=== PATIENT | male | born 1955 | race Caucasian/White ===

== ENCOUNTER 2023-11-01 14:20 | Emergency (ER) | payer BC, SELFPAY ==
[2023-11-01 14:40] VITALS: BP 112/54; PULSE 76; RESP 20; TEMP 37.3; O2SAT 98; BMI 28.0
--- NOTE | 2023-11-01 14:53 | EXP.UTC ---
Discharge Plan Disposition Condition: Good Prescriptions Prescriptions: No Action atorvastatin 40 mg tablet 40 mg PO DAILY metoprolol succinate 100 mg tablet extended release 24 hr 100 mg PO DAILY lisinopril 10 mg tablet 10 mg PO DAILY finasteride 5 mg tablet 5 mg PO DAILY Referrals Follow up/Referrals: Orlin Elizabeth MBBS [Primary Care Provider] - See instructions Activity Restrictions/Add. Instructions Additional Instructions/Restrictions: *Monitor Temp, Over the counter Motrin or Tylenol as directed/as needed Tylenol every 4 hours and Motrin every 6 hours (as long as your family doctor has told you that you can take it) for fever or pain. and straight to ER if unable to lower temp less than 101.0 after medication given *Warm salt water gargles may help to soothe the throat *Throat Lozenges? *Warm fluids like tea with honey may help to soothe the throat? *Sleep elevated *Humidifier/Vaporizer Over the counter cold and cough medications may help with symptoms Follow up IMMEDIATELY for new or worsening symptoms or no Noticeable improvement over the next 48-72 hours. 911 for difficulty breathing or swallowing Clinical Impressions Clinical Impression: Viral syndrome Instructions Patient Instructions: DI for COVID-19 (Suspected or Confirmed ) Discharge ED Provider: Sherrie Holland [facility] General Stated complaint: pos at home covid test 11/01 Mode of Arrival: Ambulatory Source of Information: Patient Limitations: No Limitations Time Seen by Provider: 11/01/23 14:53 Description of Symptoms (Recalled from Triage Doc. by RN): PATIENT REPORTS A POSITIVE AT HOME COVID TEST TODAY. C/O FEVER AND CONGESTION HEENT Symptoms (Recalled from RN notes): No Resp Symptoms (Recalled from RN notes): No Skin Symptoms (Recalled from RN notes): No MS Symptoms (Recalled from RN notes): No Functional Status (Recalled from RN notes): WNL History of Present Illness Provider Complaint: Patient states that he has been taking care of his that is positive for COVID States that he started with some sinus congestion and runny nose yesterday and took a COVID test and he was negative but today he started having some chills, and feeling like he had a fever and took another home test and it showed positive States that he wanted to come in here and get some Paxlovid Related Data Home Medications Medication Instructions Recorded Confirmed atorvastatin 40 mg tablet 40 mg PO DAILY 11/01/23 11/01/23 finasteride 5 mg tablet 5 mg PO DAILY 11/01/23 11/01/23 lisinopril 10 mg tablet 10 mg PO DAILY 11/01/23 11/01/23 metoprolol succinate 100 mg 100 mg PO DAILY 11/01/23 11/01/23 tablet,extended release 24 hr Allergies Allergy/AdvReac Type Severity Reaction Status Date / Time No Known Allergies Allergy Verified 11/01/23 14:50 Worker's Comp Is this a Worker's Comp case?: No [facility] Disclaimer: The information contained in this section may have been updated after the patient was seen, as this information can be updated by other users. Medical History (Updated 11/01/23 @ 15:10 by Sherrie Holland APRN) Hyperlipidemia Hypertension Social History Smoking Status: Unknown if ever smoked alcohol intake: never current occupational status: employed Travel in the last 8 weeks: None ROS Obtained: Yes All systems reviewed & no additional complaints except as documented and Yes Systems reviewed as appropriate & no additional complaints except as documented Constitutional Constitutional: Reports system reviewed and no additional complaints, except as documented, Reports as per HPI, Reports body ache, Reports chills and Reports fever(s) ENT Ears, Nose, Mouth, and Throat: Reports system reviewed and no additional complaints, except as documented, Reports as per HPI, Reports nasal congestion and Reports nasal discharge Cardiovascular Cardiovascular: Rep
[2023-11-01 14:54] VITALS: BP 112/54; PULSE 76; RESP 20; TEMP 37.3; O2SAT 98
== END 2023-11-01 15:10 | disposition home or self-care (01) ==
PROVIDERS: Emergency Provider Nurse Practitioner; PCP Family Medicine Sports Medicine
DX: R09.81 Nasal congestion (principal); R50.9 Fever, unspecified; I10 Essential (primary) hypertension; E78.5 Hyperlipidemia, unspecified; Z20.822 Contact with and (suspected) exposure to COVID-19
CPT/HCPCS: 99204; 99212; G0463

== ENCOUNTER 2024-04-06 09:26 | Outpatient (CLI) | payer BC, SELFPAY ==
[2024-04-06 10:09] LABS: INR 2.51 (0.9-1.1); Prothrombin Time 25.5 seconds (10.1-12.5)
== END 2024-04-06 23:59 | disposition home or self-care (01) ==
LOC: LAB 09:29
PROVIDERS: PCP Family Medicine Sports Medicine; Visit Provider Nurse Practitioner
DX: Z51.81 Encounter for therapeutic drug level monitoring (principal); Z79.01 Long term (current) use of anticoagulants
CPT/HCPCS: 36415; 85610

== ENCOUNTER 2024-04-13 12:53 | Outpatient (CLI) | payer BC, SELFPAY ==
[2024-04-13 15:36] LABS: INR 1.87 (0.9-1.1); Prothrombin Time 19.4 seconds (10.1-12.5)
== END 2024-04-13 23:59 | disposition home or self-care (01) ==
LOC: LAB 12:54
PROVIDERS: PCP Nurse Practitioner; Visit Provider Internal Medicine Cardiovascular Disease
DX: Z51.81 Encounter for therapeutic drug level monitoring (principal); Z79.01 Long term (current) use of anticoagulants
CPT/HCPCS: 36415; 85610

== ENCOUNTER 2024-04-20 15:27 | Outpatient (CLI) | payer BC, SELFPAY ==
[2024-04-20 16:25] LABS: INR 1.41 (0.9-1.1); Prothrombin Time 14.9 seconds (10.1-12.5)
== END 2024-04-20 23:59 | disposition home or self-care (01) ==
LOC: LAB 15:31
PROVIDERS: Nurse Practitioner; Visit Provider Internal Medicine Cardiovascular Disease
DX: Z79.01 Long term (current) use of anticoagulants (principal); R71.8 Other abnormality of red blood cells
CPT/HCPCS: 36415; 85610

== ENCOUNTER 2024-04-26 14:45 | Outpatient (CLI) | payer BC, SELFPAY ==
[2024-04-26 16:09] LABS: INR 1.82 (0.9-1.1); Prothrombin Time 18.9 seconds (10.1-12.5)
== END 2024-04-26 23:59 | disposition home or self-care (01) ==
LOC: LAB 14:47
PROVIDERS: Nurse Practitioner; PCP Family Medicine Sports Medicine; Visit Provider Internal Medicine Cardiovascular Disease
DX: Z79.01 Long term (current) use of anticoagulants (principal); R71.8 Other abnormality of red blood cells
CPT/HCPCS: 36415; 85610

== ENCOUNTER 2024-05-11 09:33 | Outpatient (CLI) | payer BC, SELFPAY ==
[2024-05-11 10:22] LABS: Prothrombin Time 17.1 seconds (10.1-12.5)
== END 2024-05-11 23:59 | disposition home or self-care (01) ==
LOC: LAB 09:34
PROVIDERS: Nurse Practitioner; PCP Family Medicine Sports Medicine; Visit Provider Internal Medicine Cardiovascular Disease
DX: Z79.01 Long term (current) use of anticoagulants (principal)
CPT/HCPCS: 36415; 85610

== ENCOUNTER 2024-05-18 17:00 | Outpatient (CLI) | payer BC, SELFPAY ==
[2024-05-18 17:56] LABS: INR 1.49 (0.9-1.1)
== END 2024-05-18 23:59 | disposition home or self-care (01) ==
LOC: LAB 17:02
PROVIDERS: Nurse Practitioner; PCP Family Medicine Sports Medicine; Visit Provider Family Medicine Sports Medicine
DX: Z79.01 Long term (current) use of anticoagulants (principal)
CPT/HCPCS: 36415; 85610

== ENCOUNTER 2024-06-28 12:00 | Outpatient (CLI) | payer BC, SELFPAY ==
[2024-06-28 12:58] LABS: INR 1.64 (0.9-1.1); Prothrombin Time 17.5 seconds (10.1-12.5)
== END 2024-06-28 23:59 | disposition home or self-care (01) ==
PROVIDERS: PCP Family Medicine Sports Medicine; Visit Provider Nurse Practitioner
DX: Z79.01 Long term (current) use of anticoagulants (principal)
CPT/HCPCS: 36415; 85610

== ENCOUNTER 2024-07-06 12:58 | Outpatient (CLI) | payer BC, SELFPAY ==
[2024-07-06 13:24] LABS: Prothrombin Time 28.3 seconds (10.1-12.5)
== END 2024-07-06 23:59 | disposition home or self-care (01) ==
PROVIDERS: PCP Family Medicine Sports Medicine; Visit Provider Nurse Practitioner
DX: Z79.01 Long term (current) use of anticoagulants (principal)
CPT/HCPCS: 36415; 85610

== ENCOUNTER 2024-07-18 11:55 | Outpatient (CLI) | payer BC, SELFPAY ==
[2024-07-18 12:54] LABS: INR 3.01 (0.9-1.1); Prothrombin Time 30.2 seconds (10.1-12.5)
== END 2024-07-18 23:59 | disposition home or self-care (01) ==
LOC: LAB 11:57
PROVIDERS: PCP Family Medicine Sports Medicine; Visit Provider Family Medicine Sports Medicine
DX: Z79.01 Long term (current) use of anticoagulants (principal)
CPT/HCPCS: 36415; 85610

== ENCOUNTER 2024-08-08 11:00 | Outpatient (CLI) | payer BC, SELFPAY ==
[2024-08-08 12:08] LABS: Prothrombin Time 22.8 seconds (10.1-12.5)
== END 2024-08-08 23:59 | disposition home or self-care (01) ==
LOC: LAB 11:01
PROVIDERS: PCP Family Medicine Sports Medicine; Visit Provider Family Medicine Sports Medicine
DX: Z79.01 Long term (current) use of anticoagulants (principal)
CPT/HCPCS: 36415; 85610

== ENCOUNTER 2024-09-06 10:10 | Outpatient (CLI) | payer BC, SELFPAY ==
[2024-09-06 10:53] LABS: INR 2.12 (0.9-1.1)
== END 2024-09-06 23:59 | disposition home or self-care (01) ==
LOC: LAB 10:11
PROVIDERS: Nurse Practitioner; PCP Family Medicine Sports Medicine; Visit Provider Family Medicine Sports Medicine
DX: Z79.01 Long term (current) use of anticoagulants (principal)
CPT/HCPCS: 36415; 85610

== ENCOUNTER 2024-10-27 11:56 | Outpatient (CLI) | payer BC, SELFPAY ==
[2024-10-27 12:36] LABS: Prothrombin Time 37.3 seconds (10.1-12.5)
== END 2024-10-27 23:59 | disposition home or self-care (01) ==
LOC: LAB 11:58
PROVIDERS: Nurse Practitioner; PCP Family Medicine Sports Medicine; Visit Provider Family Medicine Sports Medicine
DX: Z79.01 Long term (current) use of anticoagulants (principal)
CPT/HCPCS: 36415; 85610

== ENCOUNTER 2024-11-10 11:45 | Outpatient (CLI) | payer BC, SELFPAY ==
[2024-11-10 12:47] LABS: INR 2.85 (0.9-1.1); Prothrombin Time 28.8 seconds (10.1-12.5)
== END 2024-11-10 23:59 | disposition home or self-care (01) ==
PROVIDERS: PCP Family Medicine Sports Medicine; Visit Provider Nurse Practitioner
DX: Z79.01 Long term (current) use of anticoagulants (principal)
CPT/HCPCS: 36415; 85610

== ENCOUNTER 2024-12-07 15:33 | Outpatient (CLI) | payer BC, SELFPAY ==
[2024-12-07 16:11] LABS: INR 2.09 (0.9-1.1); Prothrombin Time 21.3 seconds (9.2-12.1)
== END 2024-12-07 23:59 | disposition home or self-care (01) ==
LOC: LAB 15:35
PROVIDERS: PCP Family Medicine Sports Medicine; Visit Provider Family Medicine Sports Medicine
DX: Z79.01 Long term (current) use of anticoagulants (principal)
CPT/HCPCS: 36415; 85610

== ENCOUNTER 2025-01-04 13:42 | Outpatient (CLI) | payer BC, SELFPAY ==
[2025-01-04 14:22] LABS: INR 1.87 (0.9-1.1); Prothrombin Time 19.7 seconds (10.1-12.5)
== END 2025-01-04 23:59 | disposition home or self-care (01) ==
LOC: LAB 13:43
PROVIDERS: Nurse Practitioner; PCP Family Medicine Sports Medicine; Visit Provider Family Medicine Sports Medicine
DX: Z79.01 Long term (current) use of anticoagulants (principal)
CPT/HCPCS: 36415; 85610

== ENCOUNTER 2025-02-01 11:02 | Outpatient (CLI) | payer BC, SELFPAY ==
[2025-02-01 11:29] LABS: INR 2.47 (0.9-1.1); Prothrombin Time 25.3 seconds (10.1-12.5)
== END 2025-02-01 23:59 | disposition home or self-care (01) ==
LOC: LAB 11:04
PROVIDERS: Visit Provider Nurse Practitioner
DX: Z79.01 Long term (current) use of anticoagulants (principal)
CPT/HCPCS: 36415; 85610

== ENCOUNTER 2025-02-28 14:40 | Outpatient (CLI) | payer BC, SELFPAY ==
[2025-02-28 15:31] LABS: Prothrombin Time 25.6 seconds (10.1-12.5)
== END 2025-02-28 23:59 | disposition home or self-care (01) ==
LOC: LAB 14:41
PROVIDERS: Nurse Practitioner; PCP Family Medicine Sports Medicine; Visit Provider Family Medicine Sports Medicine
DX: Z79.01 Long term (current) use of anticoagulants (principal)
CPT/HCPCS: 36415; 85610

== ENCOUNTER 2025-03-29 13:03 | Outpatient (CLI) | payer BC, SELFPAY ==
[2025-03-29 14:11] LABS: INR 1.69 (0.9-1.1)
== END 2025-03-29 23:59 | disposition home or self-care (01) ==
LOC: LAB 13:04
PROVIDERS: PCP Family Medicine Sports Medicine; Visit Provider Family Medicine Sports Medicine
DX: Z79.01 Long term (current) use of anticoagulants (principal)
CPT/HCPCS: 36415; 85610

== ENCOUNTER 2025-04-13 11:46 | Outpatient (CLI) | payer BC, SELFPAY ==
[2025-04-13 12:20] LABS: INR 2.78 (0.9-1.1); Prothrombin Time 28.6 seconds (10.1-12.5)
== END 2025-04-13 23:59 | disposition home or self-care (01) ==
LOC: LAB 11:47
PROVIDERS: PCP Family Medicine Sports Medicine; Visit Provider Nurse Practitioner
DX: Z79.01 Long term (current) use of anticoagulants (principal)
CPT/HCPCS: 36415; 85610

== ENCOUNTER 2025-05-18 10:53 | Outpatient (CLI) | payer BC, SELFPAY ==
--- OUTSIDE RECORDS SUMMARY | 2025-03-20 12:30 | XMS_ITS | Encounter Summary ---
Author Organization [facility] Address [address] [place] [address] Care Team Providers Care Adventure Challenge Instructor Name Role Phone Josseline Longo Unavailable [phone] Orlin Elizabeth MD Primary Care Provider Jess Hawk HEAT TREATING OPERATOR Unavailable [phone] Rafaela Brantley PharmD Unavailable [phone] Jovana Wetzel PharmD Unavailable + Skyla Mai Unavailable [phone] Reason for Referral * Imaging (Routine) - Pending Review Specialty Diagnoses / Procedures Referred By Contherminio t Referred To Contact Radiology Diagnoses Benign prostatic hyperplasia with nocturia Incomplete bladder emptying Procedures CT Renal Stone wo IV Contrast Skyla Mai PA [address] [place] [address] Phone: tel: fax: Referral ID Status Reason Start Date Expiration Date V isits Requested Visits Authorized [id number] Pending Review 03/20/2025 09/19/2026 1 1 Reason for Visit * Reason Comments Follow-up Encounter Details Date Type Department Care Team (Late st Contact Info) Description 03/20/2025 12:30 PM EDT Office Visit [place] [facility] [address] [place] [address] Skyla Mai PA [address] [place] [address] Benign prostatic hyperplasia with nocturia (Primary Dx); Incomplete bladder emptying; Prostate cancer screening Social History Tobacco Use Types Packs/Day Years Used Date Smoking Tobacco: Never Smokeless Tobacco: Never Alcohol Use Standard Drinks/Week Comments Not Currently 0 (1 standard drink = 0.6 oz pur e alcohol) Humiliation, Afraid, Rape, and Kick questionnair e Answer Date Recorded Within the last year, have y ou been afraid of your partner or ex-partner? No 02/17/2024 Within the last year, have y ou been humiliated or emotionally abused in other ways by your partner or ex-partner? No Within the last year, have y ou been kicked, hit, slapped, or otherwise physically hurt by your partner or ex-partner? No 02/17/2024 Within the last year, have y ou been raped or forced to have any kind of sexual activity by your partner or ex-partner? No 02/17/2024 PHQ-2 Answer Date Recorded Patient Health Questionnaire-2 Score 0 11/30/2024 Hunger Vital Sign Answer Date Recorded Within the past 12 months, y ou worried that your food would run out before you got the money to buy more. Never true 03/16/20 24 Within the past 12 months, t he food you bought just didn't last and you didn't have money to get more. Never true 03/16/2024 PRAPARE - Transportation Answer Date Re corded In the past 12 months, has l ack of transportation kept you from medical appointments or from getting medications? No 06/2024 In the past 12 months, has l ack of transportation kept you from meetings, work, or from getting things needed for daily living? No 03/16/2024 Housing Stability Vital Sign Answer Carlos e Recorded In the last 12 months, was t here a time when you were not able to pay the mortgage or rent on time? No 03/16/2024 In the last 12 months, how many places have you lived? 1 03/16/2024 In the last 12 months, was t here a time when you did not have a steady place to sleep or slept in a fdc (including now)? No 03/16/2024 CAGE ASSESSMENT Answer Date Recorded Cage unable to access Not on file 03/16/2024 Cage max number of drinks Not on file 2023 Cage Beverages a week Not on file 03/16/2024 Have you ever felt you should CUT down on your d rinking? 0 03/16/2024 Have you been ANNOYED by people criticizing your drinking? 0 03/16/2024 Have you felt GUILTY about your drinking? 0 03/16/2024 Have you had a drink first t jorge in the morning (EYE-AUTO REPAIR TECHNICIAN) to steady your nerves or to get rid of a hangover? 0 03/16/2024 CAGE Questionnaire Score 0 024 Utilities Answer Date Recorded In the past 12 months has th e electric, gas, oil, or water company threatened to shut off services in your home? No 03/16/2024 PHQ-2A Answer Date Recorded Patient Health Questionnaire-2 Score 0 05/20/2023 Sex and Gender Information Value Date Recorded Sex Assigned at Not on file Legal Sex Male 8:17 PM EDT Gender Identity Not on file Sexual Orientation Not on file documented as of this encounter Last Filed Vital Signs Vital Sign Reading Time Taken Comments Blood Pressure 109/63 03/20/2025 12:35 PM EDT Pulse 60 03/20/2025 12:35 PM EDT Temperature 36.5 C (97.7 F) 03/20/2025 12:35 PM EDT Respiratory Rate - - Oxygen Saturation 97% 03/20/2025 12:35 PM EDT Inhaled Oxygen Concentration - - Weight 82 kg (180 lb 12.4 oz) 03/20/2025 12:35 P M EDT Height - - Body Mass Index 25.21 11/30/2024 2:16 PM EST documented in this encounter Miscellaneous Notes * Progress Notes - Skyla Mai PA - 03/20/2025 12:30 PM EDT [facility] Note 03/20/25 CC: LUTS HPI: Marco A Ness III is a 69 y.o. M with hx of nephrolithiasis, BPH with LUTS managed with finasteride and tamsulosin 0.8mg daily who returns today for symptom check. Since last seen he underwent cardiac ablation for a fib. Also now taking coumadin. He is attempting to drink more water, and notes significant increased urinary urgency, wearing a diaper now for leakage. Leakage is mostly associated with increased urgency. He utilizes one diaper daily without being completely saturated. No overnight leakage. He has sleep apnea and wakes once nightly to urinate. He denies: dysuria, hematuria, frequency, fever, abdominal or flank pain. He denies recurrent UTI. No kidney stones since 2003, has increased his fluid intake significantly since that time and has had minimal symptoms or stone related episodes since that time. IPSS Date 03/23/24 03/20/25 Incomplete Emptying 1 0 Frequency 3 3 Intermittency 0 0 Urgency 3 5 Weak Stream 3 1 Straining 0 2 Nocturia 2 1 QOL 2 3 Prior hx: He previously underwent cystoscopy with Dr. Merritt for workup of potential [place] procedure, which showed a very large intravesical median lobe and lateral lobe hypertrophy. Per patient, they discussedthat his prostate is too large for Urolift, would likely need a TURP. He does not feel his symptomsare bothersome enough at this time to pursue surgical treatment. PMHx: Past Medical History: Diagnosis Date A-fib (CMS/HCC) BPH (benign prostatic hyperplasia) Cardiomyopathy Colon polyp 03/03/2023 Conversions - Other Urethral Stone Personal history of other mental and behavioral disorders History of depression Primary central sleep apnea In my history Sleep apnea 2017? Tremor PSHx: Past Surgical History: Procedure Laterality Date JOINT REPLACEMENT 07/2019, 10/2014 KNEE SURGERY Left 2010 LITHOTRIPSY N/A Lithotripsy from [facility] TOTAL HIP ARTHROPLASTY N/A Hip Replacement from [facility] FHx: Family History Problem Relation Name Age of Onset Alzheimer's disease Mother Aiyana Ness Diabetes Mother Aiyana Ness arteriosclerotic cardiovascular disease Father Marco A Diabetes Father Marco A Heart attack Father Marco A Nephrolithiasis Father Marco A Cancer Father Marco A Heart disease Father Marco A Obesity Father Marco A SHx: Social History Socioeconomic History Marital status: Spouse name: Not on file Number of children: Not on file Years of education: Not on file Highest education level: Not on file Occupational History Not on file Tobacco Use Smoking status: Never Smokeless tobacco: Never Vaping Use Vaping status: Never Used Substance and Sexual Activity Alcohol use: Not Currently Drug use: Never Sexual activity: Not Currently Partners: Female control/protection: None Other Topics Concern Not on file Social History Narrative Occupation: Marital History - Currently Social Drivers of Health Financial Resource Strain: Not on file Food Insecurity: No Food Insecurity (03/16/2024) Hunger Vital Sign Worried About Running Out of Food in the Last Year: Never true Ran Out of Food in the Last Year: Never true Transportation Needs: No Transportation Needs (03/16/2024) PRAPARE - Transportation Lack of Transportation (Medical): No Lack of Transportation (Non-Medical): No Physical Activity: Not on file Stress: Not on file Social Connections: Not on file Intimate Partner Violence: Not At Risk (02/17/2024) Humiliation, Afraid, Rape, and Kick questionnaire Fear of Current or Ex-Partner: No Emotionally Abused: No Physically Abused: No Sexually Abused: No Housing Stability: Low Risk (03/16/2024) Housing Stability Vital Sign Unable to Pay for Housing in the Last Year: No Number of Places Lived in the Last Year: 1 Unstable Housing in the Last Year: No Physical Exam: General: alert, active, in no acute distress Head: normocephalic Eyes: extraocular muscles intact Lungs: normal respiratory effort Neuro: CN II- XII intact Musculoskeletal: BL UE demonstrate equal movement Labs: Creatinine, Plasma (mg/dL) Date/Time Value 11/30/2024 1504 1.06 eGFRcr (mL/min/1.73m*2) Date/Time Value 11/30/2024 1504 76.0 Total Calcium, Plasma (mg/dL) Date/Time Value 11/30/2024 1504 8.9 WBC Count (10*3/uL) Date/Time Value 06/16/2024 1605 7.04 HGB (g/dL) Date/Time Value 06/16/2024 1605 14.4 HCT (%) Date/Time Value 06/16/2024 1605 43.5 Platelet Count (10*3/uL) Date/Time Value 06/16/2024 1605 246 Lab Results Component Value Date/Time PSASC 0.70 11/21/2022 1124 PSASC 0.71 05/07/2022 1126 Lab Results Component Value Date PSA 0.45 03/20/2025 PSA 0.50 03/23/2024 PSA 0.68 03/11/2023 PSA 0.98 10/10/2020 PSA 3.49 05/16/2019 Imaging: PVR bladder ultrasound 03/23/24: 284mL PVR bladder ultrasound 03/20/25: 470mL Procedure: Discussed options for bladder management and ultimately elected for CIC. Was taught to pass catheter in clinic. Advised to try to void spontaneously q 3-4 hours during the daytime and if unable, should pass catheter to empty bladder at least morning, noon and at night before bed. Provided with samples of 14Fr coude and 12 Fr coude disposable catheters and instructions. Assessment: Marco A Ness III is a 69 y.o. M with hx of nephrolithiasis and lower urinary tract symptoms. His symptoms have previously been managed with finasteride and tamsulosin, but today patientendorses worsening LUTS including urinary incontinence and his PVR was elevated today to 470 mL. Wediscussed that his incontinence is likely a mix of urge and overflow incontinence given incomplete bladder emptying. PSA remains low today, 0.45. We discussed options including learning how to perform CIC vs meeting with Dr. Thompson to discuss an outlet procedure, and patient is leaning towards a procedure. This is complicated by the fact that he is on coumadin for anticoagulation (for a fib), andthis does limit options available to him. He would still like to discuss recommendations, thereforeI will order CT A/P for further evaluation of prostate size (and to reassess hx of nephrolithiasis). Briefly discussed green light laser vaporization of the prostate. In the interim, he is agreeable to performing CIC three times daily to ensure bladder emptying. Judith Sanders LPN taught patient how to do so and he was given supplies today. Urine output was closer to 600mL today in clinic. Plan: - Continue tamsulosin 0.8mg bid and finasteride 5mg daily for LUTS - RTC in next 2-[address] prior to discuss outlet procedures with DENZEL Gutierres documented in this encounter Plan of Treatment Upcoming Encounters Date Type Department Care Team (Late st Contact Info) Description 07/05/2025 12:10 PM EDT Appointment [facility] [address] [place] [address] 07/05/2025 1:45 PM EDT Office Visit [facility] U[facility] [address], [address] [place] [address] Gema Thompson MD [address] [place] [address] 07/21/2025 11:00 AM EDT Office Visit [facility] [address] [place] [address] Orlin Elizabeth MD [address] [place] [address] [address] [place] [address] Scheduled Orders Name Type Priority Associated Diagnoses Orde r Schedule CT Renal Stone wo IV Contrast Imaging Routine Benign prostatic hyperplasia with nocturia Incomplete bladder emptying Expected: 03/20/2025 (Approximate), Expires: 09/20/2026 documented as of this encounter Procedures Procedure Name Priority Date/Time Associated Diagnosis Comments POC US BLADDER SCAN FOR VOLUME Routine 03/20/2025 12:49 PM EDT Benign prostatic hyperplasia with nocturia POCT URINALYSIS DIPSTICK Routine 03/20/2025 12:32 PM EDT documented in this encounter Results * POC US Bladder Volume (03/20/2025 12:49 PM EDT) Urine, Volume 470 mL IMAGING Anatomical Region Laterality Modality Other us Skyla MAHONEY IMG POINT OF CARE ULTRASOUND F inal Result * (ABNORMAL) POCT URINALYSIS DIPSTICK (03/20/2025 12:32 PM EDT) POCT Urine Color Yellow 03/20/2025 12:33 PM EDT [facility] POCT Urine Clarity Clear 03/20/2025 12:33 PM EDT [facility] POCT Urine Glucose 500(A) Negative mg/dL 03/20/2025 12:33 PM EDT [facility] POCT Urine Bilirubin Negative Negative mg/dL 03/20/2025 12:33 PM EDT [facility] POCT Urine Ketones Negative Negative mg/dL 03/20/2025 12:33 PM EDT [facility] POCT Urine Specific [place] 1.015 1.005 - 1.030 03/20/2025 12:33 PM EDT [facility] POCT Urine Blood Negative Negative 03/20/2025 12:33 PM EDT [facility] POCT pH, Urine 6.0 5.0 - 8.0 03/20/2025 12:33 PM EDT [facility] POCT Protein, Urine Negative Negative mg/dL 03/20/2025 12:33 PM EDT [facility] POCT Urobilinogen, Urine 0.2 0.2, 1.0 EU/dL 03/20/2025 12:33 PM EDT [facility] POCT Nitrite, Urine Negative Negative 03/20/2025 12:33 PM EDT [facility] POCT Urine Leukocyte Esterase Negative Negative 03/20/2025 12:33 PM EDT [facility] Urine 03/20/2025 12:3 2 PM EDT 03/20/2025 12:33 PM EDT Skyla MAHONEY LAB POINT OF CARE TE ST DOCKED DEVICE UNSOLICITED RESULTS Final Result [facility] [address], [place] documented in this encounter Visit Diagnoses Diagnosis Benign prostatic hyperplasia with nocturia- Primary Incomplete bladder emptying Prostate cancer screening Special screening for malignant neoplasm of prostate documented in this encounter Additional Health Concerns Infection Onset Date Last Indicated Resolved Time MRSA Comment: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 Source: [facility]. 10/19/2014 MRSA Escalation Plan Comment:MRSA Escalation Plan is in effect as of 2023. Patient will require contact precautions for the duration of the hospital admission. 03/17/2024 03/17/2024 Assessment Noted Time A fall risk assessment has been complete d for the patient 11/30/2024 2:21 PM EST A Body Mass Index follow-up plan has been documented for the patient 03/20/2025 4:56 PM EDT documented as of this encounter Care Teams Adventure Challenge Instructor Relationship Specialty Start Date End Date Orlin Elizabeth MD [address] [facility] [address] [place] [phone] PCP - General Family Medicine 11/25/22 Josseline Longo PA [address] [address] [place] [address] Physician Affiliate Marketing Specialist Neurology 08/16/21 Jess Hawk APRN [address] [place] [phone] Nurse Practitioner Cardiology 06/01/24 aRfaela Brantley, PharmD [address] [place] [phone] Pharmacist Pharmacy 06/03/24 Jovana Wetzel, LissaD [address] [place] [phone] Pharmacist Pharmacy 06/13/24 Skyla Mai PA [address] [facility] [address] [place] [address] Physician Affiliate Marketing Specialist Urology 03/20/25 documented as of this encounter
--- OUTSIDE RECORDS SUMMARY | 2025-04-20 10:00 | XMS_ITS | Encounter Summary ---
Author Organization [facility] Address [address] [place] [address] Care Team Providers Care Head Of Cytogenetics Name Role Phone Josseline Longo Unavailable [phone] Orlin Elizabeth MD Primary Care Provider Jess Hawk GUYLINE OPERATOR Unavailable [phone] Rafaela Brantley PharmD Unavailable [phone] Jovana Wetzel PharmD Unavailable + Skyla Mai PA Unavailable [phone] Reason for Visit * Reason Comments Annual Exam Encounter Details Date Type Department Care Team (Late st Contact Info) Description 04/20/2025 10:00 AM EDT Office Visit [facility] [address] [place] [address] Orlin Elizabeth MD [address] [facility] [address] [place] [address] Prediabetes (Primary Dx); Chronic heart [...] place to sleep or slept in a mcc (including now)? No 03/16/2024 Humiliation, Afraid, Rape, [...] any time in the past 12 m [facility], were you homeless or living in a mcc (including now)? No 04/20/2025 Safety and Environment [...] drink first t jorge in the morning (EYE-EXTERNAL GRINDER TENDER) to steady your nerves or to get [...] pt in chair with arms Cosigned by Olrin Elizabeth MD at 04/20/2025 10:34 AM EDT [...] A1c today. His last A1c was 5.9. [place]/callus: Location right foot, lateral aspect, recommend salicylic [...] Info) Description 07/05/2025 12:10 PM EDT Appointment [facility] [address] [place] [address] 07/05/2025 1:45 PM EDT Office Visit Medical Office Building Urology [address] [facility], [address] [place] [address] Gema Thompson MD [address] [place] [address] 07/21/2025 11:00 AM EDT Office Visit [facility] [address] [place] [address] Orlin Elizabeth MD [address] [place] [address] [address] [place] [address] documented as of this encounter [...] LAB HEMATOLOGY METHOD 04/20/2025 6:21 PM EDT [facility] RBC Count 4.75 4.60 - 6.10 10*6/uL LAB HEMATOLOGY METHOD 04/20/2025 6:21 PM EDT [facility] HGB 15.1 13.7 - 17.5 g/dL LAB HEMATOLOGY METHOD 04/20/2025 6:21 PM EDT [facility] HCT 46.6 40.0 - 51.0 % LAB HEMATOLOGY METHOD 04/20/2025 6:21 PM EDT [facility] Platelet Count 253 155 - 369 10*3/uL LAB HEMATOLOGY METHOD 04/20/2025 6:21 PM EDT [facility] MCV 98 79 - 98 fL LAB HEMATOLOGY METHOD 04/20/2025 6:21 PM EDT [facility] MCH 31.8 26.0 - 32.0 pg LAB HEMATOLOGY METHOD 04/20/2025 6:21 PM EDT [facility] MCHC 32.4 30.7 - 35.5 g/dL LAB HEMATOLOGY METHOD 04/20/2025 6:21 PM EDT [facility] RDW 13.4 11.5 - 14.5 % LAB HEMATOLOGY METHOD 04/20/2025 6:21 PM EDT [facility] MPV 10.3 8.8 - 12.5 fL LAB HEMATOLOGY METHOD 04/20/2025 6:21 PM EDT [facility] nRBC 0.0 <=0.0 per 100 WBCs LAB HEMATOLOGY METHOD 04/20/2025 6:21 PM EDT [facility] Blood Venous blood specimen / Unknown Venipuncture / Unknown 04/20/2025 11:28 AM EDT 04/20/2025 11:28 AM EDT Orlin Elizabeth MD LAB BLOOD ORDERABLES Fi nal Result Performing Organization Address [facility] Co de Phone Number [facility] [address] [place] [address] * (ABNORMAL) Vitamin D 25 Hydroxy (04/20/2025 11:28 AM EDT) Vitamin D 25 Hydroxy 86.8(H) 20.0 - 80.0 ng/mL 04/20/2025 7:12 PM EDT [facility] Blood Venous blood specimen / Unknown Venipuncture / Unknown 04/20/2025 11:28 AM EDT 04/20/2025 11:28 AM EDT Narrative [facility] - 04/20/2025 7:12 PM EDT Testing performed on [place] Pattern Hanger, standardized against NIST SRM 2972. When testing [...] ORDERABLES Fi nal Result Performing Organization Address [facility] Co de Phone Number [facility] [address] [place] [address] * Lipid Profile, Plasma (04/20/2025 11:28 AM EDT) Cholesterol, Plasma 167 <200 mg/dL 04/20/2025 6:33 PM EDT [facility] Comment: Cholesterol Reference Range (age >17 years): Desirable <200 mg/dL Borderline 200 to 239 mg/dL Undesirable >239 mg/dL HDL 64 >=40 mg/dL 04/20/2025 6:33 PM EDT [facility] Comment: HDL Cholesterol Reference Ranges (age >17 years): Female, acceptable > or = 50 mg/dL Male, acceptable > or = 40 mg/dL Triglycerides, Plasma 49 <150 mg/dL 04/20/2025 6:33 PM EDT [facility] Comment: Triglyceride Reference Range (age >17 years): Desirable: <150 mg/dL Borderline high: 150 to 199 mg/dL High: 200 to 499 mg/dL Very high: >499 mg/dL Increased risk of pancreatitis: >1000 mg/dL Cholesterol/HDL Ratio 3 04/20/2025 6:33 PM EDT [facility] LDL, Calculated 93 <100 mg/dL 6:33 PM EDT [facility] Comment: LDL Cholesterol Reference Range [...] 12 hours? No 04/20/2025 6:33 PM EDT [facility] Comment:1 banana Blood Venous blood specimen / Unknown Venipuncture / Unknown 04/20/2025 11:28 AM EDT 04/20/2025 11:28 AM EDT us Orlin Elizabeth MD LAB BLOOD ORDERABLES Fi nal Result [facility] [address] [place] [address] * (ABNORMAL) Hemoglobin A1c (04/20/2025 11:28 AM EDT) Hemoglobin A1c 6.0(H) <5.7 % 04/20/2025 6:55 PM EDT [facility] Blood Venous blood specimen / Unknown Venipuncture / Unknown 04/20/2025 11:28 AM EDT 04/20/2025 11:28 AM EDT Narrative [facility] - 04/20/2025 6:55 PM EDT HA1C Interpretive Data: Diagnosis of Diabetes: Diabetic > or = 6.5% Pre-diabetic 5.7 to 6.4% Non-diabetic < or = 5.6% Glycemic Targets for Type I and Type II Diabetics: Non- Adults <7.0% Adults <6.0% Children and Adolescents <7.5% Source: [place] [employer]. Standards of medical care in diabetes,2017. Diabetes Care.2017:40 (suppl 1):S1-S135. Orlin Elizabeth MD LAB BLOOD ORDERABLES Fi nal Result [facility] [address] [place] [address] * (ABNORMAL) Comprehensive Metabolic Panel, Plasma (04/20/2025 11:28 AM EDT) Glucose, Plasma 99 74 - 99 mg/dL 04/20/2025 6:33 PM EDT [facility] BUN, Plasma 26(H) 8 - 23 mg/dL 04/20/2025 6:33 PM EDT [facility] Creatinine, Plasma 0.95 0.70 - 1.20 mg/dL 04/20/2025 6:33 PM EDT [facility] BUN/Creatinine Ratio 27 04/20/2025 6:33 PM EDT [facility] Sodium, Plasma 139 136 - 145 mmol/L 04/20/2025 6:33 PM EDT [facility] Potassium, Plasma 5.2(H) 3.6 - 4.9 mmol/L 04/20/2025 6:33 PM EDT [facility] Chloride, Plasma 104 97 - 107 mmol/L 04/20/2025 6:33 PM EDT [facility] CO2, Plasma 27 22 - 29 mmol/L 04/20/2025 6:33 PM EDT [facility] Anion Gap 8 6 - 16 mmol/L 04/20/2025 6:33 PM EDT [facility] Total Calcium, Plasma 9.9 8.9 - 10.2 mg/dL 04/20/2025 6:33 PM EDT [facility] Total Protein 6.9 6.3 - 7.9 g/dL 04/20/2025 6:33 PM EDT [facility] Albumin, Plasma 4.2 3.5 - 5.2 g/dL 04/20/2025 6:33 PM EDT [facility] AST, Plasma 33 10 - 50 U/L 04/20/2025 6:33 PM EDT [facility] ALT, Plasma 34 10 - 50 U/L 04/20/2025 6:33 PM EDT [facility] Alkaline Phosphatase, Plasma 60 40 - 115 U/L 04/20/2025 6:33 PM EDT [facility] Total Bilirubin, Plasma 0.5 0.2 - 1.1 mg/dL 04/20/2025 6:33 PM EDT [facility] eGFRcr 86.1 mL/min/1.7 3m*2 04/20/2025 6:33 PM EDT [facility] Comment:Reported eGFRcr in m L/min/1.73m2 is based the CKD-EPI 2020 equation that does not use a race coefficient. Blood Venous blood specimen / Unknown Venipuncture / Unknown 04/20/2025 11:28 AM EDT 04/20/2025 11:28 AM EDT Orlin Elizabeth MD LAB BLOOD ORDERABLES Fi nal Result [facility] [address] [place] [address] documented in this encounter Visit Diagnoses Diagnosis Prediabetes- Primary Other abnormal glucose Chronic heart failure with preserved ejection fraction (CMS/HCC) Healthcare maintenance Essential tremor Cardiomyopathy, unspecified type (CMS/HCC) Hyperlipidemia, unspecified hyperlipidemia type documented in this encounter Additional Health Concerns Infection Onset Date Last Indicated Resolved Time MRSA Comment: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 Source: [facility]. 10/19/2014 MRSA Escalation Plan Comment:MRSA Escalation Plan [...] documented as of this encounter Care Teams Head Of Cytogenetics Relationship Specialty Start Date End Date Orlin Elizabeth MD [address] [facility] [address] [place] [phone] PCP - General Family Medicine 11/25/22 Josseline Longo PA [address] [place] [phone] Physician Human Relations Manager Neurology 08/16/21 Jess Hawk APRN [address] [place] [address] Nurse Practitioner Cardiology 06/01/24 Rafaela Brantley, PharmD [address] [place] [phone] Pharmacist Pharmacy 06/03/24 Jovana Wetzel, PharmD [address] [place] [phone] Pharmacist Pharmacy 06/13/24 Skyla Mai PA [address] [place] [phone] Physician Human Relations Manager Urology 03/20/25 documented as of this encounter
--- OUTSIDE RECORDS SUMMARY | 2025-05-18 10:58 | XMS_ITS | Encounter Summary ---
Author Organization [facility] Address [address] [place] [address] Care Team Providers Care Account Development Manager Name Role Phone Josseline Longo Unavailable [phone] Orlin Elizabeth MD Primary Care Provider Jess Hawk FIELD CLINICAL ENGINEER Unavailable [phone] Rafaela Brantley PharmD Unavailable [phone] Jovana Wetzel PharmD Unavailable + Skyla Mai PA Unavailable [phone] Encounter Details Date Type Department Care Team (Late st Contact Info) Description 03/21/2025 Results [facility] [address] [place] [address] Skyla Mai PA [address] [place] [address] Social History Tobacco Use Types Packs/Day Years [...] drink first t jorge in the morning (EYE-SCIENCE EDITOR) to steady your nerves or to get [...] on file documented as of this encounter Plan of Treatment Upcoming Encounters Date Type Department Care Team ([facility] st Contact Info) Description 07/05/2025 12:10 PM EDT Appointment [facility] [address] [place] [address] 07/05/2025 1:45 PM EDT Office Visit Medical Office Building Urology [address] [facility], [address] [place] [address] Gema Thompson MD [address] [facility] [address] [place] [address] 07/21/2025 11:00 AM EDT Office Visit [facility] [address] [place] [address] Orlin Elizabeth MD [address] 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 Source: [facility]. 10/19/2014 MRSA Escalation Plan Comment:MRSA Escalation Plan [...] documented as of this encounter Care Teams Account Development Manager Relationship Specialty Start Date End Date Orlin Elizabeth MD [address] [facility] [address] [place] [phone] PCP - General Family Medicine 11/25/22 Josseline Longo PA [address] [place] [address] Physician Optics Technical Officer Neurology 08/16/21 Jess Hawk APRN [address] [place] [address] Nurse Practitioner Cardiology 06/01/24 Rafaela Brantley, PharmD [address] [place] [address] Pharmacist Pharmacy 06/03/24 Jovana Wetzel, PharmD [address] [place] [address] Pharmacist Pharmacy 06/13/24 Skyla Mai PA [address] [place] [address] Physician Optics Technical Officer Urology 03/20/25 documented as of this encounter
--- OUTSIDE RECORDS SUMMARY | 2025-05-18 10:58 | XMS_ITS | Encounter Summary ---
Author Organization [facility] Address [address] [place] [address] Care Team Providers Care [employer] Name Role Phone Josseline Longo Unavailable [phone] Orlin Elizabeth MD Primary Care Provider Jess Hawk CIGARETTE STAMPER Unavailable [phone] Rafaela Brantley PharmD Unavailable [phone] Jovana Wetzel PharmD Unavailable + Skyla Mai Unavailable [phone] Reason for Visit * Reason Onset Date Comments HCN Clinical Concern/Question 03/29/2025 Encounter Details Date Type Department Care Team (Late st Contact Info) Description 03/29/2025 Telephone [facility] [address] [place] [address] Skyla Mai PA [address] [place] [address] HCN Clinical Concern/Question Social History Tobacco Use Types Packs/Day Years [...] place to sleep or slept in a care home (including now)? No 03/16/2024 CAGE ASSESSMENT Answer [...] drink first t jorge in the morning (EYE-ROOFING SUBCONTRACTOR) to steady your nerves or to get rid of a hangover? 0 03/16/2024 CAGE Questionnaire Score 0 024 Utilities Answer Date Recorded In the past 12 months has th [employer], gas, oil, or water company threatened to shut off services in your home? No 03/16/2024 PHQ-2A Answer Date Recorded Patient Health Questionnaire-2 Score 0 05/20/2023 Sex and Gender Information Value Date Recorded Sex Assigned at Not on file Legal Sex Male 8:17 PM EDT Gender Identity Not on file Sexual Orientation Not on file documented as of this encounter Miscellaneous Notes * Telephone Encounter - Kory Saenz - 03/30/2025 12:15 PM EDT Called and spoke with patient. Relayed Skyla Mai's message and pt verbalized understanding. * Telephone Encounter - Alexx Gallardo - 03/30/2025 9:09 AM EDT Patient Phone Message Reason for Call: Pt calling to see if abx could be sent in regarding the UTI sx and pain he is having. Went ahead and scheduled pt for lab for urine culture that has been ordered. Best contact number and optimal time of day to reach caller: [phone] - anytime Note: Please do not reply to this message. Follow-up communication and further actions as a result of this message need to be communicated with the patient directly, if the patient is not active onMyChart. If the patient is active on MyChart, they will receive notification of the communication/outcome via x.ait. * Telephone Encounter - Judith Sanders RN - 03/29/2025 3:35 PM EDT Patient contacted. Reports cloudy urine, occasional blood in the urine after self catheterizing butnot with every void, and dysuria. Denies fever. Patient states self-catheterizing has been going well overall although his essential tremor can be frustrating at times. Patient reports catheterizing BID, in the morning and at night, and getting 350-400 mL urine return. Patient states [facility] has been in contact with patient, that he has plenty of catheters and is expecting another shipment sometime later this week. Patient states if provider is okay with culture, then he would like to have it completed at [facility] tomorrow. Spoke with Skyla Mai PA-C. Per provider, okay to order urine culture. Urine culture order placed. Patient notified. Provided number to make appt at lab. * Telephone Encounter - Gwen Puente - 03/29/2025 2:41 PM EDT Clinical Concern/Question Reason for Call: Pt started self catheterization and thinks he has a UTI. Pt said symptoms have been going on for 2 days. Thanks! Best contact number: [phone] (mobile) Optimal time of day to reach caller: ANYTIME Additional comments/information from caller: None Note: Please do not reply to this message. Follow-up communication and further actions as a result of this message need to be communicated with the patient directly, if the patient is not active onMyChart. If the patient is active on MyChart, they will receive notification of the communication/outcome via Neuropurehart. documented in this encounter Plan of Treatment Upcoming Encounters Date Type Department Care Team ([facility] st Contact Info) Description 07/05/2025 12:[address] [facility] [address] [place] [address] 07/05/2025 1:45 PM EDT Office Visit Medical Office Building Urology [address] [facility], [address] [place] [address] Gema Thompson MD [address] [place] [address] 07/21/2025 11:00 AM EDT Office Visit [facility] [address] [place] [address] Orlin Elizabeth MD [address] [facility] [address] [place] [address] documented as of this encounter Results * (ABNORMAL) Urine Culture - Lab Collect (03/30/2025 4:43 PM EDT) Culture >=100,000 CFU/mL Staphylococcus coagulase negative(A) 04/01/2025 6:58 AM EDT [facility] Urine Urine specimen obtained by clean catch procedure / Unknown Non-blood Collection / Unknown 03/30/2025 4:43 PM EDT 03/30/2025 4:43 PM EDT us Skyla [facility] MICROBIOLOGY - GENERAL ORD ERABLES Final Result [facility] [address] [place] [address] documented in this encounter Visit Diagnoses Diagnosis Suspected UTI- Primary documented in this encounter Additional Health Concerns Infection Onset Date Last Indicated Resolved Time MRSA Comment: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 Source: [facility]. 10/19/2014 MRSA Escalation Plan Comment:MRSA Escalation Plan is in effect as of 2023. Patient will require contact precautions for the duration of the hospital admission. 03/17/2024 03/17/2024 Assessment Noted Time A fall risk assessment has been complete d for the patient 11/30/2024 2:21 PM EST A Body Mass Index follow-up plan has been documented for the patient 03/30/2025 7:25 AM EDT documented as of this encounter Care Teams Short [employer] Air Defense Artillery Relationship Specialty Start Date End Date Orlin Elizabeth MD [address] [facility] [address] [place] [address] PCP - General Family Medicine 11/25/22 Josseline Longo PA [address] [facility] [address] [place] [address] Physician Engagement Engineer Neurology 08/16/21 Jess Hawk APRN [address] [place] [address] Nurse Practitioner Cardiology 06/01/24 Rafaela Brantley, PharmD [address] [place] [address] Pharmacist Pharmacy 06/03/24 Jovana Wetzel, PharmD [address] [place] [address] Pharmacist Pharmacy 06/13/24 Skyla Mai PA [address] [facility] [address] [place] [address] Physician Engagement Engineer Urology 03/20/25 documented as of this encounter
--- OUTSIDE RECORDS SUMMARY | 2025-05-18 10:58 | XMS_ITS | Encounter Summary ---
Author Organization [facility] Address [address] [place] [address] Care Team Providers Care Cement Based Materials Pump Tender Name Role Phone Josseline Longo PA Unavailable [phone] Orlin Elizabeth MD Primary Care Provider Jess Hawk DIE OUT WORKER Unavailable [phone] Rafaela Brantley PharmD Unavailable [phone] Jovana Wetzel PharmD Unavailable + Skyla Mai PA Unavailable [phone] Encounter Details Date Type Department Care Team (Latest Contact Info) Description 03/29/2025 Anticoagulation - Warfarin Visit [facility] [address] [facility] [place] [address] Rafaela Brantley, PharmD [address] [place] [address] MCC (current) use of anticoagulants (Primary Dx); Anticoagulation management encounter Social History Tobacco Use Types Packs/Day Years [...] place to sleep or slept in a halfway (including now)? No 03/16/2024 CAGE ASSESSMENT Answer [...] drink first t jorge in the morning (EYE-GRINDING AND POLISHING LABORER) to steady your nerves or to get [...] encounter Miscellaneous Notes * Progress Notes - Rafaela Brantley, PharmD - 03/29/2025 4:09 PM EDT Images from the original note were not included. 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] Anticoagulation Episode Summary INR check location: Outside Lab Preferred lab: EXTERNAL LAB Send INR reminders to: [facility] Comments: [facility] P: [phone] F: [phone] Anticoagulation Care Providers Provider Role Specialty Phone number Israel Membreno MD Referring Cardiology [phone] Jess Hawk APRN Responsible Cardiology [phone] Additional History: New onset Afib s/p DCCV on 5/8 [id number] =Total score 3, Age 65-74 (1), CHF history (1), and HTN history (1) Rational for warfarin > DOAC: primidone DDI Bridging required (per referral): No Bleeding history: Yes, occasional blood in urine d/t BPH and kidney stones hx. Rare, only happens every 3-4 months.; HASBLED score (Total score 1 and Age >65) DDIs: - OTC vitamin K supplementation: diminishes the anticoagulant effect of warfarin - methimazole: may diminish the anticoagulant effect of warfarin - primidone: may increase metabolism of warfarin OTC pain reliever: acetaminophen, occasional naproxen Dietary vitamin K intake: Yes, broccoli, spinach, alix greens, cabbage. About 1-2 times a week. EtOH use: No Smoking/recreational drug use: No Managing Provider: Jess Hawk APRN - Last office visit: 03/29/24 - Upcoming office visit: TBD Subjective Bruising: No Bleeding signs/symptoms: No Major bleeding event: No Thrombosis signs/symptoms: No Thromboembolic event: No Missed doses: No Extra doses: No Medication changes: No Dietary changes: No Alcohol changes: No Daily activity changes: No Health changes: No ED visit: No Hospital admission: No Upcoming dental procedure: No Upcoming invasive procedure: No Laboratory test error suspected: No Other concerns: No Additional comments: The following portions of the chart were reviewed this encounter and updated as appropriate: Meds Objective INR: Lab Results Component Value Date INR 1.69 03/29/2025 INR 2.5 02/28/2025 INR 2.47 02/01/2025 PROTIME 25.6 02/28/2025 PROTIME 25.3 02/01/2025 Renal function: Lab Results Component Value Date CREATININE 1.06 11/30/2024 CREATININE 1.10 06/16/2024 CREATININE 1.11 03/18/2024 EGFR 76.0 11/30/2024 EGFR 72.7 06/16/2024 EGFR 71.9 03/18/2024 CBC: Lab Results Component Value Date HGB 14.4 06/16/2024 HGB 13.8 03/18/2024 HGB 13.4 (L) 03/17/2024 HCT 43.5 06/16/2024 HCT 41.4 03/18/2024 HCT 39.6 (L) 03/17/2024 MCV 96 06/16/2024 MCV 95 03/18/2024 MCV 96 03/17/2024 PLT 246 06/16/2024 PLT 194 03/18/2024 PLT 182 03/17/2024 Liver function: Lab Results Component Value Date ALT 21 06/16/2024 ALT 84 (H) 03/15/2024 ALT 18 11/21/2022 AST 23 06/16/2024 AST 54 (H) 03/15/2024 AST 21 11/21/2022 ALKPHOS 67 06/16/2024 ALKPHOS 55 03/15/2024 ALKPHOS 58 11/21/2022 BILITOT 0.3 06/16/2024 BILITOT 0.6 03/15/2024 BILITOT 0.4 11/21/2022 Weight: Wt Readings from Last 1 Encounters: 03/20/25 82 kg (180 lb 12.4 oz) BMI: Estimated body mass index is 25.21 kg/m?? as calculated from the following: Height as of 11/30/24: 1.803 m (5' 11 ). Weight as of 03/20/25: 82 kg (180 lb 12.4 oz). Assessment and Plan Current warfarin dose: 7.5 mg daily x 5 mg on Thursday/ Subtherapeutic INR for goal of 2.0-3.0. INR is below goal range without readily identifiable cause. Previously therapeutic on current regimen. New warfarin dose: Take a BOOST dose of warfarin 10 mg x 1 , Thursday 03/29, then resume warfarin 7.5 mg daily x 5 mg on Thursday/ Follow Up Check INR at [facility] lab in 2 weeks . Patient Education Reviewed s/sx of DVT/PE/stroke and if present to report to the ED immediately. Patient wrote down above instruction and repeated back to clinic PharmD correctly. Copy of PT INR standing order was also emailed to patient ([email or web address]) since lab reported current order but should be active until 02/2026. Order was also refaxed to lab. Contact the [facility] at [phone] with any questions or concerns regarding yourwarfarin. Patient verbalized understanding of above care plan: YES Rafaela Brantley, LissaD, BCACP, CACP [facility] documented in this encounter Plan of Treatment Upcoming Encounters Date Type Department Care Team (Late st Contact Info) Description 07/05/2025 12:10 PM EDT Appointment [facility] [address] [place] [address] 07/05/2025 1:45 PM EDT Office Visit Medical Office Building Urology [address] [facility], [address] [place] [address] Gema Thompson MD [address] [place] [address] 07/21/2025 11:00 AM EDT Office Visit [facility] [address] [place] [address] Orlin Elizabeth MD [address] [facility] [address] [place] [address] documented as of this encounter Procedures Procedure Name Priority Date/Time Associated Diagnosis Comments EXTERNAL PROTHROMBIN TIME (PT)/INR Routine 03/29/2025 documented in this encounter Results * External Prothrombin Time (PT)/INR (03/29/2025) External INR - Internormal Ratio 1.69 EXTERNAL LAB External Prothrombin Time (PT) EXTERNAL LAB Blood Venous blood specimen / Unknown 03/29/2025 us Historical Provider POINT OF CARE TEST ENTER/ EDIT ORDERABLES Final Result EXTERNAL LAB documented in this encounter Visit Diagnoses Diagnosis MCC (current) use of anticoagulants- Primary Long-term (current) use of anticoagulants Anticoagulation management encounter Encounter for therapeutic drug monitoring documented in this encounter Additional Health Concerns Infection Onset Date Last Indicated Resolved Time MRSA Comment: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 Source: [facility]. 10/19/2014 MRSA Escalation Plan Comment:MRSA Escalation [...] documented as of this encounter Care Teams Cement Based Materials Pump Tender Relationship Specialty Start Date End Date Orlin Elizabeth MD [address] [facility] [address] [place] [address] PCP - General Family Medicine 11/25/22 Josseline Longo PA [address] [facility] [address] [place] [address] Physician Global Expansion Sales Director Neurology 08/16/21 Jess Hawk APRN [address] [place] [address] Nurse Practitioner Cardiology 06/01/24 Rafaela Brantley, PharmD [address] [place] [address] Pharmacist Pharmacy 06/03/24 Jovana Wetzel, LissaD [address] [place] [address] Pharmacist Pharmacy 06/13/24 Skyla Mai PA [address] [place] [address] Physician Global Expansion Sales Director Urology 03/20/25 documented as of this encounter
--- OUTSIDE RECORDS SUMMARY | 2025-05-18 10:58 | XMS_ITS | Encounter Summary ---
Author Organization [facility] Address [address] [id number] Care Team Providers Care Engravings Polisher Name Role Phone Josseline Longo Unavailable [phone] Orlin Elizabeth MD Primary Care Provider Jess Hawk PRODUCTION TEAM MEMBER Unavailable [phone] Rafaela Brantley PharmD Unavailable [phone] Jovana Wetzel PharmD Unavailable + Skyla Mai PA Unavailable [phone] Encounter Details Date Type Department Care Team (Latest Contact Info) Description 03/30/2025 Travel Social History Tobacco Use Types Packs/Day Years [...] place to sleep or slept in a penitentiary (including now)? No 03/16/2024 CAGE ASSESSMENT Answer [...] drink first t jorge in the morning (EYE-COMMERCIAL HVAC SERVICE TECHNICIAN) to steady your nerves or to get rid of a hangover? 0 03/16/2024 CAGE Questionnaire Score 0 024 Utilities Answer Date Recorded In the past 12 months has th e [employer], gas, oil, or water [employer] threatened to shut off services in your [...] Upcoming Encounters Date Type Department Care Team ([facility] st Contact Info) Description 07/05/2025 12:10 PM EDT Appointment [facility] [address] [place] [address] 07/05/2025 1:45 PM EDT Office Visit Medical Office Building Urology [address] [facility], [address] [place] [address] Gema Thompson MD [address] [place] [address] 07/21/2025 11:00 AM EDT Office Visit [facility] [address] [place] [address] Orlin Elizabeth MD [address] [facility] [address] [place] [address] documented as of this encounter Visit Diagnoses Not on filedocumented in this encounter Additional Health Concerns Infection Onset Date Last Indicated Resolved Time MRSA Comment: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 Source: [facility]. 10/19/2014 MRSA Escalation Plan Comment:MRSA [...] documented as of this encounter Care Teams Engravings Polisher Relationship Specialty [place] [address] [place] [address] [address] [place] [id number] PCP - General Family Medicine 11/25/22 Josseline Longo PA [address] [facility] [place] [facility] [address] [place] [address] Physician Supervisor Grips Neurology 08/16/21 Jess Hawk APRN [address] [place] [address] Nurse Practitioner Cardiology 06/01/24 Rafaela Brantley, PharmD [address] [place] [address] Pharmacist Pharmacy 06/03/24 Jovana Wetzel, PharmD [address] [place] [address] Pharmacist Pharmacy 06/13/24 Skyla Mai PA [address] [facility] [place] [facility] [address] [place] [address] Physician Supervisor Grips Urology 03/20/25 documented as of this encounter
--- OUTSIDE RECORDS SUMMARY | 2025-05-18 10:58 | XMS_ITS | Encounter Summary ---
Author Organization [facility] Address [address] [place] [address] Care Team Providers Care Production Inspector Name Role Phone Josseline Longo Unavailable [phone] Orlin Elizabeth MD Primary Care Provider Jess Hawk SUPERVISOR CLOTH WINDING Unavailable [phone] Rafaela Brantley PharmD Unavailable [phone] Jovana Wetzel PharmD Unavailable + Skyla Mai PA Unavailable [phone] Encounter Details Date Type Department Care Team (Latest Contact Info) Description 04/13/2025 Anticoagulation - Warfarin Visit [facility] [address] [place] [address] Jovana Wetzel, PharmD [address] [place] [address] jail (current) use of anticoagulants (Primary Dx); Anticoagulation [...] place to sleep or slept in a retirement (including now)? No 03/16/2024 CAGE ASSESSMENT Answer [...] drink first t jorge in the morning (EYE-TERRAZZO POLISHER HELPER) to steady your nerves or to get [...] encounter Miscellaneous Notes * Progress Notes - Jovana Wetzel, PharmD - 04/13/2025 2:47 PM EDT Anticoagulation Clinic Pharmacy Note History of Present Illness Anticoagulation Summary As of 04/13/2025 INR goal: 2.0-3.0 TTR: 63.0% (1 y) INR used for dosin.78 (04/13/2025) Warfarin maintenance plan: 5 mg (5 mg x 1) every Sun, Lizeth; 7.5 mg (5 mg x 1.5) all other days Weekly warfarin total: 47.5 mg No change documented: Jovana Wetzel, PharmD Plan last modified: Jovana Wetzel, PharmD (07/07/2024) Next INR check: 05/11/2025 Target end date: Indefinite Indications Atrial fibrillation unspecified type (CMS/HCC) (Resolved) [I48.91] 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] Anticoagulation Episode Summary INR check location: Outside Lab Preferred lab: EXTERNAL LAB Send INR reminders to: [facility] Comments: [facility] P: [phone] F: [phone] Anticoagulation Care Providers Provider Role Specialty Phone number Israel Membreno MD Referring Cardiology [phone] Jess Hawk APRN Responsible Cardiology [phone] Additional History: New onset Afib s/p DCCV on 03/16 [id number] =Total score 3, Age 65-74 (1), CHF [...] INR: Lab Results Component Value Date INR 2.78 04/13/2025 INR 1.69 03/29/2025 INR 2.5 02/28/2025 PROTIME 25.6 02/28/2025 PROTIME 25.3 02/01/2025 Renal [...] dose: 7.5 mg daily x 5 mg every Thursday/ (10 mg boost 03/29) Therapeutic INR for goal of 2.0-3.0. New warfarin dose: no change Follow Up Check INR at [facility] lab in 4 weeks . Patient Education Contact the [facility] at [phone] with any questions or concerns regarding yourwarfarin. Patient verbalized understanding of above care plan: YES Jovana Wetzel, LissaD, BCACP [facility] LAURA Padilla CARDIOLOGY [address] [facility] [address] documented in this encounter Plan of Treatment Upcoming Encounters Date Type Department Care Team (Late st Contact Info) Description 07/05/2025 12:10 PM EDT Appointment [facility] [address] [place] [address] 07/05/2025 1:45 PM EDT Office Visit Medical Office Building Urology [address] [facility], [address] [place] [address] Gema Thompson MD [address] [place] [address] 07/21/2025 11:00 AM EDT Office Visit [facility] [address] [place] [address] Orlin Elizabeth MD [facility] [facility] [address] [place] [address] documented as of this encounter Procedures Procedure Name Priority Date/Time Associated Diagnosis Comments EXTERNAL PROTHROMBIN TIME (PT)/INR Routine 04/13/2025 documented in this encounter Results * External Prothrombin Time (PT)/INR (04/13/2025) External INR - Internormal Ratio 2.78 EXTERNAL LAB External Prothrombin Time (PT) EXTERNAL LAB Blood Venous blood specimen / Unknown 04/13/2025 Historical Provider POINT OF CARE TEST ENTER/ EDIT ORDERABLES Final Result EXTERNAL LAB documented in this encounter Visit Diagnoses Diagnosis jail (current) use of anticoagulants- Primary Long-term (current) use of anticoagulants Anticoagulation management encounter Encounter for therapeutic drug monitoring documented in this encounter Additional Health Concerns Infection Onset Date Last Indicated Resolved Time MRSA Comment: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 Source: [facility]. 10/19/2014 MRSA Escalation Plan Comment:MRSA Escalation Plan is in effect as of 2023. Patient will require contact precautions for the duration of the hospital admission. 03/17/2024 03/17/2024 Assessment Noted Time A fall risk assessment has been complete d for the patient 11/30/2024 2:21 PM EST A Body Mass Index follow-up plan has been documented for the patient 04/13/2025 2:49 PM EDT documented as of this encounter Care Teams Production Inspector Relationship Specialty Start Date End Date Orlin Elizabeth MD [address] [facility] [address] [place] [address] PCP - General Family Medicine 11/25/22 Josseline Longo PA [address] [place] [address] Physician Tarring Machine Operator Neurology 08/16/21 Jess Hawk APRN [address] [place] [address] Nurse Practitioner Cardiology 06/01/24 aRfaela Brantley, PharmD [address] [place] [address] Pharmacist Pharmacy 06/03/24 Jovana Wetzel, PharmD [address] [place] [address] Pharmacist Pharmacy 06/13/24 Skyla Mai PA [address] [place] [address] Physician Tarring Machine Operator Urology 03/20/25 documented as of this encounter
--- OUTSIDE RECORDS SUMMARY | 2025-05-18 10:58 | XMS_ITS | Encounter Summary ---
Author Organization [facility] Address [address] [place] [address] Care Team Providers Care Photographic Equipment Technician Name Role Phone Josseline Longo Unavailable [phone] Orlin Elizabeth MD Primary Care Provider Jess Hawk MELT ROOM OPERATOR Unavailable [phone] Rafaela Brantley PharmD Unavailable [phone] Jovana Wetzel PharmD Unavailable + Skyla Mai PA Unavailable [phone] Encounter Details Date Type Department Care Team (Late st Contact Info) Description 03/27/2025 Telephone [facility] [address] [place] [address] Skyla Mai PA [address] [place] [address] Social History Tobacco Use Types [...] place to sleep or slept in a longterm (including now)? No 03/16/2024 CAGE ASSESSMENT Answer [...] drink first t jorge in the morning (EYE-SPEECH SCIENTIST) to steady your nerves or to get [...] encounter Miscellaneous Notes * Telephone Encounter - Marga Singh - 04/06/2025 2:20 PM EDT Mr Ness has been scheduled and notified of upcoming appointment with Dr Thompson on 07-05-25. Thank you - Marga * Telephone Encounter - Mira Krause - 03/27/2025 1:14 PM EDT Clinical Concern/Question Reason for Call: Pt called, asking about referral to uro surgeron. He is asking for a call back. Thanks! Best contact number: [phone] (mobile) Optimal time of day to reach caller: ANYTIME Additional comments/information from caller: None Note: Please do not reply to this message. Follow-up communication and further actions as a result of this message need to be communicated with the patient directly, if the patient is not active onMyChart. If the patient is active on MyChart, they will receive notification of the communication/outcome via [employer]. documented in this encounter Plan of Treatment Upcoming Encounters Date Type Department Care Team (Late st Contact Info) Description 07/05/2025 12:10 PM EDT Appointment [facility] [address] [place] [address] 07/05/2025 1:45 PM EDT Office Visit Medical Office Building Urology [address] [facility], [address] [place] [address] Gema Thompson MD [address] [place] [address] 07/21/2025 11:00 AM EDT Office Visit [facility] [address] [place] [address] Orlin Elizabeth MD [address] [facility] [address] [place] [address] documented as of this encounter Visit Diagnoses Not on filedocumented in this encounter Additional Health Concerns Infection Onset Date Last Indicated Resolved Time MRSA Comment: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 Source: [facility]. 10/19/2014 MRSA Escalation Plan Comment:MRSA Escalation [...] documented as of this encounter Care Teams Photographic Equipment Technician Relationship Specialty Start Date End Date Orlin Elizabeth MD [address] [facility] [address] [place] [address] PCP - General Family Medicine 11/25/22 Josseline Longo PA [address] [place] [address] Physician Keyboard Instrument Repairer Neurology 08/16/21 Jess Hawk APRN [address] [place] [address] Nurse Practitioner Cardiology 06/01/24 Rafaela Brantley, PharmD [address] [place] [address] Pharmacist Pharmacy 06/03/24 Jovana Wetzel, PharmD [address] [place] [address] Pharmacist Pharmacy 06/13/24 Skyla Mai PA [address] [place] [address] Physician Keyboard Instrument Repairer Urology 03/20/25 documented as of this encounter
--- OUTSIDE RECORDS SUMMARY | 2025-05-18 10:58 | XMS_ITS | Encounter Summary ---
Author Organization [facility] Address [address] [place] [address] Care Team Providers Care Junior Sales Assistant Name Role Phone Josseline Longo Unavailable [phone] Orlin Elizabeth MD Primary Care Provider Jess Hawk CORRECTION OFFICER REFORMATORY Unavailable [phone] Rafaela Brantley PharmD Unavailable [phone] Jovana Wetzel PharmD Unavailable + Skyla Mai PA Unavailable [phone] Encounter Details Date Type Department Care Team (Late st Contact Info) Description 03/30/2025 Orders Only [facility] [address] [place] [address] Skyla Mai PA [address] [place] [address] Suspected UTI (Primary Dx) Social History Tobacco Use Types Packs/Day Years [...] place to sleep or slept in a half-way (including now)? No 03/16/2024 CAGE ASSESSMENT Answer [...] drink first t jorge in the morning (EYE-BLOOD BANK SUPERVISOR) to steady your nerves or to get [...] Upcoming Encounters Date Type Department Care Team ([facility] st Contact Info) Description 07/05/2025 12:10 PM EDT Appointment [facility] [address] [place] [address] 07/05/2025 1:45 PM EDT Office Visit Medical Office Building Urology [address] [facility], [address] [place] [address] Gema Thompson MD [address] [facility] [address] [place] [address] 07/21/2025 11:00 AM EDT Office Visit [facility] [address] [place] [address] Orlin Elizabeth MD [facility] [address] [place] [address] documented as of this encounter Visit Diagnoses Diagnosis Suspected UTI- Primary documented in this encounter Additional Health Concerns Infection Onset Date Last Indicated Resolved Time MRSA Comment: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 Source: [facility]. 10/19/2014 MRSA Escalation Plan Comment:MRSA [...] documented as of this encounter Care Teams Junior Sales Assistant Relationship Specialty Start Date End Date Orlin Elizabeth MD [address] [facility] [address] [place] [address] PCP - General Family Medicine 11/25/22 Josseline Longo PA [address] [place] [address] Physician Deputy Controller Neurology 08/16/21 Jess Hawk APRN [address] [place] [address] Nurse Practitioner Cardiology 06/01/24 Rafaela Brantley, PharmD [address] [place] [address] Pharmacist Pharmacy 06/03/24 Jovana Wetzel, PharmD [address] [place] [address] Pharmacist Pharmacy 06/13/24 Skyla Mai PA [address] [place] [address] Physician Deputy Controller Urology 03/20/25 documented as of this encounter
--- OUTSIDE RECORDS SUMMARY | 2025-05-18 10:58 | XMS_ITS | Encounter Summary ---
Author Organization [facility] Address [address] [place] [address] Care Team Providers Care Stock Drier Tender Name Role Phone Josseline Longo PA Unavailable [phone] Orlin Elizabeth MD Primary Care Provider Jess Hawk OUTREACH WORKER Unavailable [phone] Rafaela Brantley PharmD Unavailable [phone] Jovana Wetzel PharmD Unavailable + Skyla Mai PA Unavailable [phone] Encounter Details Date Type Department Care Team (Late st Contact Info) Description 03/22/2025 [facility] [address] [place] [address] Orlin Elizabeth MD [address] [facility] [address] [place] [address] Social History Tobacco Use Types Packs/Day Years [...] place to sleep or slept in a intermediate (including now)? No 03/16/2024 CAGE ASSESSMENT Answer [...] drink first t jorge in the morning (EYE-SKILL LABOR) to steady your nerves or to get [...] encounter Miscellaneous Notes * Telephone Encounter - Claudia Rivera PharmD - 03/23/2025 1:50 PM EDT 1 medication(s) has been approved per protocol. Appt requested to be scheduled by [facility]. Patient must schedule an appointment and be seen in clinic for additional refills. documented in this encounter Plan of Treatment Upcoming Encounters Date Type Department Care Team (Late st Contact Info) Description 07/05/2025 12:10 PM EDT Appointment [facility] [address] [place] [address] 07/05/2025 1:45 PM EDT Office Visit Medical Office Building Urology [address] [facility], [address] [place] [address] Gema Thompson MD [address] [facility] [address] [place] [address] 07/21/2025 11:00 AM EDT Office Visit [facility] [address] [place] [address] Orlin Elizabeth MD [facility] [address] [place] [address] documented as of this encounter Visit Diagnoses Not on filedocumented in this encounter Additional Health Concerns Infection Onset Date Last Indicated Resolved Time MRSA Comment: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 Source: [facility]. 10/19/2014 MRSA Escalation Plan Comment:MRSA Escalation [...] documented as of this encounter Care Teams Stock Drier Tender Relationship Specialty Start Date End Date Orlin Elizabeth MD [address] [facility] [address] [place] [address] PCP - General Family Medicine 11/25/22 Josseline Longo PA [address] [place] [address] Physician Business Development Consultant Neurology 08/16/21 Jess Hawk APRN [address] [place] [address] Nurse Practitioner Cardiology 06/01/24 Rafaela Brantley, PharmD [address] [place] [address] Pharmacist Pharmacy 06/03/24 Jovana Wetzel, LissaD [address] [place] [address] Pharmacist Pharmacy 06/13/24 Skyla Mai PA [address] [place] [address] Physician Business Development Consultant Urology 03/20/25 documented as of this encounter
--- OUTSIDE RECORDS SUMMARY | 2025-05-18 10:58 | XMS_ITS | Encounter Summary ---
Author Organization [facility] Address [address] [id number] Care Team Providers Care Reworker Name Role Phone Josseline Longo Unavailable [phone] Orlin Elizabeth MD Primary Care Provider Jess Hwak SOFTWARE ENGINEER BACKEND Unavailable [phone] Rafaela Brantley PharmD Unavailable [phone] Jovana Wetzel PharmD Unavailable + Skyla Mai PA Unavailable [phone] Encounter Details Date Type Department Care Team (Latest Contact Info) Description 03/20/2025 Travel Social History Tobacco Use Types Packs/Day [...] place to sleep or slept in a long-term (including now)? No 03/16/2024 CAGE ASSESSMENT Answer [...] drink first t jorge in the morning (EYE-DRYING MACHINE OPERATOR PACKAGE YARNS) to steady your nerves or to get rid of a hangover? 0 03/16/2024 CAGE Questionnaire Score 0 024 Utilities Answer Date Recorded In the past 12 months has th e [employer], gas, oil, or water [employer] threatened to shut off services in your [...] Upcoming Encounters Date Type Department Care Team ([facility] st Contact Info) Description 07/05/2025 12:10 PM EDT Appointment [facility] [address] [place] [address] 07/05/2025 1:45 PM EDT Office Visit Medical Office Building Urology [address] [facility], [address] [place] [address] Gema Thompson MD [address] [place] [address] 07/21/2025 11:00 AM EDT Office Visit [facility] [address] [place] [address] Orlin Elizabeth MD [address] [facility] [facility] 125 [place] [address] documented as of this encounter Visit Diagnoses Not on filedocumented in this encounter Additional Health Concerns Infection Onset Date Last Indicated Resolved Time MRSA Comment: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 Source: [facility]. 10/19/2014 MRSA Escalation Plan Comment:MRSA Escalation Plan [...] documented as of this encounter Care Teams Reworker Relationship Specialty [place] [address] [place] [address] [address] [place] [address] PCP - General Family Medicine 11/25/22 Josseline Longo PA [address] [facility] [address] [place] [address] Physician Blood Bank Assistant Neurology 08/16/21 Jess Hawk APRN [address] [place] [address] Nurse Practitioner Cardiology 06/01/24 Rafaela Brantley, PharmD [address] [place] [address] Pharmacist Pharmacy 06/03/24 Jovana Wetzel, PharmD [address] [place] [address] Pharmacist Pharmacy 06/13/24 Skyla Mai PA [address] [facility] [address] [place] [address] Physician Blood Bank Assistant Urology 03/20/25 documented as of this encounter
--- OUTSIDE RECORDS SUMMARY | 2025-05-18 10:58 | XMS_ITS | Encounter Summary ---
Author Organization [facility] Address [address] [id number] Care Team Providers Care Supervisor Shuttle Fitting Name Role Phone Josseline Longo Unavailable [phone] Orlin Elizabeth MD Primary Care Provider Jess Hawk REHAB LIAISON Unavailable [phone] Rafaela Brantley PharmD Unavailable [phone] Jovana Wetzel PharmD Unavailable + Skyla Mai PA Unavailable [phone] Encounter Details Date Type Department Care Team (Latest Contact Info) Description 04/20/2025 Travel Social History Tobacco Use Types Packs/Day [...] place to sleep or slept in a senior care (including now)? No 03/16/2024 Humiliation, Afraid, Rape, [...] any time in the past 12 m [facility], were you homeless or living in a senior care (including now)? No 04/20/2025 Safety and Environment [...] drink first t jorge in the morning (EYE-RIBBON HAND) to steady your nerves or to get rid of a hangover? 0 03/16/2024 CAGE Questionnaire Score 0 024 Utilities Answer Date Recorded In the past 12 months has th [employer], gas, oil, or water company threatened to shut off services in your home? No 04/20/2025 PHQ-2A Answer Date Recorded Patient Health Questionnaire-2 Score 0 05/20/2023 Sex and Gender Information Value Date Recorded Sex Assigned at Not on file Legal Sex Male 8:17 PM EDT Gender Identity Not on file Sexual Orientation Not on file documented as of this encounter Functional Status * AUDIT-C Score Answer Date of Assessment Author 0 04/20/2025 10:24 AM EDStacy Arias LPN * Question Answer Date of Assessment Author Q1: How often do you have a drink containing alcohol? Never 04/20/2025 10:24 AM Stacy Ziegler LPN Q2: How many drinks containing alcohol do you have on a typical day when you are drinking? Patient does not drink 04/20/2025 10:24 AM Stacy Ziegler LPN Q3: How often do you have six or more drinks on one occasion? Never 04/20/2025 10:24 AM EDStacy Arias LPN * Calculated C-SSRS Risk Score (Lifetime/Recent) [...] Henry LPN documented as of this encounter Plan of Treatment Upcoming Encounters Date Type Department Care Team (Late st Contact Info) Description 07/05/2025 12:10 PM EDT [facility] [address] [place] [address] 07/05/2025 1:45 PM EDT Office Visit Medical Office Building Urology [address] [facility], [address] [place] [address] Gema Thompson MD [address] [facility] [address] [place] [address] 07/21/2025 11:00 AM EDT Office Visit [facility] [address] [place] [address] Orlin Elizabeth MD [address] [facility] 125 [place] [address] documented as of this encounter Visit Diagnoses Not on filedocumented in this encounter Additional Health Concerns Infection Onset Date Last Indicated Resolved Time MRSA Comment: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 Source: [facility]. 10/19/2014 MRSA Escalation Plan Comment:MRSA [...] documented as of this encounter Care Teams Supervisor Shuttle Fitting Relationship Specialty Start Date End Date Orlin Elizabeth MD [address] [facility] [address] [place] [address] PCP - General Family Medicine 11/25/22 Josseline Longo PA [address] [place] [address] Physician Foam Cutting Supervisor Neurology 08/16/21 Jess Hawk APRN [address] [place] [address] Nurse Practitioner Cardiology 06/01/24 Rafaela Brantley, PharmD [address] [place] [address] Pharmacist Pharmacy 06/03/24 Jovana Wetzel, PharmD [address] [place] [address] Pharmacist Pharmacy 06/13/24 Skyla Mai PA [address] [place] [address] Physician Foam Cutting Supervisor Urology 03/20/25 documented as of this encounter
--- OUTSIDE RECORDS SUMMARY | 2025-05-18 10:58 | XMS_ITS | Encounter Summary ---
Author Organization [facility] Address [address] [place] [address] Care Team Providers Care Blow Pit Helper Name Role Phone Josseline Longo Unavailable [phone] Orlin Elizabeth MD Primary Care Provider Jess Hawk SUPERVISOR SOUND TECHNICIAN Unavailable [phone] Rafaela Brantley PharmD Unavailable [phone] Jovana Wetzel PharmD Unavailable + Skyla Mai PA Unavailable [phone] Encounter Details Date Type Department Care Team (Late st Contact Info) Description 04/04/2025 [facility] [address] [place] [address] Skyla Mai PA [address] [place] [address] Social History Tobacco Use Types [...] place to sleep or slept in a custodial (including now)? No 03/16/2024 CAGE ASSESSMENT Answer [...] drink first t jorge in the morning (EYE-REFINERY PROCESS ENGINEER) to steady your nerves or to get [...] Upcoming Encounters Date Type Department Care Team ([facility] st Contact Info) Description 07/05/2025 12:10 PM EDT Appointment [facility] [address] [place] [address] 07/05/2025 1:45 PM EDT Office Visit Medical Office Building Urology [address] [facility], [address] [place] [address] Gema Thompson MD [address] [facility] [address] [place] [address] 07/21/2025 11:00 AM EDT Office Visit [facility] [address] [place] [address] Orlin Elizabeth MD [address] [facility] [address] [place] [address] documented as of this encounter Visit Diagnoses Not on filedocumented in this encounter Additional Health Concerns Infection Onset Date Last Indicated Resolved Time MRSA Comment: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 Source: [facility]. 10/19/2014 MRSA Escalation Plan Comment:MRSA Escalation [...] documented as of this encounter Care Teams Blow Pit Helper Relationship Specialty Start Date End Date Orlin Elizabeth MD [address] [facility] [address] [place] [address] PCP - General Family Medicine 11/25/22 Josseline Longo PA [address] [place] [address] Physician Sheriff'S Officer Neurology 08/16/21 Jess Hawk APRN [address] [place] [address] Nurse Practitioner Cardiology 06/01/24 Rafaela Brantley, PharmD [address] [place] [address] Pharmacist Pharmacy 06/03/24 Jovana Wetzel, PharmD [address] [place] [address] Pharmacist Pharmacy 06/13/24 Skyla Mai PA [address] [place] [address] Physician Sheriff'S Officer Urology 03/20/25 documented as of this encounter
--- OUTSIDE RECORDS SUMMARY | 2025-05-18 10:58 | XMS_ITS | Encounter Summary ---
Author Organization [facility] Address [address] [place] [address] Care Team Providers Care Crisis Intervention Specialist Name Role Phone Josseline Longo PA Unavailable [phone] Orlin Elizabeth MD Primary Care Provider Jess Hawk CORPORATE SCHEDULER Unavailable [phone] Rafaela Brantley PharmD Unavailable [phone] oJvana Wetzel PharmD Unavailable + Skyla Mai PA Unavailable [phone] Reason for Visit * Reason Comments Med Refill Encounter Details Date Type Department Care Team (Late st Contact Info) Description 04/13/2025 Refill [place] [facility] [address] [place] [address] Skyla Mai PA [address] [place] [address] Social History Tobacco Use Types [...] place to sleep or slept in a residential (including now)? No 03/16/2024 CAGE ASSESSMENT Answer [...] drink first t jorge in the morning (EYE-FOLDER MACHINE) to steady your nerves or to get [...] Upcoming Encounters Date Type Department Care Team ([facility] st Contact Info) Description 07/05/2025 12:10 PM EDT Appointment [facility] [address] [place] [address] 07/05/2025 1:45 PM EDT Office Visit Medical Office Building Urology [address] [facility], [address] [place] [address] Gema Thompson MD [address] [place] [address] 07/21/2025 11:00 AM EDT Office Visit [facility] [address] [place] [address] Orlin Elizabeth MD [address] [facility] 125 [place] [address] documented as of this encounter Visit Diagnoses Not on filedocumented in this encounter Additional Health Concerns Infection Onset Date Last Indicated Resolved Time MRSA Comment: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 Source: [facility]. 10/19/2014 MRSA Escalation Plan Comment:MRSA Escalation [...] documented as of this encounter Care Teams Crisis Intervention Specialist Relationship Specialty Start Date End Date Orlin Elizabeth MD [address] [facility] [address] [place] [address] PCP - General Family Medicine 11/25/22 Josseline Longo PA [address] [place] [address] Physician Doper Operator Neurology 08/16/21 Jess Hawk APRN [address] [place] [address] Nurse Practitioner Cardiology 06/01/24 Rafaela Brantley, PharmD [address] [place] [address] Pharmacist Pharmacy 06/03/24 Jovana Wetzel, PharmD [address] [place] [address] Pharmacist Pharmacy 06/13/24 Skyla Mai PA [address] [place] [address] Physician Doper Operator Urology 03/20/25 documented as of this encounter
--- OUTSIDE RECORDS SUMMARY | 2025-05-18 10:59 | XMS_ITS | Encounter Summary ---
Author Organization [facility] Address [address] [place] [address] Care Team Providers Care Vegetable Harvest Machine Operator Name Role Phone Sherrie Elam MD Primary Care Provider [phone] Josseline Longo Unavailable [phone] Orlin Elizabeth MD Primary Care Provider Jess Hawk MEDICARE SALES EXECUTIVE Unavailable [phone] Rafaela Brantley PharmD Unavailable [phone] Jovana Wetzel PharmD Unavailable + Skyla Mai PA Unavailable [phone] Reason for Visit * Reason Comments Med Refill Encounter Details Date Type Department Care Team (Late st Contact Info) Description 04/19/2021 Refill [place] [facility] [address] [place] [address] Josseline Longo PA [address] [place] [address] Social History Tobacco Use Types Packs/Day Years Used Date Smoking Tobacco: Never Alcohol Use Standard Drinks/Week Comments Yes 0 (1 standard drink = 0.6 oz pur e alcohol) Sex and Gender Information Value Date Recorded Sex Assigned at Not on file Legal Sex Male 8:17 PM EDT Gender Identity Not on file Sexual Orientation Not on file documented as of this encounter Plan of Treatment Upcoming Encounters Date Type Department Care Team (Late st Contact Info) Description 07/05/2025 12:10 PM EDT Appointment [facility] [address]nd [place] [address] 07/05/2025 1:45 PM EDT Office Visit Medical Office Building Urology [address] [facility] [place] [address] Gema Thompson MD [address] [place] [address] 07/21/2025 11:00 AM EDT Office Visit [facility] [address] [place] [address] Orlin Elizabeth MD [address] [place] [address] documented as of this encounter Visit Diagnoses Not on filedocumented in this encounter Additional Health Concerns Infection Onset Date Last Indicated Resolved Time MRSA Comment: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 Source: [facility]. 10/19/2014 MRSA Escalation Plan Comment:MRSA Escalation Plan is in effect as of 2023. Patient will require contact precautions for the duration of the hospital admission. 03/17/2024 03/17/2024 documented as of this encounter Care Teams Vegetable Harvest Machine Operator Relationship Specialty Start Date End Date Sherrie Elam MD [facility] [place] [address] PCP - General Internal Medicine 08/16/21 11/24/22 Orlin Elizabeth MD [facility] [address] [place] [address] PCP - General Family Medicine 11/25/22 Josseline Longo PA [address] [facility] [address] [place] [address] Physician Physician Recruiter Neurology 08/16/21 Jess Hawk APRN [address] [place] [address] Nurse Practitioner Cardiology 06/01/24 Rafaela Brantley, PharmD [address] [place] [address] Pharmacist Pharmacy 06/03/24 Jovana Wetzel, PharmD [address] [place] [address] Pharmacist Pharmacy 06/13/24 Skyla Mai PA [address] [facility] [address] [place] [address] Physician Physician Recruiter Urology 03/20/25 documented as of this encounter
--- OUTSIDE RECORDS SUMMARY | 2025-05-18 10:59 | XMS_ITS | Clinical Summary ---
Author Organization [facility] Address [address] [place] [address] Care Team Providers Care Cutting Torch Operator Name Role Phone Josseline Longo Unavailable [phone] Orlin Elizabeth MD Primary Care Provider Jess Hawk BLENDER HELPER Unavailable [phone] Rafaela Brantley PharmD Unavailable [phone] Jovana Wetzel PharmD Unavailable + Skyla Mai PA Unavailable [phone] Allergies No known active allergies Medications * This document contains information received from the source organization and may not represent a complete record from that organization. cholecalcifero l (D3-5) 5,000 Units tablet Take 2 tablets (10,000 Units) by mouth 1 (one) time each day. 020 Active coenzyme Q-10 300 mg capsule capsule Take 1 capsule (300 mg) by mouth 1 (one) time each day. Active MAGNESIUM MALATE PO Take 1 tablet by mouth 1 (one) time each day. Active Multiple Vitamins-Cardiograph Operator als (multivitamin with minerals) tablet Take 1 tablet by mouth 2 (two) times a day. Active B Complex Vitamins (B COMPLEX 1 PO) Take 1 each by mouth 1 (one) time each day. Active phytonadione (Vitamin K, Phytonadione,) 100 MCG tablet tablet Take 1 tablet by mouth daily. Active tamsulosin (Flomax) 0.4 MG 24 hr capsule Take 1 capsule by mouth twice daily 180 capsule 3 Active dofetilide (Tikosyn) 250 MCG capsuleIndicat ions:Atrial fibrillation, unspecified type (CMS/HCC) Take 1 capsule (250 mcg) by mouth 2 (two) times a day. 60 capsule 11 024 2024 Active lisinopril 2.5 MG tablet Take 2 tablets (5 mg) by mouth every night. 90 tablet 3 024 Active primidone (Mysoline) 50 MG tablet TAKE 2 TABLETS BY MOUTH THREE TIMES A DAY 540 tablet 2 024 Active metoprolol succinate XL (Toprol-XL) 100 MG 24 hr tablet TAKE 1 TABLET BY MOUTH EVERY EVENING 90 tablet 3 025 Active dapagliflozin (Farxiga) 10 MG tabletIndicati ons:Left Systolic Heart Failure Take 1 tablet (10 mg) by mouth daily. 90 tablet 2 025 Active MAGNESIUM GLYCINATE PO Take by mouth nightly. Active atorvastatin (Lipitor) 40 MG tablet Take 1 tablet by mouth daily. 90 tablet 025 Active finasteride (Proscar) 5 MG tablet TAKE 1 TABLET BY MOUTH ONCE A DAY 90 tablet 3 025 Active clobetasol (Temovate) 0.05 % cream Apply topically 2 times a day. 60 g 2 025 2025 Active warfarin (Coumadin) 5 MG tablet TAKE 1.5 TABLETS (7.5 MG) BY MOUTH ONCE A DAY EXCEPT TAKE 1 TABLET (5 MG) ON THURSDAY AND THURSDAY OR DIRECTED BY THE [facility] 40 tablet 5 025 Active clobetasol (Temovate) 0.05 % cream Apply topically 2 (two) times a day. 60 g 2 024 2024 Discontinued(R eorder) warfarin (Coumadin) 5 MG tablet TAKE 1 TABLET (5 MG) BY MOUTH ONCE A DAY DIRECTED EXCEPT TAKE 1 AND 1/2 TABLETS (7.5 MG) BY MOUTH ON THURSDAY AND THURSDAY OR DIRECTED BY THE [facility]. 40 tablet 5 025 2024 Discontinued cefpodoxime (Vantin) 200 MG tabletIndicati ons:Suspected UTI Take 1 tablet by mouth 2 times a day for 14 days. 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 Lower urinary tract symptoms (LUTS) 07/20/2017 Ganglion cyst 09/05/2016 History of hip replacement, total 10/11/2015 Essential tremor 08/03/2015 Occasional tremors 04/27/2015 Acute systolic congestive heart failure 10/25/20 14 Cardiomyopathy 10/24/2014 History of repair of hip joint 10/23/2014 Primary osteoarthritis of right hip 10/23/2014 Resolved Problems Problem Noted Date Diagnosed Date Resolved Date Atrial fibrillation, unspecified type 03/15/2024 03/18/2024 Excessive daytime sleepiness 12/07/2018 05/03/2024 Snoring 12/07/2018 05/03/2024 Encounters * This document contains information received from the source organization and may not represent a complete record from that organization. Date Type Department Care Team Description 05/15/2025 Refill [facility] [place] [address], [address] [place] [address] Jess Hawk APRN 04/24/2025 Results Follow-Up [facility] [address] [place] [address] Orlin Elizabeth MD 04/20/2025 10:00 AM EDT Office Visit [facility] [address] [place] [address] Orlin Elizabeth MD Prediabetes (Primary Dx); Chronic heart failure with preserved ejection fraction (CMS/HCC); Healthcare maintenance; Essential tremor; Cardiomyopathy, unspecified type (CMS/HCC); Hyperlipidemia, unspecified hyperlipidemia type 04/20/2025 Travel 04/13/2025 Anticoagulation - Warfarin Visit [facility] [address] [place] [phone] Jovana Wetzel, PharmD halfway (current) use of anticoagulants (Primary Dx); Anticoagulation management encounter 04/13/[address] [facility] [address], [address] [place] [address] Skyla Mai PA 04/04/2025 Results Follow-Up [facility] [address], [address] [place] [phone] Skyla Mai PA 03/30/2025 Travel 03/30/[address] [facility] [address], [facility] [place] [phone] Skyla Mai PA Suspected UTI (Primary Dx) 03/29/2025 Anticoagulation - Warfarin Visit [facility] [address] [place] [address] Rafaela Brantley, PharmD intermediate card tender (current) use of anticoagulants (Primary Dx); Anticoagulation management encounter 03/29/[address] [facility] [address], [facility] [place] [phone] Skyla Mai PA HCN Clinical Concern/Question 03/27/[address] [facility] [address], [facility] [place] [address] Skyla Mai PA [facility] [address] [place] [address] Orlin Elizabeth MD 03/21/2025 Results Follow-Up [facility] [address], [address] [place] [address] Skyla Mai PA 03/20/2025 12:30 PM EDT Office Visit [facility] [address], [address] [place] [address] Skyla Mai, PA Benign prostatic hyperplasia with nocturia (Primary Dx); Incomplete bladder emptying; Prostate cancer screening 03/20/2025 Travel 02/28/2025 Anticoagulation - Warfarin Visit [facility] [place] [address] [place] [address] Rafaela Brantley, PharmD halfway (current) use of anticoagulants (Primary Dx); Anticoagulation management encounter 02/21/2025 Orders Only [facility] [place] [address], [address] [place] [phone] Jess Hwak, SAGAR from Last 3 Months Immunizations Immunization Administration Dates Next Due Influenza, Unspecified 08/17/2020,2018,08/09/2018,2016,08/11/2016,08/13/2015,09/04/2014 Influenza, high-dose, quadrivalent 11/20/2023, Influenza, injectable, quadr ivalent, preservative free 09/09/2021 Influenza, seasonal, injecta ble, preservative free 08/24/2024 MMR 04/14/2014 Moderna Covid-19 Vaccine 12y +, Flavio Protein, Preservative free 11/20/2023 PPD Skin Test (TB Skin Test) 2012, 12/23/2011,06/04/2010,2008,01/28/2008,01/13/2007,12/30/2006,0 06/08/2002 Pfizer Covid-19 Vaccine 12y+ , Flavio Protein, PF, Tian-Sucrose 08/24/2024 [email or web address] COVID-19 Vac cine (Purple Cap) 12+ 11/20/2020 Pneumococcal Conjugate PCV 13 11/21/2022 Tdap 04/14/2014,02/14/2009 Family History Medical History Relation Name Comments Cancer Father Marco A Diabetes Father Marco A Heart attack Father Marco A Heart disease Father Marco A Nephrolithiasis Father Marco A Obesity Father Marco A arteriosclerotic cardiovascular disease Father Dana muller Alzheimer's disease Mother Aiyana Sweetwater Diabetes Mother Aiyana Sweetwater Relation Name Status Comments Father Marco A Mother Aiyana Sweetwater Social History Tobacco Use Types Packs/Day Years [...] a care home (including now)? No 03/16/2024 Humiliation, Afraid, Rape, [...] any time in the past 12 m [facility], were you homeless or living in a care home (including now)? No 04/20/2025 Safety and Environment [...] drink first t jorge in the morning (EYE-PRIMARY HEALTH CARE NURSE) to steady your nerves or to get [...] on file Sexual Orientation Not on file Last Filed Vital Signs Vital Sign Reading [...] Mass Index 25.21 04/20/2025 10:20 AM EDT Plan of Treatment Upcoming Encounters Date Type Department Care Team (Late st Contact Info) Description 07/05/2025 12:10 PM EDT Appointment [facility] [address], [address] [place] [address] 07/05/2025 1:45 PM EDT Office Visit [facility] [address], [address] [place] [address] Gema Thompson MD [address] [place] [address] 07/21/2025 11:00 AM EDT Office Visit [facility] [address] [place] [address] Orlin Elizabeth MD [address] [place] [address] Health Maintenance Due Date Last Done Comments CT Colonography 1999 FIT 1999 FOBT 1999 Sigmoidoscopy 1999 [facility]-Zoster Vaccines (1 of 2) 2004 [facility]-RSV Vaccine: 60+ Years or (1 - Risk 60-74 years 1-dose series) 2014 [facility]-Pneumococcal Vaccine: 50+ Years (2 of 2 - PPSV23) 01/16/2023 11/21/2022 [facility]-DTaP,Tdap,and Td Vaccines (3 - Td or Tdap) 04/14/2024 04/14/2014, 02/14/2009 [id number] Vaccine ( - season) 2025 08/24/2024, 11/20/2023, 11/03/2021, Additional history exists [facility]-Influenza Vaccine (#1) 07/10/202508/24, 11/20/2023, 09/05/2022, Additional history exists [facility]- SDOH Screenings 10/20/2025 [facility]-Adult SDOH Screenings 10/20/2025 04/20/2025 [facility]-Infant/Child/Adol SDOH Screenings 10/20/2025 04/20/2025 [facility]-Depression Screening 11/30/2025 11/30/2024 FIT-DNA 12/03/2025 12/03/2022 Colonoscopy 03/02/2026 03/03/2023 [facility]-Colorectal Cancer Screening 03/02/2026 [facility]-Diabetes: Hemoglobin A1C 04/20/202610/2025, 02/19/2024, 11/20/2023, Additional history exists [facility]-Hepatitis C Screening Completed 03/15/2024 [facility]-Obesity Intervention Completed 025, 04/13/2025, 03/29/2025, Additional history exists HPV Vaccines Aged Out No longer eligi ble based on patient's age to complete this topic [facility]-HIB Vaccines Aged Out No longer e ligible based on patient's age to complete this topic [facility]-Hepatitis A Vaccines Aged Out No longer eligible based on patient's age to complete this topic [facility]-IPV Vaccines Aged Out No longer e ligible based on patient's age to complete this topic [facility]-Rotavirus Vaccines Aged Out No lo nger eligible based on patient's age to complete this topic Procedures Procedure Name Priority Date/Time Associated Diagnosis Comments CBC W/O DIFFERENTIAL Routine 04/20/2025 11:28 AM EDT Prediabetes VITAMIN D 25 HYDROXY Routine 04/20/2025 11:28 AM EDT Prediabetes LIPID PROFILE, PLASMA Routine 04/20/2025 11:28 AM EDT Prediabetes HEMOGLOBIN A1C Routine 04/20/2025 11:28 AM EDT Prediabetes COMPREHENSIVE METABOLIC PANEL, PLASMA Routine 04/20/2025 11:28 AM EDT Prediabetes EXTERNAL PROTHROMBIN TIME (PT)/INR Routine 04/13/2025 URINE CULTURE Routine 03/30/2025 4:43 PM EDT Suspected UTI EXTERNAL PROTHROMBIN TIME (PT)/INR Routine 03/29/2025 POC US BLADDER SCAN FOR VOLUME Routine 03/20/2025 12:49 PM EDT Benign prostatic hyperplasia with nocturia POCT URINALYSIS DIPSTICK Routine 03/20/2025 12:32 PM EDT PROSTATE SPECIFIC ANTIGEN, DIAGNOSTIC, SERUM Routine 03/20/2025 12:15 PM EDT Benign prostatic hyperplasia with nocturia Prostate cancer screening EXTERNAL PROTHROMBIN TIME (PT)/INR Routine 02/28/2025 2:46 PM EDT HEPATITIS C ANTIBODY - ED W/REFLEX TO HCV QUANT PCR STAT 03/15/2024 12:27 PM EDT COLONOSCOPY Routine 03/03/2023 1:33 PM EDT Screening for colon cancer LAB COLOGUARD COLON CANCER SCREEN Routine 12/03/2022 7:30 AM EST Screening for colon cancer from Last 3 Months or Most Recently Relevant to Health Maintenance Results * (ABNORMAL) Vitamin D 25 Hydroxy (04/20/2025 11:28 AM EDT) Vitamin D 25 Hydroxy 86.8(H) 20.0 - 80.0 ng/mL 04/20/2025 7:12 PM EDT [facility] Blood Venous blood specimen / Unknown Venipuncture / Unknown 04/20/2025 11:28 AM EDT 04/20/2025 11:28 AM EDT Narrative [facility] - 04/20/2025 7:12 PM EDT Testing performed on [place] Registration Specialist, standardized against NIST SRM [id number]. When testing [...] ng/mL Orlin Elizabeth MD LAB BLOOD ORDERABLES nal Result [facility] [address] [place] [address] * CBC W/O Differential (04/20/2025 11:28 AM EDT) WBC Count 5.36 3.70 - 10.30 10*3/uL LAB HEMATOLOGY METHOD 04/20/2025 6:21 PM EDT [facility] RBC Count 4.75 4.60 - 6.10 10*6/uL LAB HEMATOLOGY METHOD 04/20/2025 6:21 PM EDT [facility] HGB 15.1 13.7 - 17.5 g/dL LAB HEMATOLOGY METHOD 04/20/2025 6:21 PM EDT [facility] HCT 46.6 40.0 - 51.0 % LAB HEMATOLOGY METHOD 04/20/2025 6:21 PM EDT [facility] Platelet Count 253 155 - 369 10*3/uL LAB HEMATOLOGY METHOD 04/20/2025 6:21 PM EDT [facility] MCV 98 79 - 98 fL LAB HEMATOLOGY METHOD 04/20/2025 6:21 PM EDT [facility] MCH 31.8 26.0 - 32.0 pg LAB HEMATOLOGY METHOD 04/20/2025 6:21 PM EDT [facility] MCHC 32.4 30.7 - 35.5 g/dL LAB HEMATOLOGY METHOD 04/20/2025 6:21 PM EDT [facility] RDW 13.4 11.5 - 14.5 % LAB HEMATOLOGY METHOD 04/20/2025 6:21 PM EDT [facility] MPV 10.3 8.8 - 12.5 fL LAB HEMATOLOGY METHOD 04/20/2025 6:21 PM EDT [facility] nRBC 0.0 <=0.0 per 100 WBCs LAB HEMATOLOGY METHOD 04/20/2025 6:21 PM EDT [facility] Blood Venous blood specimen / Unknown Venipuncture / Unknown 04/20/2025 11:28 AM EDT 04/20/2025 11:28 AM EDT Orlin Elizabeth MD LAB BLOOD ORDERABLES Fi nal Result [facility] [address] [place] [address] * (ABNORMAL) Hemoglobin A1c (04/20/2025 11:28 AM EDT) Hemoglobin A1c 6.0(H) <5.7 % 04/20/2025 6:55 PM EDT [facility] Blood Venous blood specimen / Unknown Venipuncture / Unknown 04/20/2025 11:28 AM EDT 04/20/2025 11:28 AM EDT Narrative [facility] - 04/20/2025 6:55 PM EDT HA1C Interpretive Data: Diagnosis of Diabetes: Diabetic > or = 6.5% Pre-diabetic 5.7 to 6.4% Non-diabetic < or = 5.6% Glycemic Targets for Type I and Type II Diabetics: Non- Adults <7.0% Adults <6.0% Children and Adolescents <7.5% Source: [place] [employer]. Standards of medical care in diabetes,2017. Diabetes Care.2017:40 (suppl 1):S1-S135. Orlin Elizabeth MD LAB BLOOD ORDERABLES Fi nal Result [facility] [address] [place] [address] * Lipid Profile, Plasma (04/20/2025 11:28 AM EDT) Cholesterol, Plasma 167 <200 mg/dL 04/20/2025 6:33 PM EDT [facility] Comment: Cholesterol Reference Range (age >17 years): Desirable <200 mg/dL Borderline 200 to 239 mg/dL Undesirable >239 mg/dL HDL 64 >=40 mg/dL 04/20/2025 6:33 PM EDT [facility] Comment: HDL Cholesterol Reference Ranges (age >17 years): Female, acceptable > or = 50 mg/dL Male, acceptable > or = 40 mg/dL Triglycerides, Plasma 49 <150 mg/dL 04/20/2025 6:33 PM EDT [facility] Comment: Triglyceride Reference Range (age >17 years): Desirable: <150 mg/dL Borderline high: 150 to 199 mg/dL High: 200 to 499 mg/dL Very high: >499 mg/dL Increased risk of pancreatitis: >1000 mg/dL Cholesterol/HDL Ratio 3 04/20/2025 6:33 PM EDT [facility] LDL, Calculated 93 <100 mg/dL 6:33 PM EDT [facility] Comment: LDL Cholesterol Reference Range (age [...] 12 hours? No 04/20/2025 6:33 PM EDT [facility] Comment:1 banana Blood Venous blood specimen / Unknown Venipuncture / Unknown 04/20/2025 11:28 AM EDT 04/20/2025 11:28 AM EDT us Orlin Elizabeth MD LAB BLOOD ORDERABLES Fi nal Result [facility] [address] [place] [address] * (ABNORMAL) Comprehensive Metabolic Panel, Plasma (04/20/2025 11:28 AM EDT) Glucose, Plasma 99 74 - 99 mg/dL 04/20/2025 6:33 PM EDT [facility] BUN, Plasma 26(H) 8 - 23 mg/dL 04/20/2025 6:33 PM EDT [facility] Creatinine, Plasma 0.95 0.70 - 1.20 mg/dL 04/20/2025 6:33 PM EDT [facility] BUN/Creatinine Ratio 27 04/20/2025 6:33 PM EDT [facility] Sodium, Plasma 139 136 - 145 mmol/L 04/20/2025 6:33 PM EDT [facility] Potassium, Plasma 5.2(H) 3.6 - 4.9 mmol/L 04/20/2025 6:33 PM EDT [facility] Chloride, Plasma 104 97 - 107 mmol/L 04/20/2025 6:33 PM EDT [facility] CO2, Plasma 27 22 - 29 mmol/L 04/20/2025 6:33 PM EDT [facility] Anion Gap 8 6 - 16 mmol/L 04/20/2025 6:33 PM EDT [facility] Total Calcium, Plasma 9.9 8.9 - 10.2 mg/dL 04/20/2025 6:33 PM EDT [facility] Total Protein 6.9 6.3 - 7.9 g/dL 04/20/2025 6:33 PM EDT [facility] Albumin, Plasma 4.2 3.5 - 5.2 g/dL 04/20/2025 6:33 PM EDT [facility] AST, Plasma 33 10 - 50 U/L 04/20/2025 6:33 PM EDT [facility] ALT, Plasma 34 10 - 50 U/L 04/20/2025 6:33 PM EDT [facility] Alkaline Phosphatase, Plasma 60 40 - 115 U/L 04/20/2025 6:33 PM EDT [facility] Total Bilirubin, Plasma 0.5 0.2 - 1.1 mg/dL 04/20/2025 6:33 PM EDT [facility] eGFRcr 86.1 mL/min/1.7 3m*2 04/20/2025 6:33 PM EDT [facility] Comment:Reported eGFRcr in m L/min/1.73m2 is based the CKD-EPI 2020 equation that does not use a race coefficient. Blood Venous blood specimen / Unknown Venipuncture / Unknown 04/20/2025 11:28 AM EDT 04/20/2025 11:28 AM EDT Orlin Elizabeth MD LAB BLOOD ORDERABLES Fi nal Result [facility] [address] [place] [address] * External Prothrombin Time (PT)/INR (04/13/2025) Only the most recent of3 resultswithin the time period is included. External INR - Internormal Ratio 2.78 EXTERNAL LAB External Prothrombin Time (PT) EXTERNAL LAB Blood Venous blood specimen / Unknown 04/13/2025 Historical Provider POINT OF CARE TEST ENTER/ EDIT ORDERABLES Final Result EXTERNAL LAB * (ABNORMAL) Urine Culture - Lab Collect (03/30/2025 4:43 PM EDT) Culture >=100,000 CFU/mL Staphylococcus coagulase negative(A) 04/01/2025 6:58 AM EDT [facility] Urine Urine specimen obtained by clean catch procedure / Unknown Non-blood Collection / Unknown 03/30/2025 4:43 PM EDT 03/30/2025 4:43 PM EDT us Skyla MAHONEY LAB MICROBIOLOGY - GENERAL ORD ERABLES Final Result [facility] [address] [place] [address] * POC US Bladder Volume (03/20/2025 12:49 PM EDT) Urine, Volume 470 mL IMAGING Anatomical Region Laterality Modality Other us Skyla MAHONEY IMG POINT OF CARE ULTRASOUND F inal Result * (ABNORMAL) POCT URINALYSIS DIPSTICK (03/20/2025 12:32 PM EDT) POCT Urine Color Yellow 03/20/2025 12:33 PM EDT [facility] POCT Urine Clarity Clear 03/20/2025 12:33 PM EDT [facility] POCT Urine Glucose 500(A) Negative mg/dL 03/20/2025 12:33 PM EDT [facility] POCT Urine Bilirubin Negative Negative mg/dL 03/20/2025 12:33 PM EDT [facility] POCT Urine Ketones Negative Negative mg/dL 03/20/2025 12:33 PM EDT [facility] POCT Urine Specific [place] 1.015 1.005 - 1.030 03/20/2025 12:33 PM EDT [facility] POCT Urine Blood Negative Negative 03/20/2025 12:33 PM EDT [facility] POCT pH, Urine 6.0 5.0 - 8.0 03/20/2025 12:33 PM EDT [facility] POCT Protein, Urine Negative Negative mg/dL 03/20/2025 12:33 PM EDT [facility] POCT Urobilinogen, Urine 0.2 0.2, 1.0 EU/dL 03/20/2025 12:33 PM EDT [facility] POCT Nitrite, Urine Negative Negative 03/20/2025 12:33 PM EDT [facility] POCT Urine Leukocyte Esterase Negative Negative 03/20/2025 12:33 PM EDT [facility] Urine 03/20/2025 12:3 2 PM EDT 03/20/2025 12:33 PM EDT us Skyla MAHONEY LAB POINT OF CARE TE ST DOCKED DEVICE UNSOLICITED RESULTS Final Result [facility] [address], [place] * PSA, diagnostic (03/20/2025 12:15 PM EDT) PSA, Diagnostic, Serum 0.45 0.00 - 6.50 ng/mL 03/20/2025 3:30 PM EDT [facility] Blood Venous blood specimen / Unknown Venipuncture / Unknown 03/20/2025 12:15 PM EDT 03/20/2025 12:15 PM EDT Narrative [facility] - 03/20/2025 3:30 PM EDT Performed by [employer] electrochemiluminescent immunoassay which is standardized against the PSA [place] Reference Standard (WHO 96/670). Results obtained with different test methods or kits cannot be used interchangeably. us Skyla MAHONEY LAB BLOOD ORDERABLES Final Res ult [facility] [address] [place] [address] * Hepatitis C Antibody - ED (03/15/2024 12:27 PM EDT) Hepatitis C Antibody Negative Negative 03/15/2024 1:32 PM EDT [facility] Blood Venous blood specimen / Unknown Venipuncture / Unknown 03/15/2024 12:27 PM EDT 03/15/2024 12:47 PM EDT us Alan Zuniga MD LAB BLOOD ORDERABLES Fi nal Result [facility] [address] [place] [address] * Colonoscopy (03/03/2023 1:33 PM EDT) Anatomical Region Laterality Modality Endoscopy Narrative 03/03/2023 1:47 PM EDT Table formatting from the original result was not included. Impression Overall Impression: 5 mm pedunculated polyp in the descending colon; completely removed by cold snare and retrieved specimen One 4 mm sessile polyp in the descending colon; completely removed by cold snare and retrieved specimen 7 mm sessile polyp in the sigmoid colon; completely removed by cold snare Multiple small and medium diverticula in the sigmoid colon The cecum and rectum appeared normal. Recommendation Await pathology results Repeat colonoscopy in 3 years Indication Screening for colon cancer Medications See anesthesia record for anesthesia administered medications. Staff Staff Role Ramona Barry MD Proceduralist Kerri Campos Endo Drug Room Operator Yesenia Olson CRNA DECK CADET Georgette Ashley MD Proceduralist Duy Ayala No role selected Lee Henderson MD Anesthesiologist Preprocedure A history and physical has been performed, and patient medication allergies have been reviewed. The patient's tolerance of previous anesthesia has been reviewed. The risks and benefits of the procedure and the sedation options and risks were discussed with the patient. All questions were answered and informed consent obtained. Details of the Procedure The patient underwent monitored anesthesia care, which was administered by an anesthesia professional. The patient's blood pressure, heart rate, level of consciousness, respirations and oxygen were monitored throughout the procedure. A digital rectal exam was performed. A perianal exam was performed. The scope was introduced through the anus and advanced to the cecum. Retroflexion was performed in the rectum. The quality of bowel preparation was evaluated using the [place] Bowel Preparation Scale with scores of: right colon = 3, transverse colon = 3, left colon = 3. The total BBPS score was 9. Bowel prep was adequate. The patient's estimated blood loss was minimal (<5 mL). The procedure was not difficult. The patient tolerated the procedure well. There were no apparent complications. Attestation I was present for the entire procedure Events Procedure Events Event Event Time ENDO SCOPE IN TIME 03/03/2023 1:04 PM ENDO CECUM REACHED 03/03/2023 1:12 PM ENDO SCOPE OUT TIME 03/03/2023 1:32 PM Specimens ID Type Source Tests Collected by Time A : descending colon polyps Tissue Descending Colon SURGICAL PATHOLOGY EXAM Georgette Ashley MD 03/03/2023 1327 B : sigmoid colon polyp Tissue Sigmoid Colon SURGICAL PATHOLOGY EXAM Georgette Ashley MD 03/03/2023 1329 Findings 5 mm pedunculated polyp in the descending colon; completely removed by cold snare and retrieved specimen One 4 mm sessile polyp in the descending colon; completely removed by cold snare and retrieved specimen 7 mm sessile polyp in the sigmoid colon; completely removed by cold snare Multiple small and medium diverticula in the sigmoid colon The cecum and rectum appeared normal. Orlin Elizabeth MD GI PROCEDURE ORDERABLES Final Result * (ABNORMAL) Cologuard?? colon cancer screening (12/03/2022 7:30 AM EST) Cologuard Positive( A) Negative 12/11/2022 1:29 PM EST [facility] (CLIA #:[id number]) Comment: POSITIVE TEST RESULT. A positive Cologuard result should be followed with a colonoscopy or visual examination of the colon. The normal value (reference range) for this assay is negative. TEST DESCRIPTION: Composite algorithmic analysis of stool DNA-biomarkers with hemoglobin immunoassay. Quantitative values of individual biomarkers are not reportable and are not associated with individual biomarker result reference ranges. Cologuard is intended for colorectal cancer screening of adults of either sex, 45 years or older, who are at average-risk for colorectal cancer (CRC). Cologuard has been approved for use by the U.S. FDA. The performance of Cologuard was established in a cross sectional study of average-risk adults aged 50-84. Cologuard performance in patients ages 45 to 49 years was estimated by sub-group analysis of near-age groups. Colonoscopies performed for a positive result may find as the most clinically significant lesion: colorectal cancer [4.0%], advanced adenoma (including sessile serrated polyps greater than or equal to 1cm diameter) [20%] or non- advanced adenoma [31%]; or no colorectal neoplasia [45%]. These estimates are derived from a prospective cross-sectional screening study of 10,000 individuals at average risk for colorectal cancer who were screened with both Cologuard and colonoscopy. (Charo Oneill et al, N Engl J Med 2014;370(14):0676-4745.) Cologuard may produce a false negative or false positive result (no colorectal cancer or precancerous polyp present at colonoscopy follow up). A negative Cologuard test result does not guarantee the absence of CRC or advanced adenoma (pre-cancer). The current Cologuard screening interval is every 3 years. ([place] [employer] and U.S. Multi-Society Task Force). Cologuard performance data in a 10,000 patient pivotal study using colonoscopy as the reference method can be accessed at the following location: www.[employer]/results. Additional description of the Cologuard test process, warnings and precautions can be found at www.[email or web address] [email or web address]. Stool specimen (specimen) 12/03/2022 7:30 AM EST 12/04/2022 1:08 PM EST Orlin Elizabeth MD LAB MOLECULAR DIAGNOSTI CS ORDERABLES Final Result [facility] (CLIA #:[id number]) [address] [place] [id number], from Last 3 Months or Most Recently Relevant to Health Maintenance Additional Health Concerns Infection Onset Date Last Indicated MRSA Comment: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 Source: [facility]. 10/19/2014 MRSA Escalation Plan Comment:MRSA Escalation Plan is in effect as of 2023. Patient will require contact precautions for the duration of the hospital admission. 03/17/2024 03/17/2024 Insurance ANTHEM ANTHEM Advance Directives * Full Code (Latest Code Status on File) Date Activated Date Inactivated Comments 03/15/2024 3:05 PM 03/18/2024 5:37 PM Question Answer Comments Patient has decision-making capacity? Yes Care Teams Cutting Torch Operator Relationship Specialty Start Date End Date Orlin Elizabeth MD [address] [place] [address] PCP - General Family Medicine 11/25/22 Josseline Longo PA [address] [place] [address] Physician Book Jogger Neurology 08/16/21 Jess Hawk APRN [address] [place] [address] Nurse Practitioner Cardiology 06/01/24 Rafaela Brantley, PharmD [address] [place] [address] Pharmacist Pharmacy 06/03/24 Jovana Wetzel, PharmD [address] [place] [address] Pharmacist Pharmacy 06/13/24 Skyla Mai PA [address] [place] [address] Physician Book Jogger Urology 03/20/25
--- OUTSIDE RECORDS SUMMARY | 2025-05-18 10:59 | XMS_ITS | Encounter Summary ---
Author Organization [facility] Address [address] [place] [address] Care Team Providers Care Odd Bundle Worker Name Role Phone Josseline Longo Unavailable [phone] Orlin Elizabeth MD Primary Care Provider Jess Hawk FRAMING MANAGER Unavailable [phone] Rafaela Brantley PharmD Unavailable [phone] Jovana Wetzel PharmD Unavailable + Skyla Mai PA Unavailable [phone] Reason for Visit * Reason Comments Med Refill Encounter Details Date Type Department Care Team (Late st Contact Info) Description 05/15/2025 Refill [facility] [place] [address] [facility], [address] [place] [address] Jess Hawk, FRAMING MANAGER [address] [place] [address] Social History Tobacco Use Types Packs/Day Years [...] any time in the past 12 m [facility], were you homeless or living in a [...] drink first t jorge in the morning (EYE-MONORAIL HELPER) to steady your nerves or to get rid of a hangover? 0 03/16/2024 CAGE Questionnaire Score 0 024 Utilities Answer Date Recorded In the past 12 months has th e [employer], gas, oil, or water company threatened to [...] Info) Description 07/05/2025 12:10 PM EDT Appointment [address], [address]nd [place] [address] 07/05/2025 1:45 PM EDT Office Visit Medical [facility] Building [facility] [address] [facility], [address] [place] [address] eGma Thompson MD [address] [place] [address] 07/21/2025 11:00 AM EDT Office Visit [facility] [address] [place] [address] Orlin Elizaebth MD [address] [facility] [address] [place] [address] documented as of this encounter Visit Diagnoses Not on filedocumented in this encounter Additional Health Concerns Infection Onset Date Last Indicated Resolved Time MRSA Comment: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 Source: [facility]. 10/19/2014 MRSA Escalation Plan Comment:MRSA Escalation [...] documented as of this encounter Care Teams Odd Bundle Worker Relationship Specialty Start Date End Date Orlin Elizabeth MD [address] [facility] 125 [place] [address] PCP - General Family Medicine 11/25/22 Josseline Longo PA [address] [place] [address] Physician Purchasing Internship Neurology 08/16/21 Jess Hawk APRN [address] [place] [address] Nurse Practitioner Cardiology 06/01/24 Rafaela Brantley, PharmD [address] [place] [address] Pharmacist Pharmacy 06/03/24 Jovaan Wetzel, PharmD [address] [place] [address] Pharmacist Pharmacy 06/13/24 Skyla Mai PA [address] [place] [address] Physician Purchasing Internship Urology 03/20/25 documented as of this encounter
--- OUTSIDE RECORDS SUMMARY | 2025-05-18 10:59 | XMS_ITS | Encounter Summary ---
Author Organization [facility] Address [address] [place] [address] Care Team Providers Care Barrel Raiser Helper Name Role Phone Josseline Longo Unavailable [phone] Orlin Elizabeth MD Primary Care Provider Jess Hawk MANUFACTURING GROUP LEADER Unavailable [phone] Rafaela Brantley PharmD Unavailable [phone] Jovana Wetzel PharmD Unavailable + Skyla Mai PA Unavailable [phone] Encounter Details Date Type Department Care Team (Late st Contact Info) Description 04/24/2025 Results Follow-Up [facility] [address] [place] [address] Orlin Elizabeth MD [address] [facility] [address] [place] [address] Social History Tobacco Use Types [...] place to sleep or slept in a long term (including now)? No 03/16/2024 Humiliation, Afraid, Rape, [...] any time in the past 12 m [facility], were you homeless or living in a long term (including now)? No 04/20/2025 Safety and Environment [...] drink first t jorge in the morning (EYE-JEWELRY FACER) to steady your nerves or to get rid of a hangover? 0 03/16/2024 CAGE Questionnaire Score 0 024 Utilities Answer Date Recorded In the past 12 months has th e [employer], gas, oil, or water company threatened to [...] Info) Description 07/05/2025 12:10 PM EDT Appointment [address] [place] [address] 07/05/2025 1:45 PM EDT Office Visit Medical Office Building Urology [address] [facility], [address] [place] [address] Gema Thompson MD [address] [place] [address] 07/21/2025 11:00 AM EDT Office Visit [facility] [address] [place] [address] Orlin Elizabeth MD [address] [facility] [address] [place] [address] documented as of this encounter Visit Diagnoses Not on filedocumented in this encounter Additional Health Concerns Infection Onset Date Last Indicated Resolved Time MRSA Comment: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 Source: [facility]. 10/19/2014 MRSA Escalation Plan Comment:MRSA [...] documented as of this encounter Care Teams Barrel Raiser Helper Relationship Specialty Start Date End Date Orlin Elizabeth MD [address] [facility] [address] [place] [address] PCP - General Family Medicine 11/25/22 Josseline Longo PA [address] [place] [address] Physician Airplane Refueler Neurology 08/16/21 Jess Hawk APRN [address] [place] [address] Nurse Practitioner Cardiology 06/01/24 Rafaela Brantley, PharmD [address] [place] [address] Pharmacist Pharmacy 06/03/24 Jovana Wetzel, PharmD [address] [place] [address] Pharmacist Pharmacy 06/13/24 Skyla Mai PA [address] [place] [address] Physician Airplane Refueler Urology 03/20/25 documented as of this encounter
[2025-05-18 11:27] LABS: INR 2.97 (0.9-1.1); Prothrombin Time 30.4 seconds (10.1-12.5)
== END 2025-05-18 23:59 | disposition home or self-care (01) ==
LOC: LAB 10:55
PROVIDERS: PCP Family Medicine Sports Medicine; Visit Provider Nurse Practitioner
DX: Z79.01 Long term (current) use of anticoagulants (principal)
CPT/HCPCS: 36415; 85610

== ENCOUNTER 2025-06-15 11:39 | Outpatient (CLI) | payer BC, SELFPAY ==
--- OUTSIDE RECORDS SUMMARY | 2025-04-20 10:00 | XMS_ITS | Encounter Summary ---
Author Organization [facility] Address [address] [place] [address] Care Team Providers Care Software Implementation Specialist Name Role Phone Josseline Longo Unavailable [phone] Orlin Elizabeth MD Primary Care Provider Jess Hawk E[employer]IAN DECK Unavailable [phone] Rafaela Brantley PharmD Unavailable [phone] Jovana Wetzel PharmD Unavailable + Skyla Mai PA Unavailable [phone] Reason for Visit * Reason Comments Annual Exam Encounter Details Date Type Department Care Team (Late st Contact Info) Description 04/20/2025 10:00 AM EDT Office Visit [facility] [address] [place] [address] Orlin Elizabeth MD [address] [facility] [address] [place] [address] Prediabetes (Primary Dx); Chronic heart failure with preserved ejection fraction (CMS/HCC); Healthcare maintenance; Essential tremor; Cardiomyopathy, unspecified type (CMS/HCC); Hyperlipidemia, unspecified hyperlipidemia type Social History Tobacco Use Types Packs/Day Years Used Date Smoking Tobacco: Never Passive Smoke Exposure: Never Smokeless Tobacco: Never Alcohol Use Standard Drinks/Week Comments Not Currently 0 (1 standard drink = 0.6 oz pur e alcohol) PHQ-2 Answer Date Recorded Patient Health Questionnaire-2 Score 0 11/30/2024 Housing Stability Vital Sign Answer Carlos e [...] place to sleep or slept in a [place] (including now)? No 03/16/2024 Humiliation, Afraid, Rape, and Kick questionnair e Answer Date Recorded Within the last year, have y ou been afraid of your partner or ex-partner? No 04/20/2025 Within the last year, have y ou been humiliated or emotionally abused in other ways by your partner or ex-partner? No Within the last year, have y ou been kicked, hit, slapped, or otherwise physically hurt by your partner or ex-partner? No 04/20/2025 Within the last year, have y ou been raped or forced to have any kind of sexual activity by your partner or ex-partner? No 04/20/2025 AUDIT-C Answer Date Recorded Q1: How often do you have a drink containing alcohol? Never 04/20/2025 Q2: How many drinks containi ng alcohol do you have on a typical day when you are drinking? Patient does not drink Q3: How often do you have si x or more drinks on one occasion? Never 04/20/2025 Hunger Vital Sign Answer Date Recorded Within the past 12 months, y ou worried that your food would run out before you got the money to buy more. Never true 04/20/20 25 Within the past 12 months, t he food you bought just didn't last and you didn't have money to get more. Never true 04/20/2025 PRAPARE - Transportation Answer Date Re corded In the past 12 months, has l ack of transportation kept you from medical appointments or from getting medications? No 04/09 In the past 12 months, has l ack of transportation kept you from meetings, work, or from getting things needed for daily living? No 04/20/2025 Housing Stability Vital Sign Answer Carlos e Recorded In the last 12 months, was t here a time when you were not able to pay the mortgage or rent on time? No 04/20/2025 In the past 12 months, how m any times have you moved where you were living? 0 04/20/2025 At any time in the past 12 m [facility], were you homeless or living in a [place] facility (including now)? No 04/20/2025 Safety and Environment Answer Date Coy rded Do you worry that your child may have been physically abused? No 04/20/2025 Do you worry that your child may have been sexua lly abused? No 04/20/2025 Are there any guns kept in o r around your home or where your child spends time? 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 0 03/16/2024 CAGE Questionnaire Score 0 024 Utilities Answer Date Recorded In the past 12 months has th e electric, gas, oil, or water company threatened to shut off services in your home? No 04/20/2025 PHQ-2A Answer Date Recorded Patient Health Questionnaire-2 Score 0 05/20/2023 Sex and Gender Information Value Date Recorded Sex Assigned at Not on file Legal Sex Male 8:17 PM EDT Gender Identity Not on file Sexual Orientation Not on file documented as of this encounter Last Filed Vital Signs Vital Sign Reading Time Taken Comments Blood Pressure 104/66 04/20/2025 10:20 AM EDT Pulse 58 04/20/2025 10:20 AM EDT Temperature 36.8 C (98.3 F) 04/20/2025 10:20 AM EDT Respiratory Rate 18 04/20/2025 10:20 AM EDT Oxygen Saturation 96% 04/20/2025 10:20 AM EDT Inhaled Oxygen Concentration - - Weight 82 kg (180 lb 12.4 oz) 04/20/2025 10:20 A M EDT Height 180.3 cm (5' 11 ) 04/20/2025 10:20 AM EDT Body Mass Index 25.21 04/20/2025 10:20 AM EDT documented in this encounter Functional Status * AUDIT-C Score Answer Date of Assessment Author 0 04/20/2025 10:24 AM EDT Stacy Henry LPN * Question Answer Date of Assessment Author Q1: How often do you have a drink containing alcohol? Never 04/20/2025 10:24 AM EDT Stacy Henry LPN Q2: How many drinks containing alcohol do you have on a typical day when you are drinking? Patient does not drink 04/20/2025 10:24 AM EDT Stacy Henry LPN Q3: How often do you have six or more drinks on one occasion? Never 04/20/2025 10:24 AM EDT Stacy Henry LPN * Calculated C-SSRS Risk Score (Lifetime/Recent) Answer Date of Assessment Author No Risk Indicated 04/20/2025 10:25 AM EDT Stacy Rosenthal LPN * Question Answer Date of Assessment Author 1. Wish to be (Past 1 Month) No 04/20/2025 10:25 AM EDT Stacy Henry LPN 2. Non-Specific Active Suici jadon Thoughts (Past 1 Month) No 04/20/2025 10:25 AM EDT Armando Henry LPN 6. Suicidal Behavior (Lifetime) No 10:25 AM EDT Stacy Henry LPN documented as of this encounter Miscellaneous Notes * Progress Notes - Stacy Henry LPN - 04/20/2025 10:00 AM EDT Fall risk protocol in place, pt in chair with arms Cosigned by Orlin Elizabeth MD at 04/20/2025 10:34 AM EDT * Progress Notes - Orlin Elizabeth MD - 04/20/2025 10:00 AM EDT Subjective Patient ID: Zackary Ness III is a 69 y.o. male. Chief Complaint Patient presents with Annual Exam HPI Reports having a possible wart on the left side over the lateral aspect. Recent diagnosis of atrialfibrillation, everything under well-controlled now. He has been optimized from medical management, followed by Cardiology every 3 months. Otherwise he does not have any other acute concerns today. Reports that he is having a prostate surgery in the next few months. The following portions of the chart were reviewed this encounter and updated as appropriate: Tobacco Allergies Meds Problems Med Hx Surg Hx Fam Hx Review of Systems Cardiovascular: HPI Respiratory: Negative Abdomen: Negative Objective Physical Exam Constitutional: No distress, well developed, well nourished, Vitals reviewed and addressed as below Neck: No mass noted Normal thyroid Lymphatics: No cervical, supraclavicular lymphadenopathy Heart-normal S1, S2 without any murmurs, regular rate and rhythm, Extremities non edematous Lungs-clear to auscultation, no added sounds, non labored breathing Abdomen-soft, nontender. no palpable mass noted, no hepatosplenomegaly noted Examination of the right foot: Patient has a small corn on the lateral aspect of the foot. Assessment/Plan Colorectal cancer screening: His recent colonoscopy came back with tubular adenoma, recommend colonoscopy in 2027 Skin lesion: History of basal cell carcinoma in the past. He has a follow up with dermatology in the next 1 month. Chronic heart failure with preserved ejection fraction, new onset AFib. Currently followed by Cardiology. His last echo back in 2020 showed a normal ejection fraction. Status post cardioversion in the hospital after a diagnoses. He is currently on dapagliflozin 10 mg tablet daily, dofetilide 250 mcg 2 times daily, lisinopril 5 mg tablet daily, metoprolol succinate 100 mg tablet daily. His heart rate was not regular rhythm today. Also continue atorvastatin 40 mg tablet daily. Coagulation-warfarin. Followed by the coagulation clinic. Prediabetes: Repeat A1c today. His last A1c was 5.9. [place]/callus: Location right foot, lateral aspect, recommend salicylic acid as well as donut pad. Essential hypertension: Blood pressure well-controlled now. Continue lisinopril 5 mg tablet daily History of alcohol abuse: Sober for almost 10+ years History of left hip. Up-to-date has been with no issues Healthcare maintenance: Status post pneumonia vaccination series. To discuss about considering PCV 20 during follow-up status post COVID shot, flu shot. History of BPH: Reports incontinence issues, patient is going to have procedure this May. Follow up in 3 months. Labs today. documented in this encounter Plan of Treatment Upcoming Encounters Date Type Department Care Team (Late st Contact Info) Description 07/05/2025 12:10 PM EDT Appointment [facility] [address] [place] [phone] 07/05/2025 1:45 PM EDT Office Visit Medical Office Building [facility] [address] [facility], [address] [place] [phone] Gema Thompson MD [address] [facility] [address] [place] [phone] 07/21/2025 11:00 AM EDT Office Visit [facility] [address] [place] [address] Orlin Elizabeth MD [address] [place] [address] [address] [place] [address] documented as of this encounter Procedures Procedure Name Priority Date/Time Associated Diagnosis Comments VITAMIN D 25 HYDROXY Routine 04/20/2025 11:28 AM EDT Prediabetes CBC W/O DIFFERENTIAL Routine 04/20/2025 11:28 AM EDT Prediabetes HEMOGLOBIN A1C Routine 04/20/2025 11:28 AM EDT Prediabetes LIPID PROFILE, PLASMA Routine 04/20/2025 11:28 AM EDT Prediabetes COMPREHENSIVE METABOLIC PANEL, PLASMA Routine 04/20/2025 11:28 AM EDT Prediabetes documented in this encounter Results * CBC W/O Differential (04/20/2025 11:28 AM EDT) WBC Count 5.36 3.70 - 10.30 10*3/uL LAB HEMATOLOGY METHOD 04/20/2025 6:21 PM EDT [facility] RBC Count 4.75 4.60 - 6.10 10*6/uL LAB HEMATOLOGY METHOD 04/20/2025 6:21 PM EDT [facility] HGB 15.1 13.7 - 17.5 g/dL LAB HEMATOLOGY METHOD 04/20/2025 6:21 PM EDT [facility] HCT 46.6 40.0 - 51.0 % LAB HEMATOLOGY METHOD 04/20/2025 6:21 PM EDT [facility] Platelet Count 253 155 - 369 10*3/uL LAB HEMATOLOGY METHOD 04/20/2025 6:21 PM EDT [facility] MCV 98 79 - 98 fL LAB HEMATOLOGY METHOD 04/20/2025 6:21 PM EDT [facility] MCH 31.8 26.0 - 32.0 pg LAB HEMATOLOGY METHOD 04/20/2025 6:21 PM EDT [facility] MCHC 32.4 30.7 - 35.5 g/dL LAB HEMATOLOGY METHOD 04/20/2025 6:21 PM EDT [facility] RDW 13.4 11.5 - 14.5 % LAB HEMATOLOGY METHOD 04/20/2025 6:21 PM EDT [facility] MPV 10.3 8.8 - 12.5 fL LAB HEMATOLOGY METHOD 04/20/2025 6:21 PM EDT [facility] nRBC 0.0 <=0.0 per 100 WBCs LAB HEMATOLOGY METHOD 04/20/2025 6:21 PM EDT [facility] Blood Venous blood specimen / Unknown Venipuncture / Unknown 04/20/2025 11:28 AM EDT 04/20/2025 11:28 AM EDT Orlin Elizabeth MD LAB BLOOD ORDERABLES Fi nal Result Performing Organization Address [facility] Co de Phone Number [facility] [address] [place] [address] * (ABNORMAL) Vitamin D 25 Hydroxy (04/20/2025 11:28 AM EDT) Vitamin D 25 Hydroxy 86.8(H) 20.0 - 80.0 ng/mL 04/20/2025 7:12 PM EDT [facility] Blood Venous blood specimen / Unknown Venipuncture / Unknown 04/20/2025 11:28 AM EDT 04/20/2025 11:28 AM EDT Narrative [facility] - 04/20/2025 7:12 PM EDT Testing performed on [employer], standardized against NIST SRM 2972. When testing samples from patients whose predominant form of vitamin D is vitamin D2, such as patients receiving vitamin D2 supplementation, results that are subtherapeutic should be confirmed with another method, such as LC-MS/MS, before being used for patient management. Vitamin D, 25-Hydroxy reference range, age 18 years and up: Deficiency: <12 ng/mL Insufficiency: 12 to 19 ng/mL Sufficiency: 20 to 80 ng/mL Possible toxicity: >100 ng/mL Orlin Elizabeth MD LAB BLOOD ORDERABLES Fi nal Result Performing Organization Address [facility] Co de Phone Number [facility] [address] [place] [address] * Lipid Profile, Plasma (04/20/2025 11:28 AM EDT) Cholesterol, Plasma 167 <200 mg/dL 04/20/2025 6:33 PM EDT [facility] Comment: Cholesterol Reference Range (age >17 years): Desirable <200 mg/dL Borderline 200 to 239 mg/dL Undesirable >239 mg/dL HDL 64 >=40 mg/dL 04/20/2025 6:33 PM EDT [facility] Comment: HDL Cholesterol Reference Ranges (age >17 years): Female, acceptable > or = 50 mg/dL Male, acceptable > or = 40 mg/dL Triglycerides, Plasma 49 <150 mg/dL 04/20/2025 6:33 PM EDT [facility] Comment: Triglyceride Reference Range (age >17 years): Desirable: <150 mg/dL Borderline high: 150 to 199 mg/dL High: 200 to 499 mg/dL Very high: >499 mg/dL Increased risk of pancreatitis: >1000 mg/dL Cholesterol/HDL Ratio 3 04/20/2025 6:33 PM EDT [facility] LDL, Calculated 93 <100 mg/dL 6:33 PM EDT [facility] Comment: LDL Cholesterol Reference Range (age >17 years): Optimal: <100 mg/dL Near or above optimal: 100 - 129 mg/dL Borderline high: 130 - 159 mg/dL High: 160 - 189 mg/dL Very high: >189 mg/dL LDL Cholesterol Reference Range (age <18 years): Desirable: <110 mg/dL Borderline: 110 - 129 mg/dL Undesirable: >130 mg/dL LDL Cholesterol is calculated using the [place]/NIH equation. Fasting greater than or equal to 12 hours? No 04/20/2025 6:33 PM EDT [facility] Comment:1 banana Blood Venous blood specimen / Unknown Venipuncture / Unknown 04/20/2025 11:28 AM EDT 04/20/2025 11:28 AM EDT us Orlin Elizabeth MD LAB BLOOD ORDERABLES Fi nal Result [facility] [address] [place] [address] * (ABNORMAL) Hemoglobin A1c (04/20/2025 11:28 AM EDT) Hemoglobin A1c 6.0(H) <5.7 % 04/20/2025 6:55 PM EDT [facility] Blood Venous blood specimen / Unknown Venipuncture / Unknown 04/20/2025 11:28 AM EDT 04/20/2025 11:28 AM EDT Narrative [facility] - 04/20/2025 6:55 PM EDT HA1C Interpretive Data: Diagnosis of Diabetes: Diabetic > or = 6.5% Pre-diabetic 5.7 to 6.4% Non-diabetic < or = 5.6% Glycemic Targets for Type I and Type II Diabetics: Non- Adults <7.0% Adults <6.0% Children and Adolescents <7.5% Source: [place] [employer]. Standards of medical care in diabetes,2017. Diabetes Care.2017:40 (suppl 1):S1-S135. Orlin Elizabeth MD LAB BLOOD ORDERABLES Fi nal Result [facility] [address] [place] [address] * (ABNORMAL) Comprehensive Metabolic Panel, Plasma (04/20/2025 11:28 AM EDT) Glucose, Plasma 99 74 - 99 mg/dL 04/20/2025 6:33 PM EDT [facility] BUN, Plasma 26(H) 8 - 23 mg/dL 04/20/2025 6:33 PM EDT [facility] Creatinine, Plasma 0.95 0.70 - 1.20 mg/dL 04/20/2025 6:33 PM EDT [facility] BUN/Creatinine Ratio 27 04/20/2025 6:33 PM EDT [facility] Sodium, Plasma 139 136 - 145 mmol/L 04/20/2025 6:33 PM EDT [facility] Potassium, Plasma 5.2(H) 3.6 - 4.9 mmol/L 04/20/2025 6:33 PM EDT [facility] Chloride, Plasma 104 97 - 107 mmol/L 04/20/2025 6:33 PM EDT [facility] CO2, Plasma 27 22 - 29 mmol/L 04/20/2025 6:33 PM EDT [facility] Anion Gap 8 6 - 16 mmol/L 04/20/2025 6:33 PM EDT [facility] Total Calcium, Plasma 9.9 8.9 - 10.2 mg/dL 04/20/2025 6:33 PM EDT [facility] Total Protein 6.9 6.3 - 7.9 g/dL 04/20/2025 6:33 PM EDT [facility] Albumin, Plasma 4.2 3.5 - 5.2 g/dL 04/20/2025 6:33 PM EDT [facility] AST, Plasma 33 10 - 50 U/L 04/20/2025 6:33 PM EDT [facility] ALT, Plasma 34 10 - 50 U/L 04/20/2025 6:33 PM EDT [facility] Alkaline Phosphatase, Plasma 60 40 - 115 U/L 04/20/2025 6:33 PM EDT [facility] Total Bilirubin, Plasma 0.5 0.2 - 1.1 mg/dL 04/20/2025 6:33 PM EDT [facility] eGFRcr 86.1 mL/min/1.7 3m*2 04/20/2025 6:33 PM EDT [facility] Comment:Reported eGFRcr in m L/min/1.73m2 is based the CKD-EPI 2020 equation that does not use a race coefficient. Blood Venous blood specimen / Unknown Venipuncture / Unknown 04/20/2025 11:28 AM EDT 04/20/2025 11:28 AM EDT Orlin Elizabeth MD LAB BLOOD ORDERABLES Fi nal Result [facility] [address] [place] [address] documented in this encounter Visit Diagnoses Diagnosis Prediabetes- Primary Other abnormal glucose Chronic heart failure with preserved ejection fraction (CMS/HCC) Healthcare maintenance Essential tremor Cardiomyopathy, unspecified type (CMS/HCC) Hyperlipidemia, unspecified hyperlipidemia type documented in this encounter Additional Health Concerns Infection Onset Date Last Indicated Resolved Time MRSA Comment: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 Source: [facility]. 10/19/2014 MRSA Escalation Plan Comment:MRSA Escalation Plan is in effect as of 2023. Patient will require contact precautions for the duration of the hospital admission. 03/17/2024 03/17/2024 Assessment Noted Time A fall risk assessment has been complete d for the patient 04/20/2025 10:26 AM EDT A Body Mass Index follow-up plan has been documented for the patient 04/20/2025 11:22 AM EDT documented as of this encounter Care Teams Software Implementation Specialist Relationship Specialty Start Date End Date Orlin Elizabeth MD [address] [facility] [address] [place] [phone] PCP - General Family Medicine 11/25/22 Josseline Longo PA [address] [place] [phone] Physician [employer] [facility] 08/16/21 Jess Hawk APRN [address] [place] [phone] Nurse Practitioner Cardiology 06/01/24 Rafaela Brantley, PharmD [address] [place] [phone] Pharmacist Pharmacy 06/03/24 Jovana Wetzel, PharmD [address] [place] [phone] Pharmacist Pharmacy 06/13/24 Skyla Mai PA [address] [place] [phone] Physician [employer] [facility] 03/20/25 documented as of this encounter
--- OUTSIDE RECORDS SUMMARY | 2025-06-15 11:42 | XMS_ITS | Encounter Summary ---
Author Organization [facility] Address [address] [place] [address] Care Team Providers Care Hogshead Stock Clerk Name Role Phone Josseline Longo Unavailable [phone] Orlin Elizabeth MD Primary Care Provider Jess Hawk INVESTIGATIVE WRITER Unavailable [phone] Rafaela Brantley PharmD Unavailable [phone] Jovana Wetzel PharmD Unavailable + Skyla Mai Unavailable [phone] Encounter Details Date Type Department Care Team (Late st Contact Info) Description 04/04/2025 Results [facility] [address] [place] [address] Skyla Mai PA [address] [place] [address] Social History Tobacco Use Types [...] in a half-way (including now)? No 03/16/2024 Humiliation, Afraid, Rape, [...] time in the past 12 m [facility], were you homeless or living in a half-way (including now)? No 04/20/2025 Safety and Environment [...] drink first t jorge in the morning (EYE-PRODUCTION SUPERVISOR OFF SHIFT) to steady your nerves or to get rid of a hangover? 0 03/16/2024 CAGE Questionnaire Score 0 024 Utilities Answer Date Recorded In the past 12 months has th e [employer], gas, oil, or water company threatened to [...] Info) Description 07/05/2025 12:10 PM EDT Appointment [facility] [address] [place] [address] 07/05/2025 1:45 PM EDT Office Visit Medical Office Building Urology [address] [facility], [address] [place] [address] Gema Thompson MD [address] [facility] [address] [place] [address] 07/21/2025 11:00 AM EDT Office Visit [facility] [address] [place] [address] Orlin Elizabeth MD [address] [facility] [address] [place] [address] documented as of this encounter Visit Diagnoses Not on filedocumented in this encounter Additional Health Concerns Infection Onset Date Last Indicated Resolved Time MRSA Comment: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 Source: [facility]. 10/19/2014 MRSA Escalation Plan Comment:MRSA Escalation Plan [...] documented as of this encounter Care Teams Hogshead Stock Clerk Relationship Specialty Start Date End Date Orlin Elizabeth MD [address] [facility] [address] [place] [address] PCP - General Family Medicine 11/25/22 Josseline Longo PA [address] [place] [address] Physician Drum Handler Neurology 08/16/21 Jess Hawk APRN [address] [place] [address] Nurse Practitioner Cardiology 06/01/24 Rafaela Brantley, PharmD [address] [place] [address] Pharmacist Pharmacy 06/03/24 Jovana Wetzel, PharmD [address] [place] [address] Pharmacist Pharmacy 06/13/24 Skyla Mai PA [address] [place] [address] Physician Drum Handler Urology 03/20/25 documented as of this encounter
--- OUTSIDE RECORDS SUMMARY | 2025-06-15 11:42 | XMS_ITS | Encounter Summary ---
Author Organization [facility] Address [address] [place] [address] Care Team Providers Care Chemical Sales Representative Name Role Phone Josseline Longo Unavailable [phone] Orlin Elizabeth MD Primary Care Provider Jess Hawk PARK MAINTAINER Unavailable [phone] Rafaela Brantley PharmD Unavailable [phone] Jovana Wetzel PharmD Unavailable + Skyla Mai PA Unavailable [phone] Reason for Visit * Reason Comments Med Refill Encounter Details Date Type Department Care Team (Late st Contact Info) Description 05/26/2025 Refill [facility] [address], [address] [place] [address] Skyla Mai PA [address] [place] [address] Social History Tobacco Use Types [...] any time in the past 12 m [facility], were you homeless or living [...] drink first t jorge in the morning (EYE-INTERNATIONAL MARKETING SPECIALIST) to steady your nerves or to get [...] Info) Description 07/05/2025 12:10 PM EDT Appointment [facility] [address], [address]nd [place] [address] 07/05/2025 1:45 PM EDT Office Visit Medical Office Building Urology [address] [facility], [address] [place] [address] Gema Thompson MD [address] [place] [address] 07/21/2025 11:00 AM EDT Office Visit [facility] [address] [place] [address] Orlin Elizabeth MD [address] [place] [address] documented as of this encounter Visit Diagnoses Not on filedocumented in this encounter Additional Health Concerns Infection Onset Date Last Indicated Resolved Time MRSA Comment: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 Source: [facility]. 10/19/2014 MRSA Escalation Plan Comment:MRSA Escalation Plan is in effect as of 2023. Patient will require contact precautions for the duration of the hospital admission. 03/17/2024 03/17/2024 Assessment Noted Time A fall risk assessment has been complete d for the patient 04/20/2025 10:26 AM EDT A Body Mass Index follow-up plan has been documented for the patient 05/18/2025 4:11 PM EDT documented as of this encounter Care Teams Chemical Sales Representative Relationship Specialty Start Date End Date Orlin Elizabeth MD [address] [facility] [address] [place] [address] PCP - General Family Medicine 11/25/22 Josseline Lonog PA [address] [place] [address] Physician Fuel Injection Servicer Neurology 08/16/21 Jess Hawk APRN [address] [place] [address] Nurse Practitioner Cardiology 06/01/24 Rafaela Brantley, PharmD [address] [place] [address] Pharmacist Pharmacy 06/03/24 Jovana Wetzel, PharmD [address] [place] [address] Pharmacist Pharmacy 06/13/24 Skyla Mai PA [address] [place] [address] Physician Fuel Injection Servicer Urology 03/20/25 documented as of this encounter
--- OUTSIDE RECORDS SUMMARY | 2025-06-15 11:42 | XMS_ITS | Encounter Summary ---
Author Organization [facility] Address [address] [place] [address] Care Team Providers Care Power Saw Operator Name Role Phone Josseline Longo Unavailable [phone] Orlin Elizabeth MD Primary Care Provider Jess Hawk SILO MAN Unavailable [phone] Rafaela Brantley PharmD Unavailable [phone] Jovana Wetzel PharmD Unavailable + Skyla Mai Unavailable [phone] Encounter Details Date Type Department Care Team (Late st Contact Info) Description 03/21/2025 Results [facility] [address] [place] [address] Skyla Mai PA [address] [place] [address] Social History Tobacco Use Types [...] place to sleep or slept in a nursing home (including now)? No 03/16/2024 Humiliation, Afraid, [...] any time in the past 12 m [facility], were you homeless or living in a nursing home (including now)? No 04/20/2025 Safety and [...] first t jorge in the morning (EYE-COMMERCIAL PARTS PROFESSIONAL) to steady your nerves or to get rid of a hangover? 0 03/16/2024 CAGE Questionnaire Score 0 024 Utilities Answer Date Recorded In the past 12 months has th e [employer], gas, oil, or water company threatened to [...] Info) Description 07/05/2025 12:10 PM EDT Appointment [facility] [address] [place] [address] 07/05/2025 1:45 PM EDT Office Visit Medical Office Building Urology [address] [facility], [address] [place] [address] Gema Thompson MD [address] [facility] [address] [place] [address] 07/21/2025 11:00 AM EDT Office Visit [facility] [address] [place] [address] Orlin Elizabeth MD [address] [facility] [address] [place] [address] documented as of this encounter Visit Diagnoses Not on filedocumented in this encounter Additional Health Concerns Infection Onset Date Last Indicated Resolved Time MRSA Comment: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 Source: [facility]. 10/19/2014 MRSA Escalation Plan Comment:MRSA [...] documented as of this encounter Care Teams Power Saw Operator Relationship Specialty Start Date End Date Orlin Elizabeth MD [address] [facility] [address] [place] [address] PCP - General Family Medicine 11/25/22 Josseline Longo PA [address] [place] [address] Physician Distillery Miller Neurology 08/16/21 Jess Hawk APRN [address] [place] [address] Nurse Practitioner Cardiology 06/01/24 Rafaela Brantley, PharmD [address] [place] [address] Pharmacist Pharmacy 06/03/24 Jovana Wetzel, PharmD [address] [place] [address] Pharmacist Pharmacy 06/13/24 Skyla Mai PA [address] [place] [address] Physician Distillery Miller Urology 03/20/25 documented as of this encounter
--- OUTSIDE RECORDS SUMMARY | 2025-06-15 11:42 | XMS_ITS | Encounter Summary ---
Author Organization [facility] Address [address] [place] [address] Care Team Providers Care Drier Feeder Name Role Phone Josseline Longo Unavailable [phone] Orlin Elizabeth MD Primary Care Provider Jess Hawk ADMISSIONS RN Unavailable [phone] Rafaela Brantley PharmD Unavailable [phone] Jovana Wetzel PharmD Unavailable + Skyla Mai PA Unavailable [phone] Encounter Details Date Type Department Care [...] any time in the past 12 m [facility], were you homeless or living [...] drink first t jorge in the morning (EYE-JOURNALISM INTERNSHIP) to steady your nerves or to get rid of a hangover? 0 03/16/2024 CAGE Questionnaire Score 0 024 Utilities Answer Date Recorded In the past 12 months has th [employer], gas, oil, or water company threatened to [...] 12:10 PM EDT Appointment [facility] [address], [address] [place] [address] 07/05/2025 1:45 PM EDT Office Visit Medical Office Building Urology [address] [facility], [address] [place] [address] Gema Thompson MD [address] [facility] [address] [place] [address] 07/21/2025 11:00 AM EDT Office Visit [facility] [address] [place] [address] Orlin Elizabeth MD [address] [facility] 125 [place] [address] documented as of this encounter [...] documented as of this encounter Care Teams Drier Feeder Relationship Specialty Start Date End Date Orlin Elizabeth MD [address] [facility] [address] [place] [address] PCP - General Family Medicine 11/25/22 Josseline Longo PA [address] [place] [address] Physician Retort Forker Neurology 08/16/21 Jess Hawk APRN [address] [place] [address] Nurse Practitioner Cardiology 06/01/24 Rafaela Brantley, PharmD [address] [place] [address] Pharmacist Pharmacy 06/03/24 Jovana Wetzel, PharmD [address] [place] [address] Pharmacist Pharmacy 06/13/24 Skyla Mai PA [address] [place] [address] Physician Retort Forker Urology 03/20/25 documented as of this encounter
--- OUTSIDE RECORDS SUMMARY | 2025-06-15 11:42 | XMS_ITS | Encounter Summary ---
Author Organization [facility] Address [address] [place] [address] Care Team Providers Care Bleach Boiler Puller Name Role Phone Josseline Longo Unavailable [phone] Orlin Elizabeth MD Primary Care Provider Jess Hawk BIOFUELS PRODUCTION TECHNICIAN Unavailable [phone] Rafaela Brantley PharmD Unavailable [phone] Jovana Wetzel PharmD Unavailable + Skyla Mai PA Unavailable [phone] Encounter Details Date Type Department Care Team (Latest Contact Info) Description 05/18/2025 Anticoagulation - Warfarin Visit [facility] [place] [address] [place] [address] Jovana Wetzel, PharmD [address] [place] [address] buttermaker continuous churn (current) use of anticoagulants (Primary Dx); Anticoagulation [...] in a custodial (including now)? No 03/16/2024 Humiliation, Afraid, Rape, [...] any time in the past 12 m ont, were you homeless or living in a custodial (including now)? No 04/20/2025 Safety and Environment [...] drink first t jorge in the morning (E[employer]-CHANNEL SALES MANAGER) to steady your nerves or to get rid of a hangover? 0 03/16/2024 CAGE Questionnaire Score 0 024 Utilities Answer Date Recorded In the past 12 months has th e [employer], gas, oil, or water [employer] threatened to shut off services in your [...] Progress Notes - Jovana Wetzel, PharmD - 05/18/2025 4:07 PM EDT Anticoagulation Clinic Pharmacy Note History of Present Illness Anticoagulation Summary As of 05/18/2025 INR goal: 2.0-3.0 TTR: 66.1% (1.1 y) INR used for dosin.97 (05/18/2025) Warfarin maintenance plan: 5 mg (5 mg x 1) every Sun, Lizeth; 7.5 mg (5 mg x 1.5) all other days Weekly warfarin total: 47.5 mg No change documented: Jovana Wetzel, PharmD Plan last modified: Jovana Wetzel, PharmD (07/07/2024) Next INR check: 06/15/2025 Target end date: Indefinite Indications Atrial fibrillation unspecified type (CMS/HCC) (Resolved) [I48.91] buttermaker continuous churn (current) use of anticoagulants [Z79.01] Anticoagulation Episode Summary INR check location: Outside Lab Preferred lab: EXTERNAL LAB Send INR reminders to: [facility] Comments: [facility] P: [phone] F: [phone] Anticoagulation Care Providers Provider Role Specialty Phone number Israel Membreno MD Referring Cardiology [phone] Jess Hawk APRN Responsible Cardiology [phone] Additional History: New onset Afib s/p DCCV on 03/16 [id number] =Total score 3, Age 65-74 (1), CHF [...] Jess Hawk APRN - Last office visit: 05/21/24 - Upcoming office visit: TBD Subjective Bruising: [...] INR: Lab Results Component Value Date INR 2.97 05/18/2025 INR 2.78 04/13/2025 INR 1.69 03/29/2025 PROTIME 25.6 02/28/2025 PROTIME 25.3 02/01/2025 Renal function: Lab Results Component Value Date CREATININE 0.95 04/20/2025 CREATININE 1.06 11/30/2024 CREATININE 1.10 06/16/2024 EGFR 86.1 04/20/2025 EGFR 76.0 11/30/2024 EGFR 72.7 06/16/2024 CBC: Lab Results Component Value Date HGB 15.1 04/20/2025 HGB 14.4 06/16/2024 HGB 13.8 03/18/2024 HCT 46.6 04/20/2025 HCT 43.5 06/16/2024 HCT 41.4 03/18/2024 MCV 98 04/20/2025 MCV 96 06/16/2024 MCV 95 03/18/2024 PLT 253 04/20/2025 PLT 246 06/16/2024 PLT 194 03/18/2024 Liver function: Lab Results Component Value Date ALT 34 04/20/2025 ALT 21 06/16/2024 ALT 84 (H) 03/15/2024 AST 33 04/20/2025 AST 23 06/16/2024 AST 54 (H) 03/15/2024 ALKPHOS 60 04/20/2025 ALKPHOS 67 06/16/2024 ALKPHOS 55 03/15/2024 BILITOT 0.5 04/20/2025 BILITOT 0.3 06/16/2024 BILITOT 0.6 03/15/2024 Weight: Wt Readings from Last 1 Encounters: 04/20/25 82 kg (180 lb 12.4 oz) BMI: Estimated body mass index is 25.21 kg/m?? as calculated from the following: Height as of 04/20/25: 1.803 m (5' 11 ). Weight as of 04/20/25: 82 kg (180 lb 12.4 oz). Assessment and Plan Current warfarin dose: 7.5 mg daily x 5 mg every Thursday/ Therapeutic INR for goal of 2.0-3.0. New warfarin dose: no change Follow Up Check INR at [facility] in 4 weeks . Patient Education Contact the Anticoagulation Clinic at [phone] with any questions or concerns regarding yourwarfarin. Patient verbalized understanding of above care plan: YES Jovana Wetzel, PharmD, BCACP [facility] Antico[facility] LAURA Padilla CARDIOLOGY [address] [facility] [address] documented in this encounter Plan of Treatment Upcoming Encounters Date Type Department Care Team (Late st Contact Info) Description 07/05/2025 12:10 PM EDT Appointment [facility] [address] [place] [address] 07/05/2025 1:45 PM EDT Office Visit Medical Office Building Urology [address], [address] [place] [address] Gema Thompson MD [address] [place] [address] 07/21/2025 11:00 AM EDT Office Visit [facility] Medicine [address] [address] Orlin Elizabeth MD [address] [place] [address] documented as of this encounter Procedures Procedure Name Priority Date/Time Associated Diagnosis Comments EXTERNAL PROTHROMBIN TIME (PT)/INR Routine 05/18/2025 documented in this encounter Results * (ABNORMAL) External Prothrombin Time (PT)/INR (05/18/2025) External INR - Internormal Ratio 2.97 EXTERNAL LAB Comment:High External Prothrombin Time (PT) 30.4 EXTERNAL LAB Comment:High Blood Venous blood specimen / Unknown 05/18/2025 us Historical Provider POINT OF CARE TEST ENTER/ EDIT ORDERABLES Edited Result - Final EXTERNAL LAB documented in this encounter Visit Diagnoses Diagnosis buttermaker continuous churn (current) use of anticoagulants- Primary Long-term (current) use of anticoagulants Anticoagulation management encounter Encounter for therapeutic drug monitoring documented in this encounter Additional Health Concerns Infection Onset Date Last Indicated Resolved Time MRSA Comment: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 Source: [facility]. 10/19/2014 MRSA Escalation Plan Comment:MRSA Escalation [...] documented as of this encounter Care Teams Bleach Boiler Puller Relationship Specialty Start Date End Date Orlin Elizabeth MD [address] [place] [address] PCP - General Family Medicine 11/25/22 Josseline Longo PA [address] [facility] [address] [place] [address] Physician Buffet Manager Neurology 08/16/21 Jess Hawk APRN [address] [place] [address] Nurse Practitioner Cardiology 06/01/24 Rafaela Brantley, PharmD [address] [place] [address] Pharmacist Pharmacy 06/03/24 Jovana Wetzel, PharmD [address] [place] [address] Pharmacist Pharmacy 06/13/24 Skyla Mai PA [id number] [place] [address] Physician Buffet Manager Urology 03/20/25 documented as of this encounter
--- OUTSIDE RECORDS SUMMARY | 2025-06-15 11:43 | XMS_ITS | Clinical Summary ---
Author Organization [facility] Address [address] [place] [address] Care Team Providers Care Garageman Name Role Phone Josseline Longo Unavailable [phone] Orlin Elizabeth MD Primary Care Provider Jess Hawk PI/SENIOR RESEARCH ASSOCIATE Unavailable [phone] Rafaela Brantley PharmD Unavailable [phone] Jovana Wetzel PharmD Unavailable + Skyla Mai PA Unavailable [phone] Allergies No known active allergies Medications [...] 1 (one) time each day. Active Multiple Vitamins-Special Needs Teacher als (multivitamin with minerals) tablet Take 1 tablet by mouth 2 (two) times a day. Active B Complex Vitamins (B COMPLEX 1 PO) Take 1 each by mouth 1 (one) time each day. Active phytonadione (Vitamin K, Phytonadione,) 100 MCG tablet tablet Take 1 tablet by mouth daily. Active lisinopril 2.5 MG tablet Take 2 [...] ANTICOAGULATION CLINIC 40 tablet 5 025 Active tamsulosin (Flomax) 0.4 MG 24 hr capsule TAKE 1 CAPSULE BY MOUTH TWO TIMES A DAY 180 capsule 3 025 Active tamsulosin (Flomax) 0.4 MG 24 hr capsule Take 1 capsule by mouth twice daily 180 capsule 3 024 2024 Discontinued dofetilide (Tikosyn) 250 MCG capsuleIndicat ions:Atrial fibrillation, unspecified type (CMS/HCC) Take 1 capsule (250 mcg) by mouth 2 (two) times a day. 60 capsule 11 024 2024 Active Problems Problem Noted Date Diagnosed Date meterman (current) use of anticoagulants 2023 Hyperthyroidism 03/18/2024 Bilateral swelling of feet and ankles 03/03/2024 Low blood pressure reading 02/19/2024 Shortness of breath 01/24/2024 At high risk for falls 03/03/2023 Primary osteoarthritis of left hip 08/16/2021 Left hip pain 06/20/2019 Overview (08/16/2021): Added automatically from request for surgery [id number] Obstructive sleep apnea 12/29/2018 BPH with obstruction/lower [...] sleepiness 12/07/2018 05/03/2024 Snoring 12/07/2018 05/03/2024 Encounters Date Type Department Care Team Description 05/26/2025 Refill [facility]rology [address], [address] [place] [address] Skyla Mai, PA 05/18/2025 Anticoagulation - Warfarin Visit [facility] [address] [place] [address] Jovana Wetzel, PharmD meterman (current) use of anticoagulants (Primary Dx); Anticoagulation management encounter 05/15/2025 Refill [facility] [place] [address], [address] [place] [address] Jess Hawk APRN 04/24/2025 Results Follow-Up [facility] [address] [place] [address] Orlin Elizabeth MD 04/20/2025 10:00 AM EDT Office Visit [facility] [address] [place] [address] Orlin Elizabeth MD Prediabetes (Primary Dx); Chronic heart failure with preserved ejection fraction (CMS/HCC); Healthcare maintenance; Essential tremor; Cardiomyopathy, unspecified type (CMS/HCC); Hyperlipidemia, unspecified hyperlipidemia type 04/20/2025 Travel 04/13/2025 Anticoagulation - Warfarin Visit Pending sale to [facility] [address] [place] [address] Jovana Wetzel, PharmD halfway (current) use of anticoagulants (Primary Dx); Anticoagulation management encounter 04/13/2025 Refill [facility] [address] [place] [address] Skyla Mai PA 04/04/2025 Results Follow-Up [facility] [address] [place] [address] Skyla Mai PA 03/30/2025 Travel 03/30/2025 Orders Only [facility] [address], [address] [place] [address] Skyla Mai PA Suspected UTI (Primary Dx) 03/29/2025 Anticoagulation - Warfarin Visit Pending sale to [facility] [address] [place] [address] Rafaela Brantley, PharmD halfway (current) use of anticoagulants (Primary Dx); Anticoagulation management encounter 03/29/2025 Telephone [facility] [address] [place] [address] Skyla Mai PA HCN Clinical Concern/Question 03/27/2025 Telephone [facility]rology [address], [facility] [place] [address] Skyla Mai PA 03/22/2025 Refill [facility] [address] [place] [address] Orlin Elizabeth MD 03/21/2025 Results Follow-Up [facility]rology [address] [place] [address] Skyla Mai PA 03/20/2025 12:30 PM EDT Office Visit [facility] [address] [place] [address] Skyla Mai PA Benign prostatic hyperplasia with nocturia (Primary Dx); Incomplete bladder emptying; Prostate cancer screening 03/20/2025 Travel from Last 3 Months Immunizations Immunization Administration Dates Next Due Influenza, Unspecified 08/17/2020,2018,08/09/2018,2016,08/11/2016,08/13/2015,09/04/2014 Influenza, high-dose, quadrivalent 11/20/2023, Influenza, injectable, quadr ivalent, preservative free 09/09/2021 Influenza, seasonal, injecta ble, preservative free 08/24/2024 MMR 04/14/2014 Moderna Covid-19 Vaccine 12y +, Flavio Protein, Preservative free 11/20/2023 PPD Skin Test (TB Skin Test) 2012, 12/23/2011,06/04/2010,2008,01/28/2008,01/13/2007,12/30/2006,0 06/08/2002 Pfizer Covid-19 Vaccine 12y+ , Flavio Protein, PF, Tian-Sucrose 08/24/2024 Aden & Anais COVID-19 Vac cine (Purple Cap) 12+ 11/20/2020 Pneumococcal Conjugate PCV 13 11/21/2022 Tdap 04/14/2014,02/14/2009 Family History Medical History Relation Name Comments Cancer Father Marco A Diabetes Father Marco A Heart attack Father Marco A Heart disease Father Marco A Nephrolithiasis Father Marco A Obesity Father Marco A arteriosclerotic cardiovascular disease Father C lyde Alzheimer's disease Mother Aiyana Florence Diabetes Mother Aiyana [place] Relation Name Status Comments Father Marco A Mother Aiyana Ness Social History Tobacco Use Types Packs/Day Years [...] any time in the past 12 m [facility], were you homeless or living [...] drink first t jorge in the morning (EYE-DENIAL RESOLUTION SPECIALIST) to steady your nerves or to [...] Info) Description 07/05/2025 12:10 PM EDT Appointment [facility] [address] [place] [address] 07/05/2025 1:45 PM EDT Office Visit [facility] [address] [facility], [address] [place] [address] Gema Thompson MD [address] [place] [address] 07/21/2025 11:00 AM EDT Office Visit [facility] [address] [place] [address] Orlin Elizabeth MD [address] [facility] [address] [place] [address] Health Maintenance Due Date Last Done Comments CT Colonography 1999 FIT 1999 FOBT 1999 Sigmoidoscopy 1999 [facility]-Zoster Vaccines (1 of 2) 2004 [facility]-RSV Vaccine: 60+ Years or (1 - Risk 60-74 years 1-dose series) 2014 [facility]-Pneumococcal Vaccine: 50+ Years (2 of 2 - PPSV23) 01/16/2023 11/21/2022 [facility]-DTaP,Tdap,and Td Vaccines (3 - Td or Tdap) 04/14/2024 04/14/2014, 02/14/2009 [id number]-21 Vaccine (6 - season) 2025 08/24/2024, 11/20/2023, 11/03/2021, Additional history exists [facility]-Influenza Vaccine (#1) 07/10/202508/24, 11/20/2023, 09/05/2022, Additional history exists [facility]- SDOH Screenings 10/20/2025 [facility]-Adult SDOH Screenings 10/20/2025 04/20/2025 [facility]-/Child/Adol SDOH Screenings 10/20/2025 04/20/2025 [facility]-Depression Screening 11/30/2025 11/30/2024 FIT-DNA 12/03/2025 12/03/2022 Colonoscopy 03/02/2026 03/03/2023 [facility]-Colorectal Cancer Screening 03/02/2026 [facility]-Diabetes: Hemoglobin A1C 04/20/202610/2025, 02/19/2024, 11/20/2023, Additional history exists [facility]-Hepatitis C Screening Completed 03/15/2024 [facility]-Obesity Intervention Completed 025, 04/20/2025, 04/13/2025, Additional history exists HPV Vaccines Aged Out [...] Comments EXTERNAL PROTHROMBIN TIME (PT)/INR Routine 05/18/2025 CBC W/O DIFFERENTIAL Routine 04/20/2025 11:28 AM [...] prostatic hyperplasia with nocturia Prostate cancer screening HEPATITIS C ANTIBODY - ED W/REFLEX TO HCV QUANT PCR STAT 03/15/2024 12:27 PM EDT COLONOSCOPY Routine 03/03/2023 1:33 PM EDT Screening for colon cancer LAB COLOGUARD COLON CANCER SCREEN Routine 12/03/2022 7:30 AM EST Screening for colon cancer from Last 3 Months or Most Recently Relevant to Health Maintenance Results * (ABNORMAL) External Prothrombin Time (PT)/INR (05/18/2025) Only the most recent of3 resultswithin the time period is included. External INR - Internormal Ratio 2.97 EXTERNAL LAB Comment:High External Prothrombin Time (PT) 30.4 EXTERNAL LAB Comment:High Blood Venous blood specimen / Unknown 05/18/2025 Historical Provider POINT OF CARE TEST ENTER/ EDIT ORDERABLES Edited Result - Final Performing Organization Address City/[facility]/ZIP Co de Phone Number EXTERNAL LAB * (ABNORMAL) Vitamin D 25 Hydroxy (04/20/2025 11:28 AM EDT) Vitamin D 25 Hydroxy 86.8(H) 20.0 - 80.0 ng/mL 04/20/2025 7:12 PM EDT [facility] Blood Venous blood specimen / Unknown Venipuncture / Unknown 04/20/2025 11:28 AM EDT 04/20/2025 11:28 AM EDT Narrative [facility] - 04/20/2025 7:12 PM EDT Testing performed on [employer], standardized against NIST SRM 2972. When testing [...] MD LAB BLOOD ORDERABLES Fi nal Result [facility] [address] [place] [address] * CBC W/O Differential (04/20/2025 11:28 AM EDT) WBC Count 5.36 3.70 - 10.30 10*3/uL LAB HEMATOLOGY METHOD 04/20/2025 6:21 PM EDT [facility] RBC Count 4.75 4.60 - 6.10 10*6/uL LAB HEMATOLOGY METHOD 04/20/2025 6:21 PM EDT [facility] HGB 15.1 13.7 - 17.5 g/dL LAB HEMATOLOGY METHOD 04/20/2025 6:21 PM EDT [facility] HCT 46.6 40.0 - 51.0 % LAB HEMATOLOGY METHOD 04/20/2025 6:21 PM EDT [facility] Platelet Count 253 155 - 369 10*3/uL LAB HEMATOLOGY METHOD 04/20/2025 6:21 PM EDT [facility] MCV 98 79 - 98 fL LAB HEMATOLOGY METHOD 04/20/2025 6:21 PM EDT [facility] MCH 31.8 26.0 - 32.0 pg LAB HEMATOLOGY METHOD 04/20/2025 6:21 PM EDT [facility] MCHC 32.4 30.7 - 35.5 g/dL LAB HEMATOLOGY METHOD 04/20/2025 6:21 PM EDT [facility] RDW 13.4 11.5 - 14.5 % LAB HEMATOLOGY METHOD 04/20/2025 6:21 PM EDT [facility] MPV 10.3 8.8 - 12.5 fL LAB HEMATOLOGY METHOD 04/20/2025 6:21 PM EDT [facility] nRBC 0.0 <=0.0 per 100 WBCs LAB HEMATOLOGY METHOD 04/20/2025 6:21 PM EDT [facility] Blood Venous blood specimen / Unknown Venipuncture / Unknown 04/20/2025 11:28 AM EDT 04/20/2025 11:28 AM EDT Orlin Elizabeth MD LAB BLOOD ORDERABLES Fi nal Result [facility] [address] [place] [address] * (ABNORMAL) Hemoglobin A1c (04/20/2025 11:28 AM EDT) Hemoglobin A1c 6.0(H) <5.7 % 04/20/2025 6:55 PM EDT [facility] Blood Venous blood specimen / Unknown Venipuncture / Unknown 04/20/2025 11:28 AM EDT 04/20/2025 11:28 AM EDT Narrative [facility] - 04/20/2025 6:55 PM EDT HA1C Interpretive Data: Diagnosis of Diabetes: Diabetic > or = 6.5% Pre-diabetic 5.7 to 6.4% Non-diabetic < or = 5.6% Glycemic Targets for Type I and Type II Diabetics: Non- Adults <7.0% Adults <6.0% Children and Adolescents <7.5% Source: [place] Diabetes Association. Standards of medical care in diabetes,2017. Diabetes Care.2017:40 (suppl 1):S1-S135. us Orlin Elizabeth MD LAB BLOOD ORDERABLES Fi nal Result [facility] [address] [place] [address] * Lipid Profile, Plasma (04/20/2025 11:28 AM EDT) Cholesterol, Plasma 167 <200 mg/dL 04/20/2025 6:33 PM EDT [facility] Comment: Cholesterol Reference Range (age >17 years): Desirable <200 mg/dL Borderline 200 to 239 mg/dL Undesirable >239 mg/dL HDL 64 >=40 mg/dL 04/20/2025 6:33 PM EDT [facility] Comment: HDL Cholesterol Reference Ranges (age >17 years): Female, acceptable > or = 50 mg/dL Male, acceptable > or = 40 mg/dL Triglycerides, Plasma 49 <150 mg/dL 04/20/2025 6:33 PM EDT [facility] Comment: Triglyceride Reference Range (age >17 years): Desirable: <150 mg/dL Borderline high: 150 to 199 mg/dL High: 200 to 499 mg/dL Very high: >499 mg/dL Increased risk of pancreatitis: >1000 mg/dL Cholesterol/HDL Ratio 3 04/20/2025 6:33 PM EDT [facility] LDL, Calculated 93 <100 mg/dL 6:33 PM EDT [facility] Comment: LDL Cholesterol Reference Range [...] 12 hours? No 04/20/2025 6:33 PM EDT [facility] Comment:1 banana Blood Venous blood specimen / Unknown Venipuncture / Unknown 04/20/2025 11:28 AM EDT 04/20/2025 11:28 AM EDT us Orlin Elizabeth MD LAB BLOOD ORDERABLES Fi nal Result [facility] [address] [place] [address] * (ABNORMAL) Comprehensive Metabolic Panel, Plasma (04/20/2025 11:28 AM EDT) Glucose, Plasma 99 74 - 99 mg/dL 04/20/2025 6:33 PM EDT [facility] BUN, Plasma 26(H) 8 - 23 mg/dL 04/20/2025 6:33 PM EDT [facility] Creatinine, Plasma 0.95 0.70 - 1.20 mg/dL 04/20/2025 6:33 PM EDT [facility] BUN/Creatinine Ratio 27 04/20/2025 6:33 PM EDT [facility] Sodium, Plasma 139 136 - 145 mmol/L 04/20/2025 6:33 PM EDT [facility] Potassium, Plasma 5.2(H) 3.6 - 4.9 mmol/L 04/20/2025 6:33 PM EDT [facility] Chloride, Plasma 104 97 - 107 mmol/L 04/20/2025 6:33 PM EDT [facility] CO2, Plasma 27 22 - 29 mmol/L 04/20/2025 6:33 PM EDT [facility] Anion Gap 8 6 - 16 mmol/L 04/20/2025 6:33 PM EDT [facility] Total Calcium, Plasma 9.9 8.9 - 10.2 mg/dL 04/20/2025 6:33 PM EDT [facility] Total Protein 6.9 6.3 - 7.9 g/dL 04/20/2025 6:33 PM EDT [facility] Albumin, Plasma 4.2 3.5 - 5.2 g/dL 04/20/2025 6:33 PM EDT [facility] AST, Plasma 33 10 - 50 U/L 04/20/2025 6:33 PM EDT [facility] ALT, Plasma 34 10 - 50 U/L 04/20/2025 6:33 PM EDT [facility] Alkaline Phosphatase, Plasma 60 40 - 115 U/L 04/20/2025 6:33 PM EDT [facility] Total Bilirubin, Plasma 0.5 0.2 - 1.1 mg/dL 04/20/2025 6:33 PM EDT [facility] eGFRcr 86.1 mL/min/1.7 3m*2 04/20/2025 6:33 PM EDT [facility] Comment:Reported eGFRcr in m L/min/1.73m2 is based the CKD-EPI 2020 equation that does not use a race coefficient. Blood Venous blood specimen / Unknown Venipuncture / Unknown 04/20/2025 11:28 AM EDT 04/20/2025 11:28 AM EDT us Orlin Elizabeth MD LAB BLOOD ORDERABLES Fi nal Result [facility] [address] [place] [address] * (ABNORMAL) Urine Culture - Lab Collect (03/30/2025 4:43 PM EDT) Culture >=100,000 CFU/mL Staphylococcus coagulase negative(A) 04/01/2025 6:58 AM EDT [facility] Urine Urine specimen obtained by clean catch procedure / Unknown Non-blood Collection / Unknown 03/30/2025 4:43 PM EDT 03/30/2025 4:43 PM EDT us Skyla MAHONEY LAB MICROBIOLOGY - GENERAL ORD ERABLES Final Result [facility] [address] [place] [address] * POC US Bladder Volume (03/20/2025 12:49 PM EDT) Urine, Volume 470 mL IMAGING Anatomical Region Laterality Modality Other us Skyla MAHONEY IMG POINT OF CARE ULTRASOUND F inal Result * (ABNORMAL) POCT URINALYSIS DIPSTICK (03/20/2025 12:32 PM EDT) POCT Urine Color Yellow 03/20/2025 12:33 PM EDT [facility] [place] 2[place] UROLOGY POCT Urine Clarity Clear 03/20/2025 12:33 PM EDT [facility] [place] 2[place] UROLOGY POCT Urine Glucose 500(A) Negative mg/dL 03/20/2025 12:33 PM EDT [facility] [place]NOTE 2] UROLOGY POCT Urine Bilirubin Negative Negative mg/dL 03/20/2025 12:33 PM EDT [facility] [place]NOTE 2] UROLOGY POCT Urine Ketones Negative Negative mg/dL 03/20/2025 12:33 PM EDT [facility] [place] 2[facility] UROLOGY POCT Urine Specific [place] 1.015 1.005 - 1.030 03/20/2025 12:33 PM EDT [facility] [place] 2[place] UROLOGY POCT Urine Blood Negative Negative 03/20/2025 12:33 PM EDT [facility] [place]NOTE 2] UROLOGY POCT pH, Urine 6.0 5.0 - 8.0 03/20/2025 12:33 PM EDT [facility] [place]NOTE 2] UROLOGY POCT Protein, Urine Negative Negative mg/dL 03/20/2025 12:33 PM EDT [facility] [place]NOTE 2[facility] UROLOGY POCT Urobilinogen, Urine 0.2 0.2, 1.0 EU/dL 03/20/2025 12:33 PM EDT [facility] [place]NOTE 2] UROLOGY POCT Nitrite, Urine Negative Negative 03/20/2025 12:33 PM EDT [facility] [place]NOTE 2[facility] UROLOGY POCT Urine Leukocyte Esterase Negative Negative 03/20/2025 12:33 PM EDT [facility] [place] 2[facility] UROLOGY Urine 03/20/2025 12:3 2 PM EDT 03/20/2025 12:33 PM EDT Skyla MAHONEY LAB POINT OF CARE TE ST DOCKED DEVICE UNSOLICITED RESULTS Final Result [facility] [place]NOTE 2[facility] UROLOGY [address], [place] * PSA, diagnostic (03/20/2025 12:15 PM EDT) PSA, Diagnostic, Serum 0.45 0.00 - 6.50 ng/mL 03/20/2025 3:30 PM EDT [facility] Blood Venous blood specimen / Unknown Venipuncture / Unknown 03/20/2025 12:15 PM EDT 03/20/2025 12:15 PM EDT Narrative [facility] - 03/20/2025 3:30 PM EDT Performed by [employer] electrochemiluminescent immunoassay which is standardized against the PSA [place] Reference Standard (WHO 96/670). Results obtained with different test methods or kits cannot be used interchangeably. Skyla MAHONEY LAB BLOOD ORDERABLES Final Res ult Performing Organization Address City/[facility]/ZIP Co de Phone Number [facility] [address] [place] [address] * Hepatitis C Antibody - ED (03/15/2024 12:27 PM EDT) Hepatitis C Antibody Negative Negative 03/15/2024 1:32 PM EDT [facility] Blood Venous blood specimen / Unknown Venipuncture / Unknown 03/15/2024 12:27 PM EDT 03/15/2024 12:47 PM EDT Alan Zuniga MD LAB BLOOD ORDERABLES Fi nal Result Performing Organization Address City/[facility] Co de Phone Number [facility] [address] [place] [address] * Colonoscopy (03/03/2023 1:33 PM EDT) Anatomical [...] Ramona Barry MD Proceduralist Kerri Campos Endo [employer] Investigation Lieutenant Yesenia Olson CRNA SINGLE SPINDLE SCREW MACHINE OPERATOR Georgette Ashley MD Proceduralist Duy Ayala No [...] of bowel preparation was evaluated using the [place] Bowel Preparation Scale with scores of: right [...] Positive( A) Negative 12/11/2022 1:29 PM EST [employer] (CLIA #:[id number]) Comment: POSITIVE TEST RESULT. A positive Cologuard [...] screened with both Cologuard and colonoscopy. (Charo Cyr al, N Engl J Med 2014;370(14):1324-0799.) Cologuard may produce a false negative or false positive result (no colorectal cancer or precancerous polyp present at colonoscopy follow up). A negative Cologuard test result does not guarantee the absence of CRC or advanced adenoma (pre-cancer). The current Cologuard screening interval is every 3 years. ([place] Cancer Society and U.S. Multi-Society Task Force). Cologuard performance data in a 10,000 patient pivotal study using colonoscopy as the reference method can be accessed at the following location: [email or web address]. Additional description of the Cologuard test process, warnings and precautions can be found at [email or web address]. Stool specimen (specimen) 12/03/2022 7:30 AM EST 12/04/2022 1:08 PM EST Orlin Elizabeth MD LAB MOLECULAR DIAGNOSTI CS ORDERABLES Final Result [employer] (CLIA #:[id number]) [address] [place] [address], from Last 3 Months or Most Recently Relevant to Health Maintenance Additional Health Concerns Infection Onset Date Last Indicated MRSA Comment: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 Source: [facility]. 10/19/2014 MRSA Escalation Plan Comment:MRSA Escalation Plan is in effect as of 2023. Patient will require contact precautions for the duration of the hospital admission. 03/17/2024 03/17/2024 Insurance [employer] Advance Directives * Full Code (Latest Code Status on File) Date Activated Date Inactivated Comments 03/15/2024 3:05 PM 03/18/2024 5:37 PM Question Answer Comments Patient has decision-making capacity? Yes Care Teams Garageman Relationship Specialty Start Date End Date Orlin Elizabeth MD [address] [facility] [address] [place] [address] PCP - General Family Medicine 11/25/22 Josseline Longo PA [address] [facility] [address] [place] [address] Physician Internet Marketing Coordinator Neurology 08/16/21 Jess Hawk APRN [address] [place] [address] Nurse Practitioner Cardiology 06/01/24 Rafaela Brantley, PharmD [address] [place] [address] Pharmacist Pharmacy 06/03/24 Jovana Wetzel, PharmD [address] [place] [address] Pharmacist Pharmacy 06/13/24 Skyla Mai PA [address] [facility] [address] [place] [address] Physician Internet Marketing Coordinator Urology 03/20/25
--- OUTSIDE RECORDS SUMMARY | 2025-06-15 11:43 | XMS_ITS | Encounter Summary ---
Author Organization [facility] Address [address] [place] [address] Care Team Providers Care Barrel Marker Name Role Phone Josseline Longo Unavailable [phone] Orlin Elizabeth MD Primary Care Provider Jess Hawk OBSTETRICS SCRUB NURSE Unavailable [phone] Rafaela Brantley PharmD Unavailable [phone] Jovana Wetzel PharmD Unavailable + Skyla Mai PA Unavailable [phone] Reason for Visit * Reason Comments Med Refill Encounter Details Date Type Department Care Team (Late st Contact Info) Description 05/15/2025 Refill [facility] [place] [address] [facility], [address] [place] [address] Jess Hawk, OBSTETRICS SCRUB NURSE [address] [place] [address] Social History Tobacco Use Types [...] place to sleep or slept in a skilled nursing (including now)? No 03/16/2024 Humiliation, Afraid, Rape, [...] any time in the past 12 m [facility], were you homeless or living in a skilled nursing (including now)? No 04/20/2025 Safety and Environment [...] drink first t jorge in the morning (EYE-DEPOSIT CLERK) to steady your nerves or to get rid of a hangover? 0 03/16/2024 CAGE Questionnaire Score 0 024 Utilities Answer Date Recorded In the past 12 months has th e [employer], gas, oil, or water company threatened to [...] Info) Description 07/05/2025 12:10 PM EDT Appointment [address] [place] [address] 07/05/2025 1:45 PM EDT Office Visit Medical Office Building Urology [address] [facility], [address] [place] [address] Gema Thompson MD [address] [place] [address] 07/21/2025 11:00 AM EDT Office Visit [facility] [address] [place] [address] Orlin Elizabeth MD [address] [facility] [address] [place] [address] documented as of this encounter Visit Diagnoses Not on filedocumented in this encounter Additional Health Concerns Infection Onset Date Last Indicated Resolved Time MRSA Comment: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 Source: [facility]. 10/19/2014 MRSA Escalation Plan Comment:MRSA Escalation Plan [...] as of this encounter Care Teams Barrel Marker Relationship Specialty Start Date End Date Orlin Elizabeth MD [address] [facility] [address] [place] [address] PCP - General Family Medicine 11/25/22 Josseline Longo PA [address] [place] [address] Physician Ceramic Coater Machine Neurology 08/16/21 Jess Hawk APRN [address] [place] [address] Nurse Practitioner Cardiology 06/01/24 Rafaela Brantley, PharmD [address] [place] [address] Pharmacist Pharmacy 06/03/24 Jovana Wetzel, PharmD [address] [place] [address] Pharmacist Pharmacy 06/13/24 Skyla Mai PA [address] [place] [address] Physician Ceramic Coater Machine Urology 03/20/25 documented as of this encounter
--- OUTSIDE RECORDS SUMMARY | 2025-06-15 11:43 | XMS_ITS | Encounter Summary ---
Author Organization [facility] Address [address] [place] [address] Care Team Providers Care Health Insurance Sales Agent Name Role Phone Josseline Longo Unavailable [phone] Orlin Elizabeth MD Primary Care Provider Jess Hawk DRUM PULLER Unavailable [phone] Rafaela Brantley PharmD Unavailable [phone] Jovana Wetzel PharmD Unavailable + Skyla Mai PA Unavailable [phone] Encounter Details Date Type Department Care Team (Late st Contact Info) Description 04/24/2025 Results Follow-Up [facility] [address] [place] [address] Orlin Elizabeth MD [address] [facility] [address] [place] [address] Social History Tobacco Use Types [...] in a halfway (including now)? No 03/16/2024 Humiliation, Afraid, Rape, [...] time in the past 12 m [facility], were you homeless or living in a halfway (including now)? 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 0 03/16/2024 CAGE Questionnaire Score 0 024 Utilities Answer Date Recorded In the past 12 months has th e [employer], gas, oil, or water company threatened to [...] Info) Description 07/05/2025 12:10 PM EDT Appointment [address] [place] [address] 07/05/2025 1:45 PM EDT Office Visit Medical Office Building Urology [address] [facility], [address] [place] [address] Gema Thompson MD [address] [place] [address] 07/21/2025 11:00 AM EDT Office Visit [facility] [address] [place] [address] Orlin Elizabeth MD [address] [facility] [address] [place] [address] documented as of this encounter Visit Diagnoses Not on filedocumented in this encounter Additional Health Concerns Infection Onset Date Last Indicated Resolved Time MRSA Comment: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 Source: [facility]. 10/19/2014 MRSA Escalation Plan Comment:MRSA [...] documented as of this encounter Care Teams Health Insurance Sales Agent Relationship Specialty Start Date End Date Orlin Elizabeth MD [address] [facility] [address] [place] [address] PCP - General Family Medicine 11/25/22 Josseline Longo PA [address] [place] [address] Physician Short Story Writer Neurology 08/16/21 Jess Hawk APRN [address] [place] [address] Nurse Practitioner Cardiology 06/01/24 Rafaela Brantley, PharmD [address] [place] [address] Pharmacist Pharmacy 06/03/24 Jovana Wetzel, PharmD [address] [place] [address] Pharmacist Pharmacy 06/13/24 Skyla Mai PA [address] [place] [address] Physician Short Story Writer Urology 03/20/25 documented as of this encounter
--- OUTSIDE RECORDS SUMMARY | 2025-06-15 11:43 | XMS_ITS | Encounter Summary ---
Author Organization [facility] Address [address] [place] [address] Care Team Providers Care Pediatric Orthodontist Name Role Phone Sherrie Elam MD Primary Care Provider [phone] Josseline Longo Unavailable [phone] Orlin Elizabeth MD Primary Care Provider Jess Hawk SERVICE LINE BUS CLEANER Unavailable [phone] Rafaela Brantley PharmD Unavailable [phone] Jovana Wetzel PharmD Unavailable + Skyla Mai PA Unavailable [phone] Reason for Visit * Reason Comments Med Refill Encounter Details Date Type Department Care Team (Late st Contact Info) Description 04/19/2021 Refill [facility] [address] [place] [address] Josseline Longo PA [address] [place] [address] Social History Tobacco Use Types [...] [facility] [place] [address] [place] [address] 07/05/2025 1:45 PM EDT Office Visit Medical Office Building Urology [address] [facility], [address] [place] [address] Gema Thompson MD [address] [place] [address] 07/21/2025 11:00 AM EDT Office Visit [facility] [address] [place] [address] Orlin Elizabeth MD [address] [place] [address] documented as of this encounter Visit Diagnoses Not on filedocumented in this encounter Additional Health Concerns Infection Onset Date Last Indicated Resolved Time MRSA Comment: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 Source: [facility]. 10/19/2014 MRSA Escalation Plan Comment:MRSA Escalation Plan is in effect as of 2023. Patient will require contact precautions for the duration of the hospital admission. 03/17/2024 03/17/2024 documented as of this encounter Care Teams Pediatric Orthodontist Relationship Specialty Start Date End Date Sherrie Elam MD [facility] [place] [address] PCP - General Internal Medicine 08/16/21 11/24/22 Orlin Elizabeth [facility] [address] [place] [address] PCP - General Family Medicine 11/25/22 Josseline Longo PA [address] [facility] [address] [place] [address] Physician Veneer Repairer Machine Neurology 08/16/21 Jess Hawk APRN [address] [place] [address] Nurse Practitioner Cardiology 06/01/24 Rafaela Brantley, PharmD [address] [place] [address] Pharmacist Pharmacy 06/03/24 Jovana Wetzel, PharmD [address] [place] [address] Pharmacist Pharmacy 06/13/24 Skyla Mai PA [address] [facility] [address] [place] [address] Physician Veneer Repairer Machine Urology 03/20/25 documented as of this encounter
--- OUTSIDE RECORDS SUMMARY | 2025-06-15 11:43 | XMS_ITS | Clinical Summary ---
Author Organization [facility] Address [address] [place] [address] Care Team Providers Care Clinical Quality Assurance Associate Name Role Phone Sherrie Elam MD Primary Care Provider [phone] Allergies No known active allergies Medications lisinopril (PRINIVIL,ZESTR IL) 10 MG tablet Take 10 mg by mouth daily Active metoprolol (LOPRESSOR) 100 MG tablet Take 100 mg by mouth . Active primidone (MYSOLINE) 50 MG tablet Take 50 mg by mouth 3 (three) times daily . Active tamsulosin (FLOMAX) 0.4 MG CAPS Take 0.4 mg by mouth Twice a Day . 03/14/2019 Active finasteride (PROSCAR) 5 MG tablet Take 5 mg by mouth daily. Active Multiple Vitamins-Minera ls (MULTIVITAMIN ADULT PO) Take by mouth. Active Coenzyme Q10 (CO Q 10 PO) Take by mouth. Active MAGNESIUM GLUCONATE PO Take by mouth. Active MAGNESIUM PO Take by mouth. Active [place]-3 Fatty Acids (FISH OIL PO) Take by mouth. Active Menaquinone-7 (VITAMIN K2 PO) Take by mouth. Active Cholecalciferol (D3 VITAMIN PO) Take by mouth. Active HYDROcodone-avelina taminophen (NORCO) 7.5-325 MG per tablet Take 1-2 tablets by mouth every 6 (six) hours as needed for Pain. Max Daily Amount: 8 tablets 60 tablet 07/18/2019 Active Active Problems Problem Noted Date Diagnosed Date Status post left hip replacement 07/18/2019 Left hip pain 06/20/2019 Overview (06/20/2019): Added automatically from request for surgery [id number] History of hip replacement, total 10/11/2015 Acute systolic congestive heart failure 10/25/20 14 Cardiomyopathy 10/24/2014 Primary osteoarthritis of right hip 10/23/2014 Status post right hip replacement 10/23/2014 Primary osteoarthritis of left hip Social History Tobacco Use Types Packs/Day Years Used Date Smoking Tobacco: Never Smokeless Tobacco: Never Alcohol Use Standard Drinks/Week Comments No 0 (1 standard drink = 0.6 oz pur e alcohol) Sex and Gender Information Value Date Recorded Sex Assigned at Not on file Legal Sex Male 3:18 PM EDT Gender Identity Not on file Sexual Orientation Not on file Last Filed Vital Signs Vital Sign Reading Time Taken Comments Blood Pressure 117/68 07/18/2019 1:10 PM EDT Pulse 63 07/18/2019 1:10 PM EDT Temperature 36.2 C (97.1 F) 07/18/2019 1:10 PM EDT Respiratory Rate 16 08/29/2019 10:26 AM EDT Oxygen Saturation 98% 07/18/2019 1:10 PM EDT Inhaled Oxygen Concentration - - Weight 86.2 kg (190 lb) 08/29/2019 10:26 AM EDT Height 180.3 cm (5' 11 ) 08/29/2019 10:26 AM EDT Body Mass Index 26.5 08/29/2019 10:26 AM EDT Plan of Treatment Health Maintenance Due Date Last Done Comments CT Colonography 1954 Colonoscopy 1954 Colorectal Cancer Screening 1954 FIT-DNA 1954 FIT 1954 FOBT 1954 Hepatitis C Screening 1954 Sigmoidoscopy 1954 Tdap/Td Vaccine >11 yo (1 - Tdap) 1973 Pneumococcal Vaccines >50 yo (1 of 1 - PCV) 2004 Shingles (Shingrix) (1 of 2) 2004 Abdominal Aortic Aneurysm (A AA) Screen 2019 Annual SDOH Screening 11/09/2024 Influenza Vaccine (#1) 2025 Haemophilus Influenzae Type B (Hib) Vaccine Aged Out No longer eligible b ased on patient's age to complete this topic Hepatitis A (HepA) Vaccine Aged Out N o longer eligible based on patient's age to complete this topic Hepatitis B (HepB) Vaccine Aged Out N o longer eligible based on patient's age to complete this topic Meningococcal ACWY Aged Out No longer eligible based on patient's age to complete this topic Polio (IPV) Aged Out No longer eligi ble based on patient's age to complete this topic Rotavirus (RV) Vaccine Aged Out No lo nger eligible based on patient's age to complete this topic Medical Devices Implanted Type Area Cable Lacer Device Identifier Shelf Expiration Date Model / Serial / Lot Hip Liner Neut 36 [id number] - [id number] Implanted:Qty: 1 on 10/23/2014 by Timur Rodriguez MD at [facility] Hips Right: Hip DAY 06/09/2019 [id number] / / [id number] Hip Shell Uni 56 [id number] - [id number] Implanted:Qty: 1 on 10/23/2014 by Timur Rodriguez MD at [facility] Hips Right: Hip DAY 08/09/2024 [id number] / / [id number] Hip Stem Taper 11 [id number] - [id number] Implanted:Qty: 1 on 10/23/2014 by Timur Rodriguez MD at [facility] Hips Right: Hip DAY 08/09/2024 [id number] / / [id number] Hip Fem Head 36 [id number] - [id number] Implanted:Qty: 1 on 10/23/2014 by Timur Rodriguez MD at [facility] Hips Right: Hip DAY 08/09/2023 [id number] / / [id number] Hip Capt High Demand Day - [id number] Implanted:Qty: 1 on 10/23/2014 by Timur Rodriguez MD at [facility] Hips DAY HIPHIGHZIMMER / / Hip Capt Vit E Biomet - [id number] Implanted:Qty: 1 on 07/18/2019 by Timur Rodriguez MD at [facility] Hips [employer] [id number] / / Hip Shell 56 [id number] - [id number] Implanted:Qty: 1 on 07/18/2019 by Timur Rodriguez MD at [facility] Hips Left: Hip [employer] 04/24/2029 [id number] / / [id number] Hip Liner Acet 36 [id number] - [id number] Implanted:Qty: 1 on 07/18/2019 by Timur Rodriguez MD at [facility] Hips Left: Hip [employer] 03/05/2024 [id number] / / [id number] Hip Fem Stem 5 [id number] - [id number] Implanted:Qty: 1 on 07/18/2019 by Timur Rodriguez MD at [facility] Hips Left: Hip DAY 09/08/2023 [id number] / / [id number] Hip Fem Head 36 [id number] - [id number] Implanted:Qty: 1 on 07/18/2019 by Timur Rodriguez MD at [facility] Hips Left: Hip DAY 05/08/2029 [id number] / / [id number] Hip Dome Plug [id number] - [id number] Implanted:Qty: 1 on 10/23/2014 by Timur Rodriguez MD at [facility] OTHER - IMPLANTS - ORTHOPAEDIC Right: Hip DAY 08/09/2024 [id number] / / [id number] Additional Health Concerns Infection Onset Date Last Indicated MRSA Comment:Right hand, date unknown 10/19/2014 10/19/2014 MRSA (+) Screen Comment:07/01/19 07/02/2019 07/02/2019 Insurance ARABELLA Member Subscriber Plan / Payer (Ef fective 2013-Present) Name:Marco A Ness III Relation to Subscriber:Self Name:Marco A Ness III Payer ID:[id number] (NA) Type:Indemnity Address: [facility] [address] [place] [id number] Advance Directives * Full Code (Latest Code Status on File) Date Activated Date Inactivated Comments 10/23/2014 5:44 PM 10/26/2014 7:06 PM Care Teams Clinical Quality Assurance Associate Relationship Specialty Start Date End Date Sherrie Elam MD [address] [place] [address] PCP - General Internal Medicine 10/23/14
[2025-06-15 12:14] LABS: INR 2.43 (0.9-1.1); Prothrombin Time 25.3 seconds (10.1-12.5)
== END 2025-06-15 23:59 | disposition home or self-care (01) ==
LOC: LAB 11:40
PROVIDERS: PCP Family Medicine Sports Medicine; Visit Provider Nurse Practitioner
DX: Z51.81 Encounter for therapeutic drug level monitoring (principal); Z79.01 Long term (current) use of anticoagulants
CPT/HCPCS: 36415; 85610

== ENCOUNTER 2025-07-13 11:36 | Outpatient (CLI) | payer BC, SELFPAY ==
--- OUTSIDE RECORDS SUMMARY | 2025-06-17 14:20 | XMS_ITS | Encounter Summary ---
Author Organization [facility] Address [address] [place] [address] Care Team Providers Care Extrusion Supervisor Name Role Phone Josseline Longo Unavailable [phone] Orlin Elizabeth MD Primary Care Provider Jess Hawk DINING ROOM CAPTAIN Unavailable [phone] Rafaela Brantley PharmD Unavailable [phone] Jovana Wetzel PharmD Unavailable + Skyla Mai PA Unavailable [phone] Reason for Visit * Reason Comments UTI PT is being seen by urology. Cloudy urine, pain with urination, urinary retention. PT is in and out cathing as needed. Encounter Details Date Type Department Care Team (Late st Contact Info) Description 06/17/2025 2:20 PM EDT Office Visit [facility] [address], [address] [place] [address] Jeannette Triplett, DINING ROOM CAPTAIN [address] [place] [address] Urinary retention (Primary Dx); Bacterial [...] any time in the past 12 m [facility], were you homeless or living in [...] drink first t jorge in the morning (EYE-DESIGN ENGINEERING TECHNICIAN) to steady your nerves or to [...] Vaccine 12y+, Flavio Protein, PF, Tian-Sucrose 08/24/2024 [email or web address] COVID-19 Vaccine (Purple Cap) 12+ 11/20/2020, 12/12/2020, [...] Ketones, Urine Negative Negative mg/dL POCT Specific [place], Urine 1.020 POCT Blood, Urine Moderate (A) Negative POCT pH, Urine 5.5 5.0 to 8.0 POCT Protein, Urine 100 (A) Negative mg/dL POCT Urobilinogen, Urine 0.2 0.2, 1 E.U./dL POCT Nitrite, Urine Positive (A) Negative POCT Leukocyte Esterase, Urine Large (A) Negative Test Strip Lot Number [id number] Test Strip Lot Expiration 06/07/2026 Assessment/Plan Assessment [...] another medicine was prescribed, you can use wwmk-tbc-qronpol medicines for pain, fever, or discomfort. If [...] the patient encounter today was >30 mins (19420) and included zxai-wh-mcgv and non igzq-ml-ycjd time spent with the patient. [1] Past [...] Care Team (Late st Contact Info) Description 07/21/2025 11:00 AM EDT Office Visit [facility] [address] [place] [phone] Orlin Elizabeth MD [address] [facility] [address] [place] [address] 08/24/2025 3:30 PM EDT Office Visit [facility] [address] [place] [address] Josseline Longo PA [address] [facility] [address] [place] [address] 09/12/2025 9:00 AM EST Clinical Support [facility] [address] [place] [address] 09/26/2025 11:00 AM EST Hospital Encounter [facility] [address] [place] [address] Gema Thompson MD [address] [facility] [address] [place] [address] 09/26/2025 11:00 AM EST - 09/26/2025 2:25 PM EST Surgery [facility] [address] [place] [address] Gema Thompson MD [address] [facility] [address] [place] [address] ENUCLEATION, PROSTATE, TRANSURETHRAL, USING HOLMIUM LASER ( HOLEP ) AND CYSTOLITHOLAPAXY [85606 (CPT )] 10/25/2025 9:30 AM EST Office Visit [facility] [address] [place] [address] Gema Thompson MD [address] [place] [address] 12/27/2025 2:40 PM EST Office Visit [facility] [place] [address] [place] [address] Kevin Castañeda MD [address] [place] [address] Scheduled Procedures Name Priority Associated Diagnoses Date/Ti [...] skin estrella present. 06/19/2025 1:03 PM EDT [facility] Comment:This is a corrected result. Previous organism was Gram positive cocci on 06/18/2025 at 1654 EDT. Urine Urine specimen obtained by clean catch procedure / Unknown Non-blood Collection / Unknown 06/17/2025 2:38 PM EDT 06/17/2025 2:38 PM EDT Jeannette Triplett DINING ROOM CAPTAIN LAB MICROBIOLOGY - GENERAL O RDERABLES Final Result [facility] [address] [place] [address] * (ABNORMAL) POCT Urinalysis dipstick (06/17/2025 2:38 PM EDT) POCT Urine Color Yellow POCT Urine Clarity Cloudy POCT Glucose Urine >=1000(A) Negative mg/dL POCT Bilirubin, Urine Negative Negative POCT Ketones, Urine Negative Negative mg/dL POCT Specific [place], Urine 1.020 POCT Blood, Urine Moderate(A) Negative POCT pH, Urine 5.5 5.0 to 8.0 POCT Protein, Urine 100(A) Negative mg/dL POCT Urobilinogen, Urine 0.2 0.2, 1 E.U./dL POCT Nitrite, Urine Positive(A) Negative POCT Leukocyte Esterase, Urine Large(A) Negative Test Strip Lot Number [id number] Test Strip Lot Expiration 06/07/2026 Urine Urine specimen obtained by clean catch procedure / Unknown 06/17/2025 2:38 PM EDT Jeannette Triplett DINING ROOM CAPTAIN POINT OF CARE TEST ENTER/MAKENNA T ORDERABLES Final Result documented in this encounter Visit Diagnoses Diagnosis Urinary retention- Primary Unspecified retention of urine Bacterial UTI Urinary tract infection, site not specified Benign prostatic hyperplasia with nocturia documented in this encounter Additional Health Concerns Infection Onset Date Last Indicated Resolved Time MRSA Comment: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 Source: [facility]. 10/19/2014 MRSA Escalation Plan Comment:MRSA Escalation [...] documented as of this encounter Care Teams Extrusion Supervisor Relationship Specialty Start Date End Date Orlin Elizabeth MD [address] [place] [address] PCP - General Family Medicine 11/25/22 Josseline Longo PA [address] [place] [address] Physician Offset Assistant Press Operator Neurology 08/16/21 Jess Hawk APRN [address] [place] [address] Nurse Practitioner Cardiology 06/01/24 Rafaela Brantley, PharmD [address] [place] [address] Pharmacist Pharmacy 06/03/24 Jovana Wetzel, PharmD [address] [place] [address] Pharmacist Pharmacy 06/13/24 Skyla Mai PA [address] [place] [address] Physician Offset Assistant Press Operator Urology 03/20/25 documented as of this encounter
--- OUTSIDE RECORDS SUMMARY | 2025-07-05 11:38 | XMS_ITS | Encounter Summary ---
Author Organization [facility] Address [address] [place] [address] Care Team Providers Care Correction Officer Name Role Phone Josseline Longo Unavailable [phone] Orlin Elizabeth MD Primary Care Provider Jess Hawk PHYSICIAN SURGEON Unavailable [phone] Rafaela Brantley PharmD Unavailable [phone] Jovana Wetzel PharmD Unavailable + Skyla Mai Unavailable [phone] Reason for Referral * Imaging (Routine) - Closed Specialty Diagnoses / Procedures Referred By Scarlet barrera Referred To Contact Radiology Diagnoses Benign prostatic hyperplasia with nocturia Incomplete bladder emptying Procedures CT Renal Stone wo IV Contrast Skyla Mai PA [address] [place] [address] Phone: tel: fax: Referral ID Status Reason Start Date Expiration Date Visits Re quested Visits Authorized [id number] Closed 03/20/2025 09/19/2026 1 1 Reason for Visit * Imaging (Routine) - Closed Specialty Diagnoses / Procedures Referred By Scarlet barrera Referred To Contact Radiology Diagnoses Benign prostatic hyperplasia with nocturia Incomplete bladder emptying Procedures CT Renal Stone wo IV Contrast Skyla Mai, DENZEL [address] [place] [address] Phone: tel: fax: Referral ID Status Reason Start Date Expiration Date Visits Re quested Visits Authorized [id number] Closed 03/20/2025 09/19/2026 1 1 Encounter Details Date Type Department Care Team (Latest Contact Info) Description 07/05/2025 11:38 AM EDT - 07/05/2025 11:59 PM EDT Hospital Encounter [facility] [address] [place] [address] Benign prostatic hyperplasia with nocturia; Incomplete bladder emptying Discharge Disposition: Home or Self Care Social History Tobacco Use Types Packs/Day Years Used Date Smoking Tobacco: Never Passive Smoke Exposure: Never Smokeless Tobacco: Never Alcohol Use Standard Drinks/Week Comments Not Currently 0 (1 standard drink = 0.6 oz pur e alcohol) PHQ-2 Answer Date Recorded Patient Health Questionnaire-2 Score 0 07/05/2025 PHQ-9 Answer Date Recorded Patient Health Questionnaire-9 Score 0 07/05/2025 Humiliation, Afraid, Rape, and Kick questionnair e [...] you have a drink containing alcohol? Never 07/05/2025 Q2: How many drinks containi ng alcohol do you have on a typical day when you are drinking? Patient does not drink Q3: How often do you have si x or more drinks on one occasion? Never 07/05/2025 Hunger Vital Sign Answer Date Recorded Within [...] time in the past 12 m [facility], were you homeless or living in a [...] drink first t jorge in the morning (EYE-TANGIBLE PERSONAL PROPERTY APPRAISER) to steady your nerves or to get rid of a hangover? 0 03/16/2024 CAGE Questionnaire Score 0 024 Utilities Answer Date Recorded In the past 12 months has e electric, gas, oil, or water company [...] Score Answer Date of Assessment Author 0 07/05/2025 1:19 PM Swati Moulton * Question Answer Date of Assessment Author Q1: How often do you have a drink containing alcohol? Never 07/05/2025 1:19 PM Onel Moulton Q2: How many drinks containing alcohol do you have on a typical day when you are drinking? Patient does not drink 07/05/2025 1:19 PM Onel Moulton Q3: How often do you have six or more drinks on one occasion? Never 07/05/2025 1:19 PM Onel Moulton * Over the past 2 weeks, how often have you been bothered by any of the following problems? Question Answer Date of Assessment Author Little interest or pleasure in doing things Not at all 07/05/2025 1:20 PM Onel Moulton Feeling down, depressed, or hopeless Not at all 07/05/2025 1:20 PM Onel Moulton Patient Health Questionnaire -2 Score 0 07/05/2025 1:20 PM Onel Moulton * Question Answer Date of Assessment Author Trouble falling or staying a sleep, or sleeping too much Not at all 07/05/2025 1:20 PM Onel Moulton Feeling tired or having herminia le energy Not at all 07/05/2025 1:20 PM Onel Moulton Poor appetite or overeating Not at all 07/05/2025 1: 20 PM Onel Moulton Feeling bad about yourself - or that you are a failure or have let yourself or your family down Not at all 07/05/2025 1:20 PM EDT Torrez, M ichael E Trouble concentrating on thi ngs, such as reading the newspaper or watching television Not at all 07/05/2025 1:20 PM Onel Moulton Moving or speaking so slowly that other people could have noticed? Or the opposite - being so fidgety or restless that you have been moving around a lot more than usual. Not at all 07/05/2025 1:20 PM Onel Moulton Thoughts that you would be b bryn off or hurting yourself in some way Not at all 07/05/2025 1:20 PM Onel Moulton Patient Health Questionnaire -9 Score 0 07/05/2025 1:20 PM Onel Moulton * If you checked off any problems on this questionnaire so far, Question Answer Date of Assessment Author How difficult have these problems made it for you to do your work, take care of things at home, or get along with other people? Not difficult at all 07/05/2025 1:20 PM Onel Moulton documented as of this encounter Medications at Time of Discharge atorvastatin (Lipitor) 40 MG tablet Take 1 tablet by mouth daily. 30 tablet 5 B Complex Vitamins (B COMPLEX 1 PO) Take 1 each by mouth 1 (one) time each day. cholecalciferol (D3-5) 5,000 Units tablet Take 2 tablets (10,000 Units) by mouth 1 (one) time each day. 0 clobetasol (Temovate) 0.05 % cream Apply topically 2 times a day. 60 g 2 5 04/20/20 26 coenzyme Q-10 300 mg capsule capsule Take 1 capsule (300 mg) by mouth 1 (one) time each day. dapagliflozin (Farxiga) 10 MG tabletIndication s:Left Systolic Heart Failure Take 1 tablet (10 mg) by mouth daily. 90 tablet 2 5 dofetilide (Tikosyn) 250 MCG capsuleIndicatio ns:Atrial fibrillation, unspecified type (CMS/HCC) TAKE 1 CAPSULE BY MOUTH TWO TIMES A DAY 180 capsule 1 5 finasteride (Proscar) 5 MG tablet TAKE 1 TABLET BY MOUTH ONCE A DAY 90 tablet 3 5 lisinopril 2.5 MG tablet Take 2 tablets (5 mg) by mouth every night. 90 tablet 3 4 MAGNESIUM GLYCINATE PO Take by mouth nightly. MAGNESIUM MALATE PO Take 1 tablet by mouth 1 (one) time each day. metoprolol succinate XL (Toprol-XL) 100 MG 24 hr tablet TAKE 1 TABLET BY MOUTH EVERY EVENING 90 tablet 3 5 Multiple Vitamins-Mineral s (multivitamin with minerals) tablet Take 1 tablet by mouth 2 (two) times a day. phytonadione (Vitamin K, Phytonadione,) 100 MCG tablet tablet Take 1 tablet by mouth daily. primidone (Mysoline) 50 MG tablet TAKE 2 TABLETS BY MOUTH THREE TIMES A DAY 540 tablet 2 4 tamsulosin (Flomax) 0.4 MG 24 hr capsule TAKE 1 CAPSULE BY MOUTH TWO TIMES A DAY 180 capsule 3 5 warfarin (Coumadin) 5 MG tablet TAKE 1.5 TABLETS (7.5 MG) BY MOUTH ONCE A DAY EXCEPT TAKE 1 TABLET (5 MG) ON THURSDAY AND THURSDAY OR DIRECTED BY THE [facility] 40 tablet 5 5 documented as of this encounter Plan of Treatment Upcoming Encounters Date Type Department Care Team (Late st Contact Info) Description 07/21/2025 11:00 AM EDT Office Visit [facility] [address] [place] [address] Orlin Elizabeth MD [address] [facility] [address] [place] [address] 08/24/2025 3:30 PM EDT Office Visit [facility] [address]st [place] [address] Josseline Longo PA [address] [place] [address] 09/12/2025 9:00 AM EST Clinical Support [facility] [address], [address] [place] [address] 09/26/2025 11:00 AM EST Hospital Encounter [facility] [address] [place] [address] Gema Thompson MD [address] [address] 09/26/2025 11:00 AM EST - 09/26/2025 2:25 PM EST Surgery [facility] [address] [place] [address] Gema Thompson MD [address] [address] ENUCLEATION, PROSTATE, TRANSURETHRAL, USING HOLMIUM LASER ( HOLEP ) AND CYSTOLITHOLAPAXY [72700 (CPT )] 10/25/2025 9:30 AM EST Office Visit [facility] [address] [place] [address], [address] [place] [address] Gema Thompson MD [address] [address] 12/27/2025 2:40 PM EST Office Visit [facility] [address] [facility]. [address] [place] [address] Kevin Castañeda MD [address] [place] [address] Scheduled Procedures Name Priority Associated Diagnoses Date/Ti me ENUCLEATION, PROSTATE, TRANSURETHRAL, USING HOLMIUM LASER Benign prostatic hyperplasia with nocturia 09/26/2025 11:00 AM EST documented as of this encounter Procedures Procedure Name Priority Date/Time Associated Diagnosis Comments CT RENAL STONE WO IV CONTRAST Routine 07/05/2025 11:54 AM EDT Benign prostatic hyperplasia with nocturia Incomplete bladder emptying documented in this encounter Results * CT Renal Stone wo IV Contrast (07/05/2025 11:54 AM EDT) Anatomical Region Laterality Modality Abdomen, Pelvis Computed Tomogra phy Impressions 07/05/2025 12:23 PM EDT Large bladder calculi as detailed above. Calculi present within the lower pole of the left kidney with mild lower pole caliectasis. CRITICAL RESULT: No. COMMUNICATION: Per this written report. Drafted by Tim Hernandez MD on 07/05/2025 11:59 AM Final report signed by Tim Hernandez MD on 07/05/2025 12:23 PM Narrative 07/05/2025 12:23 PM EDT CLINICAL INDICATION: hx of nephrolithiasis; evaluate prostate for BPH with LUTS TECHNIQUE: Multiple axial CT images were obtained from lung bases through pubic symphysis without the administration of IV contrast. Reformatted images in the coronal and sagittal planes were generated from the axial data set to facilitate diagnostic accuracy. Total DLP (Dose-Length Product): 416.90 mGy.cm. Please note: The reported value represents the total of one or more individual components during the CT acquisition on this date and at this time, and as such, the same value may appear in more than one CT report depending on the interpreting/reporting physicians. COMPARISON: None. FINDINGS: Analysis of the abdominopelvic viscera is limited by the absence of intravenous contrast material. Kidneys, Ureters, and Urinary Bladder: Left lower pole renal calculi are present. There is mild caliectasis of the lower pole calyces. Multiple renal lesions, some of which are likely cystic and others that may be hemorrhagic. There is no hydroureter. Large bladder calculi are identified, largest measures 2.9 cm. Other Abdominopelvic Organs: Unremarkable liver and gallbladder. Unremarkable spleen. No suspicious pancreatic findings. No suspicious adrenal findings. No suspicious pelvic mass lesions. GI Tract/Mesentery/Peritoneum: The large and small bowel appear normal in caliber. Colonic diverticulosis without evidence of acute diverticulitis. No evidence of inflammatory change. No suspicious peritoneal/mesenteric findings. Lymph Nodes/Vasculature: No lymphadenopathy by CT size criteria. The aortoiliac vasculature is normal in caliber with mild calcified atherosclerotic disease.. Free Fluid: No ascites. Musculoskeletal and Body Wall: Postoperative changes from bilateral total hip arthroplasty. Degenerative scoliosis is present involving the thoracolumbar spine. Small bilateral inguinal hernias are suspected. Lower Chest: No suspicious findings. Procedure Note Tim Hernandez MD - 07/05/2025 CLINICAL INDICATION: hx of nephrolithiasis; evaluate prostate for BPH with LUTS TECHNIQUE: Multiple axial CT images were obtained from lung bases through pubicsymphysis without the administration of IV contrast. Reformatted images inthe coronal and sagittal planes were generated from the axial data set tofacilitate diagnostic accuracy. Total DLP (Dose-Length Product): 416.90 mGy.cm. Please note: The reportedvalue represents the total of one or more individual components during theCT acquisition on this date and at this time, and as such, the same valuemay appear in more than one CT report depending on theinterpreting/reporting physicians. COMPARISON: None. FINDINGS: Analysis of the abdominopelvic viscera is limited by the absence ofintravenous contrast material. Kidneys, Ureters, and Urinary Bladder: Left lower pole renal calculi arepresent. There is mild caliectasis of the lower pole calyces. Multiplerenal lesions, some of which are likely cystic and others that may behemorrhagic. There is no hydroureter. Large bladder calculi areidentified, largest measures 2.9 cm. Other Abdominopelvic Organs: Unremarkable liver and gallbladder.Unremarkable spleen. No suspicious pancreatic findings. No suspiciousadrenal findings. No suspicious pelvic mass lesions. GI Tract/Mesentery/Peritoneum: The large and small bowel appear normal incaliber. Colonic diverticulosis without evidence of acute diverticulitis.No evidence of inflammatory change. No suspicious peritoneal/mesentericfindings. Lymph Nodes/Vasculature: No lymphadenopathy by CT size criteria. Theaortoiliac vasculature is normal in caliber with mild calcifiedatherosclerotic disease.. Free Fluid: No ascites. Musculoskeletal and Body Wall: Postoperative changes from bilateral totalhip arthroplasty. Degenerative scoliosis is present involving thethoracolumbar spine. Small bilateral inguinal hernias are suspected. Lower Chest: No suspicious findings. IMPRESSION: Large bladder calculi as detailed above. Calculi present within the lower pole of the left kidney with mild lowerpole caliectasis. CRITICAL RESULT: No. COMMUNICATION: Per this written report. Drafted by Tim Hernandez MD on 07/05/2025 11:59 AM Final report signed by Tim Hernandez MD on 07/05/2025 12:23 PM us Skyla MAHONEY IMG CT PROCEDURES Final Result documented in this encounter Visit Diagnoses Diagnosis Benign prostatic hyperplasia with nocturia Incomplete bladder emptying Benign prostatic hyperplasia with nocturia- Primary Benign prostatic hyperplasia with nocturia documented in this encounter Additional Health Concerns Infection Onset Date Last Indicated Resolved Time MRSA Comment: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 Source: [facility]. 10/19/2014 MRSA Escalation Plan Comment:MRSA Escalation Plan is in effect as of 2023. Patient will require contact precautions for the duration of the hospital admission. 03/17/2024 03/17/2024 Assessment Noted Time PHQ-9 Depression Total Score: 0 07/05/20 25 1:20 PM EDT A fall risk assessment has been complete d for the patient 07/05/2025 1:21 PM EDT A Body Mass Index follow-up plan has been documented for the patient 07/05/2025 4:00 PM EDT documented as of this encounter Care Teams Correction Officer Relationship Specialty Start Date End Date Orlin Elizabeth MD [address] [facility] [address] [place] [phone] PCP - General Family Medicine 11/25/22 Josseline Longo PA [address] [place] [address] Physician Courseware Developer Neurology 08/16/21 Jess Hawk APRN [address] [place] [address] Nurse Practitioner Cardiology 06/01/24 Rafaela Brantley, PharmD [address] [place] [address] Pharmacist Pharmacy 06/03/24 Jovana Wetzel, PharmD [address] [place] [address] Pharmacist Pharmacy 06/13/24 Skyla Mai PA [address] [address] Physician Courseware Developer Urology 03/20/25 documented as of this encounter
--- OUTSIDE RECORDS SUMMARY | 2025-07-05 13:45 | XMS_ITS | Encounter Summary ---
Author Organization [facility] Address [address] [place] [address] Care Team Providers Care Professional Nurse Name Role Phone Josseline Longo Unavailable [phone] Orlin Elizabeth MD Primary Care Provider Jess Hawk STUDENT ASSISTANCE COUNSELOR Unavailable [phone] Rafaela rBantley PharmD Unavailable [phone] Jovana Wetzel PharmD Unavailable + Skyla Mai Unavailable [phone] Reason for Referral * Consultation (Routine) - Pending Review Specialty Diagnoses / Procedures Referred By Scarlet barrera Referred To Contact Physical Therapy Diagnoses Benign prostatic hyperplasia with nocturia Skyla Mai PA [address] [place] [address] Phone: tel: fax: Referral ID Status Reason Start Date Expiration Date Visits Requested Visits Authorized [id number] Pending Review Consult and Treat 07/05/2025 01/04/2027 1 1 Encounter Details Date Type Department Care Team (Late st Contact Info) Description 07/05/2025 1:45 PM EDT Office Visit Medical Office Building Urology [address] [facility] [place] [address] Gema Thompson MD [address] [place] [address] Benign prostatic hyperplasia with nocturia [...] any time in the past 12 m [facility], were you homeless or living in a group home (including now)? No 04/20/2025 Safety and [...] drink first t jorge in the morning (EYE-MAIL ROOM) to steady your nerves or to get [...] Onel Moulton documented as of this encounter Miscellaneous Notes * Progress Notes - Skyla Mai PA - 07/05/2025 1:45 PM EDT [facility] Clinic Note 07/05/25 CC: urinary retention, [...] He was evaluated for suspected UTI through [facility] 06/17/25, treated with course of cefpodoxime [...] Age of Onset Alzheimer's disease Mother Aiyana [place] Diabetes Mother Aiyana [place] arteriosclerotic cardiovascular disease Father Marco A Diabetes [...] risk of bleeding. There is a small rodent exterminator risk of developing scar tissue (stricture or bladder neck contracture). We discussed that the prostate chips will be sent to pathology. Post operatively his PSA should lower to around 1, and we will obtain a PSA at the 3 month post operative visit to assess this. We will plan to have his catheter in 1 day. 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 He [...] - Plan for HoLEP with cystolitholapaxy in Sep (pt prefers this time frame) - Need [...] half the total time in patient care. documented in this encounter Plan of Treatment Upcoming Encounters Date Type Department Care Team (Late st Contact Info) Description 07/21/2025 11:00 AM EDT Office Visit [facility] [address] [place] [address] Orlin Elizabeth MD [address] [facility] [address] [place] [address] 08/24/2025 3:30 PM EDT Office Visit [facility] [address] [place] [address] Josseilne Longo PA [address] [place] [address] 09/12/2025 9:00 AM EST Clinical Support [facility] [address] [place] [address] 09/26/2025 11:00 AM EST Hospital Encounter [facility] [address] [place] [address] Gema Thompson MD [address] [facility] [address] [place] [address] 09/26/2025 11:00 AM EST - 09/26/2025 2:25 PM EST Surgery [facility] [address] [place] [address] Gema Thompson MD [address] [facility] [address] [place] [address] ENUCLEATION, PROSTATE, TRANSURETHRAL, USING HOLMIUM LASER ( HOLEP ) AND CYSTOLITHOLAPAXY [54664 (CPT )] 10/25/2025 9:30 AM EST Office Visit [facility] Urology [address] [place] [address] Gema Thompson MD [address] [facility] [address] [place] [address] 12/27/2025 2:40 PM EST Office Visit [facility] [place] [address] 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 Source: [facility]. 10/19/2014 MRSA Escalation Plan Comment:MRSA Escalation Plan [...] documented as of this encounter Care Teams Professional Nurse Relationship Specialty Start Date End Date Orlin Elizabeth MD [address] [facility] [address] [place] [phone] PCP - General Family Medicine 11/25/22 Josseline Longo PA [address] [facility] [address] [place] [address] Physician Operator Command Support Systems Neurology 08/16/21 Jess Hawk APRN [address] [place] [address] Nurse Practitioner Cardiology 06/01/24 Rafaela Brantley, PharmD [address] [place] [address] Pharmacist Pharmacy 06/03/24 Jovana Wetzel, PharmD [address] [place] [address] Pharmacist Pharmacy 06/13/24 Sykla Mai PA [phone] [place] [address] Physician Operator Command Support Systems Urology 03/20/25 documented as of this encounter
--- OUTSIDE RECORDS SUMMARY | 2025-07-13 11:39 | XMS_ITS | Encounter Summary ---
Author Organization [facility] Address [address] [place] [address] Care Team Providers Care Metallurgical Lab Technician Name Role Phone Josseline Longo Unavailable [phone] Orlin Elizabeth MD Primary Care Provider Jess Hawk MISCELLANEOUS MACHINE OPERATOR Unavailable [phone] Rafaela Brantley PharmD Unavailable [phone] Jovana Wetzel PharmD Unavailable + Skyla Mai PA Unavailable [phone] Encounter Details Date Type Department Care Team (Late st Contact Info) Description 04/04/2025 Results Follow-Up [facility] [address], [address] [place] [address] Skyla Mai PA [address] [place] [address] Social History Tobacco Use Types [...] any time in the past 12 m onths, were you homeless or living in a prison (including now)? No 04/20/2025 Safety and Environment [...] drink first t jorge in the morning (EYE-ADMISSION LIAISON) to steady your nerves or to get rid of a hangover? 0 03/16/2024 CAGE Questionnaire Score 0 024 Utilities Answer Date Recorded In the past 12 months has th [employer], gas, oil, or water [employer] threatened to shut off services in your [...] of Assessment Author 0 04/20/2025 10:24 AM Stacy Ziegler LPN * Question Answer Date of Assessment [...] on one occasion? Never 04/20/2025 10:24 AM Stacy Ziegler LPN * Calculated C-SSRS Risk Score (Lifetime/Recent) [...] Description 07/21/2025 11:00 AM EDT [facility] [address] [place] [address] Orlin Elizabeth MD [address] [facility] [address] [place] [address] 08/24/2025 3:30 PM EDT Office Visit [facility] [address], 1st [place] [address] Josseline Longo PA [address] [facility] [address] [place] [address] 09/12/2025 9:00 AM EST Clinical Support [place] [facility] [address], [address]nd [place] [address] 09/26/2025 11:00 AM EST Hospital Encounter PAV A OPERATING ROOM [address] [place] [address] Gema Thompson MD [address] [facility] [address] [place] [address] 09/26/2025 11:00 AM EST - 09/26/2025 2:25 PM EST Surgery PAV A OPERATING ROOM [address] [place] [address] Gema Thompson MD [address] [place] [address] ENUCLEATION, PROSTATE, TRANSURETHRAL, USING HOLMIUM LASER ( HOLEP ) AND CYSTOLITHOLAPAXY [99618 (CPT )] 10/25/2025 9:30 AM EST Office [facility] [address], [address] [place] [address] Gema Thompson MD [address] [place] [address] 12/27/2025 2:40 PM EST Office Visit [facility] [place] [address] [place] [address] Kevin Castañeda MD [address] [place] [address] Scheduled Procedures Name Priority Associated Diagnoses Date/Ti me ENUCLEATION, PROSTATE, TRANSURETHRAL, USING HOLMIUM LASER Benign prostatic hyperplasia with nocturia 09/26/2025 11:00 AM EST documented as of this encounter Visit Diagnoses Not on filedocumented in this encounter Additional Health Concerns Infection Onset Date Last Indicated Resolved Time MRSA Comment: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 Source: [facility]. 10/19/2014 MRSA Escalation Plan Comment:MRSA Escalation [...] documented as of this encounter Care Teams Metallurgical Lab Technician Relationship Specialty Start Date End Date Orlin Elizabeth MD [address] [facility] [address] [place] [phone] PCP - General Family Medicine 11/25/22 Josseline Longo PA [address] [place] [address] Physician Receptionist Clerk Neurology 08/16/21 Jess Hawk APRN [address] [place] [address] Nurse Practitioner Cardiology 06/01/24 Rafaela Brantley, PharmD [address] [place] [address] Pharmacist Pharmacy 06/03/24 Jovana Wetzel, PharmD [address] [place] [address] Pharmacist Pharmacy 06/13/24 Skyla Mai PA [address] [place] [address] Physician Receptionist Clerk Urology 03/20/25 documented as of this encounter
--- OUTSIDE RECORDS SUMMARY | 2025-07-13 11:39 | XMS_ITS | Encounter Summary ---
Author Organization [facility] Address [address] [place] [address] Care Team Providers Care Dobby Loom Fixer Name Role Phone Josseline Longo Unavailable [phone] Orlin Elizabeth MD Primary Care Provider Jess Hawk SUPERVISOR INTERNATIONAL RESERVATIONS Unavailable [phone] Rafaela Brantley PharmD Unavailable [phone] Jovana Wetzel PharmD Unavailable + Skyla Mai PA Unavailable [phone] Encounter Details Date Type Department Care Team (Latest Contact Info) Description 05/18/2025 Anticoagulation - Warfarin Visit [facility] [place] [address] [place] [address] Jovana Wetzel, PharmD [address] [place] [address] snf (current) use of anticoagulants (Primary Dx); Anticoagulation [...] in the past 12 m [facility], were you homeless or living in a [facility] (including now)? No 04/20/2025 Safety and Environment [...] drink first t jorge in the morning (EYE-LONG FILLER CIGAR ROLLER MACHINE) to steady your nerves or to [...] Wetzel, PharmD Plan last modified: Jovana Wetzel, LissaD (07/07/2024) Next INR check: 06/15/2025 Target end date: Indefinite Indications Atrial fibrillation unspecified type (CMS/HCC) (Resolved) [I48.91] snf (current) use of anticoagulants [Z79.01] Anticoagulation Episode Summary INR check location: Outside Lab Preferred lab: EXTERNAL LAB Send INR reminders to: [facility] Comments: [facility] P: [phone] F: [phone] Anticoagulation Care Providers Provider Role Specialty Phone number Israel Membreno MD Referring Cardiology [phone] Jess Hawk APRN Responsible Cardiology [phone] Additional History: New onset Afib s/p DCCV on 03/16 [id number] =Total score 3, Age 65-74 (1), CHF [...] EtOH use: No Smoking/recreational drug use: No [facility] Managing Provider: Jess Hawk APRN - Last [...] no change Follow Up Check INR at [facility] in 4 weeks . Patient Education Contact the [facility] at [phone] with any questions or concerns regarding yourwarfarin. Patient verbalized understanding of above care plan: YES Jovana Wetzel, PharmD, BCACP [facility] [address] [facility] [address] documented in this encounter Plan of Treatment Upcoming Encounters Date Type Department Care Team (Late st Contact Info) Description 07/21/2025 11:00 AM EDT Office Visit [facility] [address] [place] [address] Orlin Elizabeth MD [address] [facility] [address] [place] [address] 08/24/2025 3:30 PM EDT Office Visit [place] [facility] [address], 1st [place] [address] Josseline Longo PA [address] [place] [address] 09/12/2025 9:00 AM EST Clinical Support [place] [facility] [address], [address]nd [place] [address] 09/26/2025 11:00 AM EST Hospital Encounter PAV A OPERATING ROOM [address] [place] [address] Gema Thompson MD [address] [place] [address] 09/26/2025 11:00 AM EST - 09/26/2025 2:25 PM EST Surgery PAV A OPERATING ROOM [address] [place] [address] Gema Thompson MD [address] [place] [address] ENUCLEATION, PROSTATE, TRANSURETHRAL, USING HOLMIUM LASER ( HOLEP ) AND CYSTOLITHOLAPAXY [65385 (CPT )] 10/25/2025 9:30 AM EST Office Visit [facility] [address], [address] [place] [address] Gema Thompson MD [address] [place] [address] 12/27/2025 2:40 PM EST Office Visit [facility] [place] [address] [place] [address] Kevin Castañeda MD [address] [place] [address] Scheduled Procedures Name Priority Associated [...] Venous blood specimen / Unknown 05/18/2025 us [facility] Provider POINT OF CARE TEST ENTER/MAKENNA T ORDERABLES Edited Result - Final EXTERNAL LAB documented in this encounter Visit Diagnoses Diagnosis snf (current) use of anticoagulants- Primary Long-term (current) use of anticoagulants Anticoagulation management encounter Encounter for therapeutic drug monitoring Benign prostatic hyperplasia with nocturia documented in [...] documented as of this encounter Care Teams Dobby Loom Fixer Relationship Specialty Start Date End Date Orlin Elizabeth MD [address] [facility] [address] [place] [phone] PCP - General Family Medicine 11/25/22 Josseline Longo PA [address] [facility] [address] [place] [address] Physician Middleware Solutions Architect Neurology 08/16/21 Jess Hawk APRN [address] [place] [address] Nurse Practitioner Cardiology 06/01/24 Rafaela Brantley, PharmD [address] [place] [address] Pharmacist Pharmacy 06/03/24 Jovana Wetzel, LissaD [address] [place] [address] Pharmacist Pharmacy 06/13/24 Skyla Mai PA [address] [place] [address] Physician Middleware Solutions Architect Urology 03/20/25 documented as of this encounter
--- OUTSIDE RECORDS SUMMARY | 2025-07-13 11:39 | XMS_ITS | Encounter Summary ---
Author Organization [facility] Address [address] [place] [address] Care Team Providers Care Proposal Development Manager Name Role Phone Josseline Longo Unavailable [phone] Orlin Elizabeth MD Primary Care Provider Jess Hawk PULVERIZER TENDER Unavailable [phone] Rafaela Brantley PharmD Unavailable [phone] Jovana Wetzel PharmD Unavailable + Skyla Mai PA Unavailable [phone] Reason for Visit * Reason Comments Med Refill Encounter Details Date Type Department Care Team (Late st Contact Info) Description 05/26/2025 Refill [facility] [address], [address]nd [place] [address] Skyla Mai PA [address] [place] [address] Social History Tobacco Use Types [...] any time in the past 12 m [facility], were you homeless or living [...] drink first t jorge in the morning (EYE-OPEN TENTER OPERATOR) to steady your nerves or to get [...] Description 07/21/2025 11:00 AM EDT Office Visit [facility] [address] [place] [address] Orlin Elizaebth MD [address] [place] [address] [address] [place] [address] 08/24/2025 3:30 PM EDT Office Visit [facility] [address], 1st [place] [address] Josseline Longo PA [address] [facility] [address] [place] [address] 09/12/2025 9:00 AM EST Clinical Support [facility] Lab [address], 2nd [place] [address] 09/26/2025 11:00 AM EST Hospital Encounter PAV A OPERATING ROOM [address] [place] [address] Gema Thompson MD [address] [address] 09/26/2025 11:00 AM EST - 09/26/2025 2:25 PM EST Surgery PAV A OPERATING ROOM [address] [place] [address] Gema Thompson MD [address] [place] [address] ENUCLEATION, PROSTATE, TRANSURETHRAL, USING HOLMIUM LASER ( HOLEP ) AND CYSTOLITHOLAPAXY [79884 (CPT )] 10/25/2025 9:30 AM EST Office Visit [facility]rology [address], [address] [place] [address] Gema Thompson MD [facility] [address] [address] 12/27/2025 2:40 PM EST Office Visit [facility] [place] [address] [facility]. [address] [place] [address] Kevin Castañeda MD [address] [place] [address] Scheduled Procedures Name Priority Associated Diagnoses Date/Ti me ENUCLEATION, PROSTATE, TRANSURETHRAL, USING HOLMIUM LASER Benign prostatic hyperplasia with nocturia 09/26/2025 11:00 AM EST documented as of this encounter Visit Diagnoses Not on filedocumented in this encounter Additional Health Concerns Infection Onset Date Last Indicated Resolved Time MRSA Comment: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 Source: [facility]. 10/19/2014 MRSA Escalation Plan Comment:MRSA Escalation [...] documented as of this encounter Care Teams Proposal Development Manager Relationship Specialty Start Date End Date Orlin Elizabeth MD [address] [facility] [address] [place] [address] PCP - General Family Medicine 11/25/22 Josseline Longo PA [address] [place] [address] Physician Pulp Roller Neurology 08/16/21 Jess Hawk APRN [address] [place] [address] Nurse Practitioner Cardiology 06/01/24 Rafaela Brantley, PharmD [address] [place] [address] Pharmacist Pharmacy 06/03/24 Jovana Wetzel, LissaD [address] [place] [address] Pharmacist Pharmacy 06/13/24 Skyla Mai PA [address] [place] [address] Physician Pulp Roller Urology 03/20/25 documented as of this encounter
--- OUTSIDE RECORDS SUMMARY | 2025-07-13 11:39 | XMS_ITS | Encounter Summary ---
Author Organization [facility] Address [address] [place] [address] Care Team Providers Care Senior Cost Estimator Name Role Phone Josseline Longo Unavailable [phone] Orlin Elizabeth MD Primary Care Provider Jess Hawk HEALTH PROMOTION MANAGER Unavailable [phone] Rafaela Brantley PharmD Unavailable [phone] Jovana Wetzel PharmD Unavailable + Skyla Mai PA Unavailable [phone] Encounter Details Date Type Department Care Team (Late st Contact Info) Description 03/21/2025 Results [facility]Up [facility] [address], [address]nd [place] [address] Skyla Mai PA [address] [place] [address] Social History Tobacco Use Types [...] drink first t jorge in the morning (EYE-MARINE RADIO INSTALLER AND SERVICER) to steady your nerves or to get rid of a hangover? 0 03/16/2024 CAGE Questionnaire Score 0 024 Utilities Answer Date Recorded In the past 12 months has th [employer], gas, oil, or water [employer] threatened to shut off services in your [...] Description 07/21/2025 11:00 AM EDT Office Visit [facility] [address] [place] [address] Orlin Elizabeth MD [address] [facility] [address] [place] [address] 08/24/2025 3:30 PM EDT [facility] [address], 1st [place] [address] Josseline Longo PA [address] [facility] [address] [place] [address] 09/12/2025 9:00 AM EST Clinical Support [place] [facility] [address], 2nd [place] [address] 09/26/2025 11:00 AM EST Hospital Encounter PAV A OPERATING ROOM [address] [place] [address] Gema Thompson MD [address] [facility] [address] [place] [address] 09/26/2025 11:00 AM EST - 09/26/2025 2:25 PM EST Surgery PAV A OPERATING ROOM [address] [place] [address] Gema Thompson MD [address] [place] [address] ENUCLEATION, PROSTATE, TRANSURETHRAL, USING HOLMIUM LASER ( HOLEP ) AND CYSTOLITHOLAPAXY [83696 (CPT )] 10/25/2025 9:30 AM EST [facility] [address], 2nd [place] [address] Gema Thompson MD [address] [place] [address] 12/27/2025 2:40 PM EST Office Visit [facility] [place] [address] [place] [address] Kevin Castañeda MD [address] [place] [address] Scheduled Procedures Name Priority Associated Diagnoses Date/Ti me ENUCLEATION, PROSTATE, TRANSURETHRAL, USING HOLMIUM LASER Benign prostatic hyperplasia with nocturia 09/26/2025 11:00 AM EST documented as of this encounter Visit Diagnoses Not on filedocumented in this encounter Additional Health Concerns Infection Onset Date Last Indicated Resolved Time MRSA Comment: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 Source: [facility]. 10/19/2014 MRSA Escalation Plan Comment:MRSA Escalation [...] documented as of this encounter Care Teams Senior Cost Estimator Relationship Specialty Start Date End Date Orlin Elizabeth MD [address] [facility] [address] [place] [address] PCP - General Family Medicine 11/25/22 Josseline Longo PA [address] [place] [address] Physician Piano Regulator Inspector Neurology 08/16/21 Jess Hawk APRN [address] [place] [address] Nurse Practitioner Cardiology 06/01/24 Rafaela Brantley, PharmD [address] [place] [address] Pharmacist Pharmacy 06/03/24 Jovana Wetzel, PharmD [address] [place] [address] Pharmacist Pharmacy 06/13/24 Skyla Mai PA [address] [place] [address] Physician Piano Regulator Inspector Urology 03/20/25 documented as of this encounter
--- OUTSIDE RECORDS SUMMARY | 2025-07-13 11:40 | XMS_ITS | Encounter Summary ---
Author Organization [facility] Address [address] [place] [address] Care Team Providers Care Transactional Paralegal Name Role Phone Josseline Longo Unavailable [phone] Orlin Elizabeth MD Primary Care Provider Jess Hawk BALLET MASTER/MISTRESS Unavailable [phone] Rafaela Brantley PharmD Unavailable [phone] Jovana Wetzel PharmD Unavailable + Skyla Mai Unavailable [phone] Encounter Details Date Type Department Care Team (Late st Contact Info) Description 07/07/2025 Orders Only [facility] [address], [address] [place] [address] Skyla Mai PA [address] [place] [address] Urinary tract infection without hematuria, site unspecified (Primary Dx); Suspected UTI Social History Tobacco Use Types Packs/Day [...] any time in the past 12 m [facility], were you homeless or living in [...] drink first t jorge in the morning (EYE-VESSEL CREW MEMBER) to steady your nerves or to get [...] Progress Notes - Skyla Mai PA - 07/07/2025 2:06 PM EDT Antibx sent today for updated culture results. Urine culture order placed for pre-op. documented in this encounter Plan of Treatment Upcoming Encounters Date Type Department Care Team (Late st Contact Info) Description 07/21/2025 11:00 AM EDT Office Visit [facility] [address] [facility] [place] [address] Orlni Elizabeth MD [address] [place] [address] 08/24/2025 3:30 PM EDT Office Visit [facility] [address], 1st [place] [address] Josseline Longo PA [address] [place] [address] 09/12/2025 9:00 AM EST Clinical Support [facility] Lab [address], 2nd [place] [address] 09/26/2025 11:00 AM EST Hospital Encounter PAV A OPERATING ROOM [address] [place] [address] Gema Thompson MD [address] [facility] [address] [place] [address] 09/26/2025 11:00 AM EST - 09/26/2025 2:25 PM EST Surgery PAV A OPERATING ROOM [address] [place] [address] Gema Thompson MD [address] [facility] [address] [place] [address] ENUCLEATION, PROSTATE, TRANSURETHRAL, USING HOLMIUM LASER ( HOLEP ) AND CYSTOLITHOLAPAXY [74115 (CPT )] 10/25/2025 9:30 AM EST Office Visit [facility]rology [address], 2nd [place] [address] Gema Thompson MD [address] [place] [address] 12/27/2025 2:40 PM EST Office Visit [facility] [place] [facility] [address] [place] [address] Kevin Castañeda MD [address] [place] [address] Scheduled Orders Name Type Priority Associated Diagnoses Orde r Schedule Urine Culture Microbiology Routine Suspected UTI Expected: 07/07/2025 (Approximate), Expires: 01/08/2027 Scheduled Procedures Name Priority Associated Diagnoses Date/Ti me ENUCLEATION, PROSTATE, TRANSURETHRAL, USING HOLMIUM LASER Benign prostatic hyperplasia with nocturia 09/26/2025 11:00 AM EST documented as of this encounter Visit Diagnoses Diagnosis Urinary tract infection without hematuria, site unspecified- Primary Suspected UTI Benign prostatic hyperplasia with nocturia documented in this encounter Additional Health Concerns Infection Onset Date Last Indicated Resolved Time MRSA Comment: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 Source: [facility]. 10/19/2014 MRSA Escalation Plan Comment:MRSA Escalation [...] documented as of this encounter Care Teams Transactional Paralegal Relationship Specialty Start Date End Date Orlin Elizabeth MD [address] [facility] [address] [place] [address] PCP - General Family Medicine 11/25/22 Josseline Longo PA [address] [facility] [address] [place] [address] Physician Airport Operations Crew Member Neurology 08/16/21 Jess Hawk APRN [address] [place] [address] Nurse Practitioner Cardiology 06/01/24 Rafaela Brantley, PharmD [address] [place] [address] Pharmacist Pharmacy 06/03/24 Jovana Wetzel, PharmD [address] [place] [address] Pharmacist Pharmacy 06/13/24 Skyla Mai PA [address] [address] Physician Airport Operations Crew Member Urology 03/20/25 documented as of this encounter
--- OUTSIDE RECORDS SUMMARY | 2025-07-13 11:40 | XMS_ITS | Encounter Summary ---
Author Organization [facility] Address [address] [place] [address] Care Team Providers Care Mangle Roll Operator Name Role Phone Josseline Longo Unavailable [phone] Orlin Elizabeth MD Primary Care Provider Jess Hawk FOLDER MACHINE ADJUSTER Unavailable [phone] Rafaela Brantley PharmD Unavailable [phone] Jovana Wetzel PharmD Unavailable + Skyla Mai PA Unavailable [phone] Encounter Details Date Type Department Care Team (Late st Contact Info) Description 07/07/2025 Results [facility] [address], 2nd [place] [address] Skyla Mai PA [address] [place] [address] Social History Tobacco Use Types [...] you homeless or living in a senior living (including now)? No 04/20/2025 Safety and Environment [...] drink first t jorge in the morning (EYE-EXTRUSION DIE REPAIRER) to steady your nerves or to get rid of a hangover? 0 03/16/2024 CAGE Questionnaire Score 0 024 Utilities Answer Date Recorded In the past 12 months has th [employer] electric, gas, oil, or water company threatened [...] Description 07/21/2025 11:00 AM EDT Office Visit [facility] [address] [place] [address] [facility] [address] [place] [address] 08/24/2025 3:30 PM EDT [facility] [address], 1[address] [place] [address] Josseline Longo PA [address] [facility] [address] [place] [address] 09/12/2025 9:00 AM EST Clinical Support [facility] [address], [address] [place] [address] 09/26/2025 11:00 AM EST Hospital Encounter [facility] A OPERATING ROOM [address] [place] [address] Gema Thompson MD [address] [address] 09/26/2025 11:00 AM EST - 09/26/2025 2:25 PM EST Surgery [facility]PERATING ROOM [address] [place] [address] Gema Thompson MD [id number] [place] [address] ENUCLEATION, PROSTATE, TRANSURETHRAL, USING HOLMIUM LASER ( HOLEP ) AND CYSTOLITHOLAPAXY [70387 (CPT )] 10/25/2025 9:30 AM EST Office Visit [facility] [address], [address] [place] [address] Gema Thompson MD [id number] [place] [address] 12/27/2025 2:40 PM EST Office Visit [facility] [place] [facility] [address] [facility] [place] [address] Kevin Castañeda MD [address] [place] [address] Scheduled Procedures Name Priority Associated [...] documented as of this encounter Care Teams Mangle Roll Operator Relationship Specialty Start Date End Date Orlin Elizabeth MD [address] [facility] 125 [place] [address] PCP - General Family Medicine 11/25/22 Josseline Longo PA [address] [facility] [address] [place] [address] Physician Hat Finisher Neurology 08/16/21 Jess Hawk APRN [address] [place] [address] Nurse Practitioner Cardiology 06/01/24 Rafaela Brantley, PharmD [address] [place] [address] Pharmacist Pharmacy 06/03/24 Jovana Wetzel, PharmD [address] [place] [address] Pharmacist Pharmacy 06/13/24 Skyla Mai PA [address] [phone] Physician Hat Finisher Urology 03/20/25 documented as of this encounter
--- OUTSIDE RECORDS SUMMARY | 2025-07-13 11:40 | XMS_ITS | Encounter Summary ---
Author Organization [facility] Address [address] [id number] Care Team Providers Care Washateria Attendant Name Role Phone Josseline Longo Unavailable [phone] Orlin Elizabeth MD Primary Care Provider Jess aHwk MECHANICAL DESIGN ENGINEER PRODUCTS Unavailable [phone] Rafaela Brantley PharmD Unavailable [phone] Jovana Wetzel PharmD Unavailable + Skyla Mai PA Unavailable [phone] Encounter Details Date Type Department Care Team (Latest Contact Info) Description 06/17/2025 Travel Social History Tobacco Use Types Packs/Day [...] any time in the past 12 m [facility], were you homeless or living in a long-term (including now)? No 04/20/2025 Safety and Environment [...] drink first t jorge in the morning (EYE-TYPING BOOKKEEPER) to steady your nerves or to get [...] Description 07/21/2025 11:00 AM EDT Office Visit [facility] [address] [place] [address] Orlin Elizabeth MD [address] [facility] [address] [place] [phone] 08/24/2025 3:30 PM EDT [facility] [address], 1st [place] [address] Josseline Longo PA [address] [place] [address] 09/12/2025 9:00 AM EST [facility] Support [facility] [address], 2nd [place] [address] 09/26/2025 11:00 AM EST Hospital Encounter PAV A OPERATING ROOM [address] [place] [address] Gema Thompson MD [address] [phone] 09/26/2025 11:00 AM EST - 09/26/2025 2:25 PM EST Surgery PAV A OPERATING ROOM [address] [place] [address] Gema Thompson MD [address] [address] ENUCLEATION, PROSTATE, TRANSURETHRAL, USING HOLMIUM LASER ( HOLEP ) AND CYSTOLITHOLAPAXY [68510 (CPT )] 10/25/2025 9:30 AM EST Office Visit [facility] [address], 2nd [place] [address] Gema Thompson MD [address] [address] 12/27/2025 2:40 PM EST Office Visit [facility] [place] [address] [facility]. [address] [place] [address] Kevin Castañeda MD [address] [place] [address] Scheduled Procedures Name Priority Associated Diagnoses Date/Ti me ENUCLEATION, PROSTATE, TRANSURETHRAL, USING HOLMIUM LASER Benign prostatic hyperplasia with nocturia 09/26/2025 11:00 AM EST documented as of this encounter Visit Diagnoses Not on filedocumented in this encounter Additional Health Concerns Infection Onset Date Last Indicated Resolved Time MRSA Comment: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 Source: [facility]. 10/19/2014 MRSA Escalation Plan Comment:MRSA Escalation [...] documented as of this encounter Care Teams Washateria Attendant Relationship Specialty Start Date End Date Orlin Elizabeth MD [address] [facility] [address] [place] [address] PCP - General Family Medicine 11/25/22 Josseline Longo PA [address] [facility] [address] [place] [address] Physician Automobile Salesman Neurology 08/16/21 Jess Hawk APRN [address] [place] [address] Nurse Practitioner Cardiology 06/01/24 Rafaela Brantley, PharmD [address] [place] [address] Pharmacist Pharmacy 06/03/24 Jovana Wetzel, PharmD [address] [place] [address] Pharmacist Pharmacy 06/13/24 Skyla Mai PA [address] [place] [address] Physician Automobile Salesman Urology 03/20/25 documented as of this encounter
--- OUTSIDE RECORDS SUMMARY | 2025-07-13 11:40 | XMS_ITS | Encounter Summary ---
Author Organization [facility] Address [address] [place] [address] Care Team Providers Care Ring Attacher Name Role Phone Josseline Longo Unavailable [phone] Orlin Elizabeth MD Primary Care Provider Jess Hawk HOG RAISER Unavailable [phone] Rafaela Brantley PharmD Unavailable [phone] Jovana Wetzel PharmD Unavailable + Skyla Mai PA Unavailable [phone] Encounter Details Date Type Department Care Team (Late st Contact Info) Description 04/24/2025 Results Follow-Up [facility] [address] [place] [address] Orlin Elizabeth MD [address] [facility] 125 [place] [address] Social History Tobacco Use Types [...] time in the past 12 m [facility], were you homeless or living in a correction (including now)? No 04/20/2025 Safety and Environment [...] drink first t jorge in the morning (EYE-SACK LIFTER) to steady your nerves or to get [...] Description 07/21/2025 11:00 AM EDT Office Visit [facility] [address] [place] [address] Orlin Elizabeth MD [address] [place] [address] 08/24/2025 3:30 PM EDT Office Visit [facility] [address], 1st [place] [address] Josseline Longo, DENZEL [address] [facility] [address] [place] [address] 09/12/2025 9:00 AM EST Clinical Support [facility] [address] [facility], [address] [place] [address] 09/26/2025 11:00 AM EST Hospital Encounter PAV A OPERATING ROOM [address] [place] [address] Gema Thompson MD [address] [place] [address] 09/26/2025 11:00 AM EST - 09/26/2025 2:25 PM EST Surgery PAV A OPERATING ROOM [address] [place] [address] Gema Thompson MD [address] [place] [address] ENUCLEATION, PROSTATE, TRANSURETHRAL, USING HOLMIUM LASER ( HOLEP ) AND CYSTOLITHOLAPAXY [03585 (CPT )] 10/25/2025 9:30 AM EST Office Visit [facility] 0 [facility], [address] [place] [address] Gema Thompson MD [address] [place] [address] 12/27/2025 2:40 PM EST Office Visit [facility] [place] Daniel [address] [facility]. [address] [place] [address] Kevin Castañeda MD [address] [place] [address] Scheduled Procedures Name Priority Associated Diagnoses Date/Ti me ENUCLEATION, PROSTATE, TRANSURETHRAL, USING HOLMIUM LASER Benign prostatic hyperplasia with nocturia 09/26/2025 11:00 AM EST documented as of this encounter Visit Diagnoses Not on filedocumented in this encounter Additional Health Concerns Infection Onset Date Last Indicated Resolved Time MRSA Comment: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 Source: [facility]. 10/19/2014 MRSA Escalation Plan Comment:MRSA Escalation Plan [...] documented as of this encounter Care Teams Ring Attacher Relationship Specialty Start Date End Date Orlin Elizabeth MD [address] [facility] 125 [place] [address] PCP - General Family Medicine 11/25/22 Josseline Longo PA [address] [address] [place] [address] Physician Fractionating Still Operator Neurology 08/16/21 Jess Hawk APRN [address] [place] [address] Nurse Practitioner Cardiology 06/01/24 Rafaela Brantley, PharmD [address] [place] [address] Pharmacist Pharmacy 06/03/24 Jovana Wetzel, LissaD [address] [place] [address] Pharmacist Pharmacy 06/13/24 Skyla Mai PA [address] [place] [address] Physician Fractionating Still Operator Urology 03/20/25 documented as of this encounter
--- OUTSIDE RECORDS SUMMARY | 2025-07-13 11:40 | XMS_ITS | Encounter Summary ---
Author Organization [facility] Address [address] [place] [address] Care Team Providers Care Audiometric Technician Name Role Phone Josseline Longo Unavailable [phone] Orlin Elizabeth MD Primary Care Provider Jess Hawk SUPERVISOR FERTILIZER PROCESSING Unavailable [phone] Rafaela Brantley PharmD Unavailable [phone] Jovana Wetzel PharmD Unavailable + Skyla Mai PA Unavailable [phone] Reason for Visit * Reason Comments Med Refill Encounter Details Date Type Department Care Team (Late st Contact Info) Description 06/23/2025 Refill [facility] [address] [place] [address] Orlin Elizabeth MD 6[address] [facility] 125 [place] [address] Social History Tobacco Use Types [...] time in the past 12 m [facility], were you homeless or living in a [...] drink first t jorge in 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 0 03/16/2024 CAGE Questionnaire Score 0 024 Utilities Answer Date Recorded In the past 12 months has th [employer] electric, gas, oil, or water [employer] threatened to shut off services in your home? No 04/20/2025 PHQ-2A Answer Date Recorded Patient Health Questionnaire-2 Score 0 05/20/2023 Sex and Gender Information Value Date Recorded Sex Assigned at Not on file Legal Sex Male 8:17 PM EDT Gender Identity Not on file Sexual Orientation Not on file documented as of this encounter Miscellaneous Notes * Telephone Encounter - Marina Paz, PharmD - 06/27/2025 9:09 AM EDT 1 medication(s) has been approved per protocol. Please keep upcoming appointment 07/21/25 for additional refills. Medications have been pended for refill at upcoming appointment. documented in this encounter Plan of Treatment Upcoming Encounters Date Type Department Care Team (Late st Contact Info) Description 07/21/2025 11:00 AM EDT Office Visit [facility] [address] [place] [address] Orlin Elizabeth MD [address] [facility] [address] [place] [address] 08/24/2025 3:30 PM EDT Office Visit [facility] [address], 1st [place] [address] Josseline Longo PA [address] [facility] [address] [place] [address] 09/12/2025 9:00 AM EST Clinical Support [facility] [address], 2nd [place] [address] 09/26/2025 11:00 AM EST Hospital Encounter PAV A OPERATING ROOM [address] [place] [address] Gema Thompson MD [id number] [place] [address] 09/26/2025 11:00 AM EST - 09/26/2025 2:25 PM EST Surgery PAV A OPERATING ROOM [address] [place] [address] Gema Thompson MD [address] [facility] [address] [place] [address] ENUCLEATION, PROSTATE, TRANSURETHRAL, USING HOLMIUM LASER ( HOLEP ) AND CYSTOLITHOLAPAXY [56874 (CPT )] 10/25/2025 9:30 AM EST Office Visit [facility] [address] 2[address] [place] [address] Gema Thompson MD [address] [facility] [address] [place] [address] 12/27/2025 2:40 PM EST Office Visit [facility] [place] [facility] [address] [facility]. [address] [place] [address] Kevin Castañeda MD [address] [place] [address] Scheduled Procedures Name Priority Associated Diagnoses Date/Ti me ENUCLEATION, PROSTATE, TRANSURETHRAL, USING HOLMIUM LASER Benign prostatic hyperplasia with nocturia 09/26/2025 11:00 AM EST documented as of this encounter Visit Diagnoses Not on filedocumented in this encounter Additional Health Concerns Infection Onset Date Last Indicated Resolved Time MRSA Comment: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 Source: [facility]. 10/19/2014 MRSA Escalation Plan Comment:MRSA [...] documented as of this encounter Care Teams Audiometric Technician Relationship Specialty Start Date End Date Orlin Elizabeth MD 2[address] [facility] 125 [place] [phone] PCP - General Family Medicine 11/25/22 Josseline Longo PA [address] [facility] [address] [place] [phone] Physician Carpenter'S Helper Neurology 08/16/21 Jess Hawk APRN [address] [place] [address] Nurse Practitioner Cardiology 06/01/24 Rafaela Brantley, PharmD [address] [place] [address] Pharmacist Pharmacy 06/03/24 Jovana Wetzel, PharmD [address] [place] [address] Pharmacist Pharmacy 06/13/24 Skyla Mai PA [address] [address] Physician Carpenter'S Helper Urology 03/20/25 documented as of this encounter
--- OUTSIDE RECORDS SUMMARY | 2025-07-13 11:40 | XMS_ITS | Clinical Summary ---
Author Organization [facility] Address [address] [place] [address] Care Team Providers Care Fire [employer] Marine Engineer Name Role Phone Josseline Longo Unavailable [phone] Orlin Elizabeth MD Primary Care Provider Jess Hawk WOOLEN TESTER Unavailable [phone] Rafaela Brantley PharmD Unavailable [phone] Jovana Wetzel PharmD Unavailable + Skyla Mai PA Unavailable [phone] Allergies No known active allergies Medications [...] 1 (one) time each day. Active Multiple Vitamins-Kenmar als (multivitamin with minerals) tablet Take 1 [...] GLYCINATE PO Take by mouth nightly. Active finasteride (Proscar) 5 MG tablet TAKE [...] [facility] 40 tablet 5 Active tamsulosin (Flomax) 0.4 MG 24 hr capsule TAKE 1 CAPSULE BY MOUTH TWO TIMES A DAY 180 capsule 3 025 Active dofetilide (Tikosyn) 250 MCG capsuleIndicat ions:Atrial fibrillation, unspecified type (CMS/HCC) TAKE 1 CAPSULE BY MOUTH TWO TIMES A DAY 180 capsule 1 025 Active atorvastatin (Lipitor) 40 MG tablet Take 1 tablet by mouth daily. 30 tablet 025 Active amoxicillin-cl avulanate (Augmentin) 875-125 MG tabletIndicati ons:Urinary tract infection without hematuria, site unspecified Take 1 tablet by mouth 2 times a day for 10 days. 20 tablet 025 2024 Active dofetilide (Tikosyn) 250 MCG capsuleIndicat ions:Atrial fibrillation, unspecified type (CMS/HCC) Take 1 capsule (250 mcg) by mouth 2 (two) times a day. 60 capsule 11 024 2024 Discontinued atorvastatin (Lipitor) 40 MG tablet Take 1 tablet by mouth daily. 90 tablet 025 2024 Discontinued cefpodoxime (Vantin) 200 MG tabletIndicati ons:Bacterial UTI Take 1 tablet by mouth 2 times a day for 7 days. 14 tablet 025 2024 Active Problems Problem Noted Date Diagnosed Date Benign prostatic hyperplasia with nocturia 07/05 half-way (current) use of anticoagulants 2023 Hyperthyroidism 03/18/2024 Bilateral swelling of feet and ankles 03/03/2024 Low blood pressure reading 02/19/2024 Shortness of breath 01/24/2024 At high risk for falls 03/03/2023 Primary osteoarthritis of left hip 08/16/2021 Left hip pain 06/20/2019 Overview (08/16/2021): Added automatically from request for surgery [id number] Obstructive sleep apnea 12/29/2018 BPH with obstruction/lower [...] organization. Date Type Department Care Team Description 07/11/2025 Telephone [facility] [address] [place] [address] Gema Thompson MD 07/07/2025 Orders Only [facility] [address], [address] [place] [address] Skyla Mai, PA Urinary tract infection without hematuria, site unspecified (Primary Dx); Suspected UTI 07/07/2025 Results [facility] [address] [facility], [address] [place] [address] Skyla Mai PA 07/07/2025 Results Follow-Up [facility] [address], [address] [place] [address] Skyla Mai PA 07/05/2025 1:45 PM EDT Office Visit [facility] [address] [facility], [address] [place] [address] Gema Thompson MD Benign prostatic hyperplasia with nocturia (Primary Dx); Suspected UTI; Incomplete bladder emptying; Other urinary incontinence 07/05/2025 11:38 AM EDT - 07/05/2025 11:59 PM EDT Hospital Encounter [facility] [address], [address]nd [place] [address] Benign prostatic hyperplasia with nocturia; Incomplete bladder emptying Discharge Disposition: Home or Self Care 07/05/2025 Travel 07/04/2025 Travel 06/23/[address] [address] Orlin Elizabeth MD 06/23/2025 Refill [facility] [address] [place] [address] Kevin Castañeda MD Atrial fibrillation, unspecified type (CMS/HCC) 06/18/2025 Results Follow-Up [address], [address] [place] [address] Jeannette Triplett APRN 06/17/2025 2:20 PM EDT Office Visit [address], [address] [place] [address] Jeannette Triplett, WOOLEN TESTER Urinary retention (Primary Dx); Bacterial UTI 06/17/2025 Travel 06/15/2025 Anticoagulation - Warfarin Visit [facility] [address] [place] [address] Jovana Wetzel, PharmD half-way (current) use of anticoagulants (Primary Dx); Anticoagulation management encounter 05/26/2025 Refill [facility] [address], [address] [place] [address] Skyla Mai PA 05/18/2025 Anticoagulation - Warfarin Visit [facility] [address] [facility] [place] [address] Jovana Wetzel, PharmD oysterman (current) use of anticoagulants (Primary Dx); Anticoagulation management encounter 05/15/2025 Refill [facility] [address] [facility], [address] [place] [phone] Jess Hawk APRN 04/24/2025 Results Follow-Up [facility] [address] [place] [address] Orlin Elizabeth MD 04/20/2025 10:00 AM EDT Office Visit [facility] [address] [place] [address] Orlin Elizabeth MD Prediabetes (Primary Dx); Chronic heart failure with preserved ejection fraction (CMS/HCC); Healthcare maintenance; Essential tremor; Cardiomyopathy, unspecified type (CMS/HCC); Hyperlipidemia, unspecified hyperlipidemia type 04/20/2025 Travel 04/13/2025 Anticoagulation - Warfarin Visit [facility] [address] [place] [address] Jovana Wetzel, PharmD oysterman (current) use of anticoagulants (Primary Dx); Anticoagulation management encounter 04/13/2025 Refill [facility] [address] [place] [address] Skyla Mai PA from Last 3 Months Immunizations Immunization Administration Dates Next Due Influenza, Unspecified 08/17/2020,2018,08/09/2018,2016,08/11/2016,08/13/2015,09/04/2014 Influenza, high-dose, quadrivalent 11/20/2023, Influenza, injectable, quadr ivalent, preservative free 09/09/2021 Influenza, seasonal, injecta ble, preservative free 08/24/2024 MMR 04/14/2014 Moderna Covid-19 Vaccine 12y +, Flavio Protein, Preservative free 11/20/2023 PPD Skin Test (TB Skin Test) 2012, 12/23/2011,06/04/2010,2008,01/28/2008,01/13/2007,12/30/2006,0 06/08/2002 Pfizer Covid-19 Vaccine 12y+ , Flavio Protein, PF, Tian-Sucrose 08/24/2024 [employer] COVID-19 Vac cine (Purple Cap) 12+ 11/20/2020 Pneumococcal Conjugate PCV 13 11/21/2022 Tdap 04/14/2014,02/14/2009 Family History Medical History Relation Name Comments Cancer Father Marco A Diabetes Father Marco A Heart attack Father Marco A Heart disease Father Marco A Nephrolithiasis Father Marco A Obesity Father Marco A arteriosclerotic cardiovascular disease Father Dana muller Alzheimer's disease Mother Aiyana [place] Diabetes Mother Aiyana [place] Relation Name Status Comments Father Marco A Mother Aiyana [place] Social History Tobacco Use Types Packs/Day Years [...] any time in the past 12 m [facility], were you homeless or living in [...] drink first t jorge in the morning (EYE-CABLEWAY OPERATOR) to steady your nerves or to get rid of a hangover? 0 03/16/2024 CAGE Questionnaire Score 0 024 Utilities Answer Date Recorded In the past 12 months has th e SIVI, gas, oil, or water company threatened to [...] F) 07/05/2025 1:19 PM EDT Respiratory Rate 18 06/17/2025 2:20 PM EDT Oxygen Saturation 97% 07/05/2025 1:19 PM EDT Inhaled Oxygen Concentration - - Weight 81 kg (178 lb 9.2 oz) 07/05/2025 1:19 PM EDT Height 180.3 cm (5' 11 ) 07/05/2025 1:19 PM EDT Body Mass Index 24.91 07/05/2025 1:19 PM EDT Plan of Treatment Upcoming Encounters Date Type Department Care Team (Late st Contact Info) Description 07/21/2025 11:00 AM EDT Office Visit [facility] [address] [place] [phone] Orlin Elizabeth MD [address] [place] [address] 08/24/2025 3:30 PM EDT Office Visit [facility] [address], [address] [place] [address] Josseline Longo PA [address] [place] [address] 09/12/2025 9:00 AM EST Clinical Support [facility] [address], [address] [place] [address] 09/26/2025 11:00 AM EST Hospital Encounter [facility] [address] [place] [address] Gema Thompson MD [address] [facility] [address] [place] [address] 09/26/2025 11:00 AM EST - 09/26/2025 2:25 PM EST Surgery [facility] [address] [place] [phone] Gema Thompson MD [address] [place] [phone] ENUCLEATION, PROSTATE, TRANSURETHRAL, USING HOLMIUM LASER ( HOLEP ) AND CYSTOLITHOLAPAXY [49771 (CPT )] 10/25/2025 9:30 AM EST Office Visit [facility] [address], [address] [place] [address] Gema Thompson MD [address] [place] [address] 12/27/2025 2:40 PM EST Office Visit [facility] [address] [facility] [place] [address] Kevin Castañeda MD [address] [place] [phone] Scheduled Procedures Name Priority Associated Diagnoses Date/Ti me ENUCLEATION, PROSTATE, TRANSURETHRAL, USING HOLMIUM LASER Benign prostatic hyperplasia with nocturia 09/26/2025 11:00 AM EST Health Maintenance Due Date Last Done Comments CT Colonography 1999 FIT 1999 FOBT 1999 Sigmoidoscopy 1999 [facility]-Zoster Vaccines (1 of 2) 2004 [facility]-RSV Vaccine: 60+ Years or (1 - Risk 60-74 years 1-dose series) 2014 [facility]-Pneumococcal Vaccine: 50+ Years (2 of 2 - PPSV23) 01/16/2023 11/21/2022 [facility]-DTaP,Tdap,and Td Vaccines (3 - Td or Tdap) 04/14/2024 04/14/2014, 02/14/2009 [id number] Vaccine ( - season) 2025 08/24/2024, 11/20/2023, 11/03/2021, Additional history exists [facility]-Influenza Vaccine (#1) 07/10/202508/24, 11/20/2023, 09/05/2022, Additional history exists [facility]- SDOH Screenings 10/20/2025 [facility]-Adult SDOH Screenings 10/20/2025 04/20/2025 [facility]-/Child/Adol SDOH Screenings 10/20/2025 04/20/2025 FIT-DNA 12/03/2025 12/03/2022 Colonoscopy 03/02/2026 03/03/2023 [facility]-Colorectal Cancer Screening 03/02/2026 [facility]-Diabetes: Hemoglobin A1C 04/20/202610/2025, 02/19/2024, 11/20/2023, Additional history exists [facility]-Depression Screening 07/05/2026 07/05/2025, 06/10 [facility]-Hepatitis C Screening Completed 03/15/2024 HPV Vaccines Aged Out No longer eligi [...] on patient's age to complete this topic Goals Goal Patient Goal Type Associated Problems Recent Progress Patient-Stated? Author Autogenerat ed Goal Care Plan Autogenerated Problem No Lizzie Jessica Procedures Procedure Name Priority Date/Time Associated Diagnosis Comments URINE CULTURE Routine 07/05/2025 2:00 PM EDT Suspected UTI POC US BLADDER SCAN FOR VOLUME Routine 07/05/2025 1:24 PM EDT Benign prostatic hyperplasia with nocturia CT RENAL STONE WO IV CONTRAST Routine 07/05/2025 11:54 AM EDT Benign prostatic hyperplasia with nocturia Incomplete bladder emptying POCT URINALYSIS DIPSTICK Routine 06/17/2025 2:38 PM EDT Urinary retention URINE CULTURE Routine 06/17/2025 2:38 PM EDT Urinary retention EXTERNAL PROTHROMBIN TIME (PT)/INR Routine 06/15/2025 EXTERNAL PROTHROMBIN TIME (PT)/INR Routine 05/18/2025 CBC W/O DIFFERENTIAL Routine 04/20/2025 11:28 AM EDT Prediabetes VITAMIN D 25 HYDROXY Routine 04/20/2025 11:28 AM EDT Prediabetes LIPID PROFILE, PLASMA Routine 04/20/2025 11:28 AM EDT Prediabetes HEMOGLOBIN A1C Routine 04/20/2025 11:28 AM EDT Prediabetes COMPREHENSIVE METABOLIC PANEL, PLASMA Routine 04/20/2025 11:28 AM EDT Prediabetes EXTERNAL PROTHROMBIN TIME (PT)/INR Routine 04/13/2025 HEPATITIS C ANTIBODY - ED W/REFLEX TO HCV QUANT PCR STAT 03/15/2024 12:27 PM EDT COLONOSCOPY Routine 03/03/2023 1:33 PM EDT Screening for colon cancer LAB COLOGUARD COLON CANCER SCREEN Routine 12/03/2022 7:30 AM EST Screening for colon cancer from Last 3 Months or Most Recently Relevant to Health Maintenance Results * (ABNORMAL) Urine Culture - Clinic Collect (07/05/2025 2:00 PM EDT) Only the most recent of2 resultswithin the time period is included. Culture >=100,000 CFU/mL - Biotype 1 Staphylococcus coagulase negative(A) 07/07/2025 11:05 AM EDT [facility] Culture >=100,000 CFU/mL - Biotype 2 Staphylococcus coagulase negative(A) 07/07/2025 11:05 AM EDT [facility] Urine Urine specimen obtained by clean catch procedure / Unknown Non-blood Collection / Unknown 07/05/2025 2:00 PM EDT 07/05/2025 5:35 PM EDT us Skyla MAHONEY LAB MICROBIOLOGY - GENERAL ORD ERABLES Final Result [facility] [address] [place] [address] * POC US Bladder Volume (07/05/2025 1:24 PM EDT) Urine, Volume 259 mL IMAGING Anatomical Region Laterality Modality Other us Gema Thompson MD IMG POINT OF CARE ULTRASOUND Final Result * CT Renal Stone wo IV Contrast [...] Skyla MAHONEY IMG CT PROCEDURES Final Result * (ABNORMAL) POCT Urinalysis dipstick (06/17/2025 2:38 PM EDT) Pathologist [facility] POCT Urine Color Yellow POCT Urine Clarity Cloudy POCT Glucose Urine >=1000(A) Negative mg/dL POCT Bilirubin, Urine Negative Negative POCT Ketones, Urine Negative Negative mg/dL POCT Specific [place], Urine 1.020 POCT Blood, Urine Moderate(A) Negative POCT pH, Urine 5.5 5.0 to 8.0 POCT Protein, Urine 100(A) Negative mg/dL POCT Urobilinogen, Urine 0.2 0.2, 1 E.U./dL POCT Nitrite, Urine Positive(A) Negative POCT Leukocyte Esterase, Urine Large(A) Negative Test Strip Lot Number [id number] Test Strip Lot Expiration 06/07/2026 Urine Urine specimen obtained by clean catch procedure / Unknown 06/17/2025 2:38 PM EDT Jeannette D Rath WOOLEN TESTER POINT OF CARE TEST ENTER/MAKENNA T ORDERABLES Final Result * External Prothrombin Time (PT)/INR (06/15/2025) Only the most recent of3 resultswithin the time period is included. Pathologist [facility] External INR - Internormal Ratio 2.43 EXTERNAL LAB External Prothrombin Time (PT) EXTERNAL LAB Blood Venous blood specimen / Unknown 06/15/2025 Historical Provider POINT OF CARE TEST ENTER/MAKENNA T ORDERABLES Final Result EXTERNAL LAB * (ABNORMAL) Vitamin D 25 Hydroxy (04/20/2025 11:28 AM EDT) Pathologist [facility] Vitamin D 25 Hydroxy 86.8(H) 20.0 - 80.0 ng/mL 04/20/2025 7:12 PM EDT [facility] Blood Venous blood specimen / Unknown Venipuncture / Unknown 04/20/2025 11:28 AM EDT 04/20/2025 11:28 AM EDT Narrative [facility] - 04/20/2025 7:12 PM EDT Testing performed on De [place] Rosa Bone Char Operator, standardized against NIST SRM 2972. When testing [...] Elizabeth MD LAB BLOOD ORDERABLES nal Result [facility] [address] [place] [address] * CBC W/O Differential (04/20/2025 11:28 AM EDT) [facility] WBC Count 5.36 3.70 - 10.30 10*3/uL LAB HEMATOLOGY METHOD 04/20/2025 6:21 PM EDT [facility] RBC Count 4.75 4.60 - 6.10 10*6/uL LAB HEMATOLOGY METHOD 04/20/2025 6:21 PM EDT [facility] HGB 15.1 13.7 - 17.5 g/dL LAB HEMATOLOGY METHOD 04/20/2025 6:21 PM EDT [facility] HCT 46.6 40.0 - 51.0 % LAB HEMATOLOGY METHOD 04/20/2025 6:21 PM EDT [facility] Platelet Count 253 155 - 369 10*3/uL LAB HEMATOLOGY METHOD 04/20/2025 6:21 PM EDT [facility] MCV 98 79 - 98 fL LAB HEMATOLOGY METHOD 04/20/2025 6:21 PM EDT [facility] MCH 31.8 26.0 - 32.0 pg LAB HEMATOLOGY METHOD 04/20/2025 6:21 PM EDT [facility] MCHC 32.4 30.7 - 35.5 g/dL LAB HEMATOLOGY METHOD 04/20/2025 6:21 PM EDT [facility] RDW 13.4 11.5 - 14.5 % LAB HEMATOLOGY METHOD 04/20/2025 6:21 PM EDT [facility] MPV 10.3 8.8 - 12.5 fL LAB HEMATOLOGY METHOD 04/20/2025 6:21 PM EDT [facility] nRBC 0.0 <=0.0 per 100 WBCs LAB HEMATOLOGY METHOD 04/20/2025 6:21 PM EDT [facility] Blood Venous blood specimen / Unknown Venipuncture / Unknown 04/20/2025 11:28 AM EDT 04/20/2025 11:28 AM EDT Orlin Elizabeth MD LAB BLOOD ORDERABLES Fi nal Result [facility] [address] [place] [address] * (ABNORMAL) Hemoglobin A1c (04/20/2025 11:28 AM EDT) Hemoglobin A1c 6.0(H) <5.7 % 04/20/2025 6:55 PM EDT [facility] Blood Venous blood specimen / Unknown Venipuncture / Unknown 04/20/2025 11:28 AM EDT 04/20/2025 11:28 AM EDT Narrative [facility] - 04/20/2025 6:55 PM EDT HA1C Interpretive Data: Diagnosis of Diabetes: Diabetic > or = 6.5% Pre-diabetic 5.7 to 6.4% Non-diabetic < or = 5.6% Glycemic Targets for Type I and Type II Diabetics: Non- Adults <7.0% Adults <6.0% Children and Adolescents <7.5% Source: [place] [employer]. Standards of medical care in diabetes,2017. Diabetes Care.2017:40 (suppl 1):S1-S135. Orlin Elizabeth MD LAB BLOOD ORDERABLES Fi nal Result [facility] [address] [place] [address] * Lipid Profile, Plasma (04/20/2025 11:28 AM EDT) Cholesterol, Plasma 167 <200 mg/dL 04/20/2025 6:33 PM EDT [facility] Comment: Cholesterol Reference Range (age >17 years): Desirable <200 mg/dL Borderline 200 to 239 mg/dL Undesirable >239 mg/dL HDL 64 >=40 mg/dL 04/20/2025 6:33 PM EDT [facility] Comment: HDL Cholesterol Reference Ranges (age >17 years): Female, acceptable > or = 50 mg/dL Male, acceptable > or = 40 mg/dL Triglycerides, Plasma 49 <150 mg/dL 04/20/2025 6:33 PM EDT [facility] Comment: Triglyceride Reference Range (age >17 years): Desirable: <150 mg/dL Borderline high: 150 to 199 mg/dL High: 200 to 499 mg/dL Very high: >499 mg/dL Increased risk of pancreatitis: >1000 mg/dL Cholesterol/HDL Ratio 3 04/20/2025 6:33 PM EDT [facility] LDL, Calculated 93 <100 mg/dL 6:33 PM EDT [facility] Comment: LDL Cholesterol Reference Range [...] 12 hours? No 04/20/2025 6:33 PM EDT [facility] Comment:1 banana Blood Venous blood specimen / Unknown Venipuncture / Unknown 04/20/2025 11:28 AM EDT 04/20/2025 11:28 AM EDT us Orlin Elizabeth MD LAB BLOOD ORDERABLES Fi nal Result [facility] [address] [place] [address] * (ABNORMAL) Comprehensive Metabolic Panel, Plasma (04/20/2025 11:28 AM EDT) Glucose, Plasma 99 74 - 99 mg/dL 04/20/2025 6:33 PM EDT [facility] BUN, Plasma 26(H) 8 - 23 mg/dL 04/20/2025 6:33 PM EDT [facility] Creatinine, Plasma 0.95 0.70 - 1.20 mg/dL 04/20/2025 6:33 PM EDT [facility] BUN/Creatinine Ratio 27 04/20/2025 6:33 PM EDT [facility] Sodium, Plasma 139 136 - 145 mmol/L 04/20/2025 6:33 PM EDT [facility] Potassium, Plasma 5.2(H) 3.6 - 4.9 mmol/L 04/20/2025 6:33 PM EDT [facility] Chloride, Plasma 104 97 - 107 mmol/L 04/20/2025 6:33 PM EDT [facility] CO2, Plasma 27 22 - 29 mmol/L 04/20/2025 6:33 PM EDT [facility] Anion Gap 8 6 - 16 mmol/L 04/20/2025 6:33 PM EDT [facility] Total Calcium, Plasma 9.9 8.9 - 10.2 mg/dL 04/20/2025 6:33 PM EDT [facility] Total Protein 6.9 6.3 - 7.9 g/dL 04/20/2025 6:33 PM EDT [facility] Albumin, Plasma 4.2 3.5 - 5.2 g/dL 04/20/2025 6:33 PM EDT [facility] AST, Plasma 33 10 - 50 U/L 04/20/2025 6:33 PM EDT [facility] ALT, Plasma 34 10 - 50 U/L 04/20/2025 6:33 PM EDT [facility] Alkaline Phosphatase, Plasma 60 40 - 115 U/L 04/20/2025 6:33 PM EDT [facility] Total Bilirubin, Plasma 0.5 0.2 - 1.1 mg/dL 04/20/2025 6:33 PM EDT [facility] eGFRcr 86.1 mL/min/1.7 3m*2 04/20/2025 6:33 PM EDT [facility] Comment:Reported eGFRcr in m L/min/1.73m2 is based the CKD-EPI 2020 equation that does not use a race coefficient. Blood Venous blood specimen / Unknown Venipuncture / Unknown 04/20/2025 11:28 AM EDT 04/20/2025 11:28 AM EDT Orlin Elizabeth MD LAB BLOOD ORDERABLES Fi nal Result Performing Organization Address City/[facility]/ZIP Co de Phone Number [facility] [address] [place] [address] * Hepatitis C Antibody - ED (03/15/2024 12:27 PM EDT) Hepatitis C Antibody Negative Negative 03/15/2024 1:32 PM EDT [facility] Blood Venous blood specimen / Unknown Venipuncture / Unknown 03/15/2024 12:27 PM EDT 03/15/2024 12:47 PM EDT Alan Zuniga MD LAB BLOOD ORDERABLES Fi nal Result [facility] [address] [place] [address] * Colonoscopy (03/03/2023 1:33 PM EDT) Anatomical [...] Ramona Barry MD Proceduralist Kerri Campos Endo Meal Packer Yesenia Olson CRNA COLORIST DYER Georgette Ashley MD Proceduralist Duy Ayala No [...] of bowel preparation was evaluated using the [place] Bowel Preparation Scale with scores of: right [...] Positive( A) Negative 12/11/2022 1:29 PM EST [facility] (CLIA #:[id number]) Comment: POSITIVE TEST RESULT. A positive Cologuard [...] Oneill et al, N Engl J Med 2014;370(14):2320-8525.) Cologuard may produce a false negative or false positive result (no colorectal cancer or precancerous polyp present at colonoscopy follow up). A negative Cologuard test result does not guarantee the absence of CRC or advanced adenoma (pre-cancer). The current Cologuard screening interval is every 3 years. ([place] [employer] Society and U.S. Multi-Society Task Force). Cologuard performance data in a 10,000 patient pivotal study using colonoscopy as the reference method can be accessed at the following location: [email or web address]/results. Additional description of the Cologuard test process, warnings and precautions can be found at www.cologuard.com. Stool specimen (specimen) 12/03/2022 7:30 AM EST 12/04/2022 1:08 PM EST us Orlin Elizabeth MD LAB MOLECULAR DIAGNOSTI CS ORDERABLES Final Result [facility] (CLIA #:[id number]) [address] 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 Source: [facility]. 10/19/2014 MRSA Escalation Plan Comment:MRSA Escalation Plan is in effect as of 2023. Patient will require contact precautions for the duration of the hospital admission. 03/17/2024 03/17/2024 Insurance ARABELLA ANTHAMADEO Advance Directives * Full Code (Latest Code Status on File) Date Activated Date Inactivated Comments 03/15/2024 3:05 PM 03/18/2024 5:37 PM Question Answer Comments Patient has decision-making capacity? Yes Care Teams Fire Department Marine Engineer Relationship Specialty Start Date End Date Orlin Elizabeth MD [address] [facility] [address] [place] [address] PCP - General Family Medicine 11/25/22 Josseline Longo PA [address] [facility] [address] [place] [address] Physician Infrastructure Solutions Architect Neurology 08/16/21 Jess Hawk APRN [address] [place] [phone] Nurse Practitioner Cardiology 06/01/24 Rafaela Brantley, PharmD [address] [place] [phone] Pharmacist Pharmacy 06/03/24 Jovana Wetzel, PharmD [address] [place] [phone] Pharmacist Pharmacy 06/13/24 Skyla Mai PA [address] [place] [address] Physician Infrastructure Solutions Architect Urology 03/20/25
--- OUTSIDE RECORDS SUMMARY | 2025-07-13 11:40 | XMS_ITS | Encounter Summary ---
Author Organization [facility] Address [address] [place] [address] Care Team Providers Care Boat And Plant Utility Supervisor Name Role Phone Josseline Longo Unavailable [phone] Orlin Elizabeth MD Primary Care Provider Jess Hawk CARTON FILLING MACHINE OPERATOR Unavailable [phone] Rafaela Brantley PharmD Unavailable [phone] Jovana Wetzel PharmD Unavailable + Skyla Mai PA Unavailable [phone] Encounter Details Date Type Department Care Team ([facility] Contact Info) Description 07/07/2025 Results Follow-Up Medical Office Building Urology [address] [facility] [address], [address] [place] [address] Skyla Mai PA [address] [place] [address] Social History Tobacco Use Types [...] any time in the [facility] 12 m [facility], were you homeless or living in a [...] drink first t jorge in the morning (EYE-DIRECTOR CLINICAL PHARMACOLOGY) to steady your nerves or to get [...] Description 07/21/2025 11:00 AM EDT Office Visit [facility] [address] [place] [address] [facility] [address] [place] [address] 08/24/2025 3:30 PM EDT [facility] Visit [facility] [address], 1st [place] [address] Josseline Longo PA [address] [facility] [address] [place] [address] 09/12/2025 9:00 AM EST Clinical Support [facility] [address], 2nd [place] [address] 09/26/2025 11:00 AM EST Hospital Encounter [facility] OPERATING ROOM [address] [place] [address] Gema Thompson MD [address] [address] 09/26/2025 11:00 AM EST - 09/26/2025 2:25 PM EST Surgery [facility] OPERATING ROOM [address] [place] [address] Gema Thompson MD [address] [address] ENUCLEATION, PROSTATE, TRANSURETHRAL, USING HOLMIUM LASER ( HOLEP ) AND CYSTOLITHOLAPAXY [30822 (CPT )] 10/25/2025 9:30 AM EST Office Visit [facility] Urology [address], 2nd [place] [address] Gema Thompson MD [id number] [place] [address] 12/27/2025 2:40 PM EST Office Visit [facility] [place] Daniel [address] [facility] [place] [address] Kevin Castañeda MD [address] [place] [address] Scheduled Procedures Name Priority Associated Diagnoses Date/Ti me ENUCLEATION, PROSTATE, TRANSURETHRAL, USING HOLMIUM LASER Benign prostatic hyperplasia with nocturia 09/26/2025 11:00 AM EST documented as of this encounter Visit Diagnoses Not on filedocumented in this encounter Additional Health Concerns Infection Onset Date Last Indicated Resolved Time MRSA Comment: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 Source: [facility]. 10/19/2014 MRSA Escalation Plan Comment:MRSA [...] documented as of this encounter Care Teams Boat And Plant Utility Supervisor Relationship Specialty Start Date End Date Orlin Elizabeth MD [address] [place] [address] PCP - General Family Medicine 11/25/22 Josseline Longo PA [address] [facility] [address] [place] [address] Physician Surveyor Helper Neurology 08/16/21 Jess Hawk APRN [address] [place] [address] Nurse Practitioner Cardiology 06/01/24 Rafaela Brantley, PharmD [address] [place] [address] Pharmacist Pharmacy 06/03/24 Jovana Wetzel, PharmD [address] [place] [address] Pharmacist Pharmacy 06/13/24 Skyla Mai PA [address] [address] Physician Surveyor Helper Urology 03/20/25 documented as of this encounter
--- OUTSIDE RECORDS SUMMARY | 2025-07-13 11:40 | XMS_ITS | Encounter Summary ---
Author Organization [facility] Address [id number] Care Team Providers Care Outside Parts Sales Name Role Phone Josseline Longo Unavailable [phone] Orlin Elizabeth MD Primary Care Provider Jess Hawk CORPORATE ASSOCIATE Unavailable [phone] Rafaela Brantley PharmD Unavailable [phone] Jovana Wetzel PharmD Unavailable + Skyla Mai PA Unavailable [phone] Encounter Details Date Type Department Care Team (Latest Contact Info) Description 07/05/2025 Travel Social History Tobacco Use Types Packs/Day [...] any time in the past 12 m [facility], were you homeless or living in a jail (including now)? No 04/20/2025 Safety and Environment [...] drink first t jorge in the morning (EYE-POLICE DEPARTMENT SECRETARY) to steady your nerves or to get [...] Assessment Author 0 07/05/2025 1:19 PM Swati Moutlon Question Answer Date of Assessment Author Q1: [...] Onel Moulton documented as of this encounter Plan of Treatment Upcoming Encounters Date Type Department Care Team (Late st Contact Info) Description 07/21/2025 11:00 AM EDT Office Visit [facility] [address] [place] [address] Orlin Elizabeth MD [address] [address] 08/24/2025 3:30 PM EDT Office Visit [facility] [address], 1st [place] [address] Josseline Longo PA [address] [place] [address] 09/12/2025 9:00 AM EST Clinical Support [facility] Lab [address], 2nd [place] [address] 09/26/2025 11:00 AM EST Hospital Encounter PAV A OPERATING ROOM [address] [place] [address] Gema Thompson MD [address] [address] 09/26/2025 11:00 AM EST - 09/26/2025 2:25 PM EST Surgery PAV A OPERATING ROOM [address] [place] [address] Gema Thompson MD [address] [place] [address] ENUCLEATION, PROSTATE, TRANSURETHRAL, USING HOLMIUM LASER ( HOLEP ) AND CYSTOLITHOLAPAXY [58019 (CPT )] 10/25/2025 9:30 AM EST Office Visit [facility] Urology [address], 2nd [place] [address] Gema Thompson MD [address] [place] [address] 12/27/2025 2:40 PM EST Office Visit [facility] [place] Daniel [address] [place] [address] Kevin Castañeda MD [address] [place] [address] Scheduled Procedures Name Priority Associated Diagnoses Date/Ti me ENUCLEATION, PROSTATE, TRANSURETHRAL, USING HOLMIUM LASER Benign prostatic hyperplasia with nocturia 09/26/2025 11:00 AM EST documented as of this encounter Visit Diagnoses Not on filedocumented in this encounter Additional Health Concerns Infection Onset Date Last Indicated Resolved Time MRSA Comment: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 Source: [facility]. 10/19/2014 MRSA Escalation Plan Comment:MRSA [...] documented as of this encounter Care Teams Outside Parts Sales Relationship Specialty Start Date End Date Orlin Elizabeth MD [address] [facility] [address] [place] [address] PCP - General Family Medicine 11/25/22 Josseline Longo PA [address] [place] [address] Physician Trial Attorney Neurology 08/16/21 Jess Hawk APRN [address] [place] [address] Nurse Practitioner Cardiology 06/01/24 Rafaela Brantley, PharmD [address] [place] [address] Pharmacist Pharmacy 06/03/24 Jovana Wetzel, PharmD [address] [place] [address] Pharmacist Pharmacy 06/13/24 Skyla Mai PA [address] [facility] [address] [place] [address] Physician Trial Attorney Urology 03/20/25 documented as of this encounter
--- OUTSIDE RECORDS SUMMARY | 2025-07-13 11:40 | XMS_ITS | Encounter Summary ---
Author Organization [facility] Address [address] [place] [address] Care Team Providers Care Engineering Agent Name Role Phone Josseline Longo Unavailable [phone] Orlin Elizabeth MD Primary Care Provider Jess Hawk SLATER APPRENTICE Unavailable [phone] Rafaela Brantley PharmD Unavailable [phone] Jovana Wetzel PharmD Unavailable + Skyla Mai PA Unavailable [phone] Encounter Details Date Type Department Care Team (Late st Contact Info) Description 06/18/2025 Results Follow-Up [facility] [address] [facility], [address] [place] [address] Jeannette Triplett, SLATER APPRENTICE [address] [facility] [address] [place] [address] Social History Tobacco Use Types [...] any time in the past 12 m [facility], were you homeless or living in [...] drink first t jorge in the morning (EYE-INSTRUCTIONAL MATERIALS DIRECTOR) to steady your nerves or to get [...] Description 07/21/2025 11:00 AM EDT Office Visit [facility] [address] [place] [address] Olrin Elizabeth MD [address] [place] [address] 08/24/2025 3:30 PM EDT Office Visit [place] [facility] [address], 1st [place] [address] Josseline Longo PA [address] [place] [address] 09/12/2025 9:00 AM EST Clinical Support [facility] 0 [facility], [address] [place] [address] 09/26/2025 11:00 AM EST Hospital Encounter PAV A OPERATING ROOM [address] [place] [address] Gema Thompson MD [address] [place] [address] 09/26/2025 11:00 AM EST - 09/26/2025 2:25 PM EST Surgery PAV A OPERATING ROOM [address] [place] [address] Gema Thompson MD [address] [place] [address] ENUCLEATION, PROSTATE, TRANSURETHRAL, USING HOLMIUM LASER ( HOLEP ) AND CYSTOLITHOLAPAXY [98726 (CPT )] 10/25/2025 9:30 AM EST Office Visit [facility] Urology [address] [place] [address], [address] [place] [address] Gema Thompson MD [address] [place] [address] 12/27/2025 2:40 PM EST Office Visit [facility] [place] Daniel [address] [facility] [place] [address] Kevin Castañeda MD [address] [place] [address] Scheduled Procedures Name Priority Associated [...] documented as of this encounter Care Teams Engineering Agent Relationship Specialty Start Date End Date Orlin Elizabeth MD [address] [facility] [address] [place] [phone] PCP - General Family Medicine 11/25/22 Josseline Longo PA [address] [facility] [address] [place] [address] Physician Sexual Assault Counsellor Neurology 08/16/21 Jess Hawk APRN [address] [place] [address] Nurse Practitioner Cardiology 06/01/24 Rafaela Brantley, PharmD [address] [place] [address] Pharmacist Pharmacy 06/03/24 Jovana Wetzel, LissaD [address] [place] [address] Pharmacist Pharmacy 06/13/24 Skyla Mai PA [address] [place] [address] Physician Sexual Assault Counsellor Urology 03/20/25 documented as of this encounter
--- OUTSIDE RECORDS SUMMARY | 2025-07-13 11:40 | XMS_ITS | Encounter Summary ---
Author Organization [facility] Address [address] [place] [address] Care Team Providers Care Corrugator Operator Name Role Phone Josseline Longo Unavailable [phone] Orlin Elizabeth MD Primary Care Provider Jess Hawk LOCUM TENENS PSYCHIATRIST Unavailable [phone] Rafaela Brantley PharmD Unavailable [phone] Jovana Wetzel PharmD Unavailable + Skyla Mai PA Unavailable [phone] Reason for Visit * Reason Comments Med Refill Encounter Details Date Type Department Care Team (Late st Contact Info) Description 05/15/2025 Refill [facility] [place] [address] [facility], [address] [place] [address] Jess Hawk, LOCUM TENENS PSYCHIATRIST [address] [place] [address] Social History Tobacco Use Types [...] in the past 12 m [facility], were you homeless or living in a usp (including now)? No 04/20/2025 Safety and Environment [...] drink first t jorge in the morning (EYE-ANALYTICAL RESEARCH CHEMIST) to steady your nerves or to get [...] 07/21/2025 11:00 AM EDT Office Visit [facility] [address] [place] [address] Orlin Elizabeth MD [address] [place] [address] 08/24/2025 3:30 PM EDT Office Visit [place] [facility] [address], 1st [place] [address] Josseline Longo, DENZEL [address] [facility] [address] [place] [address] 09/12/2025 9:00 AM EST Clinical Support [facility] [address] [facility], [address] [place] [address] 09/26/2025 11:00 AM EST Hospital Encounter PAV A OPERATING ROOM [address] [place] [address] Gema Thompson MD [address] [place] [address] 09/26/2025 11:00 AM EST - 09/26/2025 2:25 PM EST Surgery PAV A OPERATING ROOM [address] [place] [address] Gema Thompson MD [address] [place] [address] ENUCLEATION, PROSTATE, TRANSURETHRAL, USING HOLMIUM LASER ( HOLEP ) AND CYSTOLITHOLAPAXY [43870 (CPT )] 10/25/2025 9:30 AM EST Office Visit [facility] Urology 0 [facility], [address] [place] [address] Gema Thompson MD [address] [place] [address] 12/27/2025 2:40 PM EST Office Visit [facility] [place] [facility] [address] [facility]. 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 Source: [facility]. 10/19/2014 MRSA Escalation Plan Comment:MRSA Escalation Plan [...] documented as of this encounter Care Teams Corrugator Operator Relationship Specialty Start Date End Date Orlin Elizabeth MD [address] [facility] 125 [place] [address] PCP - General Family Medicine 11/25/22 Josseline Longo PA [address] [facility] [address] [place] [address] Physician Vb Net Programmer Neurology 08/16/21 Jess Hawk APRN [address] [place] [address] Nurse Practitioner Cardiology 06/01/24 Rafaela Brantley, PharmD [address] [place] [address] Pharmacist Pharmacy 06/03/24 Jovana Wetzel, LissaD [address] [place] [address] Pharmacist Pharmacy 06/13/24 Skyla Mai PA [address] [place] [address] Physician Vb Net Programmer Urology 03/20/25 documented as of this encounter
--- OUTSIDE RECORDS SUMMARY | 2025-07-13 11:40 | XMS_ITS | Encounter Summary ---
Author Organization [facility] Address [address] [place] [address] Care Team Providers Care Hog Slaughterer Name Role Phone Josseline Longo Unavailable [phone] Orlin Elizabeth MD Primary Care Provider Jess Hawk POSTULANT Unavailable [phone] Rafaela Brantley PharmD Unavailable [phone] Jovana Wetzel PharmD Unavailable + Skyla Mai PA Unavailable [phone] Encounter Details Date Type Department Care Team (Late st Contact Info) Description 07/11/2025 Telephone [facility] [address], 2nd [place] [address] Gema Thompson MD [address] [place] [address] Social History Tobacco Use Types [...] were you homeless or living in a penitentiary (including now)? No 04/20/2025 Safety and Environment [...] drink first t jorge in the morning (EYE-GUITAR REPAIRER) to steady your nerves or to [...] encounter Miscellaneous Notes * Telephone Encounter - Lizzie Jessica - 07/11/2025 3:50 PM EDT Called patient to schedule surgery - surgery arranged - discussed surgery directions with patient -patient knows to expect a call from our preop anesthesia clinic the day prior to surgery with surgery and arrival time - all questions answered and surgery directions mailed to patient - address and phone number verified with patient Patient will also be getting a urine culture done at [facility] lab 2 weeks prior to surgery - patient aware of appointment date, time and location documented in this encounter Plan of Treatment Upcoming Encounters Date Type Department Care Team (Late st Contact Info) Description 07/21/2025 11:00 AM EDT Office Visit [facility] [address] [place] [address] Orlin Elizabeth MD [address] [place] [address] 08/24/2025 3:30 PM EDT Office Visit [facility] [address], 1st [place] [address] Josseline Longo PA [address] [place] [address] 09/12/2025 9:00 AM EST Clinical Support [facility] Lab [address], 2nd [place] [address] 09/26/2025 11:00 AM EST Hospital Encounter PAV A OPERATING ROOM [address] [place] [address] Gema Thompson MD [address] [facility] [address] [place] [address] 09/26/2025 11:00 AM EST - 09/26/2025 2:25 PM EST Surgery PAV A OPERATING ROOM [address] [place] [address] Gema Thompson MD [address] [facility] [address] [place] [address] ENUCLEATION, PROSTATE, TRANSURETHRAL, USING HOLMIUM LASER ( HOLEP ) AND CYSTOLITHOLAPAXY [95164 (CPT )] 10/25/2025 9:30 AM EST Office Visit [facility] Urology [address], 2nd [place] [address] Gema Thompson MD [address] [place] [address] 12/27/2025 2:40 PM EST Office Visit [facility] [place] Daniel [address] [place] [address] Kevin Castañeda MD [address] [place] [address] Scheduled Orders Name Type Priority Associated Diagnoses Orde r Schedule Urine Culture Microbiology Routine BPH with obstruction/lower urinary tract symptoms Expected: 09/12/2025 (Approximate), Expires: 01/12/2027 Scheduled Procedures Name Priority Associated Diagnoses Date/Ti me ENUCLEATION, PROSTATE, TRANSURETHRAL, USING HOLMIUM LASER Benign prostatic hyperplasia with nocturia 09/26/2025 11:00 AM EST documented as of this encounter Goals Goal Patient Goal Type Associated Problems Recent Progress Patient-Stated? Author Autogenerat ed Goal Care Plan Autogenerated Problem No Lizzie Jessica documented as of this encounter Visit Diagnoses Diagnosis Benign prostatic hyperplasia with nocturia- Primary BPH with obstruction/lower urinary tract symptoms- Primary Benign prostatic hyperplasia with nocturia documented [...] documented as of this encounter Care Teams Hog Slaughterer Relationship Specialty Start Date End Date Orlin Elizabeth MD [address] [facility] [address] [place] [address] PCP - General Family Medicine 11/25/22 Josseline Longo PA [address] [place] [address] Physician Escort Patients Neurology 08/16/21 Jess Hawk APRN [address] [place] [address] Nurse Practitioner Cardiology 06/01/24 Rafaela Brantley, PharmD [address] [place] [address] Pharmacist Pharmacy 06/03/24 Jovana Wetzel, PharmD [address] [place] [address] Pharmacist Pharmacy 06/13/24 Skyla Mai PA [address] [place] [address] Physician Escort Patients Urology 03/20/25 documented as of this encounter
--- OUTSIDE RECORDS SUMMARY | 2025-07-13 11:40 | XMS_ITS | Clinical Summary ---
Author Organization [facility] Address [address] [place] [address] Care Team Providers Care Leaf Binner Name Role Phone Sherrie Elam MD Primary Care Provider [phone] Allergies No known active allergies Medications lisinopril [...] Active MAGNESIUM PO Take by mouth. Active Ware-3 Fatty Acids (FISH OIL PO) Take by [...] (06/20/2019): Added automatically from request for surgery [id number] History of hip replacement, total 10/11/2015 Acute [...] this topic Medical Devices Implanted Type Area Barrel Coater Device Identifier Shelf Expiration Date Model / Serial / Lot Hip Liner Neut 36 [id number] - [id number] Implanted:Qty: 1 on 10/23/2014 by Timur Rodriguez MD at [facility] Hips Right: Hip DAY 06/09/2019 [id number] / / [id number] Hip Shell Uni 56 [id number] - [id number] Implanted:Qty: 1 on 10/23/2014 by Timur Rodriguez MD at [facility] Hips Right: Hip DAY 08/09/2024 [id number] / / [id number] Hip Stem Taper 11 [id number] - [id number] Implanted:Qty: 1 on 10/23/2014 by Timur Rodriguez MD at [facility] Hips Right: Hip DAY 08/09/2024 [id number] / / [id number] Hip Fem Head 36 [id number] - [id number] Implanted:Qty: 1 on 10/23/2014 by Timur Rodriguez MD at [facility] Hips Right: Hip DAY 08/09/2023 [id number] / / [id number] Hip Capt High Demand Day - [id number] Implanted:Qty: 1 on 10/23/2014 by Timur Rodriguez MD at [facility] Hips DAY HIPHIGHZIMMER / / Hip Capt Vit E Biomet - [id number] Implanted:Qty: 1 on 07/18/2019 by Timur Rodriguez MD at [facility] Hips [employer] [id number] / / Hip Shell 56 [id number] [id number] - [id number] Implanted:Qty: 1 on 07/18/2019 by Timur Rodriguez MD at [facility] Hips Left: Hip [employer] 04/24/2029 [id number] / / [id number] Hip Liner Acet 36 [id number] - [id number] Implanted:Qty: 1 on 07/18/2019 by Timur Rodriguez MD at [facility] Hips Left: Hip [employer] 03/05/2024 [id number] / / [id number] Hip Fem Stem 5 [id number] - [id number] Implanted:Qty: 1 on 07/18/2019 by Timur Rodriguez MD at [facility] Hips Left: Hip DAY 09/08/2023 [id number] / / [id number] Hip Fem Head 36 [id number] - [id number] Implanted:Qty: 1 on 07/18/2019 by Timur Rodriguez MD at [facility] Hips Left: Hip DAY 05/08/2029 [id number] / / [id number] Hip Dome Plug [id number] - [id number] Implanted:Qty: 1 on 10/23/2014 by Timur Rodriguez MD at [facility] OTHER - IMPLANTS - ORTHOPAEDIC Right: Hip DAY 08/09/2024 [id number] / / [id number] Additional Health Concerns Infection Onset Date Last Indicated MRSA Comment:Right hand, date unknown 10/19/2014 10/19/2014 MRSA (+) Screen Comment:07/01/19 07/02/2019 07/02/2019 Insurance [employer] Advance Directives * Full Code (Latest Code Status on File) Date Activated Date Inactivated Comments 10/23/2014 5:44 PM 10/26/2014 7:06 PM Care Teams Leaf Binner Relationship Specialty Start Date End Date Sherrie Elam MD [address] [place] [address] PCP - General Internal Medicine 10/23/14
--- OUTSIDE RECORDS SUMMARY | 2025-07-13 11:40 | XMS_ITS | Encounter Summary ---
Author Organization [facility] Address [address] [place] [address] Care Team Providers Care Starbucks Clerk Name Role Phone Josseline Longo Unavailable [phone] Orlin Elizabeth MD Primary Care Provider Jess Hawk TEACHER OF GIFTED STUDENTS Unavailable [phone] Rafaela Brantley PharmD Unavailable [phone] Jovana Wetzel PharmD Unavailable + Skyla Mia PA Unavailable [phone] Encounter Details Date Type Department Care Team (Latest Contact Info) Description 06/15/2025 Anticoagulation - Warfarin Visit [facility] [place] [address] [place] [address] Jovana Wetzel, PharmD [address] [place] [address] detention (current) use of anticoagulants (Primary Dx); Anticoagulation [...] any time in the past 12 m [facility], were you homeless or living in [...] drink first t jorge in the morning (EYE-THEATRICAL PERFORMER) to steady your nerves or to get [...] Progress Notes - Jovana Wetzel, PharmD - 06/15/2025 12:57 PM EDT Anticoagulation Clinic Pharmacy Note History of Present Illness Anticoagulation Summary As of 06/15/2025 INR goal: 2.0-3.0 TTR: 68.2% (1.2 y) INR used for dosin.43 (06/15/2025) Warfarin maintenance plan: 5 mg (5 mg x 1) every Sun, Lizeth; 7.5 mg (5 mg x 1.5) all other days Weekly warfarin total: 47.5 mg No change documented: Jovana Wetzel, PharmD Plan last modified: Jovana Wetzel, LissaD (07/07/2024) Next INR check: 07/13/2025 Target end date: Indefinite Indications Atrial fibrillation unspecified type (CMS/HCC) (Resolved) [I48.91] oysterman (current) use of anticoagulants [Z79.01] Anticoagulation Episode Summary INR check location: Outside Lab Preferred lab: EXTERNAL LAB Send INR reminders to: [facility] Comments: [facility] P: [phone] F: [phone] Anticoagulation Care Providers Provider Role Specialty Phone number Israel Membreno MD Referring Cardiology [phone] Jess Hawk APRN Responsible Cardiology [phone] Additional History: New onset Afib s/p DCCV on 03/16 [id number] =Total score 3, Age 65-74 (1), CHF [...] INR: Lab Results Component Value Date INR 2.43 06/15/2025 INR 2.97 05/18/2025 INR 2.78 04/13/2025 PROTIME 30.4 05/18/2025 PROTIME 25.6 02/28/2025 PROTIME 25.3 02/01/2025 Renal [...] 7.5 mg daily x 5 mg every Thursday/Thursday Therapeutic INR for goal of 2.0-3.0. New warfarin dose: no change Follow Up Check INR at [facility] in 4 weeks . Patient Education Contact the Anticoagulation Clinic at [phone] with any questions or concerns regarding yourwarfarin. Patient verbalized understanding of above care plan: YES Jovana Wetzel, LissaD, BCACP [facility] [address] [facility] [phone] documented in this encounter Plan of Treatment Upcoming Encounters Date Type Department Care Team (Late st Contact Info) Description 07/21/2025 11:00 AM EDT Office Visit [facility] [address] [place] [address] Orlin Elizabeth MD [address] [facility] [address] [place] [address] 08/24/2025 3:30 PM EDT Office Visit [facility] [address], 1st [place] [phone] Josseline Longo, PA [address] [facility] [address] [place] [address] 09/12/2025 9:00 AM EST Clinical Support [place] [facility] [address], [address]nd [place] [address] 09/26/2025 11:00 AM EST Hospital Encounter [facility] [address] [place] [address] Gema Thompson MD [address] [place] [address] 09/26/2025 11:00 AM EST - 09/26/2025 2:25 PM EST Surgery [facility] [address] [place] [address] Gema Thompson MD [address] [place] [address] ENUCLEATION, PROSTATE, TRANSURETHRAL, USING HOLMIUM LASER ( HOLEP ) AND CYSTOLITHOLAPAXY [66740 (CPT )] 10/25/2025 9:30 AM EST [facility] [address], 2nd [place] [address] Gema Thompson MD [address] [facility] [address] [place] [address] 12/27/2025 2:40 PM EST Office Visit [facility] [place] [address] [facility] [place] [address] Kevin Castañeda MD [address] [place] [address] Scheduled Procedures Name Priority Associated Diagnoses Date/Ti me ENUCLEATION, PROSTATE, TRANSURETHRAL, USING HOLMIUM LASER Benign prostatic hyperplasia with nocturia 09/26/2025 11:00 AM EST documented as of this encounter Procedures Procedure Name Priority Date/Time Associated Diagnosis Comments EXTERNAL PROTHROMBIN TIME (PT)/INR Routine 06/15/2025 documented in this encounter Results * External Prothrombin Time (PT)/INR (06/15/2025) External INR - Internormal Ratio 2.43 EXTERNAL LAB External Prothrombin Time (PT) EXTERNAL LAB Blood Venous blood specimen / Unknown 06/15/2025 [facility] Provider POINT OF CARE TEST ENTER/MAKENNA T ORDERABLES Final Result EXTERNAL LAB documented in this encounter Visit Diagnoses Diagnosis oysterman (current) use of anticoagulants- Primary Long-term (current) [...] plan has been documented for the patient 06/15/2025 1:00 PM EDT documented as of this encounter Care Teams Starbucks Clerk Relationship Specialty Start Date End Date Orlin Elizabeth MD [address] [facility] [address] [place] [address] PCP - General Family Medicine 11/25/22 Josseline Longo PA [address] [facility] [address] [place] [address] Physician Collections Analyst Neurology 08/16/21 Jess Hawk APRN [address] [place] [address] Nurse Practitioner Cardiology 06/01/24 Rafaela Brantley, PharmD [address] [place] [phone] Pharmacist Pharmacy 06/03/24 Jovana Wetzel, LissaD [address] [place] [address] Pharmacist Pharmacy 06/13/24 Skyla Mai PA [address] [place] [address] Physician Collections Analyst Urology 03/20/25 documented as of this encounter
--- OUTSIDE RECORDS SUMMARY | 2025-07-13 11:40 | XMS_ITS | Encounter Summary ---
Author Organization [facility] Address [address] [place] [address] Care Team Providers Care Agricultural Produce Packer Name Role Phone Sherrie Elam MD Primary Care Provider [phone] Josseline Longo Unavailable [phone] Orlin Elizabeth MD Primary Care Provider Jess Hawk RETAIL TIRE SALES MANAGER Unavailable [phone] Rafaela Brantley PharmD Unavailable [phone] Jovana Wetzel PharmD Unavailable + Skyla Mai PA Unavailable [phone] Reason for Visit * Reason Comments Med Refill Encounter Details Date Type Department Care Team (Late st Contact Info) Description 04/19/2021 Refill [place] [facility] [address], 1st [place] [address] Josseline Longo PA [address] [place] [address] Social History Tobacco Use Types [...] Description 07/21/2025 11:00 AM EDT Office Visit [facility] [address] [place] [address] Orlin Elizabeth MD [address] [place] [address] 08/24/2025 3:30 PM EDT Office Visit [place] [facility] [address], 1st [place] [address] Josseline Longo PA [address] [facility] [address] [place] [address] 09/12/2025 9:00 AM EST Clinical Support [facility] [address], [address] [place] [address] 09/26/2025 11:00 AM EST Hospital Encounter [facility] A OPERATING ROOM [address] [place] [phone] Gema Thompson MD [address] [place] [address] 09/26/2025 11:00 AM EST - 09/26/2025 2:25 PM EST Surgery [facility] OPERATING ROOM [address] [place] [address] Gema Thompson MD [address] [address] ENUCLEATION, PROSTATE, TRANSURETHRAL, USING HOLMIUM LASER ( HOLEP ) AND CYSTOLITHOLAPAXY [20799 (CPT )] 10/25/2025 9:30 AM EST Office Visit [facility] [address] [place] [address] Gema Thompson MD [address] [place] [address] 12/27/2025 2:40 PM EST Office Visit [facility] [place] [address] [place] [address] Kevin Castañeda MD [address] [place] [address] Scheduled Procedures Name Priority Associated [...] documented as of this encounter Care Teams Agricultural Produce Packer Relationship Specialty Start Date End Date Sherrie Elam MD [address] [place] [address] [place] [address] PCP - General Internal Medicine 08/16/21 11/24/22 Orlin Elizabeth MD [address] [facility] 125 [place] [address] PCP - General Family Medicine 11/25/22 Josseline Longo PA [address] [place] [address] Physician Bread Wrapper Neurology 08/16/21 Jess Hawk APRN [address] [place] [address] Nurse Practitioner Cardiology 06/01/24 Rafaela Brantley, PharmD [address] [place] [address] Pharmacist Pharmacy 06/03/24 Jovana Wetzel, PharmD [address] [place] [address] Pharmacist Pharmacy 06/13/24 Skyla Mai PA [address] [place] [address] Physician Bread Wrapper Urology 03/20/25 documented as of this encounter
--- OUTSIDE RECORDS SUMMARY | 2025-07-13 11:40 | XMS_ITS | Encounter Summary ---
Author Organization [facility] Address [address] [id number] Care Team Providers Care Dry Kiln Worker Name Role Phone Josseline Longo Unavailable [phone] Orlin Elizabeth MD Primary Care Provider Jess Hawk ROOF MECHANIC Unavailable [phone] Rafaela Brantley PharmD Unavailable [phone] Jovana Wetzel PharmD Unavailable + Skyla Mai PA Unavailable [phone] Encounter Details Date Type Department Care Team (Latest Contact Info) Description 07/04/2025 Travel Social History Tobacco Use Types Packs/Day [...] any time in the past 12 m [facility], were you homeless or living in a [...] drink first t jorge in the morning (EYE-YOUTH AGENT) to steady your nerves or to get [...] Description 07/21/2025 11:00 AM EDT Office Visit [facility] [address] [place] [address] Orlin Elizabeth MD [address] [facility] [address] [place] [address] 08/24/2025 3:30 PM EDT Office Visit [place] [facility] [address] 1st [place] [address] Josseline Longo PA [address] [place] [address] 09/12/2025 9:00 AM EST Clinical Support [place] [facility] [address], [address]nd [place] [address] 09/26/2025 11:00 AM EST Hospital Encounter P[facility] A OPERATING ROOM [address] [place] [address] Gema Thompson MD [address] [phone] 09/26/2025 11:00 AM EST - 09/26/2025 2:25 PM EST Surgery P[facility] A OPERATING ROOM [address] [place] [address] Gema Thompson MD [address] [address] ENUCLEATION, PROSTATE, TRANSURETHRAL, USING HOLMIUM LASER ( HOLEP ) AND CYSTOLITHOLAPAXY [58222 (CPT )] 10/25/2025 9:30 AM EST Office Visit [facility] [address], [address] [place] [address] Gema Thompson MD [address] [address] 12/27/2025 2:40 PM EST Office Visit [facility] [place] [address] [facility]. [address] [place] [address] Kevin Castañeda MD [address] [place] [address] Scheduled Procedures Name Priority Associated Diagnoses Date/Ti me ENUCLEATION, PROSTATE, TRANSURETHRAL, USING HOLMIUM LASER Benign prostatic hyperplasia with nocturia 09/26/2025 11:00 AM EST documented as of this encounter Visit Diagnoses Not on filedocumented in this encounter Additional Health Concerns Infection Onset Date Last Indicated Resolved Time MRSA Comment: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 Source: [facility]. 10/19/2014 MRSA Escalation Plan Comment:MRSA Escalation Plan [...] documented as of this encounter Care Teams Dry Kiln Worker Relationship Specialty Start Date End Date Orlin Elizabeth MD [address] [facility] [address] [place] [address] PCP - General Family Medicine 11/25/22 Josseline Longo PA [address] [facility] [address] [place] [address] Physician Wheel Mill Operator Neurology 08/16/21 Jses Hawk APRN [address] [place] [address] Nurse Practitioner Cardiology 06/01/24 Rafaela Brantley, PharmD [address] [place] [phone] Pharmacist Pharmacy 06/03/24 Jovana Wetzel, PharmD [address] [place] [phone] Pharmacist Pharmacy 06/13/24 Skyla Mai PA [address] [place] [address] Physician Wheel Mill Operator Urology 03/20/25 documented as of this encounter
--- OUTSIDE RECORDS SUMMARY | 2025-07-13 11:40 | XMS_ITS | Encounter Summary ---
Author Organization [facility] Address [address] [place] [address] Care Team Providers Care Process Project Engineer Name Role Phone Josseline Longo Unavailable [phone] Orlin Elizabeth MD Primary Care Provider Jess Hawk DISPENSING OPTICIAN APPRENTICE Unavailable [phone] Rafaela Brantley PharmD Unavailable [phone] Jovana Wetzel PharmD Unavailable + Skyla Mai PA Unavailable [phone] Reason for Visit * Reason Comments Med Refill Encounter Details Date Type Department Care Team (Late st Contact Info) Description 06/23/2025 Refill [facility] [place] [address] [place] [address] Kevin Castañeda MD [address] [place] [address] Atrial fibrillation, unspecified type (CMS/HCC) Social History Tobacco Use Types Packs/Day Years [...] any time in the past 12 m [facility], were you homeless or [...] drink first t jorge in the morning (EYE-INVASIVE CARDIOVASCULAR TECHNOLOGIST) to steady your nerves or to get [...] Author 0 07/05/2025 1:19 PM Swati Moulton Question Answer Date of Assessment Author Q1: [...] of Assessment Author Trouble falling or staying asleep, or sleeping too much Not at all 07/05/2025 1:20 PM Gayla Moulton Feeling tired or having herminia le energy Not at all 07/05/2025 1:20 PM Onel Moulton Poor appetite or overeating Not at all 07/05/2025 1: 20 PM Onel Moulton Feeling bad about yourself - or that you are a failure or have let yourself or your family down Not at all 07/05/2025 1:20 PM Onel Martin Trouble concentrating on thi ngs, such as [...] encounter Miscellaneous Notes * Telephone Encounter - Deepthi Licona - 07/07/2025 3:12 PM EDT Patient has been scheduled. * Telephone Encounter - Syl Montaño, RN - 06/26/2025 9:10 AM EDT Last seen 11/2024, needs f/u appt. Refills sent, routing to Deepthi to schedule. documented in this encounter Plan of Treatment Upcoming Encounters Date Type Department Care Team (Late st Contact Info) Description 07/21/2025 11:00 AM EDT Office Visit [facility] [address] [place] [address] Orlin Elizabeth MD [address] [facility] [address] [place] [address] 08/24/2025 3:30 PM EDT Office Visit [facility] [address] 1st [place] [address] Josseline Longo, PA [address] [facility] [address] [place] [address] 09/12/2025 9:00 AM EST Clinical Support [place] [facility] [address], [address] [place] [address] 09/26/2025 11:00 AM EST Hospital Encounter PAV A OPERATING ROOM [address] [place] [address] Gema Thompson MD [address] [place] [address] 09/26/2025 11:00 AM EST - 09/26/2025 2:25 PM EST Surgery PAV A OPERATING ROOM [address] [place] [address] Gema Thompson MD [address] [facility] [address] [place] [address] ENUCLEATION, PROSTATE, TRANSURETHRAL, USING HOLMIUM LASER ( HOLEP ) AND CYSTOLITHOLAPAXY [62600 (CPT )] 10/25/2025 9:30 AM EST [facility] [address], [address] [place] [address] Gema Thompson MD [address] [facility] [address] [place] [address] 12/27/2025 2:40 PM EST Office Visit [facility] [place] [address] [facility]. [address] [place] [address] Kevin Castañeda MD [address] [place] [address] Scheduled Procedures Name Priority Associated Diagnoses Date/Ti me ENUCLEATION, PROSTATE, TRANSURETHRAL, USING HOLMIUM LASER Benign prostatic hyperplasia with nocturia 09/26/2025 11:00 AM EST documented as of this encounter Visit Diagnoses Diagnosis Atrial fibrillation, unspecified type (CMS/HCC) Benign prostatic hyperplasia with nocturia documented in this encounter Additional Health Concerns Infection Onset Date Last Indicated Resolved Time MRSA Comment: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 Source: [facility]. 10/19/2014 MRSA Escalation Plan Comment:MRSA Escalation [...] documented as of this encounter Care Teams Process Project Engineer Relationship Specialty Start Date End Date Orlin Elizabeth MD [address] [place] [address] PCP - General Family Medicine 11/25/22 Josseline Longo PA [address] [place] [address] Physician Grey Roll Worker Neurology 08/16/21 Jess Hawk APRN [address] [place] [address] Nurse Practitioner Cardiology 06/01/24 Rafaela Brantley, PharmD [address] [place] [address] Pharmacist Pharmacy 06/03/24 Jovana Wetzel, PharmD [address] [place] [address] Pharmacist Pharmacy 06/13/24 Skyla Mai PA [address] [facility] [address] [place] [address] Physician Grey Roll Worker Urology 03/20/25 documented as of this encounter
[2025-07-13 12:03] LABS: INR 3.95 (0.9-1.1); Prothrombin Time 39.6 seconds (10.1-12.5)
== END 2025-07-13 23:59 | disposition home or self-care (01) ==
LOC: LAB 11:37
PROVIDERS: PCP Family Medicine Sports Medicine; Visit Provider Nurse Practitioner
DX: Z79.01 Long term (current) use of anticoagulants (principal)
CPT/HCPCS: 36415; 85610

== ENCOUNTER 2025-07-27 12:06 | Outpatient (CLI) | payer BC, SELFPAY ==
--- OUTSIDE RECORDS SUMMARY | 2025-06-17 14:20 | XMS_ITS | Encounter Summary ---
Author Organization [facility] Address [address] [place] [address] Care Team Providers Care After School Driver Name Role Phone Josseline Longo Unavailable [phone] Orlin Elizabeth MD Primary Care Provider Jess Hawk MARKETING DEVELOPMENT MANAGER Unavailable [phone] Rafaela Brantley PharmD Unavailable [phone] Jovana Wetzel PharmD Unavailable + Skyla Mai PA Unavailable [phone] Reason for Visit * Reason Comments UTI PT is being seen by urology. Cloudy urine, pain with urination, urinary retention. PT is in and out cathing as needed. Encounter Details Date Type Department Care Team (Late st Contact Info) Description 06/17/2025 2:20 PM EDT Office Visit [facility] [address], [address] [place] [address] Jeannette Triplett, MARKETING DEVELOPMENT MANAGER [address] [place] [address] Urinary retention (Primary Dx); Bacterial UTI Social History Tobacco Use Types Packs/Day Years Used Date Smoking Tobacco: Never Passive Smoke Exposure: Never Smokeless Tobacco: Never Tobacco Cessation:Counseling Given: Not Answered Alcohol Use Standard Drinks/Week Comments Not Currently 0 (1 standard drink = 0.6 oz pur e alcohol) PHQ-2 Answer Date Recorded Patient Health Questionnaire-2 Score 0 11/30/2024 Humiliation, Afraid, Rape, and Kick questionnair e [...] any time in the past 12 m [facility], were you homeless or living in a alf (including now)? No 04/20/2025 Safety and Environment [...] first t jorge in the morning (EYE-COMMERCIAL ROOFING ESTIMATOR) to steady your nerves or to get [...] Sign Reading Time Taken Comments Blood Pressure 104/68 06/17/2025 2:20 PM EDT Pulse 59 06/17/2025 2:20 PM EDT Temperature 36.4 C (97.6 F) 06/17/2025 2:20 PM EDT Respiratory Rate 18 06/17/2025 2:20 PM EDT Oxygen Saturation 96% 06/17/2025 2:20 PM EDT Inhaled Oxygen Concentration - - Weight 81.6 kg (180 lb) 06/17/2025 2:20 PM EDT Height 180.3 cm (5' 11 ) 06/17/2025 2:20 PM EDT Body Mass Index 25.1 06/17/2025 2:20 PM EDT documented in this encounter Miscellaneous Notes * Progress Notes - Jeannette Triplett, SAGAR - 06/17/2025 2:20 PM EDT Subjective Patient ID: Zackary Ness III is a 69 y.o. male. Chief Complaint Patient presents with UTI PT is being seen by urology. Cloudy urine, pain with urination, urinary retention. PT is in and outcathing as needed. Pt states he performed an in and out cath last night and got 450ml out. He has not cathed in a really long time. Noted he was having symtpoms of a UTI. Currently having pain with urination, difficulty urinating, feeling of bladder pressure Urology advised he could self cath 3 times a day. Urine has stayed cloudy since April when he had a Staph UTI. UTI Past Medical History[1] Surgical History[2] Family History[3] Social Connections: Not on file Current Medications[4] Allergies[5] Immunization History Administered Date(s) Administered Influenza, Unspecified 09/04/2014, 08/13/2015, 08/11/2016, 08/24/2017, 08/09/2018, 10/10/2019, 08/17/2020 Influenza, high-dose, quadrivalent 09/05/2022, 11/20/2023 Influenza, injectable, quadrivalent, preservative free 09/09/2021 Influenza, seasonal, injectable, preservative free 08/24/2024 MMR 04/14/2014 Moderna Covid-19 Vaccine 12y+, Flavio Protein, Preservative free 11/20/2023 PPD Skin Test (TB Skin Test) 06/08/2002, 12/30/2006, 01/13/2007, 01/28/2008, 02/26/2009, 06/04/2010, 12/23/2011, 2012 Pfizer Covid-19 Vaccine 12y+, Flavio Protein, PF, Tian-Sucrose 08/24/2024 [employer] COVID-19 Vaccine (Purple Cap) 12+ 11/20/2020, 12/12/2020, 11/03/2021 Pneumococcal Conjugate PCV 13 11/21/2022 Tdap 02/14/2009, 04/14/2014 The following portions of the chart were reviewed this encounter and updated as appropriate: Review of Systems Visit Vitals BP 104/68 (BP Location: Left arm, Patient Position: Sitting) Pulse 59 Temp 36.4 ??C (97.6 ??F) (Oral) Resp 18 Ht 1.803 m (5' 11 ) Wt 81.6 kg (180 lb) SpO2 96% BMI 25.10 kg/m?? Smoking Status Never BSA 2.02 m?? Objective Physical Exam Vitals reviewed. Constitutional: General: He is not in acute distress. Appearance: Normal appearance. He is not ill-appearing or toxic-appearing. HENT: Nose: Nose normal. Mouth/Throat: Mouth: Mucous membranes are moist. Cardiovascular: Rate and Rhythm: Normal rate. Pulmonary: Effort: Pulmonary effort is normal. No respiratory distress. Abdominal: Palpations: Abdomen is soft. Tenderness: There is no abdominal tenderness. There is no right CVA tenderness or left CVA tenderness. Musculoskeletal: Cervical back: Normal range of motion. Skin: General: Skin is warm. Capillary Refill: Capillary refill takes less than 2 seconds. Neurological: General: No focal deficit present. Mental Status: He is alert and oriented to person, place, and time. Mental status is at baseline. Psychiatric: Mood and Affect: Mood normal. Behavior: Behavior normal. Thought Content: Thought content normal. Judgment: Judgment normal. Recent Results (from the past 24 hours) POCT Urinalysis dipstick Collection Time: 06/17/25 2:38 PM Result Value Ref Range POCT Urine Color Yellow POCT Urine Clarity Cloudy POCT Glucose Urine >=1000 (A) Negative mg/dL POCT Bilirubin, Urine Negative Negative POCT Ketones, Urine Negative Negative mg/dL POCT Specific [place], Urine 1.020 POCT Blood, Urine Moderate (A) Negative POCT pH, Urine 5.5 5.0 to 8.0 POCT Protein, Urine 100 (A) Negative mg/dL POCT Urobilinogen, Urine 0.2 0.2, 1 E.U./dL POCT Nitrite, Urine Positive (A) Negative POCT Leukocyte Esterase, Urine Large (A) Negative Test Strip Lot Number [id number] Test Strip Lot Expiration 06/07/2026 Assessment/Plan Assessment & Plan Urinary retention Orders: POCT Urinalysis dipstick Urine culture (clean catch) Bacterial UTI Orders: cefpodoxime (Vantin) 200 MG tablet; Take 1 tablet by mouth 2 times a day for 7 days. Medicines can help in the treatment of a bladder infection: Take antibiotics exactly as prescribed and until they are used up, even if you feel better. It's important to finish them to make sure the infection is gone. Unless another medicine was prescribed, you can use cuxw-yrv-gxdqryy medicines for pain, fever, or discomfort. If you have chronic liver of kidney disease, talk with your healthcare provider before using these medicines. Also talk with your provider if you've ever had a stomach ulcer or digestive bleeding, or are taking blood thinners. Home care The following are general care guidelines: Stay home from work or school. Rest in bed until your fever breaks and you are feeling better, or as advised by your healthcare provider. Drink lots of fluid unless you must restrict fluids for other medical reasons. This will force the medicine into your urinary system and flush the bacteria out of your body. Ask your healthcare provider how much you should drink. Don't have sex until you have finished all of your medicine and your symptoms are gone. Don't have caffeine, alcohol, or spicy foods. These foods may irritate the kidneys and bladder. Don't take bubble baths. Sensitivity to the chemicals in bubble baths can irritate the urethra. Make sure you wipe from front to back after using the toilet. Wear loose cloths and cotton underwear. We will contact you if your results are positive or if any addition treatments are needed. Continue to Self cath if you feel urine retention is noted. We will contact you if your results arepositive or if any addition treatments are needed. Total time spent on the patient encounter today was >30 mins (26140) and included xpxb-km-uqba and non ajud-tq-grom time spent with the patient. [1] Past Medical History: Diagnosis Date A-fib (CMS/HCC) BPH (benign prostatic hyperplasia) Cardiomyopathy Colon polyp 03/03/2023 Conversions - Other Urethral Stone Personal history of other mental and behavioral disorders History of depression Primary central sleep apnea In my history Sleep apnea 2018? Tremor [2] Past Surgical History: Procedure Laterality Date JOINT REPLACEMENT 07/2019, 10/2014 KNEE SURGERY Left 2010 LITHOTRIPSY N/A Lithotripsy from [facility] TOTAL HIP ARTHROPLASTY N/A Hip Replacement from [employer] [3] Family History Problem Relation Name Age of Onset Alzheimer's disease Mother Aiyana Ness Diabetes Mother Aiyana Ness arteriosclerotic cardiovascular disease Father Marco A Diabetes Father Marco A Heart attack Father Marco A Nephrolithiasis Father Marco A Cancer Father Marco A Heart disease Father Marco A Obesity Father Marco A [4] Current Outpatient Medications Medication Sig Dispense Refill atorvastatin (Lipitor) 40 MG tablet Take 1 tablet by mouth daily. 90 tablet 0 B Complex Vitamins (B COMPLEX 1 PO) Take 1 each by mouth 1 (one) time each day. cholecalciferol (D3-5) 5,000 Units tablet Take 2 tablets (10,000 Units) by mouth 1 (one) time each day. clobetasol (Temovate) 0.05 % cream Apply topically 2 times a day. 60 g 2 coenzyme Q-10 300 mg capsule capsule Take 1 capsule (300 mg) by mouth 1 (one) time each day. dapagliflozin (Farxiga) 10 MG tablet Take 1 tablet (10 mg) by mouth daily. 90 tablet 2 dofetilide (Tikosyn) 250 MCG capsule Take 1 capsule (250 mcg) by mouth 2 (two) times a day. 60 capsule 11 finasteride (Proscar) 5 MG tablet TAKE 1 TABLET BY MOUTH ONCE A DAY 90 tablet 3 lisinopril 2.5 MG tablet Take 2 tablets (5 mg) by mouth every night. 90 tablet 3 MAGNESIUM GLYCINATE PO Take by mouth nightly. MAGNESIUM MALATE PO Take 1 tablet by mouth 1 (one) time each day. metoprolol succinate XL (Toprol-XL) 100 MG 24 hr tablet TAKE 1 TABLET BY MOUTH EVERY EVENING 90 tablet 3 Multiple Vitamins-Minerals (multivitamin with minerals) tablet Take 1 tablet by mouth 2 (two) timesa day. phytonadione (Vitamin K, Phytonadione,) 100 MCG tablet tablet Take 1 tablet by mouth daily. primidone (Mysoline) 50 MG tablet TAKE 2 TABLETS BY MOUTH THREE TIMES A DAY 540 tablet 2 tamsulosin (Flomax) 0.4 MG 24 hr capsule TAKE 1 CAPSULE BY MOUTH TWO TIMES A DAY 180 capsule 3 warfarin (Coumadin) 5 MG tablet TAKE 1.5 TABLETS (7.5 MG) BY MOUTH ONCE A DAY EXCEPT TAKE 1 TABLET (5 MG) ON THURSDAY AND THURSDAY OR DIRECTED BY THE [facility] 40 tablet 5 No current facility-administered medications for this visit. [5] No Known Allergies documented in this encounter Plan of Treatment Upcoming Encounters Date Type Department Care Team (Late st Contact Info) Description 08/24/2025 3:30 PM EDT [facility] [address], [address] [place] [address] Josseline Longo PA [address] [place] [address] 09/07/2025 2:20 PM EDT Office Visit [facility] [address] [place] [address] Orlin Elizabeth MD [address] [place] [address] 09/12/2025 9:00 AM EST Clinical Support [facility] [address], [address] [place] [address] 09/26/2025 11:00 AM EST Hospital Encounter [facility] [address] [place] [address] Gema Thompson MD [address] [facility] [address] [place] [address] 09/26/2025 11:00 AM EST - 09/26/2025 2:25 PM EST Surgery [facility] [address] [place] [address] Gema Thompson MD [address] [place] [address] ENUCLEATION, PROSTATE, TRANSURETHRAL, USING HOLMIUM LASER ( HOLEP ) AND CYSTOLITHOLAPAXY [61069 (CPT )] 10/25/2025 9:30 AM EST Office Visit [facility] [address] [place] [address] Gema Thompson MD [address] [place] [address] 12/27/2025 2:40 PM EST Office Visit [facility] [place] [facility] [address] [place] [address] Kevin Castañeda MD [address] [place] [address] Scheduled Procedures Name Priority Associated Diagnoses Date/Ti me ENUCLEATION, PROSTATE, TRANSURETHRAL, USING HOLMIUM LASER Benign prostatic hyperplasia with nocturia 09/26/2025 11:00 AM EST documented as of this encounter Procedures Procedure Name Priority Date/Time Associated Diagnosis Comments POCT URINALYSIS DIPSTICK Routine 06/17/2025 2:38 PM EDT Urinary retention URINE CULTURE Routine 06/17/2025 2:38 PM EDT Urinary retention documented in this encounter Results * Urine culture (clean catch) (06/17/2025 2:38 PM EDT) Culture >=100,000 CFU/mL Mixed urogenital , fecal, or skin estrella present. 06/19/2025 1:03 PM EDT [facility] Comment:This is a corrected result. Previous organism was Gram positive cocci on 06/18/2025 at 1654 EDT. Urine Urine specimen obtained by clean catch procedure / Unknown Non-blood Collection / Unknown 06/17/2025 2:38 PM EDT 06/17/2025 2:38 PM EDT Jeannette Triplett MARKETING DEVELOPMENT MANAGER LAB MICROBIOLOGY - GENERAL O RDERABLES Final Result [facility] [address] [place] [address] * (ABNORMAL) POCT Urinalysis dipstick (06/17/2025 2:38 PM EDT) POCT Urine Color Yellow POCT Urine Clarity Cloudy POCT Glucose Urine >=1000(A) Negative mg/dL POCT Bilirubin, Urine Negative Negative POCT Ketones, Urine Negative Negative mg/dL POCT Specific [place], Urine 1.020 POCT Blood, Urine Moderate(A) Negative POCT pH, Urine 5.5 5.0 to 8.0 POCT Protein, Urine 100(A) Negative mg/dL POCT Urobilinogen, Urine 0.2 0.2, 1 E.U./dL POCT Nitrite, Urine Positive(A) Negative POCT Leukocyte Esterase, Urine Large(A) Negative Test Strip Lot Number [id number] Test Strip Lot Expiration 06/07/2026 Urine Urine specimen obtained by clean catch procedure / Unknown 06/17/2025 2:38 PM EDT Jeannette Triplett MARKETING DEVELOPMENT MANAGER POINT OF CARE TEST ENTER/MAKENNA T ORDERABLES Final Result documented in this encounter Visit Diagnoses Diagnosis Urinary retention- Primary Unspecified retention of urine Bacterial UTI Urinary tract infection, site not specified Benign prostatic hyperplasia with nocturia documented in this encounter Additional Health Concerns Infection Onset Date Last Indicated Resolved Time MRSA Comment: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 Source: [facility]. 10/19/2014 MRSA Escalation Plan Comment:MRSA Escalation Plan is in effect as of 2023. Patient will require contact precautions for the duration of the hospital admission. 03/17/2024 03/17/2024 Assessment Noted Time A fall risk assessment has been complete d for the patient 06/17/2025 2:19 PM EDT A Body Mass Index follow-up plan has been documented for the patient 06/17/2025 3:26 PM EDT documented as of this encounter Care Teams After School Driver Relationship Specialty Start Date End Date Orlin Elizabeth MD [address] [place] [address] PCP - General Family Medicine 11/25/22 Josseline Longo PA [address] [place] [address] Physician District Wildlife Manager Neurology 08/16/21 Jess Hawk APRN [address] [place] [address] Nurse Practitioner Cardiology 06/01/24 Rafaela Brantley, PharmD [address] [place] [address] Pharmacist Pharmacy 06/03/24 Jovana Wetzel, PharmD [address] [place] [address] Pharmacist Pharmacy 06/13/24 Skyla Mai PA [address] [place] [address] Physician District Wildlife Manager Urology 03/20/25 documented as of this encounter
--- OUTSIDE RECORDS SUMMARY | 2025-07-05 11:38 | XMS_ITS | Encounter Summary ---
Author Organization [facility] Address [address] [place] [address] Care Team Providers Care Vamp Wetter Name Role Phone Josseline Longo Unavailable [phone] Orlin Elizabeth MD Primary Care Provider Jess Hawk COATINGS INSPECTOR Unavailable [phone] Rafaela Brantley PharmD Unavailable [phone] Jovana Wetzel PharmD Unavailable + Skyla Mai Unavailable [phone] Reason for Referral * Imaging (Routine) - Closed Specialty Diagnoses / Procedures Referred By Scarlet barrera Referred To Contact Radiology Diagnoses Benign prostatic hyperplasia with nocturia Incomplete bladder emptying Procedures CT Renal Stone wo IV Contrast Skyla Mai PA [address] [place] [address] Phone: tel: fax: Referral ID Status Reason Start Date Expiration Date Visits Re quested Visits Authorized [id number] Closed 03/20/2025 09/19/2026 1 1 Reason for Visit * Imaging (Routine) - Closed Specialty Diagnoses / Procedures Referred By Scarlet barrera Referred To Contact Radiology Diagnoses Benign prostatic hyperplasia with nocturia Incomplete bladder emptying Procedures CT Renal Stone wo IV Contrast Skyla Mai, DENZEL [address] [place] [address] Phone: tel: fax: Referral ID Status Reason Start Date Expiration Date Visits Re quested Visits Authorized [id number] Closed 03/20/2025 09/19/2026 1 1 Encounter Details Date Type Department Care Team (Latest Contact Info) Description 07/05/2025 11:38 AM EDT - 07/05/2025 11:59 PM EDT Hospital Encounter [facility] CT [address] [place] [address] Benign prostatic hyperplasia with nocturia; [...] in the past 12 m [facility], were you homeless or living in a ch[facility] (including now)? No 04/20/2025 Safety and Environment [...] drink first t jorge in the morning (EYE-CREDIT CONTROL CLERK) to steady your nerves or to [...] 0 07/05/2025 1:20 PM Onel Moulton * How difficult have these problems made it for you to do your work, take care of things at home, or get along with other people? Answer Date of Assessment Author Not difficult at all 07/05/2025 1:20 PM Onel Martin documented as of this encounter Medications at [...] THURSDAY AND THURSDAY OR DIRECTED BY THE [facility]TICOAGULATION CLINIC 40 tablet 5 5 documented as of this encounter Plan of Treatment Upcoming Encounters Date Type Department Care Team (Late st Contact Info) Description 08/24/2025 3:30 PM EDT Office Visit [facility] [address]st [place] [address] Josseline Longo PA [address] [facility] [address] [place] [address] 09/07/2025 2:20 PM EDT Office Visit [facility] [address] [address] Orlin Elizabeth MD [address] [place] [address] 09/12/2025 9:00 AM EST Clinical Support [facility] [address] [place] [address] 09/26/2025 11:00 AM EST Hospital Encounter [facility] [address] [place] [address] Gema Thompson MD [address] [address] 09/26/2025 11:00 AM EST - 09/26/2025 2:25 PM EST Surgery [facility] [address] [place] [address] Gema Thompson MD [address] [address] ENUCLEATION, PROSTATE, TRANSURETHRAL, USING HOLMIUM LASER ( HOLEP ) AND CYSTOLITHOLAPAXY [91935 (CPT )] 10/25/2025 9:30 AM EST Office Visit [facility] [address] [place] [address] Gema Thompson MD [address] [address] 12/27/2025 2:40 PM EST Office Visit [facility] [place] [address] [facility]. [address] [place] [address] Kevin Castañeda MD [address] [place] [address] Scheduled Procedures Name Priority Associated Diagnoses Date/Ti [...] Tim Hernandez MD on 07/05/2025 12:23 PM Skyla MAHONEY IMG CT PROCEDURES Final Result documented in this encounter Visit Diagnoses Diagnosis Benign prostatic hyperplasia with nocturia Incomplete bladder emptying Benign prostatic hyperplasia with nocturia- Primary Benign prostatic hyperplasia with nocturia documented in this encounter Additional Health Concerns Infection Onset Date Last Indicated Resolved Time MRSA Comment: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 Source: [facility]. 10/19/2014 MRSA Escalation Plan Comment:MRSA Escalation [...] documented as of this encounter Care Teams Vamp Wetter Relationship Specialty Start Date End Date Orlin Elizabeth MD [address] [facility] [address] [place] [address] PCP - General Family Medicine 11/25/22 Josseline Longo PA [address] [facility] [address] [place] [address] Physician Senior It Engineer Neurology 08/16/21 Jess Hawk APRN [address] [place] [address] Nurse Practitioner Cardiology 06/01/24 Rafaela Brantley, PharmD [address] [place] [address] Pharmacist Pharmacy 06/03/24 Jovana Wetzel, PharmD [address] [place] [address] Pharmacist Pharmacy 06/13/24 Skyla Mai PA [address] [facility] [address] [place] [address] Physician Senior It Engineer Urology 03/20/25 documented as of this encounter
--- OUTSIDE RECORDS SUMMARY | 2025-07-05 13:45 | XMS_ITS | Encounter Summary ---
Author Organization [facility] Address [address] [place] [address] Care Team Providers Care Leather Dresser Name Role Phone Josseline Longo Unavailable [phone] Orlin Elizabeth MD Primary Care Provider Jess Hawk EMERGING TECHNOLOGIES DIRECTOR Unavailable [phone] Rafaela Brantley PharmD Unavailable [phone] Jovana Wetzel PharmD Unavailable + Skyla Mai Unavailable [phone] Reason for Referral * Consultation (Routine) - Pending Review Specialty Diagnoses / Procedures Referred By Scarlet barrera Referred To Contact Physical Therapy Diagnoses Benign prostatic hyperplasia with nocturia Skyla Mai PA [address] [place] [address] Phone: tel: fax: Referral ID Status Reason Start Date Expiration Date Visits Requested Visits Authorized [id number] Pending Review Consult and Treat 07/05/2025 01/04/2027 1 1 Encounter Details Date Type Department Care Team (Late st Contact Info) Description 07/05/2025 1:45 PM EDT Office Visit Medical Office Building Urology [address] [facility], [address] [place] [address] Gema Thompson MD [address] [place] [address] Benign prostatic hyperplasia with nocturia (Primary Dx); Suspected UTI; Incomplete bladder emptying; Other urinary incontinence Social History Tobacco Use Types Packs/Day Years [...] time in the past 12 m [facility], were you homeless or living in a fpc (including now)? No 04/20/2025 Safety and Environment [...] drink first t jorge in the morning (EYE-SYSTEMS MANAGER) to steady your nerves or to [...] Sign Reading Time Taken Comments Blood Pressure 90/56 07/05/2025 1:19 PM EDT Pulse 100 07/05/2025 1:19 PM EDT Temperature 36.9 C (98.4 F) 07/05/2025 1:19 PM EDT Respiratory Rate - - Oxygen Saturation 97% 07/05/2025 1:19 PM EDT Inhaled Oxygen Concentration - - Weight 81 kg (178 lb 9.2 oz) 07/05/2025 1:19 PM EDT Height 180.3 cm (5' 11 ) 07/05/2025 1:19 PM EDT Body Mass Index 24.91 07/05/2025 1:19 PM EDT documented in this encounter Functional Status * AUDIT-C Score Answer Date of Assessment Author 0 07/05/2025 1:19 PM EDT Swati Torrez * Question Answer Date of Assessment Author Q1: How often do you have a drink containing alcohol? Never 07/05/2025 1:19 PM Onel Moulton Q2: How many drinks containing alcohol do you have on a typical day when you are drinking? Patient does not drink 07/05/2025 1:19 PM PEARLT Onel Torrez Q3: How often do you have six [...] down Not at all 07/05/2025 1:20 PM Gayla Moulton Trouble concentrating on thi ngs, such as [...] Onel Martin documented as of this encounter Miscellaneous Notes * Progress Notes - Skyla Mai PA - 07/05/2025 1:45 PM EDT [facility] Note 07/05/25 CC: urinary retention, bladder stone HPI: Marco A Ness III is a 69 y.o. M with hx of nephrolithiasis and lower urinary tract symptoms,on coumadin for A fib. His symptoms had previously been managed with finasteride and tamsulosin, but recently he noted worsening LUTS including urinary incontinence (likely combination of mixed urge and overflow given that his last PVR was elevated to 470 mL). PSA low 0.45 (03/20/25). We discussed options for bladder management and he was interested in discussing outlet procedure, and presents today with updated imaging for recommendations. Today he states he continues to wear a diaper now for leakage. Leakage is mostly associated with increased urgency. He utilizes one-two diapers daily, depending on how active he is throughout the day. He was evaluated for suspected UTI through [facility] 06/17/25, treated with course of cefpodoxime bid x 7 days, urine culture ultimately showed mixed growth/contamination but he took entire course. Symptoms subsided for a few days but today again reports some pain with urination, denies: hematuria, fever, abdominal or flank pain. He has not been performing CIC as we previously discussed - did not get catheters, quantity ordered was too much for him. No kidney stones since 2003, has increased [...] intravesical median lobe and lateral lobe hypertrophy. PMHx: Past Medical History: Diagnosis Date A-fib [...] on file Tobacco Use Smoking status: Never Passive exposure: Never Smokeless tobacco: Never Vaping Use Vaping status: Never Used Substance and Sexual Activity Alcohol use: Not Currently Drug use: Never Sexual activity: Not Currently Partners: Female control/protection: None Other Topics Concern Not on file Social History Narrative Occupation: Marital History - Currently Social Drivers of Health Financial Resource Strain: Not on file Food Insecurity: No Food Insecurity (04/20/2025) Hunger Vital Sign Worried About Running Out of Food in the Last Year: Never true Ran Out of Food in the Last Year: Never true Transportation Needs: No Transportation Needs (04/20/2025) PRAPARE - Transportation Lack of Transportation (Medical): No Lack of Transportation (Non-Medical): No Physical Activity: Not on file Stress: Not on file Social Connections: Not on file Intimate Partner Violence: Not At Risk (04/20/2025) Humiliation, Afraid, Rape, and Kick questionnaire Fear of Current or Ex-Partner: No Emotionally Abused: No Physically Abused: No Sexually Abused: No Housing Stability: Low Risk (04/20/2025) Housing Stability Vital Sign Unable to Pay for Housing in the Last Year: No Number of Times Moved in the Last Year: 0 Homeless in the Last Year: No Physical Exam: General: alert, active, in no acute distress Head: normocephalic Eyes: extraocular muscles intact Lungs: normal respiratory effort Neuro: CN II- XII intact Musculoskeletal: BL UE demonstrate equal movement Labs: Creatinine, Plasma (mg/dL) Date/Time Value 04/20/2025 1128 0.95 eGFRcr (mL/min/1.73m*2) Date/Time Value 04/20/2025 1128 86.1 Total Calcium, Plasma (mg/dL) Date/Time Value 04/20/2025 1128 9.9 WBC Count (10*3/uL) Date/Time Value 04/20/2025 1128 5.36 HGB (g/dL) Date/Time Value 04/20/2025 1128 15.1 HCT (%) Date/Time Value 04/20/2025 1128 46.6 Platelet Count (10*3/uL) Date/Time Value 04/20/2025 1128 253 Lab Results Component Value Date/Time PSASC 0.70 11/21/2022 1124 PSASC 0.71 05/07/2022 1126 Lab Results Component Value Date PSA 0.45 03/20/2025 PSA 0.50 03/23/2024 PSA 0.68 03/11/2023 PSA 0.98 10/10/2020 PSA 3.49 05/16/2019 Imaging: PVR bladder ultrasound 03/23/24: 284mL PVR bladder ultrasound 03/20/25: 470mL PVR bladder ultrasound 07/05/25: 259mL === 07/05/25 === I personally reviewed the following images today: CT RENAL STONE WO IV CONTRAST Kidneys, Ureters, and Urinary Bladder: Left lower pole renal calculi are present. There is mild caliectasis of the lower pole calyces. Multiple renal lesions, some of which are likely cystic and others that may be hemorrhagic. There is no hydroureter. Large bladder calculi are identified, largest measures 2.9 cm. Estimated prostate size approx 30g Other Abdominopelvic Organs: Unremarkable liver and gallbladder. Unremarkable spleen. No suspiciouspancreatic findings. No suspicious adrenal findings. No suspicious pelvic mass lesions. Musculoskeletal and Body Wall: Postoperative changes from bilateral total hip arthroplasty. Degenerative scoliosis is present involving the thoracolumbar spine. Small bilateral inguinal hernias are suspected. Lower Chest: No suspicious findings. - Impression - Large bladder calculi as detailed above. Calculi present within the lower pole of the left kidney with mild lower pole caliectasis. Assessment: Marco A Ness III is a 69 y.o. M with hx of nephrolithiasis and lower urinary tract symptoms, on coumadin for A fib. His symptoms had previously been managed with finasteride and tamsulosin, but recently he noted worsening LUTS including urinary incontinence (likely combination of mixed urge and overflow given that his last PVR was elevated to 470 mL). PSA low 0.45 (03/20/25). We discussed options for bladder management and he was interested in outlet procedure, particularly the holmium laser enucleation of the prostate. Imaging today demonstrated a mildly enlarged prostate gland,estimated 30g. For HoLEP we discussed that he will likely have urinary incontinence after surgery and it is almostalways temporary. We discussed the benefits of pelvic floor physical therapy in aiding in this recovery. We discussed that retrograde ejaculation is very common after this surgery and is not medically harmful. We discussed that while lower risk of bleeding than some other surgical therapies there is still a risk of bleeding. There is a small registry nurse risk of developing scar tissue (stricture or bladder neck contracture). We discussed that the prostate chips will be sent to pathology. Post operatively his PSA should lower to around 1, and we will obtain a PSA at the 3 month post operative visit to assess this. We will plan to have his catheter in 1 day. I will request clearance from his turret press operator to hold coumadin prior to surgery. He also has bladder stones, the largest being 2.9 cm. Discussed that this is likely secondary to chronic urinary stasis and has been making it more difficult to completely treat recent UTIs. Advised he undergo cystolitholapaxy at time of HoLEP. In the interim, he is agreeable to continue to performing CIC three times daily as needed if increased difficulty emptying his bladder - catheter order updated. Plan: - Continue tamsulosin 0.8mg bid and finasteride 5mg daily for LUTS, continue CIC as needed for difficulty emptying in the interim - Plan for HoLEP with cystolitholapaxy in Nov (pt prefers this time frame) - Need cards clearance for holding coumadin prior to procedure (message sent to Dr. Castañeda 07/05/25) - Urine for culture today due to ongoing dysuria DENZEL WhippleC Cosigned by Gema Thompson MD at 07/05/2025 3:57 PM EDT Associated attestation - Gema Thompson MD - 07/05/2025 3:57 PM EDT I attest to being involved in more than half the total time in patient care. * Progress Notes - Skyla Mai PA - 07/05/2025 1:45 PM EDT Per note from Dr. Castañeda - He is taking warfarin for atrial fibrillation. In this case, it is ok tohold warfarin for 3 days before surgery. Once stable post op, he can resume his warfarin, but will need to check his INR to make sure his level are within acceptable limits. I don't see any reason tobridge with heparin. Pt notified of recommendations. documented in this encounter Plan of Treatment Upcoming Encounters Date Type Department Care Team (Late st Contact Info) Description 08/24/2025 3:30 PM EDT Office Visit [facility] [address] [place] [address] Josseline Longo PA [address] [facility] [address] [place] [address] 09/07/2025 2:20 PM EDT Office Visit [facility] [address] [place] [address] Orlin Elizabeth MD [address] [facility] [address] [place] [address] 09/12/2025 9:00 AM EST Clinical Support [facility] [address] [place] [phone] 09/26/2025 11:00 AM EST Hospital Encounter [facility] [address] [place] [address] Gema Thompson MD [id number] [place] [address] 09/26/2025 11:00 AM EST - 09/26/2025 2:25 PM EST Surgery [facility] [address] [place] [phone] Gema Thompson MD [id number] [place] [address] ENUCLEATION, PROSTATE, TRANSURETHRAL, USING HOLMIUM LASER ( HOLEP ) AND CYSTOLITHOLAPAXY [00482 (CPT )] 10/25/2025 9:30 AM EST Office Visit [facility] Urology [address] [facility] 2nd [place] [address] Gema Thompson MD [address] [place] [address] 12/27/2025 2:40 PM EST Office Visit [facility] [place] [address] [place] [address] Kevin Castañeda MD [address] [place] [address] Scheduled Procedures Name Priority Associated Diagnoses Date/Ti me ENUCLEATION, PROSTATE, TRANSURETHRAL, USING HOLMIUM LASER Benign prostatic hyperplasia with nocturia 09/26/2025 11:00 AM EST Scheduled Referrals Name Type Priority Associated Diagnoses Orde r Schedule PFPT Outpatient Referral Routine Benign prostatic hyperplasia with nocturia Expected: 07/05/2025 (Approximate), Expires: 01/06/2027 documented as of this encounter Goals Goal Patient Goal Type Associated Problems Recent Progress Patient-Stated? Author Autogenerat ed Goal Care Plan Autogenerated Problem No Lizzie Jessica documented as of this encounter Procedures Procedure Name Priority Date/Time Associated Diagnosis Comments URINE CULTURE Routine 07/05/2025 2:00 PM EDT Suspected UTI POC US BLADDER SCAN FOR VOLUME Routine 07/05/2025 1:24 PM EDT Benign prostatic hyperplasia with nocturia documented in this encounter Results * (ABNORMAL) Urine Culture - Clinic Collect (07/05/2025 2:00 PM EDT) Culture >=100,000 CFU/mL - Biotype 1 Staphylococcus coagulase negative(A) 07/07/2025 11:05 AM EDT [facility] Culture >=100,000 CFU/mL - Biotype 2 Staphylococcus coagulase negative(A) 07/07/2025 11:05 AM EDT [facility] Urine Urine specimen obtained by clean catch procedure / Unknown Non-blood Collection / Unknown 07/05/2025 2:00 PM EDT 07/05/2025 5:35 PM EDT us [facility] MICROBIOLOGY - GENERAL ORD ERABLES Final Result [facility] [address] [place] [address] * POC US Bladder Volume (07/05/2025 1:24 PM EDT) Urine, Volume 259 mL IMAGING Anatomical Region Laterality Modality Other us Gema Thompson MD IMG POINT OF CARE ULTRASOUND Final Result documented in this encounter Visit Diagnoses Diagnosis Benign prostatic hyperplasia with nocturia- Primary Suspected UTI Incomplete bladder emptying Other urinary incontinence Benign prostatic hyperplasia with nocturia- Primary Benign prostatic hyperplasia with nocturia documented in this encounter Additional Health Concerns Active Problems Noted Date Diagnosed Date Autogenerated Problem 07/11/2025 Infection Onset Date Last Indicated Resolved Time MRSA Comment: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 Source: [facility]. 10/19/2014 MRSA Escalation Plan Comment:MRSA Escalation [...] documented as of this encounter Care Teams Leather Dresser Relationship Specialty Start Date End Date Orlin Elizabeth MD [address] [facility] [address] [place] [phone] PCP - General Family Medicine 11/25/22 Josseline Longo PA [address] [facility] [address] [place] [phone] Physician Dip Stand Loader Neurology 08/16/21 Jess Hawk APRN [address] [place] [address] Nurse Practitioner Cardiology 06/01/24 Rafaela Brantley, PharmD [address] [place] [address] Pharmacist Pharmacy 06/03/24 Jovana Wetzel, PharmD [address] [place] [address] Pharmacist Pharmacy 06/13/24 Skyla Mai PA [id number] [place] [phone] Physician Dip Stand Loader Urology 03/20/25 documented as of this encounter
--- OUTSIDE RECORDS SUMMARY | 2025-07-27 12:08 | XMS_ITS | Encounter Summary ---
Author Organization [facility] Address [address] [place] [address] Care Team Providers Care Pin Machine Operator Name Role Phone Josseline Longo Unavailable [phone] Orlin Elizabeth MD Primary Care Provider Jess Hawk FIXED WING AIRCRAFT FLIGHT ENGINEER Unavailable [phone] Rafaela Brantley PharmD Unavailable [phone] Jovana Wetzel PharmD Unavailable + Skyla Mai PA Unavailable [phone] Encounter Details Date Type Department Care Team (Latest Contact Info) Description 07/13/2025 Anticoagulation - Warfarin Visit [facility] [place] [address] [place] [address] Jovana Wetzel, PharmD [address] [place] [address] half-way (current) use of anticoagulants (Primary Dx); [...] any time in the past 12 m [facility], were you homeless or [...] drink first t jorge in the morning (EYE-ENGLISH LANGUAGE LEARNER TUTOR) to steady your nerves or to get [...] Progress Notes - Jovana Wetzel, PharmD - 07/13/2025 1:52 PM EDT Images from the original note were not included. [facility] Note History of Present Illness Anticoagulation Summary As of 07/13/2025 INR goal: 2.0-3.0 TTR: 66.4% (1.3 y) INR used for dosin.95 (07/13/2025) Warfarin maintenance plan: 5 mg (5 mg x 1) every Sun, Lizeth; 7.5 mg (5 mg x 1.5) all other days Weekly warfarin total: 47.5 mg Plan last modified: Jovana Wetzel PharmD (07/07/2024) Next INR check: 07/27/2025 Target end date: Indefinite Indications Atrial fibrillation unspecified type (CMS/HCC) (Resolved) [I48.91] half-way (current) use of anticoagulants [Z79.01] Anticoagulation Episode Summary INR check location: Outside Lab Preferred lab: EXTERNAL LAB Send INR reminders to: [facility] Comments: [facility] P: [phone] F: [phone] Anticoagulation Care Providers Provider Role Specialty Phone number Israel Membreno MD Referring Cardiology [phone] Jess Hawk APRN Responsible Cardiology [phone] Additional History: New onset Afib s/p DCCV on 03/16 [id number] =Total score 3, Age 65-74 (1), CHF [...] INR: Lab Results Component Value Date INR 3.95 07/13/2025 INR 2.43 06/15/2025 INR 2.97 05/18/2025 PROTIME 30.4 05/18/2025 PROTIME 25.6 02/28/2025 PROTIME [...] Weight: Wt Readings from Last 1 Encounters: 07/05/25 81 kg (178 lb 9.2 oz) BMI: Estimated body mass index is 24.91 kg/m?? as calculated from the following: Height as of 07/05/25: 1.803 m (5' 11 ). Weight as of 07/05/25: 81 kg (178 lb 9.2 oz). Assessment and Plan Current warfarin dose: 7.5 mg daily x 5 mg every Thursday/ Supratherapeutic INR for goal of 2.0-3.0. INR has trended above goal range without readily identifiable cause. Patient previously stable. New warfarin dose: HOLD warfarin dose x 1, today, 07/13, then resume warfarin 7.5 mg daily x5 mg every Thursday/ Follow Up Check INR at [facility] lab in 2 weeks . Patient Education Reviewed s/sx of bleeding, such as, severe MONTEIRO, a pink tint in urine, dark/tarry/bright red stool, or coffee ground emesis. Educated the patient how to properly manage and to present to the ED if bleeding is severe. Contact the Anticoagulation Clinic at [phone] with any questions or concerns regarding yourwarfarin. Patient verbalized understanding of above care plan: YES Jovana Wetzel, PharmD, BCACP [facility] [address] [facility] [address] documented in this encounter Plan of Treatment Upcoming Encounters Date Type Department Care Team (Late st Contact Info) Description 08/24/2025 3:30 PM EDT Office Visit [facility] [address], 1st [place] [address] Josseline Longo PA [address] [place] [address] 09/07/2025 2:20 PM EDT Office Visit [facility] [address] [place] [address] Orlin Elizabeth MD [address] [place] [address] 09/12/2025 9:00 AM EST Clinical Support [facility] Lab [address], 2nd [place] [address] 09/26/2025 11:00 AM EST Hospital Encounter [facility] OPERATING ROOM [address] [place] [address] Gema Thompson MD [address] [address] 09/26/2025 11:00 AM EST - 09/26/2025 2:25 PM EST Surgery [facility] [address] [place] [address] Gema Thompson MD [address] [address] ENUCLEATION, PROSTATE, TRANSURETHRAL, USING HOLMIUM LASER ( HOLEP ) AND CYSTOLITHOLAPAXY [37495 (CPT )] 10/25/2025 9:30 AM EST [facility] [address], 2nd [place] [address] Gmea Thompson MD [address] [address] 12/27/2025 2:40 PM EST Office Visit [facility] [place] [address] [facility] [place] [address] Kevin Castañeda MD [address] [place] [address] Scheduled Procedures Name Priority Associated Diagnoses Date/Ti [...] Diagnosis Comments EXTERNAL PROTHROMBIN TIME (PT)/INR Routine 07/13/2025 documented in this encounter Results * External Prothrombin Time (PT)/INR (07/13/2025) External INR - Internormal Ratio 3.95 EXTERNAL LAB External Prothrombin Time (PT) EXTERNAL LAB Blood Venous blood specimen / Unknown 07/13/2025 [facility] Provider POINT OF CARE TEST ENTER/MAKENNA T ORDERABLES Final Result EXTERNAL LAB documented in this encounter Visit Diagnoses Diagnosis Benign prostatic hyperplasia with nocturia- Primary half-way (current) use of anticoagulants- Primary Long-term (current) use of anticoagulants Anticoagulation management encounter Encounter for therapeutic drug monitoring Benign prostatic hyperplasia with nocturia documented in this encounter Additional Health Concerns Active Problems Noted Date Diagnosed Date Autogenerated Problem 07/11/2025 Infection Onset Date Last Indicated Resolved Time MRSA Comment: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 Source: [facility] [place] [facility]. 10/19/2014 MRSA Escalation Plan Comment:MRSA [...] plan has been documented for the patient 07/13/2025 1:59 PM EDT documented as of this encounter Care Teams Pin Machine Operator Relationship Specialty Start Date End Date Orlin Elizabeth MD [address] [place] [address] PCP - General Family Medicine 11/25/22 Josseline Longo PA [address] [place] [address] Physician Engineering Geologist Neurology 08/16/21 Jess Hawk APRN [address] [place] [address] Nurse Practitioner Cardiology 06/01/24 Rafaela Brantley, PharmD [address] [place] [address] Pharmacist Pharmacy 06/03/24 Jovana Wetzel, PharmD [address] [place] [address] Pharmacist Pharmacy 06/13/24 Skyla Mai PA [id number] [place] [address] Physician Engineering Geologist Urology 03/20/25 documented as of this encounter
--- OUTSIDE RECORDS SUMMARY | 2025-07-27 12:08 | XMS_ITS | Encounter Summary ---
Author Organization [facility] Address [address] [place] [address] Care Team Providers Care Spooling Operator Name Role Phone Josseline Longo Unavailable [phone] Orlin Elizabeth MD Primary Care Provider Jess Hawk CONDENSER OPERATOR Unavailable [phone] Rafaela Brantley PharmD Unavailable [phone] Jovana Wetzel PharmD Unavailable + Skyla Mai PA Unavailable [phone] Encounter Details Date Type Department Care Team (Late st Contact Info) Description 04/04/2025 Results [facility]-Up [facility] [address], 2nd [place] [address] Skyla Mai PA [address] [place] [address] Social History Tobacco Use Types [...] drink first t jorge in the morning (EYE-FUR TRAPPER) to steady your nerves or to get rid of a hangover? 0 03/16/2024 CAGE Questionnaire Score 0 024 Utilities Answer Date Recorded In the past 12 months has th [employer], gas, oil, or water [employer] threatened to shut off services in your [...] Risk Indicated 04/20/2025 10:25 AM EDT Stacy Roesnthal LPN * Question Answer Date of Assessment [...] Description 08/24/2025 3:30 PM EDT Office [facility] [address], 1st [place] [address] Josseline Longo PA [address] [place] [address] 09/07/2025 2:20 PM EDT Office Visit [facility] [address] [place] [address] Orlin Elizabeth MD [facility] [address] [place] [address] 09/12/2025 9:00 AM EST Clinical Support [place] [facility] [address], [address]nd [place] [address] 09/26/2025 11:00 AM EST Hospital Encounter PAV A OPERATING ROOM [address] [place] [address] Gema Thompson MD [address] [place] [address] 09/26/2025 11:00 AM EST - 09/26/2025 2:25 PM EST Surgery P[facility] A OPERATING ROOM [address] [place] [address] Gema Thompson MD [address] [place] [address] ENUCLEATION, PROSTATE, TRANSURETHRAL, USING HOLMIUM LASER ( HOLEP ) AND CYSTOLITHOLAPAXY [36822 (CPT )] 10/25/2025 9:30 AM EST Office [facility] [address], 2nd [place] [address] Gema Thompson MD [address] [place] [address] 12/27/2025 2:40 PM EST Office Visit [facility] [place] 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 Source: [facility]. 10/19/2014 MRSA Escalation Plan Comment:MRSA [...] documented as of this encounter Care Teams Spooling Operator Relationship Specialty Start Date End Date Orlin Elizabeth MD [address] [facility] [address] [place] [address] PCP - General Family Medicine 11/25/22 Josseline Longo PA [address] [place] [address] Physician Edge Inker Neurology 08/16/21 Jess Hawk APRN [address] [place] [address] Nurse Practitioner Cardiology 06/01/24 Rafaela Brantley, PharmD [address] [place] [address] Pharmacist Pharmacy 06/03/24 Jovana Wetzel, PharmD [address] [place] [address] Pharmacist Pharmacy 06/13/24 Skyla Mai PA [address] [place] [address] Physician Edge Inker Urology 03/20/25 documented as of this encounter
--- OUTSIDE RECORDS SUMMARY | 2025-07-27 12:09 | XMS_ITS | Encounter Summary ---
Author Organization [facility] Address [address] [place] [address] Care Team Providers Care Webbing Weaver Name Role Phone Josseline Longo Unavailable [phone] Orlin Elizabeth MD Primary Care Provider Jess Hawk DOCTOR OF CHIROPRACTIC Unavailable [phone] Rafaela Brantley PharmD Unavailable [phone] Jovana Wetzel PharmD Unavailable + Skyla Mai Unavailable [phone] Encounter Details Date Type Department Care Team (Late st Contact Info) Description 07/07/2025 Orders Only [facility] [address], 2nd [place] [address] Skyla Mai PA [address] [place] [address] Urinary tract infection without hematuria, [...] any time in the past 12 m [facility], were you homeless or living in a intermediate (including now)? No 04/20/2025 Safety and Environment [...] drink first t jorge in the morning (EYE-LEAD REFINERY SUPERVISOR) to steady your nerves or to [...] Description 08/24/2025 3:30 PM EDT Office Visit [place] [facility] [address], 1st [place] [address] Josseline Longo PA [address] [place] [address] 09/07/2025 2:20 PM EDT Office Visit [facility] [address] [place] [address] Orlin Elizabeth MD [address] [place] [address] 09/12/2025 9:00 AM EST Clinical Support [facility] [address] [address] 09/26/2025 11:00 AM EST Hospital Encounter PAV A OPERATING ROOM [address] [place] [address] Gema Thompson MD [address] [facility] [address] [place] [address] 09/26/2025 11:00 AM EST - 09/26/2025 2:25 PM EST Surgery PAV A OPERATING ROOM [address] [place] [address] Gema Thompson MD [address] [facility] [address] [place] [address] ENUCLEATION, PROSTATE, TRANSURETHRAL, USING HOLMIUM LASER ( HOLEP ) AND CYSTOLITHOLAPAXY [98874 (CPT )] 10/25/2025 9:30 AM EST Office Visit [facility] [address], [address] [place] [address] Gema Thompson MD [address] [place] [address] 12/27/2025 2:40 PM EST Office Visit [facility] [place] [address] [place] [address] Kevin Castañeda MD [address] [place] [address] Scheduled Orders Name Type Priority Associated Diagnoses [...] MRSA Comment: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 Source: [facility]. 10/19/2014 MRSA Escalation Plan Comment:MRSA Escalation [...] documented as of this encounter Care Teams Webbing Weaver Relationship Specialty Start Date End Date Orlin Elizabeth MD [address] [facility] [address] [place] [address] PCP - General Family Medicine 11/25/22 Josseline Longo PA [address] [facility] [address] [place] [address] Physician Showplace Manager Neurology 08/16/21 Jess Hawk APRN [address] [place] [address] Nurse Practitioner Cardiology 06/01/24 Rafaela Brantley, PharmD [address] [place] [address] Pharmacist Pharmacy 06/03/24 Jovana Wetzel, PharmD [address] [place] [address] Pharmacist Pharmacy 06/13/24 Skyla Mai PA [address] [address] Physician Showplace Manager Urology 03/20/25 documented as of this encounter
--- OUTSIDE RECORDS SUMMARY | 2025-07-27 12:09 | XMS_ITS | Encounter Summary ---
Author Organization [facility] Address [address] [place] [address] Care Team Providers Care Lasting Machine Operator Hand Method Name Role Phone Josseline Longo Unavailable [phone] Orlin Elizabeth MD Primary Care Provider Jess Hawk DEAN OF EDUCATION Unavailable [phone] Rafaela Brantley PharmD Unavailable [phone] Jovana Wetzel PharmD Unavailable + Skyla Mai PA Unavailable [phone] Encounter Details Date Type Department Care Team (Late st Contact Info) Description 06/18/2025 Results Follow-Up [facility] Acute Care [address] [facility], [address] [place] [address] Jeannette Triplett, DEAN OF EDUCATION 5 [facility] [address] [place] [address] Social History Tobacco Use Types [...] any time in the past 12 m [facility], were you homeless or living in a half-way (including now)? No 04/20/2025 Safety and Environment Answer Date Ocy rded Do you worry that your child [...] drink first t jorge in the morning (EYE-AMMONIA DISTILLER) to steady your nerves or to get [...] Visit [place] [facility] [address], 1st [place] [address] Josseline Longo, DENZEL [address] [place] [address] 09/07/2025 2:20 PM EDT Office Visit [facility] [address] [place] [address] Orlin Elizabeth MD [address] [facility] [address] [place] [address] 09/12/2025 9:00 AM EST Clinical Support [facility] [address] [place] [address], [address] [place] [address] 09/26/2025 11:00 AM EST Hospital Encounter PAV A OPERATING ROOM [address] [place] [address] Gema Thompson MD [address] [place] [address] 09/26/2025 11:00 AM EST - 09/26/2025 2:25 PM EST Surgery PAV A OPERATING ROOM [address] [place] [address] Gema Thompson MD [address] [place] [address] ENUCLEATION, PROSTATE, TRANSURETHRAL, USING HOLMIUM LASER ( HOLEP ) AND CYSTOLITHOLAPAXY [53607 (CPT )] 10/25/2025 9:30 AM EST Office Visit [facility] [address] [place] [address], [address] [place] [address] Gema Thompson MD [address] [place] [address] 12/27/2025 2:40 PM EST Office Visit [facility] [place] [address] [facility]. [address] [place] [address] Kevin Castañeda MD [address] [place] [address] Scheduled Procedures Name Priority Associated [...] documented as of this encounter Care Teams Lasting Machine Operator Hand Method Relationship Specialty Start Date End Date Orlin Elizabeth MD [address] [facility] [address] [place] [address] PCP - General Family Medicine 11/25/22 Josseline Longo PA [address] [facility] [address] [place] [address] Physician Flight Technician Neurology 08/16/21 Jess Hawk APRN [address] [place] [address] Nurse Practitioner Cardiology 06/01/24 Rafaela Brantley, PharmD [address] [place] [address] Pharmacist Pharmacy 06/03/24 Jovana Wetzel, LissaD [address] [place] [address] Pharmacist Pharmacy 06/13/24 Skyla Mai PA [address] [place] [address] Physician Flight Technician Urology 03/20/25 documented as of this encounter
--- OUTSIDE RECORDS SUMMARY | 2025-07-27 12:09 | XMS_ITS | Encounter Summary ---
Author Organization [facility] Address [address] [id number] Care Team Providers Care Riprap Man Name Role Phone Josseline Longo Unavailable [phone] Orlin Elizabeth MD Primary Care Provider Jess Hawk POWERHOUSE MECHANIC APPRENTICE Unavailable [phone] Rafaela Brantley PharmD Unavailable [phone] Jovana Wetzel PharmD Unavailable + Skyla Mai PA Unavailable [phone] Encounter Details Date Type Department Care [...] any time in the past 12 m [facility], were you homeless or living in [...] drink first t jorge in the morning (EYE-WIRE WRAPPER MACHINE OPERATOR) to steady your nerves or to [...] Description 08/24/2025 3:30 PM EDT Office Visit [facility] [address], 1st [place] [address] Josseline Longo, DENZEL [address] [facility] [address] [place] [address] 09/07/2025 2:20 PM EDT Office Visit [facility] [address] [place] [address] Orlin Elizabeth MD [address] [place], [place] [address] [address] [place] [address] 09/12/2025 9:00 AM EST Clinical Support [facility] [address], 2[address] [place] [address] 09/26/2025 11:00 AM EST Hospital Encounter PAV A OPERATING ROOM [address] [place] [address] Gema Thompson MD [address] [address] 09/26/2025 11:00 AM EST - 09/26/2025 2:25 PM EST Surgery PAV A OPERATING ROOM [address] [place] [address] Gema Thompson MD [address] [address] ENUCLEATION, PROSTATE, TRANSURETHRAL, USING HOLMIUM LASER ( HOLEP ) AND CYSTOLITHOLAPAXY [53724 (CPT )] 10/25/2025 9:30 AM EST Office Visit [facility] [address], [address] [place] [address] Gema Thompson MD [address] [address] 12/27/2025 2:40 PM EST Office Visit [facility] [place] [address] [facility]. [address] [place] [address] Kevin Castañeda MD [address] [place] [address] Scheduled Procedures Name Priority Associated Diagnoses Date/Ti me ENUCLEATION, PROSTATE, TRANSURETHRAL, USING HOLMIUM LASER Benign prostatic hyperplasia with nocturia 09/26/2025 11:00 AM EST documented as of this encounter Visit Diagnoses Not on filedocumented in this encounter Additional Health Concerns Infection Onset Date Last Indicated Resolved Time MRSA Comment: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 Source: [facility]. 10/19/2014 MRSA Escalation Plan Comment:MRSA Escalation [...] documented as of this encounter Care Teams Riprap Man Relationship Specialty Start Date End Date Orlin Elizabeth MD [address] [facility] [address] [place] [address] PCP - General Family Medicine 11/25/22 Josseline Longo PA [address] [facility] [address] [place] [address] Physician Healthcare Management Neurology 08/16/21 Jess Hawk APRN [address] [place] [address] Nurse Practitioner Cardiology 06/01/24 Rafaela Brantley, PharmD [address] [place] [address] Pharmacist Pharmacy 06/03/24 Jovana Wetzel, PharmD [address] [place] [address] Pharmacist Pharmacy 06/13/24 Skyla Mai PA [address] [place] [address] Physician Healthcare Management Urology 03/20/25 documented as of this encounter
--- OUTSIDE RECORDS SUMMARY | 2025-07-27 12:09 | XMS_ITS | Encounter Summary ---
Author Organization [facility] Address [address] [place] [address] Care Team Providers Care Operational Meteorologist Name Role Phone Josseline Longo Unavailable [phone] Orlin Elizabeth MD Primary Care Provider Jess Hawk COIN DEALER Unavailable [phone] Rafaela Brantley PharmD Unavailable [phone] Jovana Wetzel PharmD Unavailable + Skyla Mai PA Unavailable [phone] Encounter Details Date Type Department Care Team (Late st Contact Info) Description 07/07/2025 Results [facility]-Up [facility] [address], [address] [place] [address] Skyla Mai PA [address] [place] [address] Social History Tobacco Use Types [...] drink first t jorge in the morning (EYE-BIOINFORMATICIAN) to steady your nerves or to get rid of a hangover? 0 03/16/2024 CAGE Questionnaire Score 0 024 Utilities Answer Date Recorded In the past 12 months has th Confide electric, gas, oil, or water company threatened [...] Description 08/24/2025 3:30 PM EDT [facility] [address] [place] [address] Josseline Longo, DENZEL [address] [place] [address] 09/07/2025 2:20 PM EDT Office Visit [facility] Medicine [address] [place] [address] Orlin Elizabeth MD [address] [facility] 125 [place] [address] 09/12/2025 9:00 AM EST Clinical [facility] Lab [address] [place] [address] 09/26/2025 11:00 AM EST Hospital Encounter [facility]ATING RO[facility] [address] [place] [address] Gema Thompson MD [address] [place] [address] 09/26/2025 11:00 AM EST - 09/26/2025 2:25 PM EST Surgery [facility] [address] [place] [address] Gema Thompson MD [address] [place] [address] ENUCLEATION, PROSTATE, TRANSURETHRAL, USING HOLMIUM LASER ( HOLEP ) AND CYSTOLITHOLAPAXY [98083 (CPT )] 10/25/2025 9:30 AM EST Office Visit [facility] Urology [address], [address] [place] [address] Gema Thompson MD [address] [place] [address] 12/27/2025 2:40 PM EST Office Visit [facility] [address] [facility] [place] [address] Kevin Castañeda MD [address] [place] [address] Scheduled Procedures Name Priority Associated Diagnoses Date/Ti me ENUCLEATION, PROSTATE, TRANSURETHRAL, USING HOLMIUM LASER Benign prostatic hyperplasia with nocturia 09/26/2025 11:00 AM EST documented as of this encounter Visit Diagnoses Not on filedocumented in this encounter Additional Health Concerns Infection Onset Date Last Indicated Resolved Time MRSA Comment: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 Source: [facility]. 10/19/2014 MRSA Escalation Plan Comment:MRSA Escalation [...] documented as of this encounter Care Teams Operational Meteorologist Relationship Specialty Start Date End Date Orlin Elizabeth MD [address] [facility] 125 [place] [address] PCP - General Family Medicine 11/25/22 Josseline Longo PA [address] [facility] [address] [place] [address] Physician Moisture Meter Reader Neurology 08/16/21 Jess Hawk APRN [address] [place] [address] Nurse Practitioner Cardiology 06/01/24 Rafaela Brantley, PharmD [address] [place] [address] Pharmacist Pharmacy 06/03/24 Jovana Wetzel, PharmD [address] [place] [address] Pharmacist Pharmacy 06/13/24 Skyla Mai PA [address] [phone] Physician Moisture Meter Reader Urology 03/20/25 documented as of this encounter
--- OUTSIDE RECORDS SUMMARY | 2025-07-27 12:09 | XMS_ITS | Encounter Summary ---
Author Organization [facility] Address [address] [place] [address] Care Team Providers Care Wheelchair Van Driver Name Role Phone Josseline Longo Unavailable [phone] Orlin Elizabeth MD Primary Care Provider Jess Hawk WASHERY BOSS Unavailable [phone] Rafaela Brantley PharmD Unavailable [phone] Jovana Wetzel PharmD Unavailable + Skyla Mai PA Unavailable [phone] Reason for Visit * Reason Comments Med Refill Encounter Details Date Type Department Care Team (Late st Contact Info) Description 06/23/2025 Refill [facility] [address] [place] [address] Kevin Castañeda MD [address] [place] [address] Atrial fibrillation, unspecified type (CMS/HCC) [...] time in the past 12 m [facility], were you homeless or living in a assisted (including now)? No 04/20/2025 Safety and Environment [...] drink first t jorge in the morning (EYE-FLATBED STITCHER) to steady your nerves or to get [...] been scheduled. * Telephone Encounter - Syl Montaño RN - 06/26/2025 9:10 AM EDT Last seen 11/2024, needs f/u appt. Refills sent, routing to [facility] to schedule. documented in this encounter Plan of Treatment Upcoming Encounters Date Type Department Care Team (Late st Contact Info) Description 08/24/2025 3:30 PM EDT Office Visit [facility] [address] 1st [place] [address] Josseline Longo PA [address] [facility] [address] [place] [address] 09/07/2025 2:20 PM EDT Office Visit [facility] [address] [place] [address] Orlin Elizabeth MD [address] [facility] 125 [place] [address] 09/12/2025 9:00 AM EST Clinical Support [facility] [address], 2[address] [place] [address] 09/26/2025 11:00 AM EST Hospital Encounter [facility] A OPERATING ROOM [address] [place] [phone] Gema Thompson MD [address] [facility] [address] [place] [address] 09/26/2025 11:00 AM EST - 09/26/2025 2:25 PM EST Surgery [facility] OPERATING ROOM [address] [place] [phone] Gema Thompson MD [address] [place] [address] ENUCLEATION, PROSTATE, TRANSURETHRAL, USING HOLMIUM LASER ( HOLEP ) AND CYSTOLITHOLAPAXY [34848 (CPT )] 10/25/2025 9:30 AM EST [facility] [address]nd [place] [address] Gema Thompson MD [address] [place] [address] 12/27/2025 2:40 PM EST Office Visit [facility] [address] [place] [address] Kevin Castañeda MD [address] [place] [address] Scheduled Procedures Name Priority Associated Diagnoses Date/Ti me ENUCLEATION, PROSTATE, TRANSURETHRAL, USING HOLMIUM LASER Benign prostatic hyperplasia with nocturia 09/26/2025 11:00 AM EST documented as of this encounter Visit Diagnoses Diagnosis Atrial fibrillation, unspecified type (CMS/HCC) Benign prostatic hyperplasia with nocturia documented in this encounter Additional Health Concerns Infection Onset Date Last Indicated Resolved Time MRSA Comment: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 Source: [facility]. 10/19/2014 MRSA Escalation Plan Comment:MRSA Escalation [...] documented as of this encounter Care Teams Wheelchair Van Driver Relationship Specialty Start Date End Date Orlin Elizabeth MD [address] [facility] [address] [place] [address] PCP - General Family Medicine 11/25/22 Josseline Longo PA [address] [facility] [address] [place] [address] Physician Practice Physician Neurology 08/16/21 Jess Hawk APRN [address] [place] [address] Nurse Practitioner Cardiology 06/01/24 Rafaela Brantley, PharmD [address] [place] [address] Pharmacist Pharmacy 06/03/24 Jovana Wetzel, PharmD [address] [place] [address] Pharmacist Pharmacy 06/13/24 Skyla Mai PA [address] [facility] [address] [place] [address] Physician Practice Physician Urology 03/20/25 documented as of this encounter
--- OUTSIDE RECORDS SUMMARY | 2025-07-27 12:09 | XMS_ITS | Encounter Summary ---
Author Organization [facility] Address [address] [place] [address] Care Team Providers Care Category Director Name Role Phone Josseline Longo Unavailable [phone] Orlin Elizabeth MD Primary Care Provider Jess Hawk PUBLIC RELATIONS REPRESENTATIVE Unavailable [phone] Rafaela Brantley PharmD Unavailable [phone] Jovana Wetzel PharmD Unavailable + Skyla Mai PA Unavailable [phone] Encounter Details Date Type Department Care Team (Latest Contact Info) Description 06/15/2025 Anticoagulation - Warfarin Visit [facility] [place] [address] [place] [address] Jovana Wetzel, PharmD [address] [place] [address] skilled nursing (current) use of anticoagulants (Primary Dx); Anticoagulation [...] drink first t jorge in the morning (EYE-MOLD CLEANER) to steady your nerves or to get [...] Atrial fibrillation unspecified type (CMS/HCC) (Resolved) [I48.91] skilled nursing (current) use of anticoagulants [Z79.01] Anticoagulation Episode Summary INR check location: Outside Lab Preferred lab: EXTERNAL LAB Send INR reminders to: [facility] Comments: [facility] P: [phone] F: [phone] Anticoagulation Care Providers Provider Role Specialty Phone number Israel Membreno MD Referring Cardiology [phone] Jess Hawk APRN Responsible Cardiology [phone] Additional History: New onset Afib s/p DCCV on 03/16 [id number] =Total score 3, Age 65-74 (1), CHF [...] no change Follow Up Check INR at [facility] in 4 weeks . Patient Education Contact the Anticoagulation Clinic at [phone] with any questions or concerns regarding yourwarfarin. Patient verbalized understanding of above care plan: YES Jovana Wetzel, LissaD, BCACP [facility] [address] [facility] [phone] documented in this encounter Plan of Treatment Upcoming Encounters Date Type Department Care Team (Late st Contact Info) Description 08/24/2025 3:30 PM EDT Office Visit [facility] [address] 1st [place] [address] Josseline Longo PA [address] [facility] [address] [place] [address] 09/07/2025 2:20 PM EDT Office Visit [facility] [address] [place] [address] Orlin Elizabeth MD [address] [facility] 125 [place] [address] 09/12/2025 9:00 AM EST Clinical Support [facility] [address] [place] [address] 09/26/2025 11:00 AM EST Hospital Encounter P[facility] A OPERATING ROOM [address] [place] [phone] Gema Thompson MD [address] [facility] [address] [place] [address] 09/26/2025 11:00 AM EST - 09/26/2025 2:25 PM EST Surgery P[facility] A OPERATING ROOM [address] [place] [address] Gema Thompson MD [address] [place] [address] ENUCLEATION, PROSTATE, TRANSURETHRAL, USING HOLMIUM LASER ( HOLEP ) AND CYSTOLITHOLAPAXY [43456 (CPT )] 10/25/2025 9:30 AM EST [facility] [address] [place] [address] Gema Thompson MD [address] [facility] [address] [place] [address] 12/27/2025 2:40 PM EST Office Visit [facility] [place] [address] [facility] [place] [address] Kevin Castañeda MD [address] [place] [address] Scheduled Procedures Name Priority Associated [...] Blood Venous blood specimen / Unknown 06/15/2025 [facility] Provider POINT OF CARE TEST ENTER/MAKENNA T ORDERABLES Final Result EXTERNAL LAB documented in this encounter Visit Diagnoses Diagnosis long term care pharmacist (current) use of anticoagulants- Primary Long-term (current) [...] documented as of this encounter Care Teams Category Director Relationship Specialty Start Date End Date Orlin Elizabeth MD [address] [facility] 125 [place] [address] PCP - General Family Medicine 11/25/22 Josseline Longo PA [address] [facility] [address] [place] [address] Physician Administrative Office Manager Neurology 08/16/21 Jess Hawk APRN [address] [place] [address] Nurse Practitioner Cardiology 06/01/24 Rafaela Brantley, PharmD [address] [place] [address] Pharmacist Pharmacy 06/03/24 Jovana Wetzel, LissaD [address] [place] [address] Pharmacist Pharmacy 06/13/24 Skyla Mai PA [address] [place] [address] Physician Administrative Office Manager Urology 03/20/25 documented as of this encounter
--- OUTSIDE RECORDS SUMMARY | 2025-07-27 12:09 | XMS_ITS | Clinical Summary ---
Author Organization [facility] Address [address] [place] [address] Care Team Providers Care Dental Mold Maker Name Role Phone Sherrie Elam MD Primary Care Provider [phone] Allergies No known active allergies Medications lisinopril [...] Active MAGNESIUM PO Take by mouth. Active [place]-3 Fatty Acids (FISH OIL PO) Take by [...] (06/20/2019): Added automatically from request for surgery [id number] History of hip replacement, total 10/11/2015 Acute [...] SDOH Screening 11/09/2024 Influenza Vaccine (#1) 2025 RSV 50+ and (1 - 1 -dose 75+ series) 2029 Haemophilus Influenzae Type B (Hib) Vaccine Aged [...] this topic Medical Devices Implanted Type Area Client Success Director Device Identifier Shelf Expiration Date Model / Serial / Lot Hip Liner Neut 36 [id number] - [id number] Implanted:Qty: 1 on 10/23/2014 by Timur Rodriguez MD at [facility] Hips Right: Hip DAY 06/09/2019 [id number] / / [id number] Hip Shell Uni 56 [id number] - [id number] Implanted:Qty: 1 on 10/23/2014 by Timur Rodriguez MD at [facility] Hips Right: Hip DAY 08/09/2024 [id number] / / [id number] Hip Stem Taper 11 [id number] - [id number] Implanted:Qty: 1 on 10/23/2014 by Timur Rodriguez MD at [facility] Hips Right: Hip DAY 08/09/2024 [id number] / / [id number] Hip Fem Head 36 [id number] - [id number] Implanted:Qty: 1 on 10/23/2014 by Timur Rodriguez MD at [facility] Hips Right: Hip DAY 08/09/2023 [id number] / / [id number] Hip Capt High Demand Day - [id number] Implanted:Qty: 1 on 10/23/2014 by Timur Rodriguez MD at [facility] Hips DAY HIPHIGHZIMMER / / Hip Capt Vit E Biomet - [id number] Implanted:Qty: 1 on 07/18/2019 by Timur Rodriguez MD at [facility] Hips [employer] [id number] / / Hip Shell 56 [id number] - [id number] Implanted:Qty: 1 on 07/18/2019 by Timur Rodriguez MD at [facility] Hips Left: Hip [employer] 04/24/2029 [id number] / / [id number] Hip Liner Acet 36 [id number] - [id number] Implanted:Qty: 1 on 07/18/2019 by Timur Rodriguez MD at [facility] Hips Left: Hip [employer] 03/05/2024 [id number] / / [id number] Hip Fem Stem 5 [id number] - [id number] Implanted:Qty: 1 on 07/18/2019 by Timur Rodriguez MD at [facility] Hips Left: Hip DAY 09/08/2023 [id number] / / [id number] Hip Fem Head 36 [id number] - [id number] Implanted:Qty: 1 on 07/18/2019 by Timur Rodriguez MD at [facility] Hips Left: Hip DAY 05/08/2029 [id number] / / [id number] Hip Dome Plug [id number] - [id number] Implanted:Qty: 1 on 10/23/2014 by Timur Rodriguez MD at [facility] OTHER - IMPLANTS - ORTHOPAEDIC Right: Hip DAY 08/09/2024 [id number] / / [id number] Additional Health Concerns Infection Onset Date Last Indicated MRSA Comment:Right hand, date unknown 10/19/2014 10/19/2014 MRSA (+) Screen Comment:07/01/19 07/02/2019 07/02/2019 Insurance ARABELLA Member Subscriber Plan / Payer (Ef fective 2013-Present) Name:Marco A Ness III Relation to Subscriber:Self Name:Marco A Ness III Payer ID:[id number] (NAIC) Type:Indemnity Address: [facility] [address] [place] [id number] Advance Directives * Full Code (Latest Code Status on File) Date Activated Date Inactivated Comments 10/23/2014 5:44 PM 10/26/2014 7:06 PM Care Teams Dental Mold Maker Relationship Specialty Start Date End Date Sherrie Elam MD [address] [place] [address] PCP - General Internal Medicine 10/23/14
--- OUTSIDE RECORDS SUMMARY | 2025-07-27 12:09 | XMS_ITS | Clinical Summary ---
Author Organization [facility] Address [address] [place] [address] Care Team Providers Care Kiln Furniture Caster Name Role Phone Josseline Longo Unavailable [phone] Orlin Elizabeth MD Primary Care Provider Jess Hawk LABORER BRUSH CLEARING Unavailable [phone] Rafaela Brantley PharmD Unavailable [phone] Jovana Wetzel PharmD Unavailable + Skyla Mai PA Unavailable [phone] Allergies No known active allergies Medications * This document contains information received from the source organization and may not represent a complete record from that organization. cholecalciferol (D3-5) 5,000 Units tablet Take 2 tablets (10,000 Units) by mouth 1 (one) time each day. 03/07/20 20 Active coenzyme Q-10 300 mg capsule capsule Take 1 capsule (300 mg) by mouth 1 (one) time each day. Active MAGNESIUM MALATE PO Take 1 tablet by mouth 1 (one) time each day. Active Multiple Vitamins-Minera ls (multivitamin with minerals) tablet Take 1 tablet [...] by mouth every night. 90 tablet 3 06/20/20 24 Active primidone (Mysoline) 50 MG tablet TAKE 2 TABLETS BY MOUTH THREE TIMES A DAY 540 tablet 2 10/17/20 24 Active metoprolol succinate XL (Toprol-XL) 100 MG 24 hr tablet TAKE 1 TABLET BY MOUTH EVERY EVENING 90 tablet 3 12/16/19 25 Active dapagliflozin (Farxiga) 10 MG tabletIndicatio ns:Left Systolic Heart Failure Take 1 tablet (10 mg) by mouth daily. 90 tablet 2 01/10/20 25 Active MAGNESIUM GLYCINATE PO Take by mouth nightly. Active finasteride (Proscar) 5 MG tablet TAKE 1 TABLET BY MOUTH ONCE A DAY 90 tablet 3 04/13/20 25 Active clobetasol (Temovate) 0.05 % cream Apply topically 2 times a day. 60 g 2 04/20/20 25 026 Active warfarin (Coumadin) 5 MG tablet TAKE 1.5 TABLETS (7.5 MG) BY MOUTH ONCE A DAY EXCEPT TAKE 1 TABLET (5 MG) ON THURSDAY AND THURSDAY OR DIRECTED BY THE [facility] 40 tablet 5 05/16/20 25 Active tamsulosin (Flomax) 0.4 MG 24 hr capsule TAKE 1 CAPSULE BY MOUTH TWO TIMES A DAY 180 capsule 3 05/26/20 25 Active dofetilide (Tikosyn) 250 MCG capsuleIndicati ons:Atrial fibrillation, unspecified type (CMS/HCC) TAKE 1 CAPSULE BY MOUTH TWO TIMES A DAY 180 capsule 1 06/26/20 25 Active atorvastatin (Lipitor) 40 MG tablet Take 1 tablet by mouth daily. 30 tablet 06/27/20 25 Active amoxicillin-cla vulanate (Augmentin) 875-125 MG tabletIndicatio ns:Urinary tract infection without hematuria, site unspecified Take 1 tablet by mouth 2 times a day for 10 days. 20 tablet 07/07/20 25 025 Active Problems Problem Noted Date Diagnosed Date Benign prostatic hyperplasia with nocturia 07/05 [facility] (current) use of anticoagulants 2023 Hyperthyroidism 03/18/2024 Bilateral swelling of feet and ankles 03/03/2024 Low blood pressure reading 02/19/2024 Shortness of breath 01/24/2024 At high risk for falls 03/03/2023 Primary osteoarthritis of left hip 08/16/2021 Left hip pain 06/20/2019 Overview (08/16/2021): Added automatically from request for surgery [id number] Obstructive sleep apnea 12/29/2018 BPH with obstruction/lower [...] organization. Date Type Department Care Team Description 07/13/2025 Anticoagulation - Warfarin Visit [facility] [place] [address] [place] [address] Jovana Wetzel, PharmD [facility] (current) use of anticoagulants (Primary Dx); Anticoagulation management encounter 07/11/2025 Telephone [facility] [address] [place] [address] Gema Thompson MD 07/07/2025 Orders Only [facility] [address] [place] [address] Skyla Mai, PA Urinary tract infection without hematuria, site unspecified (Primary Dx); Suspected UTI 07/07/2025 Results Follow-Up Medical Office Building Urology [facility] [address] [facility], [address] [place] [address] Skyla Mai PA 07/07/2025 Results Follow-Up [facility] [address], [address] [place] [address] Skyla Mai PA 07/05/2025 1:45 PM EDT Office Visit Medical Office Building Urology [address] [facility], [address] [place] [address] Gema Thompson MD Benign prostatic hyperplasia with nocturia (Primary Dx); Suspected UTI; Incomplete bladder emptying; Other urinary incontinence 07/05/2025 11:38 AM EDT - 07/05/2025 11:59 PM EDT Hospital Encounter [facility] [address] [place] [phone] Benign prostatic hyperplasia with nocturia; Incomplete bladder emptying Discharge Disposition: Home or Self Care 07/05/2025 Travel 07/04/2025 Travel 06/23/[address] [address] Orlin Elizabeth MD 06/23/2025 Refill [facility] [place] [address] [facility] [address] [place] [phone] Kevin Castañeda MD Atrial fibrillation, unspecified type ([facility]/HCC) 06/18/2025 Results Follow-Up [address], [address] [place] [address] Jeannette Triplett APRN 06/17/2025 2:20 PM EDT Office Visit [address], [address] [place] [address] Jeannette Triplett APRN Urinary retention (Primary Dx); Bacterial UTI 06/17/2025 Travel 06/15/2025 Anticoagulation - Warfarin Visit [facility] [address] [facility] [place] [address] Jovana Wetzel, PharmD finance executive (current) use of anticoagulants (Primary Dx); Anticoagulation management encounter 05/26/2025 Refill [facility] [address] [place] [address] Skyla Mai PA 05/18/2025 Anticoagulation - Warfarin Visit [facility] [place] [address] [place] [address] Jovana Wetzel, PharmD [facility] (current) use of anticoagulants (Primary Dx); Anticoagulation management encounter 05/15/2025 Refill [facility] [place] [address] [place] [address] Jess Hawk APRN from Last 3 Months Immunizations Immunization Administration Dates Next Due Influenza, Unspecified 08/17/2020,2018,08/09/2018,2016,08/11/2016,08/13/2015,09/04/2014 Influenza, high-dose, quadrivalent 11/20/2023, Influenza, injectable, quadr ivalent, preservative free 09/09/2021 Influenza, seasonal, injecta ble, preservative free 08/24/2024 MMR 04/14/2014 Moderna Covid-19 Vaccine 12y +, Flavio Protein, Preservative free 11/20/2023 PPD Skin Test (TB Skin Test) 2012, 12/23/2011,06/04/2010,2008,01/28/2008,01/13/2007,12/30/2006,0 06/08/2002 Pfizer Covid-19 Vaccine 12y+ , Flavio Protein, PF, Tian-Sucrose 08/24/2024 The Daily Caller COVID-19 Vac cine (Purple Cap) 12+ 11/20/2020 Pneumococcal Conjugate PCV 13 11/21/2022 Tdap 04/14/2014,02/14/2009 Family History Medical History Relation Name Comments Cancer Father Marco A Diabetes Father Marco A Heart attack Father Marco A Heart disease Father Marco A Nephrolithiasis Father Marco A Obesity Father Marco A arteriosclerotic cardiovascular disease Father Dana muller Alzheimer's disease Mother Aiyana Ness Diabetes Mother Aiyana Ness Relation Name Status Comments Father Marco A [...] any time in the past 12 m [facility], were you homeless or living [...] drink first t jorge in the morning (EYE-SCROLL ASSEMBLER) to steady your nerves or to get rid of a hangover? 0 03/16/2024 CAGE Questionnaire Score 0 024 Utilities Answer Date Recorded In the past 12 months has th e [employer], gas, oil, or water [employer] threatened to shut off services in your [...] Description 08/24/2025 3:30 PM EDT [facility] [address]st [place] [address] Josseline Longo PA [address] [facility] [address] [place] [phone] 09/07/2025 2:20 PM EDT Office Visit [facility] [address] [place] [address] Orlin Elizabeth MD [address] [facility] [address] [place] [address] 09/12/2025 9:00 AM EST Clinical Support [facility] [address], [address] [place] [address] 09/26/2025 11:00 AM EST Hospital Encounter [facility] [address] [place] [address] Gema Thompson MD [address] [facility] [address] [place] [address] 09/26/2025 11:00 AM EST - 09/26/2025 2:25 PM EST Surgery [facility] [address] [place] [address] Gema Thompson MD [address] [place] [address] ENUCLEATION, PROSTATE, TRANSURETHRAL, USING HOLMIUM LASER ( HOLEP ) AND CYSTOLITHOLAPAXY [26654 (CPT )] 10/25/2025 9:30 AM EST [facility] [address] [place] [address] Gema Thompson MD [address] [place] [address] 12/27/2025 2:40 PM EST Office Visit [facility] [place] [address] [place] [address] Kevin Castañeda MD [address] [place] [address] Scheduled Procedures Name Priority Associated [...] Vaccine: 50+ Years (2 of 2 - PPSV23, PCV20, or PCV21) 01/16/2023 11/21/2022 [facility]-DTaP,Tdap,and Td Vaccines (3 - Td or Tdap) 04/14/2024 04/14/2014, 02/14/2009 [id number] Vaccine ( - 2023- season) 2025 08/24/2024, 11/20/2023, 11/03/2021, Additional history exists [facility]-Influenza Vaccine (#1) 07/10/202508/24, 11/20/2023, 09/05/2022, Additional history exists [facility]- SDOH Screenings 10/20/2025 [facility]-Adult SDOH Screenings 10/20/2025 04/20/2025 [facility]-Infant/Child/Adol SDOH Screenings 10/20/2025 04/20/2025 FIT-DNA 12/03/2025 12/03/2022 [...] Comments EXTERNAL PROTHROMBIN TIME (PT)/INR Routine 07/13/2025 URINE CULTURE Routine 07/05/2025 2:00 PM EDT [...] 06/15/2025 EXTERNAL PROTHROMBIN TIME (PT)/INR Routine 05/18/2025 HEMOGLOBIN A1C Routine 04/20/2025 11:28 AM EDT Prediabetes HEPATITIS C ANTIBODY - ED W/REFLEX TO HCV QUANT PCR STAT 03/15/2024 12:27 PM EDT COLONOSCOPY Routine 03/03/2023 1:33 PM EDT Screening for colon cancer LAB COLOGUARD COLON CANCER SCREEN Routine 12/03/2022 7:30 AM EST Screening for colon cancer from Last 3 Months or Most Recently Relevant to Health Maintenance Results * External Prothrombin Time (PT)/INR (07/13/2025) Only the most recent of3 resultswithin the time period is included. External INR - Internormal Ratio 3.95 EXTERNAL LAB External Prothrombin Time (PT) EXTERNAL LAB Blood Venous blood specimen / Unknown 07/13/2025 us Historical Provider POINT OF CARE TEST ENTER/MAKENNA T ORDERABLES Final Result EXTERNAL LAB * (ABNORMAL) Urine Culture - Clinic Collect (07/05/2025 2:00 PM EDT) Only the most recent of2 resultswithin the time period is included. Culture >=100,000 CFU/mL - Biotype 1 Staphylococcus coagulase negative(A) 07/07/2025 11:05 AM EDT [facility] Culture >=100,000 CFU/mL - Biotype 2 Staphylococcus coagulase negative(A) 07/07/2025 11:05 AM EDT [facility] Urine Urine specimen obtained by clean catch procedure / Unknown Non-blood Collection / Unknown 07/05/2025 2:00 PM EDT 07/05/2025 5:35 PM EDT us Skyla Mai PA LAB MICROBIOLOGY - GENERAL ORD ERABLES Final Result [facility] [address] [place] [address] * POC US Bladder Volume (07/05/2025 1:24 [...] Ketones, Urine Negative Negative mg/dL POCT Specific [place], Urine 1.020 POCT Blood, Urine Moderate(A) Negative POCT pH, Urine 5.5 5.0 to 8.0 POCT Protein, Urine 100(A) Negative mg/dL POCT Urobilinogen, Urine 0.2 0.2, 1 E.U./dL POCT Nitrite, Urine Positive(A) Negative POCT Leukocyte Esterase, Urine Large(A) Negative Test Strip Lot Number [id number] Test Strip Lot Expiration 06/07/2026 Urine Urine specimen obtained by clean catch procedure / Unknown 06/17/2025 2:38 PM EDT Jeannette Triplett LABORER BRUSH CLEARING POINT OF CARE TEST ENTER/MAKENNA T ORDERABLES Final Result * (ABNORMAL) Hemoglobin A1c (04/20/2025 11:28 AM EDT) Hemoglobin A1c 6.0(H) <5.7 % 04/20/2025 6:55 PM EDT [facility] Blood Venous blood specimen / Unknown Venipuncture / Unknown 04/20/2025 11:28 AM EDT 04/20/2025 11:28 AM EDT Narrative [facility] - 04/20/2025 6:55 PM EDT HA1C Interpretive Data: Diagnosis of Diabetes: Diabetic > or = 6.5% Pre-diabetic 5.7 to 6.4% Non-diabetic < or = 5.6% Glycemic Targets for Type I and Type II Diabetics: Non- Adults <7.0% Adults <6.0% Children and Adolescents <7.5% Source: [place] [employer] Association. Standards of medical care in diabetes,2017. Diabetes Care.2017:40 (suppl 1):S1-S135. Orlin Elizabeth MD LAB BLOOD ORDERABLES Fi nal Result [facility] [address] [place] [address] * Hepatitis C Antibody - ED (03/15/2024 12:27 PM EDT) Hepatitis C Antibody Negative Negative 03/15/2024 1:32 PM EDT [facility] Blood Venous blood specimen / Unknown Venipuncture / Unknown 03/15/2024 12:27 PM EDT 03/15/2024 12:47 PM EDT Alan Zuniga MD LAB BLOOD ORDERABLES Fi nal Result [facility] [address] [place] [address] * Colonoscopy (03/03/2023 1:33 PM EDT) Anatomical [...] Ramona Barry MD Proceduralist Kerri Campos Endo Manufacturing Coordinator Yesenia Olson CRNA GAS TORCH SOLDERER Georgette Ashley MD Proceduralist Duy Ayala No [...] of bowel preparation was evaluated using the [place] Bowel Preparation Scale with scores of: right [...] Positive( A) Negative 12/11/2022 1:29 PM EST [facility] (CLIA #:[id number]) Comment: POSITIVE TEST RESULT. A positive Cologuard [...] (Charo Cyr al, N Engl J Med 2014;370(14):6859-1782.) Cologuard may produce a false negative or false positive result (no colorectal cancer or precancerous polyp present at colonoscopy follow up). A negative Cologuard test result does not guarantee the absence of CRC or advanced adenoma (pre-cancer). The current Cologuard screening interval is every 3 years. ([place] Cancer Society and U.S. Multi-Society Task Force). Cologuard performance data in a 10,000 patient pivotal study using colonoscopy as the reference method can be accessed at the following location: [email or web address]/results. Additional description of the Cologuard test process, warnings and precautions can be found at [email or web address]. Stool specimen (specimen) 12/03/2022 7:30 AM EST 12/04/2022 1:08 PM EST Orlin Elizabeth MD LAB MOLECULAR DIAGNOSTI CS ORDERABLES Final Result [facility] (CLIA #:[id number]) [address] [place] [address], from Last 3 Months or Most Recently Relevant to Health Maintenance Additional Health Concerns Active Problems Noted Date Diagnosed Date Autogenerated Problem 07/11/2025 Infection Onset Date Last Indicated MRSA Comment: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 Source: [place] [...] Patient has decision-making capacity? Yes Care Teams Kiln Furniture Caster Relationship Specialty Start Date End Date Orlin Elizabeth MD [address] [facility] [address] [place] [address] PCP - General Family Medicine 11/25/22 Josseline Longo PA [address] [facility] [address] [place] [address] Physician Tower Foreman Neurology 08/16/21 Jess Hawk APRN [address] [place] [address] Nurse Practitioner Cardiology 06/01/24 Rafaela Brantley, PharmD [address] [place] [address] Pharmacist Pharmacy 06/03/24 Jovana Wetzel, PharmD [address] [place] [address] Pharmacist Pharmacy 06/13/24 Skyla Mai PA [id number] [place] [address] Physician Tower Foreman Urology 03/20/25
--- OUTSIDE RECORDS SUMMARY | 2025-07-27 12:09 | XMS_ITS | Encounter Summary ---
Author Organization [facility] Address [address] [place] [address] Care Team Providers Care Service Station Console Operator Name Role Phone Josseline Longo Unavailable [phone] Orlin Elizabeth MD Primary Care Provider Jess Hawk MIXING MACHINE TENDER CORK GASKET Unavailable [phone] Rafaela Brantley PharmD Unavailable [phone] Jovana Wetzel PharmD Unavailable + Skyla Mai PA Unavailable [phone] Encounter Details Date Type Department Care Team ([facility] Contact Info) Description 07/07/2025 Results Follow-Up Medical Office Building Urology [address] [facility], [address] [place] [address] Skyla Mai PA [address] [place] [address] Social History Tobacco Use Types [...] any time in the past 12 m [facility], were you homeless or living in a [...] drink first t jorge in the morning (EYE-YARD SUPERVISOR COTTON GIN) to steady your nerves or to get [...] Description 08/24/2025 3:30 PM EDT Office Visit [place] [facility] [address] [place] [address] Josseline Longo, DENZEL [address] [place] [address] 09/07/2025 2:20 PM EDT Office Visit [facility] [address] [place] [address] Orlin Elizabeth MD [address] [facility] [address] [place] [address] 09/12/2025 9:00 AM EST Clinical Support [facility] [address], [address] [place] [address] 09/26/2025 11:00 AM EST Hospital Encounter [facility] [address] [place] [address] Gema Thompson MD [address] [place] [address] [address] 09/26/2025 11:00 AM EST - 09/26/2025 2:25 PM EST Surgery [facility] [address] [place] [address] Gema Thompson MD [address] [address] ENUCLEATION, PROSTATE, TRANSURETHRAL, USING HOLMIUM LASER ( HOLEP ) AND CYSTOLITHOLAPAXY [06945 (CPT )] 10/25/2025 9:30 AM EST Office Visit [facility] [address], [address] [place] [address] Gema Thompson MD [address] [address] 12/27/2025 2:40 PM EST Office Visit [facility] [address] [facility] [place] [address] Kevin Castañeda MD [address] [place] [address] Scheduled Procedures Name Priority Associated Diagnoses Date/Ti me ENUCLEATION, PROSTATE, TRANSURETHRAL, USING HOLMIUM LASER Benign prostatic hyperplasia with nocturia 09/26/2025 11:00 AM EST documented as of this encounter Visit Diagnoses Not on filedocumented in this encounter Additional Health Concerns Infection Onset Date Last Indicated Resolved Time MRSA Comment: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 Source: [facility]. 10/19/2014 MRSA Escalation Plan Comment:MRSA Escalation [...] documented as of this encounter Care Teams Service Station Console Operator Relationship Specialty Start Date End Date Orlin Elizabeth MD [address] [place] [address] PCP - General Family Medicine 11/25/22 Josseline Longo PA [address] [facility] [address] [place] [address] Physician Manager Case Management Neurology 08/16/21 Jess Hawk APRN [address] [place] [address] Nurse Practitioner Cardiology 06/01/24 Rafaela Brantley, PharmD [address] [place] [address] Pharmacist Pharmacy 06/03/24 Jovana Wetzel, PharmD [address] [place] [address] Pharmacist Pharmacy 06/13/24 Skyla Mai PA [address] [address] Physician Manager Case Management Urology 03/20/25 documented as of this encounter
--- OUTSIDE RECORDS SUMMARY | 2025-07-27 12:09 | XMS_ITS | Encounter Summary ---
Author Organization [facility] Address [address] [id number] Care Team Providers Care Inspector Experimental Assembly Name Role Phone Josseline Logno Unavailable [phone] Orlin Elizabeth MD Primary Care Provider Jess Hawk ORTHODONTIST Unavailable [phone] Rafaela Brantley PharmD Unavailable [phone] Jovana Wetzel PharmD Unavailable + Skyla Mai PA Unavailable [phone] Encounter Details Date Type Department Care [...] any time in the past 12 m [facility], were you homeless or living in a [...] drink first t jorge in the morning (EYE-FENDER REPAIRER) to steady your nerves or to [...] Onel Martin documented as of this encounter Plan of Treatment Upcoming Encounters Date Type Department Care Team (Late st Contact Info) Description 08/24/2025 3:30 PM EDT Office Visit [place] [facility] [address] [place] [address] Josseline Longo, DENZEL [address] [place] [address] 09/07/2025 2:20 PM EDT Office Visit [facility] [address] [place] [address] Orlin Elizabeth MD [address] [facility] [address] [place] [address] 09/12/2025 9:00 AM EST Clinical Support [facility] Lab [address] [place] [address] 09/26/2025 11:00 AM EST Hospital Encounter [facility] RO[facility] [address] [place] [address] Gema Thompson MD [address] [address] 09/26/2025 11:00 AM EST - 09/26/2025 2:25 PM EST Surgery [facility] RO[facility] [address] [place] [address] Gema Thompson MD [id number] [place] [address] ENUCLEATION, PROSTATE, TRANSURETHRAL, USING HOLMIUM LASER ( HOLEP ) AND CYSTOLITHOLAPAXY [15853 (CPT )] 10/25/2025 9:30 AM EST Office Visit [facility] [address], [address] [place] [address] Gema Thompson MD [address] [facility] [address] [place] [address] 12/27/2025 2:40 PM EST Office Visit [facility] [place] [address] [facility] [place] [address] Kevin Castañeda MD [address] [place] [address] Scheduled Procedures Name Priority Associated Diagnoses Date/Ti me ENUCLEATION, PROSTATE, TRANSURETHRAL, USING HOLMIUM LASER Benign prostatic hyperplasia with nocturia 09/26/2025 11:00 AM EST documented as of this encounter Visit Diagnoses Not on filedocumented in this encounter Additional Health Concerns Infection Onset Date Last Indicated Resolved Time MRSA Comment: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 Source: [facility]. 10/19/2014 MRSA Escalation Plan Comment:MRSA [...] documented as of this encounter Care Teams Inspector Experimental Assembly Relationship Specialty [place] [address] [place] [address] [address] [place] [address] PCP - General Family Medicine 11/25/22 Josseline Longo PA [address] [facility] [address] [place] [address] Physician Wire Dropper Neurology 08/16/21 Jess Hawk APRN [address] [place] [address] Nurse Practitioner Cardiology 06/01/24 Rafaela Brantley, PharmD [address] [place] [address] Pharmacist Pharmacy 06/03/24 Jovana Wetzel, PharmD [address] [place] [phone] Pharmacist Pharmacy 06/13/24 Skyla Mai PA [address] [facility] [address] [place] [address] Physician Wire Dropper Urology 03/20/25 documented as of this encounter
--- OUTSIDE RECORDS SUMMARY | 2025-07-27 12:09 | XMS_ITS | Encounter Summary ---
Author Organization [facility] Address [address] [place] [address] Care Team Providers Care Spring Up Supervisor Name Role Phone Josseline Longo Unavailable [phone] Orlin Elizabeth MD Primary Care Provider Jess Hawk APPLIED SCIENCE AND TECHNOLOGIES DEAN Unavailable [phone] Rafaela Brantley PharmD Unavailable [phone] Jovana Wetzel PharmD Unavailable + Skyla Mai PA Unavailable [phone] Reason for Visit * Reason Comments Med Refill Encounter Details Date Type Department Care Team (Late st Contact Info) Description 06/23/2025 Refill [facility] [address] [place] [address] Orlin Elizabeth MD 7898 [facility] 125 [place] [address] Social History Tobacco Use Types [...] [facility] or living in a residential (including now)? No 04/20/2025 Safety and Environment [...] drink first t jorge in the morning (EYE-RETAIL LEADER) to steady your nerves or to get [...] Description 08/24/2025 3:30 PM EDT Office Visit [place] [facility] [address], 1st [place] [address] Josseline Longo PA [address] [place] [address] 09/07/2025 2:20 PM EDT Office Visit [facility] [address] [place] [address] Orlin Elizabeth MD [address] [place] [address] 09/12/2025 9:00 AM EST Clinical Support [facility] Lab [address], 2nd [place] [address] 09/26/2025 11:00 AM EST Hospital Encounter PAV A OPERATING ROOM [address] [place] [address] Gema Thompson MD [address] [facility] [address] [place] [address] 09/26/2025 11:00 AM EST - 09/26/2025 2:25 PM EST Surgery PAV A OPERATING ROOM [address] [place] [address] Gema Thompson MD [address] [facility] [address] [place] [address] ENUCLEATION, PROSTATE, TRANSURETHRAL, USING HOLMIUM LASER ( HOLEP ) AND CYSTOLITHOLAPAXY [40210 (CPT )] 10/25/2025 9:30 AM EST Office Visit [facility] Urology [address], 2nd [place] [address] Gema Thompson MD [address] [place] [address] 12/27/2025 2:40 PM EST Office Visit [facility] [address] 800 [facility]. [address] [place] [address] Kevin Castañeda MD [address] [place] [address] Scheduled Procedures Name Priority Associated Diagnoses Date/Ti [...] documented as of this encounter Care Teams Spring Up Supervisor Relationship Specialty Start Date End Date Orlin Elizabeth MD 2195 [facility] [address] [place] [address] PCP - General Family Medicine 11/25/22 Josseline Longo PA 740 S [facility] [address] [place] [address] Physician Carpet Sewing Machine Operator Neurology 08/16/21 Jess Hawk APRN [address] [place] [address] Nurse Practitioner Cardiology 06/01/24 Rafaela Brantley, PharmD [address] [place] [address] Pharmacist Pharmacy 06/03/24 Jovana Wetzel, PharmD [address] [place] [address] Pharmacist Pharmacy 06/13/24 Skyla Mai PA [address] [address] Physician Carpet Sewing Machine Operator Urology 03/20/25 documented as of this encounter
--- OUTSIDE RECORDS SUMMARY | 2025-07-27 12:09 | XMS_ITS | Encounter Summary ---
Author Organization [facility] Address [address] [place] [id number] Care Team Providers Care Photocopying Equipment Repairer Name Role Phone Josseline Longo Unavailable Orlin Elizabeth MD Primary Care Provider Jess Hawk CHILD CARE CENTER ADMINISTRATOR Unavailable [phone] Rafaela Brantley PharmD Unavailable [phone] Jovana Wetzel PharmD Unavailable + Skyla Mai PA Unavailable [phone] Encounter Details Date Type Department Care [...] any time in the past 12 m [facility], were you homeless or living in a fci (including now)? No 04/20/2025 Safety and Environment [...] drink first t jorge in the morning (EYE-ITEM PROCESSOR) to steady your nerves or to get [...] Description 08/24/2025 3:30 PM EDT Office Visit [place] [facility] [address], 1st [place] [address] Josseline Longo, DENZEL [address] [place] [address] 09/07/2025 2:20 PM EDT Office Visit [facility] [address] [place] [address] Orlin Elizabeth MD [address] [place] [address] 09/12/2025 9:00 AM EST Clinical Support [place] [facility] [address], 2nd [place] [address] 09/26/2025 11:00 AM EST Hospital Encounter PAV A OPERATING ROOM [address] [place] [address] Gema Thompson MD [address] [place] [address] [phone] 09/26/2025 11:00 AM EST - 09/26/2025 2:25 PM EST Surgery PAV A OPERATING ROOM [address] [place] [address] Gema Thompson MD [address] [address] ENUCLEATION, PROSTATE, TRANSURETHRAL, USING HOLMIUM LASER ( HOLEP ) AND CYSTOLITHOLAPAXY [79405 (CPT )] 10/25/2025 9:30 AM EST Office Visit [facility]rology [address], 2nd [place] [address] Gema Thompson MD [address] [address] 12/27/2025 2:40 PM EST Office Visit [facility] [place] [address] [facility]. [address] [place] [address] Kevin Castañeda MD 800 [place] [address] Scheduled Procedures Name Priority Associated Diagnoses Date/Ti [...] documented as of this encounter Care Teams Photocopying Equipment Repairer Relationship Specialty Start Date End Date Orlin Elizabeth MD 2195 [facility] [address] [place] [address] PCP - General Family Medicine 11/25/22 Josesline Longo PA [address] [facility] [address] [place] [address] Physician Feller Buncher Operator Neurology 08/16/21 Jess Hawk APRN [address] [place] [address] Nurse Practitioner Cardiology 06/01/24 Rafaela Brantley, PharmD [address] [place] [phone] Pharmacist Pharmacy 06/03/24 Jovana Wetzel, PharmD [address] [place] [phone] Pharmacist Pharmacy 06/13/24 Skyla Mai PA [address] [place] [address] Physician Feller Buncher Operator Urology 03/20/25 documented as of this encounter
--- OUTSIDE RECORDS SUMMARY | 2025-07-27 12:09 | XMS_ITS | Encounter Summary ---
Author Organization [facility] Address [address] [place] [address] Care Team Providers Care Appraiser Real Estate Name Role Phone Josseline Longo Unavailable [phone] Orlin Elizabeth MD Primary Care Provider Jess Hawk DIESEL PLANT OPERATOR Unavailable [phone] Rafaela Brantley PharmD Unavailable [phone] Jovana Wetzel PharmD Unavailable + Skyla Mai PA Unavailable [phone] Encounter Details Date Type Department Care Team (Late st Contact Info) Description 04/24/2025 Results Follow-Up [facility] Medicine [address] [place] [address] Orlin Elizabeth MD 5612 [facility] 125 [place] [address] Social History Tobacco Use Types [...] drink first t jorge in the morning (EYE-CATERER'S AIDE) to steady your nerves or to get [...] Visit [place] [facility] [address], 1st [place] [address] Josseline Longo, DENZEL [address] [place] [address] 09/07/2025 2:20 PM EDT Office Visit [facility] [address] [place] [address] Orlin Elizabeth MD 9826 [facility] 125 [place] [address] 09/12/2025 9:00 AM EST Clinical Support [facility] 740 [facility], [address] [place] [address] 09/26/2025 11:00 AM EST Hospital Encounter PAV A OPERATING ROOM [address] [place] [address] Gema Thompson MD [address] [place] [address] 09/26/2025 11:00 AM EST - 09/26/2025 2:25 PM EST Surgery PAV A OPERATING ROOM [address] [place] [address] Gema Thompson MD [address] [place] [address] ENUCLEATION, PROSTATE, TRANSURETHRAL, USING HOLMIUM LASER ( HOLEP ) AND CYSTOLITHOLAPAXY [78376 (CPT )] 10/25/2025 9:30 AM EST Office Visit [facility] [address] [place] [address], [address] [place] [address] Gema Thompson MD [address] [place] [address] 12/27/2025 2:40 PM EST Office Visit [facility] [place] 800 [facility]. [address] [place] [address] Kevin Castañeda MD 800 [place] [address] Scheduled Procedures Name Priority Associated Diagnoses Date/Ti me ENUCLEATION, PROSTATE, TRANSURETHRAL, USING HOLMIUM LASER Benign prostatic hyperplasia with nocturia 09/26/2025 11:00 AM EST documented as of this encounter Visit Diagnoses Not on filedocumented in this encounter Additional Health Concerns Infection Onset Date Last Indicated Resolved Time MRSA Comment: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 Source: [facility]. 10/19/2014 MRSA Escalation Plan Comment:MRSA [...] documented as of this encounter Care Teams Appraiser Real Estate Relationship Specialty Start Date End Date Orlin Elizabeth MD 2195 [facility] 125 [place] [address] PCP - General Family Medicine 11/25/22 Josseline Longo PA [address] [facility] [address] [place] [address] Physician Division Traffic Superintendent Neurology 08/16/21 Jess Hawk APRN [address] [place] [address] Nurse Practitioner Cardiology 06/01/24 Rafaela Brantley, PharmD [address] [place] [address] Pharmacist Pharmacy 06/03/24 Jovana Wetzel, LissaD [address] [place] [address] Pharmacist Pharmacy 06/13/24 Skyla Mia PA [address] [place] [address] Physician Division Traffic Superintendent Urology 03/20/25 documented as of this encounter
--- OUTSIDE RECORDS SUMMARY | 2025-07-27 12:09 | XMS_ITS | Encounter Summary ---
Author Organization [facility] Address [address] [place] [address] Care Team Providers Care Construction Site Manager Name Role Phone Josseline Longo Unavailable [phone] Orlin Elizabeth MD Primary Care Provider Jess Hawk LIBRARY MEDIA ASSISTANT Unavailable [phone] Rafaela Brantley PharmD Unavailable [phone] Jovana Wetzel PharmD Unavailable + Skyla Mai PA Unavailable [phone] Encounter Details Date Type Department Care Team (Late st Contact Info) Description 07/11/2025 Telephone [place] [facility] [address], 2nd [place] [address] Gema Thompson MD [address] [place] [address] Social History Tobacco Use Types [...] any time in the past [address] [facility], were you homeless or living [...] drink first t jorge in the morning (EYE-SUPERVISOR HOSPITALITY HOUSE) to steady your nerves or to get [...] Description 08/24/2025 3:30 PM EDT Office Visit [facility] [address], 1st [place] [address] Josseline Longo PA [address] [facility] [address] [place] [address] 09/07/2025 2:20 PM EDT Office Visit [facility] [address] [place] [address] Orlin Elizabeth MD 2195 [facility] [address] [place] [address] 09/12/2025 9:00 AM EST Clinical Support [facility] Lab [address], 2nd [place] [address] 09/26/2025 11:00 AM EST Hospital Encounter PAV A OPERATING ROOM [address] [place] [address] Gema Thompson MD [address] [facility] [address] [place] [address] 09/26/2025 11:00 AM EST - 09/26/2025 2:25 PM EST Surgery PAV A OPERATING ROOM [address] [place] [address] Gema Thompson MD [address] [facility] [address] [place] [address] ENUCLEATION, PROSTATE, TRANSURETHRAL, USING HOLMIUM LASER ( HOLEP ) AND CYSTOLITHOLAPAXY [34055 (CPT )] 10/25/2025 9:30 AM EST Office Visit [facility] Urology [address], 2nd [place] [address] Gema Thompson MD [address] [place] [address] 12/27/2025 2:40 PM EST Office Visit [facility] [place] [address] [place] [address] Kevin Castañeda MD [address] [place] [address] Scheduled Orders Name Type Priority [...] documented as of this encounter Care Teams Construction Site Manager Relationship Specialty Start Date End Date Orlin Elizabeth MD 2195 [facility] [address] [place] [address] PCP - General Family Medicine 11/25/22 Josseline Longo PA [address] [place] [address] Physician Senior Visual Designer Neurology 08/16/21 Jess Hawk APRN [address] [place] [address] Nurse Practitioner Cardiology 06/01/24 Rafaela Brantley, PharmD [address] [place] [address] Pharmacist Pharmacy 06/03/24 Jovana Wetzel, PharmD [address] [place] [address] Pharmacist Pharmacy 06/13/24 Skyla Mai PA [address] [place] [address] Physician Senior Visual Designer Urology 03/20/25 documented as of this encounter
--- OUTSIDE RECORDS SUMMARY | 2025-07-27 12:09 | XMS_ITS | Encounter Summary ---
Author Organization [facility] Address [address] [place] [address] Care Team Providers Care Packer Denture Name Role Phone Sherrie Elam MD Primary Care Provider [phone] Josseline Longo Unavailable [phone] Orlin Elizabeth MD Primary Care Provider Jess Hawk MICROSTRATEGY REPORTS DEVELOPER Unavailable [phone] Rafaela Brantley PharmD Unavailable [phone] Jovana Wetzel PharmD Unavailable + Skyla Mai PA Unavailable [phone] Reason for Visit * Reason Comments Med Refill Encounter Details Date Type Department Care Team (Late st Contact Info) Description 04/19/2021 Refill [place] [facility] [address], 1st [place] [address] Josseline Longo PA [address] [place] [address] Social History Tobacco Use Types [...] Description 08/24/2025 3:30 PM EDT Office Visit [place] [facility] [address], 1st [place] [address] Josseline Longo PA [address] [facility] [address] [place] [address] 09/07/2025 2:20 PM EDT Office Visit [facility] [address] [place] [address] Orlin Elizabeth MD 2195 [facility] 125 [place] [address] 09/12/2025 9:00 AM EST Clinical Support [place] [facility] [address], 2nd [place] [address] 09/26/2025 11:00 AM EST Hospital Encounter PAV A OPERATING ROOM [address] [place] [address] Gema Thompson MD [address] [place] [address] 09/26/2025 11:00 AM EST - 09/26/2025 2:25 PM EST Surgery PAV A OPERATING ROOM [address] [place] [address] Gema Thompson MD [address] [address] ENUCLEATION, PROSTATE, TRANSURETHRAL, USING HOLMIUM LASER ( HOLEP ) AND CYSTOLITHOLAPAXY [33325 (CPT )] 10/25/2025 9:30 AM EST Office Visit [place] [facility] [address], 2nd [place] [address] Gema Thompson MD [address] [place] [address] 12/27/2025 2:40 PM EST Office Visit [facility] [place] [address] [place] [address] Kevin Castañeda MD [address] [place] [address] Scheduled Procedures Name Priority Associated Diagnoses Date/Ti me ENUCLEATION, PROSTATE, TRANSURETHRAL, USING HOLMIUM LASER Benign prostatic hyperplasia with nocturia 09/26/2025 11:00 AM EST documented as of this encounter Visit Diagnoses Not on filedocumented in this encounter Additional Health Concerns Infection Onset Date Last Indicated Resolved Time MRSA Comment: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 Source: [facility]. 10/19/2014 MRSA Escalation Plan Comment:MRSA Escalation Plan is in effect as of 2023. Patient will require contact precautions for the duration of the hospital admission. 03/17/2024 03/17/2024 documented as of this encounter Care Teams Packer Denture Relationship Specialty Start Date End Date Sherrie Elam MD [address] [place] [address] [place] [address] PCP - General Internal Medicine 08/16/21 11/24/22 Orlin Elizabeth MD 2195 [facility] 125 [place] [address] PCP - General Family Medicine 11/25/22 Josseline Longo PA [address] [place] [address] Physician Care Specialist Neurology 08/16/21 Jess Hawk APRN 800 [place] [address] Nurse Practitioner Cardiology 06/01/24 Rafaela Brantley, PharmD [address] [place] [address] Pharmacist Pharmacy 06/03/24 Jovana Wetzel, PharmD [address] [place] [address] Pharmacist Pharmacy 06/13/24 Skyla Mai PA [address] [facility] [address] [place] [address] Physician Care Specialist Urology 03/20/25 documented as of this encounter
[2025-07-27 12:33] LABS: INR 2.91 (0.9-1.1); Prothrombin Time 29.8 seconds (10.1-12.5)
== END 2025-07-27 23:59 | disposition home or self-care (01) ==
LOC: LAB 12:07
PROVIDERS: PCP Family Medicine Sports Medicine; Visit Provider Family Medicine Sports Medicine
DX: Z79.01 Long term (current) use of anticoagulants (principal)
CPT/HCPCS: 36415; 85610

== ENCOUNTER 2025-09-22 09:41 | Outpatient (CLI) | payer BC, SELFPAY ==
--- OUTSIDE RECORDS SUMMARY | 2025-08-02 17:00 | XMS_ITS | Encounter Summary ---
Author Organization [facility] Address [address] [place] [address] Care Team Providers Care Reach Lift Truck Driver Name Role Phone Josseline Longo Unavailable [phone] Orlin Elizabeth MD Primary Care Provider Jess Hawk FINGER LIFT OPERATOR Unavailable [phone] Rafaela Brantley PharmD Unavailable [phone] Jovana Wetzel PharmD Unavailable + Skyla Mai PA Unavailable [phone] Encounter Details Date Type Department Care Team (Late st Contact Info) Description 08/02/2025 6:00 PM EDT Immunization [facility] Pharmacist Care Team [address] [facility] [address] [place] [address] Flu vaccine need (Primary Dx); Need for COVID-19 vaccine Social History Tobacco Use Types Packs/Day Years [...] any time in the past 12 m [facility], were you homeless or living in a longterm (including now)? No 04/20/2025 Safety and Environment [...] drink first t jorge in the morning (EYE-STAFF SONOGRAPHER) to steady your nerves or to get rid of a hangover? 0 03/16/2024 CAGE Questionnaire Score 0 024 Utilities Answer Date Recorded In the past 12 months has th iCreate, gas, oil, or water [email or web address] threatened to shut off services in your home? No 04/20/2025 PHQ-2A Answer Date Recorded Patient Health Questionnaire-2 Score 0 05/20/2023 Sex and Gender Information Value Date Recorded Sex Assigned at Not on file Legal Sex Male 8:17 PM EDT Gender Identity Not on file Sexual Orientation Not on file Travel History Travel Start Travel End [place] 09/02/2025 09/02/2025 documented as of this encounter Plan of Treatment Upcoming Encounters Date Type Department Care Team (Late st Contact Info) Description 09/29/2025 11:00 AM EST Office Visit [facility] [address] [place] [address] Orlin Elizabeth MD [address] [place] [address] [place] [address] 10/27/2025 9:00 AM EST Clinical Support [place] [facility] [address], 2nd [place] [address] 11/10/2025 7:45 AM EST Hospital Encounter PAV A OPERATING ROOM [address] [place] [address] Gema Thompson MD [address] [address] 11/10/2025 7:45 AM EST - 11/10/2025 11:10 AM EST Surgery PAV A OPERATING ROOM [address] [place] [address] Gema Thompson MD [address] [address] ENUCLEATION, PROSTATE, TRANSURETHRAL, USING HOLMIUM LASER ( HOLEP ) AND CYSTOLITHOLAPAXY [51318 (CPT )] 12/13/2025 10:15 AM EST Office Visit [place] [facility] [address], 2nd [place] [address] Gema Thompson MD [address] [address] 12/27/2025 2:40 PM EST Office Visit [facility] [place] [address] [facility] [place] [address] Kevin Castañeda MD [address] [place] [address] Scheduled Procedures Name Priority Associated Diagnoses Date/Ti me ENUCLEATION, PROSTATE, TRANSURETHRAL, USING HOLMIUM LASER Benign prostatic hyperplasia with nocturia 11/10/2025 7:45 AM EST documented as of this encounter Goals Goal Patient Goal Type Associated Problems Recent Progress Patient-Stated? Author Autogenerat ed Goal Care Plan Autogenerated Problem No Lizzie Jessica documented as of this encounter Visit Diagnoses Diagnosis Benign prostatic hyperplasia with nocturia- Primary Flu vaccine need- Primary Need for COVID-19 vaccine Benign prostatic hyperplasia with nocturia documented in this encounter Additional Health Concerns Active Problems Noted Date Diagnosed Date Autogenerated Problem 08/03/2025 Infection Onset Date Last Indicated Resolved Time MRSA Comment: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 Source: [facility]. 10/19/2014 MRSA Escalation Plan Comment:MRSA Escalation Plan is in effect as of 2023. Patient will require contact precautions for the duration of the hospital admission. 03/17/2024 03/17/2024 Assessment Noted Time PHQ-9 Depression Total Score: 0 07/05/20 1:20 PM EDT A fall risk assessment has been complete d for the patient 07/05/2025 1:21 PM EDT A Body Mass Index follow-up plan has been documented for the patient 07/27/2025 3:09 PM EDT documented as of this encounter Care Teams Reach Lift Truck Driver Relationship Specialty Start Date End Date Orlin Elizabeth MD 2195 [facility] 125 [place] [address] PCP - General Family Medicine 11/25/22 Josseline Longo PA [address] [place] [address] Physician Assistant Paralegal Neurology 08/16/21 Jess Hawk APRN 800 [place] [address] Nurse Practitioner Cardiology 06/01/24 Rafaela Brantley, PharmD [address] [place] [address] Pharmacist Pharmacy 06/03/24 Jovana Wetzel, PharmD 800 [place] [address] Pharmacist Pharmacy 06/13/24 Skyla Mai PA [address] [place] [address] Physician Assistant Paralegal Urology 03/20/25 documented as of this encounter
--- OUTSIDE RECORDS SUMMARY | 2025-08-24 14:30 | XMS_ITS | Encounter Summary ---
Author Organization [facility] Address [address] [place] [address] Care Team Providers Care Plastic Products Sales Representative Name Role Phone Josseline Longo Unavailable [phone] Orlin Elizabeth MD Primary Care Provider Jess Hawk SPONSORSHIP COORDINATOR Unavailable [phone] Rafaela Brantley PharmD Unavailable [phone] Jovana Wetzel PharmD Unavailable + Skyla Mai PA Unavailable [phone] Encounter Details Date Type Department Care Team (Late st Contact Info) Description 08/24/2025 3:30 PM EDT Office Visit [place] [facility] [address], [address] [place] [address] Josseline Longo PA [address] [place] [address] Essential tremor (Primary Dx) Social [...] time in the past 12 m [facility], were you homeless or living in a [...] drink first t jorge in the morning (EYE-REVERSING MILL ROLLER) to steady your nerves or to get [...] file Travel History Travel Start Travel End [place] 09/02/2025 09/02/2025 documented as of this encounter [...] 11:00 AM EST Office Visit [facility] [address] [address] Orlin Elizabeth MD [address] [facility] 125 [place] [address] 10/27/2025 9:00 AM EST Clinical Support [facility] Lab [address], 2[address] [place] [address] 11/10/2025 7:45 AM EST Hospital Encounter P[facility] A OPERATING ROOM [address] [place] [address] Gema Thompson MD [address] [address] 11/10/2025 7:45 AM EST - 11/10/2025 11:10 AM EST Surgery [facility] OPERATING ROOM [address] [place] [address] Gema Thompson MD [phone] [place] [address] ENUCLEATION, PROSTATE, TRANSURETHRAL, USING HOLMIUM LASER ( HOLEP ) AND CYSTOLITHOLAPAXY [44810 (CPT )] 12/13/2025 10:15 AM EST Office Visit [facility]rology [address], [address] [place] [address] Gema Thompson MD [address] [facility] [address] [place] [address] 12/27/2025 2:40 PM EST Office Visit [facility] [place] Daniel [address] [facility]. [address] [place] [address] Kevin Castañeda MD [address] [place] [address] Scheduled Procedures Name Priority Associated [...] Time MRSA Comment: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 Source: [facility]. 10/19/2014 MRSA Escalation Plan Comment:MRSA Escalation [...] documented as of this encounter Care Teams Plastic Products Sales Representative Relationship Specialty Start Date End Date Orlin Elizabeth MD [address] [facility] 125 [place] [phone] PCP - General Family Medicine 11/25/22 Josseline Longo PA [address] [facility] [address] [place] [phone] Physician Transfer Agent Neurology 08/16/21 Jess Hawk APRN [address] [place] [phone] Nurse Practitioner Cardiology 06/01/24 Rafaela Brantley, PharmD [address] [place] [phone] Pharmacist Pharmacy 06/03/24 Jovana Wetzel, PharmD [address] [place] [address] Pharmacist Pharmacy 06/13/24 Skyla Mai PA [address] [place] [address] Physician Transfer Agent Urology 03/20/25 documented as of this encounter
--- OUTSIDE RECORDS SUMMARY | 2025-09-22 09:45 | XMS_ITS | Encounter Summary ---
Author Organization [facility] Address [address] [place] [address] Care Team Providers Care Computer Forensics Analyst Name Role Phone Josseline Longo Unavailable [phone] Orlin Elizabeth MD Primary Care Provider Jess Hawk COMBINATION WINDOW INSTALLER Unavailable [phone] Rafaela Brantley PharmD Unavailable [phone] Jovana Wetzel PharmD Unavailable + Skyla Mai PA Unavailable [phone] Reason for Visit * Reason Comments Med Refill Encounter Details Date Type Department Care Team (Late st Contact Info) Description 08/09/2025 Refill [facility] [address] [place] [address] Orlin Elizabeth MD [address] [facility] 125 [place] [address] Social History Tobacco Use Types [...] any time in the past 12 m [facility], were you homeless or living in a detention (including now)? No 04/20/2025 Safety and Environment [...] drink first t jorge in the morning (EYE-HOT BLASTER) to steady your nerves or to get rid of a hangover? 0 03/16/2024 CAGE Questionnaire Score 0 024 Utilities Answer Date Recorded In the past 12 months has th [employer] electric, gas, oil, or water company threatened [...] 09/02/2025 09/02/2025 documented as of this encounter Miscellaneous Notes * Progress Notes - Lurdes Roberson, PharmD - 08/14/2025 6:38 AM EDT 1 medication(s) has been approved per protocol. Please keep upcoming appointment for additional refills. Medications have been pended for refill atupcoming appointment. documented in this encounter Plan of Treatment Upcoming Encounters Date Type Department Care Team (Late st Contact Info) Description 09/29/2025 11:00 AM EST Office Visit [facility] [address] [place] [address] Orlin Elizabeth MD [address] [facility] 125 [place] [address] 10/27/2025 9:00 AM EST Clinical Support [facility] Lab [address], 2[address] [place] [address] 11/10/2025 7:45 AM EST Hospital Encounter PAV A OPERATING ROOM [address] [place] [address] Gema Thompson MD [address] [address] 11/10/2025 7:45 AM EST - 11/10/2025 11:10 AM EST Surgery P[facility] A OPERATING ROOM [address] [place] [address] Gema Thompson MD [address] [address] ENUCLEATION, PROSTATE, TRANSURETHRAL, USING HOLMIUM LASER ( HOLEP ) AND CYSTOLITHOLAPAXY [50974 (CPT )] 12/13/2025 10:15 AM EST Office Visit [facility]rology [address], [facility] [place] [address] Gema Thompson MD [address] [address] 12/27/2025 2:40 PM EST Office Visit [facility] [place] Daniel [address] [facility] [place] [address] Kevin Castañeda MD [address] [place] [address] Scheduled Procedures Name Priority Associated [...] filedocumented in this encounter Additional Health Concerns Active Problems Noted Date Diagnosed Date Autogenerated Problem 08/03/2025 Infection Onset Date Last Indicated Resolved Time MRSA Comment: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 Source: [facility]. 10/19/2014 MRSA Escalation Plan Comment:MRSA Escalation [...] documented as of this encounter Care Teams Computer Forensics Analyst Relationship Specialty Start Date End Date Orlin Elizabeth MD [address] [facility] 125 [place] [phone] PCP - General Family Medicine 11/25/22 Josseline Longo PA [address] [place] [phone] Physician Cigarette And Filter Chief Inspector Neurology 08/16/21 Jess Hawk APRN [address] [place] [phone] Nurse Practitioner Cardiology 06/01/24 Rafaela Brantley, PharmD [address] [place] [phone] Pharmacist Pharmacy 06/03/24 Jovana Wetzel, PharmD [address] [place] [address] Pharmacist Pharmacy 06/13/24 Skyla Mai PA [address] [address] Physician Cigarette And Filter Chief Inspector Urology 03/20/25 documented as of this encounter
--- OUTSIDE RECORDS SUMMARY | 2025-09-22 09:45 | XMS_ITS | Encounter Summary ---
Author Organization [facility] Address [address] [place] [address] Care Team Providers Care Scrap Drop Crane Operator Name Role Phone Josseline Longo Unavailable [phone] rOlin Elizabeth MD Primary Care Provider Jess Hawk INGREDIENT SCALER Unavailable [phone] Rafaela Brantley PharmD Unavailable [phone] Jovana Wetzel PharmD Unavailable + Skyla Mai PA Unavailable [phone] Encounter Details Date Type Department Care Team (Latest Contact Info) Description 08/25/2025 Anticoagulation - Warfarin Visit [facility] [place] [address] [facility]. [address] [place] [address] Rafaela Brantley, PharmD [address] [place] [address] assisted (current) use of anticoagulants (Primary Dx); Anticoagulation [...] time in the past 12 m [facility], were you homeless or living in a retirement (including now)? No 04/20/2025 Safety and Environment [...] drink first t jorge in the morning (EYE-CARGO HANDLER) to steady your nerves or to get [...] file Travel History Travel Start Travel End [place] 09/02/2025 09/02/2025 documented as of this encounter Miscellaneous Notes * Progress Notes - Rafaela Brantley, PharmD - 08/25/2025 8:39 AM EDT [facility] Note History of Present Illness Anticoagulation Summary As of 08/25/2025 INR goal: 2.0-3.0 TTR: 66.7% (1.4 y) INR used for dosin.4 (08/24/2025) Warfarin maintenance plan: 5 mg (5 mg x 1) every Sun, Lizeth; 7.5 mg (5 mg x 1.5) all other days Weekly warfarin total: 47.5 mg No change documented: Rafaela Brantley, PharmD Plan last modified: Jovana Wetzel, LissaD (07/07/2024) Next INR check: 09/22/2025 Target end date: Indefinite Indications Atrial fibrillation unspecified type (CMS/HCC) (Resolved) [I48.91] terminologist (current) use of anticoagulants [Z79.01] Anticoagulation Episode Summary INR check location: Outside Lab Preferred lab: EXTERNAL LAB Send INR reminders to: [facility] Comments: [facility] P: [phone] F: [phone] Anticoagulation Care Providers Provider Role Specialty Phone number Israel Membreno MD Referring Cardiology [phone] Jess Hawk APRN Responsible Cardiology [phone] Additional History: New onset Afib s/p DCCV on 03/16 [id number] =Total score 3, Age 65-74 (1), CHF [...] INR: Lab Results Component Value Date INR 2.4 (H) 08/24/2025 INR 2.91 07/27/2025 INR 3.95 07/13/2025 PROTIME 30.4 05/18/2025 PROTIME 25.6 02/28/2025 PROTIME [...] Weight: Wt Readings from Last 1 Encounters: 08/24/25 82.4 kg (181 lb 10.5 oz) BMI: Estimated body mass index is 25.35 kg/m?? as calculated from the following: Height as of 08/24/25: 1.803 m (5' 10.98 ). Weight as of 10/16/25: 82.4 kg (181 lb 10.5 oz). Assessment and Plan Current warfarin dose: 7.5 mg daily x 5 mg on Thursday/ Therapeutic INR for goal of 2.0-3.0. New warfarin dose: no change Follow Up Check INR at [facility] lab in 4 weeks . Patient Education Notify clinic of any medication changes including missed or extra doses of warfarin prior to next planned INR check so that warfarin dose and/or follow up can be adjusted accordingly. Contact the Anticoagulation Clinic at [phone] with any questions or concerns regarding yourwarfarin. Patient verbalized understanding of above care plan: YES Rafaela Brantley, PharmD, BCACP, CACP [facility] [address] [facility] [phone] documented in this encounter Plan of Treatment Upcoming Encounters Date Type Department Care Team (Late st Contact Info) Description 09/29/2025 11:00 AM EST Office Visit [address] [address] Orlin Elizabeth MD [address] [facility] 125 [place] [phone] 10/27/2025 9:00 AM EST Clinical Support [place] [facility] [address] [place] [address] 11/10/2025 7:45 AM EST Hospital Encounter PAV A OPERATING ROOM [address] [place] [phone] Gema Thompson MD [address] [place] [phone] 11/10/2025 7:45 AM EST - 11/10/2025 11:10 AM EST Surgery PAV A OPERATING ROOM [address] [place] [phone] Gema Thompson MD [address] [place] [address] ENUCLEATION, PROSTATE, TRANSURETHRAL, USING HOLMIUM LASER ( HOLEP ) AND CYSTOLITHOLAPAXY [15265 (CPT )] 12/13/2025 10:15 AM EST Office Visit [facility] [address] [place] [address] Gema Thompson MD [address] [place] [address] 12/27/2025 2:40 PM EST Office Visit [facility] [place] [address] [place] [address] Kevin Castañeda MD [address] [place] [address] Scheduled Procedures Name Priority Associated Diagnoses Date/Ti me ENUCLEATION, PROSTATE, TRANSURETHRAL, USING HOLMIUM LASER Benign prostatic hyperplasia with nocturia 11/10/2025 7:45 AM EST documented as of this encounter Goals Goal Patient Goal Type Associated Problems Recent Progress Patient-Stated? Author Autogenerat ed Goal Care Plan Autogenerated Problem No Lizzie Jessica documented as of this encounter Visit Diagnoses Diagnosis Benign prostatic hyperplasia with nocturia- Primary assisted (current) use of anticoagulants- Primary Long-term (current) use of anticoagulants Anticoagulation management encounter Encounter for therapeutic drug monitoring Benign prostatic hyperplasia with nocturia documented in this encounter Additional Health Concerns Active Problems Noted Date Diagnosed Date Autogenerated Problem 08/03/2025 Infection Onset Date Last Indicated Resolved Time MRSA Comment: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 Source: [facility]. 10/19/2014 MRSA Escalation Plan Comment:MRSA [...] plan has been documented for the patient 08/25/2025 8:42 AM EDT documented as of this encounter Care Teams Scrap Drop Crane Operator Relationship Specialty Start Date End Date Orlin Elizabeth MD [address] [facility] [address] [place] [phone] PCP - General Family Medicine 11/25/22 Josseline Longo PA [address] [place] [address] Physician Educational Specialist Neurology 08/16/21 Jess Hawk APRN [address] [place] [address] Nurse Practitioner Cardiology 06/01/24 Rafaela Brantley, PharmD [address] [place] [address] Pharmacist Pharmacy 06/03/24 Jovana Wetzel, PharmD [address] [place] [address] Pharmacist Pharmacy 06/13/24 Skyla Mai PA [address] [place] [phone] Physician Educational Specialist Urology 03/20/25 documented as of this encounter
--- OUTSIDE RECORDS SUMMARY | 2025-09-22 09:45 | XMS_ITS | Encounter Summary ---
Author Organization [facility] Address [address] [place] [address] Care Team Providers Care Mediation Commissioner Name Role Phone Josseline Longo Unavailable [phone] Orlin Elizabeth MD Primary Care Provider Jess Hawk TIP CUTTER Unavailable [phone] Rafaela Brantley PharmD Unavailable [phone] Jovana Wetzel PharmD Unavailable + Skyla Mai PA Unavailable [phone] Encounter Details Date Type Department Care Team (Latest Contact Info) Description 07/27/2025 Anticoagulation - Warfarin Visit [facility] Regina Laura [address] [facility] [place] [address] Rafaela Brantley, PharmD [address] [place] [address] prison (current) use of anticoagulants (Primary Dx); Anticoagulation [...] the past 12 m [facility], were you homeless or living in a [...] drink first t jorge in the morning (EYE-ROLL EDGE MACHINE OPERATOR) to steady your nerves or [...] file Travel History Travel Start Travel End [place] 09/02/2025 09/02/2025 documented as of this encounter Miscellaneous Notes * Progress Notes - Rafaela Brantley, PharmD - 07/27/2025 3:06 PM EDT [facility] Note History of Present Illness Anticoagulation Summary As of 07/27/2025 INR goal: 2.0-3.0 TTR: 64.8% (1.3 y) INR used for dosin.91 (07/27/2025) Warfarin maintenance plan: 5 mg (5 mg x 1) every Sun, Lizeth; 7.5 mg (5 mg x 1.5) all other days Weekly warfarin total: 47.5 mg No change documented: Rafaela Brantley, PharmD Plan last modified: Jovana Wetzel, LissaD (07/07/2024) Next INR check: 08/24/2025 Target end date: Indefinite Indications Atrial fibrillation unspecified type (CMS/HCC) (Resolved) [I48.91] prison (current) use of anticoagulants [Z79.01] Anticoagulation Episode Summary INR check location: Outside Lab Preferred lab: EXTERNAL LAB Send INR reminders to: [facility] Comments: [facility] P: [phone] F: [phone] Anticoagulation Care Providers Provider Role Specialty Phone number Israel Membreno MD Referring Cardiology [phone] Jess Hawk APRN Responsible Cardiology [phone] Additional History: New onset Afib s/p DCCV on 03/16 [id number] =Total score 3, Age 65-74 (1), CHF [...] INR: Lab Results Component Value Date INR 2.91 07/27/2025 INR 3.95 07/13/2025 INR 2.43 06/15/2025 PROTIME 30.4 05/18/2025 PROTIME 25.6 02/28/2025 PROTIME [...] Thursday/ Therapeutic INR for goal of 2.0-3.0. INR is back within goal after recent elevation. Denies any changes. Previously stable on current regimen. New warfarin dose: no change Follow Up Check INR at [facility] in 4 weeks . Patient Education Notify clinic of any medication changes including missed or extra doses of warfarin prior to next planned INR check so that warfarin dose and/or follow up can be adjusted accordingly. Contact the Anticoagulation Clinic at [phone] with any questions or concerns regarding yourwarfarin. Patient verbalized understanding of above care plan: YES Rafaela Brantley, LissaD, BCACP, CACP [facility] [address] [facility] [phone] documented in this encounter Plan of Treatment Upcoming Encounters Date Type Department Care Team (Late st Contact Info) Description 09/29/2025 11:00 AM EST Office Visit [facility] [address] [place] [address] Orlin Elizabeth MD [address] [facility] 125 [place] [address] 10/27/2025 9:00 AM EST Clinical Support [place] [facility] [address]nd [place] [address] 11/10/2025 7:45 AM EST Hospital Encounter [facility]ATING ROOM [address] [place] [address] Gema Thompson MD [address] [facility] [address] [place] [address] 11/10/2025 7:45 AM EST - 11/10/2025 11:10 AM EST Surgery [facility] OPERATING ROOM [address] [place] [address] Gema Thompson MD [address] [place] [address] ENUCLEATION, PROSTATE, TRANSURETHRAL, USING HOLMIUM LASER ( HOLEP ) AND CYSTOLITHOLAPAXY [41238 (CPT )] 12/13/2025 10:15 AM EST Office Visit [place] [facility] [address] [place] [address] Gema Thompson MD [address] [place] [address] 12/27/2025 2:40 PM EST Office Visit [facility] Regina Laura [address] [place] [address] Kevin Castañeda MD [address] [place] [address] Scheduled Procedures Name Priority Associated [...] Diagnosis Comments EXTERNAL PROTHROMBIN TIME (PT)/INR Routine 07/27/2025 documented in this encounter Results * External Prothrombin Time (PT)/INR (07/27/2025) External INR - Internormal Ratio 2.91 EXTERNAL LAB External Prothrombin Time (PT) EXTERNAL LAB Blood Venous blood specimen / Unknown 07/27/2025 us Historical Provider POINT OF CARE TEST ENTER/MAKENNA T ORDERABLES Final Result EXTERNAL LAB documented in this encounter Visit Diagnoses Diagnosis Benign prostatic hyperplasia with 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- Primary Long-term (current) [...] documented as of this encounter Care Teams Mediation Commissioner Relationship Specialty Start Date End Date Orlin Elizabeth MD [address] [place] [address] 125 [place] [phone] PCP - General Family Medicine 11/25/22 Josseline Longo PA [address] [facility] [address] [place] [phone] Physician Sap Ppm Consultant Neurology 08/16/21 Jess Hawk APRN [address] [place] [address] Nurse Practitioner Cardiology 06/01/24 Rafaela Brantley, PharmD [address] [place] [address] Pharmacist Pharmacy 06/03/24 Jovana Wetzel, PharmD [address] [place] [phone] Pharmacist Pharmacy 06/13/24 Skyla Mai PA [address] [facility] [address] [place] [address] Physician Sap Ppm Consultant Urology 03/20/25 documented as of this encounter
--- OUTSIDE RECORDS SUMMARY | 2025-09-22 09:45 | XMS_ITS | Encounter Summary ---
Author Organization [facility] Address [address] [id number] Care Team Providers Care Sheet Metal Technician Name Role Phone Josseline Longo Unavailable [phone] Orlin Elizabeth MD Primary Care Provider Jess Hawk MANAGER EMERGENCY DEPARTMENT Unavailable [phone] Rafaela Brantley PharmD Unavailable [phone] Jovana Wetzel PharmD Unavailable + Skyla Mai PA Unavailable [phone] Encounter Details Date Type Department Care Team (Latest Contact Info) Description 09/11/2025 Travel Social History Tobacco Use Types Packs/Day [...] in the past 12 m [facility], were you homeless or living in [...] drink first t jorge in the morning (EYE-SHOE LACER) to steady your nerves or to get [...] file Travel History Travel Start Travel End [place] 09/02/2025 09/02/2025 documented as of this encounter Plan of Treatment Upcoming Encounters Date Type Department Care Team (Late st Contact Info) Description 09/29/2025 11:00 AM EST Office Visit [facility] [address] [place] [address] Orlin Elizabeth MD [address] [facility] 125 [place] [address] 10/27/2025 9:00 AM EST Clinical Support [place] [facility] [address] 2nd [place] [address] 11/10/2025 7:45 AM EST Hospital Encounter PAV A OPERATING ROOM [address] [place] [address] Gema Thompson MD [address] [place] [address] 11/10/2025 7:45 AM EST - 11/10/2025 11:10 AM EST Surgery PAV A OPERATING ROOM [address] [place] [address] Gema Thompson MD [address] [place] [address] ENUCLEATION, PROSTATE, TRANSURETHRAL, USING HOLMIUM LASER ( HOLEP ) AND CYSTOLITHOLAPAXY [29775 (CPT )] 12/13/2025 10:15 AM EST Office Visit [place] [facility] [address] [place] [address] Gema Thompson MD [address] [address] 12/27/2025 2:40 PM EST Office Visit [facility] [place] Daniel [address] [facility]. [address] [place] [address] Kevin Castañeda MD [address] [place] [address] Scheduled Procedures Name Priority Associated Diagnoses Date/Ti [...] Time MRSA Comment: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 Source: [facility]. 10/19/2014 MRSA Escalation Plan Comment:MRSA [...] documented as of this encounter Care Teams Sheet Metal Technician Relationship Specialty Start Date End Date Orlin Elizabeth MD [address] [facility] [address] [place] [address] PCP - General Family Medicine 11/25/22 Josseline Longo PA [address] [place] [address] Physician Fuel Retrofitting Technician Neurology 08/16/21 Jess Hawk APRN [address] [place] [address] Nurse Practitioner Cardiology 06/01/24 Rafaela Brantley, PharmD [address] [place] [phone] Pharmacist Pharmacy 06/03/24 Jovana Wetzel, PharmD [address] [place] [phone] Pharmacist Pharmacy 06/13/24 Skyla Mai PA [address] [place] [address] Physician Fuel Retrofitting Technician Urology 03/20/25 documented as of this encounter
--- OUTSIDE RECORDS SUMMARY | 2025-09-22 09:45 | XMS_ITS | Encounter Summary ---
Author Organization [facility] Address [address] [id number] Care Team Providers Care Clinical Pharmacy Manager Name Role Phone Josseline Longo Unavailable [phone] Orlin Elizabeth MD Primary Care Provider Jess Hawk SUPERVISOR STONE Unavailable [phone] Rafaela Brantley PharmD Unavailable [phone] Jovana Wetzel PharmD Unavailable + Skyla Mai PA Unavailable [phone] Encounter Details Date Type Department Care Team (Latest Contact Info) Description 08/02/2025 Travel Social History Tobacco Use Types Packs/Day [...] drink first t jorge in the morning (EYE-ESTIMATOR) to steady your nerves or to get [...] file Travel History Travel Start Travel End [place] 09/02/2025 09/02/2025 documented as of this encounter Plan of Treatment Upcoming Encounters Date Type Department Care Team (Late st Contact Info) Description 09/29/2025 11:00 AM EST Office Visit [facility] 202 [place] [address] Orlin Elizabeth MD [address] [facility] 125 [place] [address] 10/27/2025 9:00 AM EST Clinical Support [place] [facility] [address] [place] [address] 11/10/2025 7:45 AM EST Hospital Encounter PAV A OPERATING ROOM [address] [place] [address] Gema Thompson MD [address] [place] [address] [place] [address] 11/10/2025 7:45 AM EST - 11/10/2025 11:10 AM EST Surgery PAV A OPERATING ROOM [address] [place] [address] Gema Thompson MD [id number] [place] [address] ENUCLEATION, PROSTATE, TRANSURETHRAL, USING HOLMIUM LASER ( HOLEP ) AND CYSTOLITHOLAPAXY [44659 (CPT )] 12/13/2025 10:15 AM EST Office Visit [place] [facility] [address], [address] [place] [address] Gema Thompson MD [address] [address] 12/27/2025 2:40 PM EST Office Visit [facility] [place] Daniel [address] [facility]. [address] [place] [address] Kevin Castañeda MD 800 [place] [address] Scheduled Procedures Name Priority Associated Diagnoses Date/Ti [...] Time MRSA Comment: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 Source: [facility]. 10/19/2014 MRSA Escalation Plan Comment:MRSA Escalation Plan [...] documented as of this encounter Care Teams Clinical Pharmacy Manager Relationship Specialty Start Date End Date Orlin Elizabeth MD [address] [facility] [address] [place] [address] PCP - General Family Medicine 11/25/22 Josseline Longo PA [address] [place] [address] Physician Sanitation Associate Neurology 08/16/21 Jess Hawk APRN [address] [place] [phone] Nurse Practitioner Cardiology 06/01/24 Rafaela Brantley, PharmD [address] [place] [phone] Pharmacist Pharmacy 06/03/24 Jovana Wetzel, PharmD [address] [place] [phone] Pharmacist Pharmacy 06/13/24 Skyla Mai PA [address] [place] [address] Physician Sanitation Associate Urology 03/20/25 documented as of this encounter
--- OUTSIDE RECORDS SUMMARY | 2025-09-22 09:45 | XMS_ITS | Encounter Summary ---
Author Organization [facility] Address [address] [place] [address] Care Team Providers Care Surgical Processor Name Role Phone Josseline Longo Unavailable [phone] Orlin Elizabeth MD Primary Care Provider Jess Hawk CIRCULAR KNIFE CUTTER MACHINE Unavailable [phone] Rafaela Brantley PharmD Unavailable [phone] Jovana Wetzel PharmD Unavailable + Skyla Mai PA Unavailable [phone] Encounter Details Date Type Department Care Team (Late st Contact Info) Description 06/18/2025 Results Follow-Up [facility] Acute Care [address] [facility], [address] [place] [address] Jeannette Triplett, CIRCULAR KNIFE CUTTER MACHINE [address] [facility] [address] [place] [address] Social History Tobacco Use Types [...] time in the past 12 m [facility], were you homeless or living [...] drink first t jorge in the morning (EYE-COMPUTER HARDWARE TECHNICIAN) to steady your nerves or to get rid of a hangover? 0 03/16/2024 CAGE Questionnaire Score 0 024 Utilities Answer Date Recorded In the past 12 months has [employer] electric, gas, oil, or water company threatened [...] 09/02/2025 09/02/2025 documented as of this encounter Functional Status [...] on one occasion? Never 07/05/2025 1:19 PM Onle Moulton * Over the past 2 weeks, [...] Description 09/29/2025 11:00 AM EST Office Visit [facility] [address] [place] [address] Orlin Elizabeth MD [address] [facility] 125 [place] [address] 10/27/2025 9:00 AM EST Clinical Support [facility] [address], 2nd [place] [address] 11/10/2025 7:45 AM EST Hospital Encounter PAV A OPERATING ROOM [address] [place] [address] Gema Thompson MD [address] [address] 11/10/2025 7:45 AM EST - 11/10/2025 11:10 AM EST Surgery PAV A OPERATING ROOM [address] [place] [address] Gema Thompson MD [address] [address] ENUCLEATION, PROSTATE, TRANSURETHRAL, USING HOLMIUM LASER ( HOLEP ) AND CYSTOLITHOLAPAXY [54793 (CPT )] 12/13/2025 10:15 AM EST [facility] [address] [address] Gema Thompson MD [address] [address] 12/27/2025 2:40 PM EST Office Visit [facility] [place] Daniel 800 [facility]. [address] [place] [address] Kevin Castaeñda MD 800 [place] [address] Scheduled Procedures Name Priority Associated [...] documented as of this encounter Care Teams Surgical Processor Relationship Specialty Start Date End Date Orlin Elizabeth MD 2[address] [facility] 125 [place] [address] PCP - General Family Medicine 11/25/22 Josseline Longo PA [address] [facility] [address] [place] [address] Physician Addiction Nurse Neurology 08/16/21 Jess Hawk APRN 800 [place] [address] Nurse Practitioner Cardiology 06/01/24 Rafaela Brantley, PharmD 800 [place] [address] Pharmacist Pharmacy 06/03/24 Jovana Wetzel, PharmD 800 [place] [address] Pharmacist Pharmacy 06/13/24 Skyla Mai PA [address] [phone] Physician Addiction Nurse Urology 03/20/25 documented as of this encounter
--- OUTSIDE RECORDS SUMMARY | 2025-09-22 09:45 | XMS_ITS | Encounter Summary ---
Author Organization [facility] Address [address] [id number] Care Team Providers Care Career Services Representative Name Role Phone Josseline Longo Unavailable [phone] Orlin Elizabeth MD Primary Care Provider Jess Hawk KILN TESTER Unavailable [phone] Rafaela Brantley PharmD Unavailable [phone] Jovana Wetzel PharmD Unavailable + Skyla Mai PA Unavailable [phone] Encounter Details Date Type Department Care Team (Latest Contact Info) Description 08/24/2025 Travel Social History Tobacco Use Types Packs/Day [...] any time in the past 12 m [facility], were you homeless or living in [...] drink first t jorge in the morning (EYE-EMPLOYMENT SPECIALIST/PROGRAM MANAGER) to steady your nerves or to [...] file Travel History Travel Start Travel End [place] 09/02/2025 09/02/2025 documented as of this encounter Plan of Treatment Upcoming Encounters Date Type Department Care Team (Late st Contact Info) Description 09/29/2025 11:00 AM EST Office Visit [facility] 202 [place] [address] Orlin Elizabeth MD 2[address] [facility] 125 [place] [address] 10/27/2025 9:00 AM EST Clinical Support [place] [facility] [address] [place] [address] 11/10/2025 7:45 AM EST Hospital Encounter PAV A OPERATING ROOM [address] [place] [address] Gema Thompson MD [address] [place] [address] 11/10/2025 7:45 AM EST - 11/10/2025 11:10 AM EST Surgery PAV A OPERATING ROOM 800 [place] [address] Gema Thompson MD [address] [place] [address] ENUCLEATION, PROSTATE, TRANSURETHRAL, USING HOLMIUM LASER ( HOLEP ) AND CYSTOLITHOLAPAXY [60864 (CPT )] 12/13/2025 10:15 AM EST Office Visit [facility] [address] [place] [address] Gema Thompson MD [address] [address] 12/27/2025 2:40 PM EST Office Visit [facility] [place] Daniel 800 [facility]. [address] [place] [address] Kevin Castañeda MD 800 [place] [address] Scheduled Procedures Name Priority Associated Diagnoses Date/Ti [...] Time MRSA Comment: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 Source: Formerly [...] documented as of this encounter Care Teams Career Services Representative Relationship Specialty Start Date End Date Orlin Elizabeth MD [address] [facility] [address] [place] [address] PCP - General Family Medicine 11/25/22 Josseline Longo PA [address] [place] [address] Physician Underwriting Intern Neurology 08/16/21 Jess Hawk APRN [address] [place] [address] Nurse Practitioner Cardiology 06/01/24 Rafaela Brantley, PharmD [address] [place] [phone] Pharmacist Pharmacy 06/03/24 Jovana Wetzel, PharmD [address] [place] [phone] Pharmacist Pharmacy 06/13/24 Skyla Mai PA [address] [place] [address] Physician Underwriting Intern Urology 03/20/25 documented as of this encounter
--- OUTSIDE RECORDS SUMMARY | 2025-09-22 09:45 | XMS_ITS | Encounter Summary ---
Author Organization [facility] Address [address] [place] [address] Care Team Providers Care Campaign Fundraiser Name Role Phone Josseline Longo Unavailable [phone] Orlin Elizabeth MD Primary Care Provider Jess Hawk VEHICLE BODY BUILDER Unavailable [phone] Rafaela Brantley PharmD Unavailable [phone] Jovana Wetzel PharmD Unavailable + Skyla Mai PA Unavailable [phone] Encounter Details Date Type Department Care Team (Late st Contact Info) Description 08/02/2025 Telephone [facility] [address] [place] [address] Gema Thompson MD [address] [place] [address] Social History Tobacco Use Types [...] any time in the past 12 m [facility], were you homeless or living in a [...] drink first t jorge in the morning (EYE-WELCOME CENTER AGENT) to steady your nerves or to [...] encounter Miscellaneous Notes * Telephone Encounter - Mary Rodriguez - 08/03/2025 9:52 AM EDT Spoke with patient, rescheduled surgery to 11/10, [facility] * Telephone Encounter - Mira Krause - 08/02/2025 2:35 PM EDT Clinical Concern/Question Reason for Call: Pt called, wanting to r/s surgery date. Asking for a call back. Thanks! Best contact number: [phone] (mobile) Optimal time of day to reach caller: ANYTIME Additional comments/information from caller: None Note: Please do not reply to this message. Follow-up communication and further actions as a result of this message need to be communicated with the patient directly, if the patient is not active onMyChart. If the patient is active on MyChart, they will receive notification of the communication/outcome via MyChart. documented in this encounter Plan of Treatment Upcoming Encounters Date Type Department Care Team (Late st Contact Info) Description 09/29/2025 11:00 AM EST Office Visit [address] [address] Orlin Elizabeth MD [address] [address] 10/27/2025 9:00 AM EST Clinical Support [place] [facility] [address], 2nd [place] [address] 11/10/2025 7:45 AM EST Hospital Encounter PAV A OPERATING ROOM 800 [place] [address] Gema Thompson MD [address] [address] 11/10/2025 7:45 AM EST - 11/10/2025 11:10 AM EST Surgery PAV A OPERATING ROOM [address] [place] [address] Gema Thompson MD [address] [address] ENUCLEATION, PROSTATE, TRANSURETHRAL, USING HOLMIUM LASER ( HOLEP ) AND CYSTOLITHOLAPAXY [64121 (CPT )] 12/13/2025 10:15 AM EST Office Visit [facility] [address], 2[address] [place] [address] Gema Thompson MD [address] [place] [address] 12/27/2025 2:40 PM EST Office Visit [facility] [place] Daniel [address] [place] [address] Kevin Castañeda MD [address] [place] [address] Scheduled Procedures Name Priority Associated [...] documented as of this encounter Care Teams Campaign Fundraiser Relationship Specialty Start Date End Date Orlin Elizabeth MD [address] [facility] [address] [place] [address] PCP - General Family Medicine 11/25/22 Josseline Longo PA [address] [facility] [address] [place] [address] Physician Wet End Supervisor Neurology 08/16/21 Jess Hawk APRN [address] [place] [address] Nurse Practitioner Cardiology 06/01/24 Rafaela Brantley, PharmD [address] [place] [address] Pharmacist Pharmacy 06/03/24 Jovana Wetzel, PharmD [address] [place] [phone] Pharmacist Pharmacy 06/13/24 Skyla Mai PA [address] [facility] [address] [place] [address] Physician Wet End Supervisor Urology 03/20/25 documented as of this encounter
--- OUTSIDE RECORDS SUMMARY | 2025-09-22 09:45 | XMS_ITS | Encounter Summary ---
Author Organization [facility] Address [address] [place] [address] Care Team Providers Care Hospital Internship Name Role Phone Josseline Longo Unavailable [phone] Orlin Elizabeth MD Primary Care Provider Jess Hawk AGRICULTURE SALES ACCOUNT MANAGER Unavailable [phone] Rafaela Brantley PharmD Unavailable [phone] Jovana Wetzel PharmD Unavailable + Skyla Mai PA Unavailable [phone] Encounter Details Date Type Department Care Team (Late st Contact Info) Description 08/24/2025 Orders Only [facility] [address] [place] [address] Rafaela Brantley, PharmD [address] [place] [address] group home current use of anticoagulant therapy (Primary Dx); Anticoagulation management encounter Social History [...] time in the past 12 m [facility], were you homeless or living in a snf (including now)? No 04/20/2025 Safety and Environment [...] drink first t jorge in the morning (EYE-MAP DRAFTER) to steady your nerves or to get [...] file Travel History Travel Start Travel End [place] 09/02/2025 09/02/2025 documented as of this encounter Miscellaneous Notes * Progress Notes - Rafaela Brantley PharmD - 08/24/2025 9:14 AM EDT Standing PT/INR order placed for [facility] lab today, 08/24/25 (count #[id number]; exp 08/24/26) per patient request. The Anticoagulation [facility] will follow INR results and adjust warfarin as needed. Rafaela Brantley PharmD, BCACP, CACP [facility] documented in this encounter Plan of Treatment Upcoming Encounters Date Type Department Care Team (Late st Contact Info) Description 09/29/2025 11:00 AM EST Office Visit [facility] [address] [place] [phone] Orlin Elizabeth MD [address] [facility] [address] [place] [phone] 10/27/2025 9:00 AM EST Clinical Support [facility] Clinic Lab [address] [place] [address] 11/10/2025 7:45 AM EST Hospital Encounter [facility] RO[facility] [address] [place] [address] Gema Thompson MD [address] [address] 11/10/2025 7:45 AM EST - 11/10/2025 11:10 AM EST Surgery [facility]PERATING ROOM [address] [place] [address] Gema Thompson MD [address] [facility] [address] [place] [address] ENUCLEATION, PROSTATE, TRANSURETHRAL, USING HOLMIUM LASER ( HOLEP ) AND CYSTOLITHOLAPAXY [94371 (CPT )] 12/13/2025 10:15 AM EST Office Visit [facility] Urology [address] [place] [address] Gema Thompson MD [address] [facility] [address] [place] [address] 12/27/2025 2:40 PM EST Office Visit [facility] [address] [facility] [place] [address] Kevin Castañeda MD [address] [place] [address] Scheduled Procedures Name Priority Associated Diagnoses Date/Ti me ENUCLEATION, PROSTATE, TRANSURETHRAL, USING HOLMIUM LASER Benign prostatic hyperplasia with nocturia 11/10/2025 7:45 AM EST documented as of this encounter Goals Goal Patient Goal Type Associated Problems Recent Progress Patient-Stated? Author Autogenerat ed Goal Care Plan Autogenerated Problem No Lizzie Jessica documented as of this encounter Results * (ABNORMAL) Protime-INR (08/24/2025 3:55 PM EDT) Prothrombin Time 26.4(H) 12.0 - 14.3 sec LAB COAGULATION METHOD 08/24/2025 5:49 PM EDT [facility] INR 2.4(H) 0.9 - 1.1 LAB COAGULATION METHOD 08/24/2025 5:49 PM EDT [facility] Blood Venous blood specimen / Unknown Venipuncture / Unknown 08/24/2025 3:55 PM EDT 08/24/2025 3:56 PM EDT Narrative [facility] - 08/24/2025 5:49 PM EDT OPTIMAL INR RANGES FOR PATIENT ON ORAL ANTICOAGULANT THERAPY Prevention of venous thromboembolism INR 2.0 to 3.0 In patients with heart disease: Atrial fibrillation INR 2.0 to 3.0 Valvular heart disease INR 2.0 to 3.0 Tissue heart valves INR 2.0 to 3.0 Mechanical prosthetic valves INR 2.5 to 3.5 Prevention of recurrent [place] INR 2.5 to 3.5 us Jess Hawk APRN LAB BLOOD ORDERABLES Final Result [facility] [address] [place] [address] documented in this encounter Visit Diagnoses Diagnosis Benign prostatic hyperplasia with nocturia- Primary terminal clerk current use of anticoagulant therapy- Primary Anticoagulation management encounter Encounter for therapeutic drug monitoring Benign prostatic hyperplasia with nocturia documented in this encounter Additional Health Concerns Active Problems Noted Date Diagnosed Date Autogenerated Problem 08/03/2025 Infection Onset Date Last Indicated Resolved Time MRSA Comment: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 Source: [facility]. 10/19/2014 MRSA Escalation Plan Comment:MRSA Escalation [...] documented as of this encounter Care Teams Hospital Internship Relationship Specialty Start Date End Date Orlin Elizabeth MD [address] [facility] [address] [place] [address] PCP - General Family Medicine 11/25/22 Josseline Longo PA [address] [facility] [address] [place] [address] Physician Newspaper Journalist Neurology 08/16/21 Jess Hawk APRN [address] [place] [address] Nurse Practitioner Cardiology 06/01/24 Rafaela Brantley, PharmD [address] [place] [phone] Pharmacist Pharmacy 06/03/24 Jovana Wetzel, iLssaD [address] [place] [phone] Pharmacist Pharmacy 06/13/24 Skyla Mai PA [address] [place] [address] Physician Newspaper Journalist Urology 03/20/25 documented as of this encounter
--- OUTSIDE RECORDS SUMMARY | 2025-09-22 09:46 | XMS_ITS | Encounter Summary ---
Author Organization [facility] Address [address] [place] [address] Care Team Providers Care Top And Seat Cover Fitter Name Role Phone Josseline Longo Unavailable [phone] Orlin Elizabeth MD Primary Care Provider Jess Hawk HANDKERCHIEF MAKER Unavailable [phone] Rafaela Brantley PharmD Unavailable [phone] Jovana Wetzel PharmD Unavailable + Skyla Mai PA Unavailable [phone] Encounter Details Date Type Department Care Team (Late st Contact Info) Description 09/12/2025 Telephone [facility] [address] [place] [address] Gema Thompson MD [address] [place] [address] Social History Tobacco Use [...] drink first t jorge in the morning (EYE-BATH MIX OPERATOR) to steady your nerves or to [...] file Travel History Travel Start Travel End [place] 09/02/2025 09/02/2025 documented as of this encounter Plan of Treatment Upcoming Encounters Date Type Department Care Team (Late st Contact Info) Description 09/29/2025 11:00 AM EST Office Visit [facility] Medicine [address] [place] [address] Orlin Elizabeth MD [facility] [address] [address] 10/27/2025 9:00 AM EST Clinical Support [facility] [address] [place] [address] 11/10/2025 7:45 AM EST Hospital Encounter PAV A OPERATING ROOM [address] [place] [address] Gema Thompson MD [address] [place] [phone] 11/10/2025 7:45 AM EST - 11/10/2025 11:10 AM EST Surgery [facility]PERATING ROOM [address] [place] [address] Gema Thompson MD [address] [place] [phone] ENUCLEATION, PROSTATE, TRANSURETHRAL, USING HOLMIUM LASER ( HOLEP ) AND CYSTOLITHOLAPAXY [18010 (CPT )] 12/13/2025 10:15 AM EST Office Visit [facility] [address] [place] [address], [address] [place] [address] Gema Thompson MD [address] [place] [phone] 12/27/2025 2:40 PM EST Office Visit [facility] [place] [facility] [address] [facility]. [address] [place] [address] Kevin Castañeda MD [address] [place] [address] Scheduled Orders Name Type Priority Associated Diagnoses Orde r Schedule Urine Culture - Lab Collect Microbiology Routine BPH with obstruction/lower urinary tract symptoms Expected: 09/12/2025 (Approximate), Expires: 03/16/2027 Scheduled Procedures Name Priority Associated Diagnoses Date/Ti me ENUCLEATION, PROSTATE, TRANSURETHRAL, USING HOLMIUM LASER Benign prostatic hyperplasia with nocturia 11/10/2025 7:45 AM EST documented as of this encounter Goals Goal Patient Goal Type Associated Problems Recent Progress Patient-Stated? Author Autogenerat ed Goal Care Plan Autogenerated Problem Lizzie Ferrara documented as of this encounter Visit Diagnoses Diagnosis Benign prostatic hyperplasia with nocturia- Primary BPH with obstruction/lower urinary tract symptoms- Primary Benign prostatic hyperplasia with nocturia documented in this encounter Additional Health Concerns Active Problems Noted Date Diagnosed Date Autogenerated Problem 08/03/2025 Infection Onset Date Last Indicated Resolved Time MRSA Comment: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 Source: [facility]. 10/19/2014 MRSA Escalation Plan Comment:MRSA [...] documented as of this encounter Care Teams Top And Seat Cover Fitter Relationship Specialty Start Date End Date Orlin Elizabeth MD [address] [facility] [address] [place] [phone] PCP - General Family Medicine 11/25/22 Josseline Longo PA [address] [facility] [address] [place] [address] Physician Manager Relationship Neurology 08/16/21 Jess Hwak APRN [address] [place] [address] Nurse Practitioner Cardiology 06/01/24 Rafaela Brantley, PharmD [address] [place] [address] Pharmacist Pharmacy 06/03/24 Jovana Wetzel, PharmD [address] [place] [address] Pharmacist Pharmacy 06/13/24 Skyla Mai PA [address] [facility] [address] [place] [address] Physician Manager Relationship Urology 03/20/25 documented as of this encounter
--- OUTSIDE RECORDS SUMMARY | 2025-09-22 09:46 | XMS_ITS | Clinical Summary ---
Author Organization [facility] Address [address] [place] [address] Care Team Providers Care Brand Engineer Name Role Phone Josseline Longo Unavailable [phone] Orlin Elizabeth MD Primary Care Provider Jess Hawk CORPORATE CONCIERGE Unavailable [phone] Rafaela Brantley PharmD Unavailable [phone] Jovana Wetzel PharmD Unavailable + Skyla Mai PA Unavailable [phone] Allergies No known active allergies Medications [...] night. 90 tablet 3 06/20/20 24 Active metoprolol succinate XL (Toprol-XL) 100 [...] 25 Active atorvastatin (Lipitor) 40 MG tablet TAKE 1 TABLET BY MOUTH DAILY 30 tablet 08/14/20 25 Active primidone (Mysoline) 50 MG tablet Take 2 tablets by mouth 2 times a day. 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 2023 Hyperthyroidism 03/18/2024 Bilateral swelling of feet and ankles 03/03/2024 Low blood pressure reading 02/19/2024 Shortness of breath 01/24/2024 At high risk for falls 03/03/2023 Primary osteoarthritis of left hip 08/16/2021 Left hip pain 06/20/2019 Overview (08/16/2021): Added automatically from request for surgery [id number] Obstructive sleep apnea 12/29/2018 BPH with obstruction/lower urinary tract symptom s 12/30/2017 Lower urinary tract symptoms (LUTS) 07/20/2017 Ganglion cyst 09/05/2016 History of hip replacement, total 10/11/2015 Essential tremor 08/03/2015 Occasional tremors 04/27/2015 Acute systolic congestive heart failure 10/25/20 14 Cardiomyopathy 10/24/2014 Primary osteoarthritis of right hip 10/23/2014 Resolved Problems Problem Noted Date Diagnosed Date Resolved Date Atrial fibrillation, unspecified type 03/15/2024 03/18/2024 Excessive daytime sleepiness 12/07/2018 05/03/2024 Snoring 12/07/2018 05/03/2024 History of repair of hip joint 10/23/2014 07/30/2025 Encounters * This document contains information received from the source organization and may not represent a complete record from that organization. Date Type Department Care Team Description 09/14/2025 Telephone [facility] Urology [address], [address] [place] [address] Gema Thompson MD 09/12/2025 Telephone [facility] Urology [address], [address] [place] [address] Gema Thompson MD 09/11/2025 Travel 08/25/2025 Anticoagulation - Warfarin Visit [facility] [address] [place] [address] Rafaela Brantley, PharmD termite renewal inspector (current) use of anticoagulants (Primary Dx); Anticoagulation management encounter 08/24/2025 3:30 PM EDT Office Visit [facility] [address], 1st [place] [address] Josseline Longo PA Essential tremor (Primary Dx) 08/24/2025 Travel 08/24/2025 Orders Only [facility] [address] [place] [address] Rafaela Brantley, PharmD termite renewal inspector current use of anticoagulant therapy (Primary Dx); Anticoagulation management encounter 08/09/2025 Refill [facility] [address] [place] [address] Orlin Elizabeth MD 08/02/2025 6:00 PM EDT Immunization [facility] Pharmacist Care Team [address] [place] [address] Flu vaccine need (Primary Dx); Need for COVID-19 vaccine 08/02/2025 Telephone [facility] Urology [address], [address] [place] [address] Gema Thompson MD 08/02/2025 Travel 07/27/2025 Anticoagulation - Warfarin Visit [facility] [address] [place] [address] Rafaela Brantley, PharmD senior living (current) use of anticoagulants (Primary Dx); Anticoagulation management encounter 07/13/2025 Anticoagulation - Warfarin Visit [facility] [address] [place] [address] Jovana Wetzel, PharmD senior living (current) use of anticoagulants (Primary Dx); Anticoagulation management encounter 07/11/2025 Telephone [facility] Urology [address] [place] [address] Gema Thompson MD 07/07/2025 Orders Only [facility] Urology [address], [address] [place] [address] Skyla Mai PA Urinary tract infection without hematuria, site unspecified (Primary Dx); Suspected UTI 07/07/2025 Results [facility] [address], [address] [place] [address] Skyla Mai PA 07/07/2025 Results Follow-Up [facility] Urology [address], [address] [place] [address] Skyla Mai PA 07/05/2025 1:45 PM EDT Office [facility] [address], [address] [place] [address] Gema Thompson MD Benign prostatic hyperplasia with nocturia (Primary Dx); Suspected UTI; Incomplete bladder emptying; Other urinary incontinence 07/05/2025 11:38 AM EDT - 07/05/2025 11:59 PM EDT Hospital Encounter [facility] [address]nd [place] [address] Benign prostatic hyperplasia with nocturia; Incomplete bladder emptying Discharge Disposition: Home or Self Care 07/05/2025 Travel 07/04/2025 Travel 06/23/2025 Refill [facility] [address] [place] [address] Orlin Elizabeth MD 06/23/2025 Refill [facility] [place] [address] [place] [address] Kevin Castañeda MD Atrial fibrillation, unspecified type ([facility]/HCC) from Last 3 Months Immunizations Immunization Administration Dates Next Due Influenza, High-dose, Split Virus, Trivalent, Injectable, preservative free 08/02/2025 Influenza, Unspecified 08/17/2020,2018,08/09/2018,2016,08/11/2016,08/13/2015,09/04/2014 Influenza, high-dose, quadrivalent 11/20/2023, Influenza, injectable, quadr ivalent, preservative free 09/09/2021 Influenza, seasonal, injecta ble, preservative free 08/24/2024 MMR 04/14/2014 Moderna Covid-19 Vaccine 12y +, Flavio Protein, Preservative free 11/20/2023 PPD Skin Test (TB Skin Test) 2012, 12/23/2011,06/04/2010,2008,01/28/2008,01/13/2007,12/30/2006,0 06/08/2002 Pfizer Covid-19 Vaccine 12y+ , Flavio Protein, PF, Tian-Sucrose 08/02/2025,08/24/2024 [facility] COVID-19 Vac cine (Purple Cap) 12+ 11/20/2020 Pneumococcal Conjugate PCV 13 11/21/2022 Tdap 04/14/2014,02/14/2009 Family History Medical History Relation Name Comments Cancer Father Marco A Diabetes Father Marco A Heart attack Father Marco A Heart disease Father Marco A Nephrolithiasis Father Marco A Obesity Father Marco A arteriosclerotic cardiovascular disease Father Dana lymassiel Alzheimer's disease Mother Aiyana Hope Diabetes Mother Aiyana Hope Relation Name Status Comments Father Marco A Mother Aiyana Hope Social History Tobacco Use Types Packs/Day Years [...] [facility] the [facility] were you [facility] or living [...] drink first t jorge in the morning (EYE-FACSIMILE MACHINE OPERATOR) to steady your nerves or [...] file Travel History Travel Start Travel End [place] 09/02/2025 09/02/2025 Last Filed Vital Signs Vital Sign Reading Time Taken Comments Blood Pressure 94/62 08/24/2025 3:24 PM EDT Pulse 54 08/24/2025 3:24 PM EDT Temperature 36.9 C (98.4 F) 07/05/2025 1:19 PM EDT Respiratory Rate 18 06/17/2025 2:20 PM EDT Oxygen Saturation 96% 08/24/2025 3:24 PM EDT Inhaled Oxygen Concentration - - Weight 82.4 kg (181 lb 10.5 oz) 08/24/2025 3:24 PM EDT Height 180.3 cm (5' 10.98 ) 08/24/2025 3:24 PM E DT Body Mass Index 25.35 08/24/2025 3:24 PM EDT Plan of Treatment Upcoming Encounters Date Type Department Care Team (Late st Contact Info) Description 09/29/2025 11:00 AM EST Office Visit [facility] [address] [place] [address] Orlin Elizabeth MD [address] [place] [address] 10/27/2025 9:00 AM EST Clinical Support [facility] [address] [place] [address] 11/10/2025 7:45 AM EST Hospital Encounter [facility] [address] [place] [address] Gema Thompson MD [address] [phone] 11/10/2025 7:45 AM EST - 11/10/2025 11:10 AM EST Surgery [facility] [address] [place] [address] Gema Thompson MD [address] [address] ENUCLEATION, PROSTATE, TRANSURETHRAL, USING HOLMIUM LASER ( HOLEP ) AND CYSTOLITHOLAPAXY [69779 (CPT )] 12/13/2025 10:15 AM EST Office Visit [facility] [address], [address] [place] [address] Geam Thompson MD [address] [address] 12/27/2025 2:40 PM EST Office Visit [facility] [place] [address] [place] [address] Kevin Castañeda MD [address] [place] [address] Scheduled Procedures Name Priority Associated Diagnoses Date/Ti me ENUCLEATION, PROSTATE, TRANSURETHRAL, USING HOLMIUM LASER Benign prostatic hyperplasia with nocturia 11/10/2025 7:45 AM EST Health Maintenance Due Date Last Done Comments CT Colonography 1999 FIT 1999 FOBT 1999 Sigmoidoscopy 1999 [facility]-Zoster Vaccines (1 of 2) 2004 [facility]-RSV Vaccine: 60+ Years or (1 - Risk 60-74 years 1-dose series) 2014 [facility]-Pneumococcal Vaccine: 50+ Years (2 of 2 - PPSV23, PCV20, or PCV21) 01/16/2023 11/21/2022 [facility]-DTaP,Tdap,and Td Vaccines (3 - Td or Tdap) 04/14/2024 04/14/2014, 02/14/2009 [facility]- SDOH Screenings 10/20/2025 [facility]-Adult SDOH Screenings 10/20/2025 04/20/2025 [facility]-/Child/Adol SDOH Screenings 10/20/2025 04/20/2025 FIT-DNA 12/03/2025 12/03/2022 [facility]-PVOEA-14 Vaccine ( season) 2026 08/02/2025, 08/24/2024, 11/20/2023, Additional history exists Colonoscopy 03/02/2026 03/03/2023 [facility]-Colorectal Cancer Screening 03/02/2026 [facility]-Diabetes: Hemoglobin A1C 04/20/202610/2025, 02/19/2024, 11/20/2023, Additional history exists [facility]-Depression Screening 07/05/2026 07/05/2025, 06/10 [facility]-Hepatitis C Screening Completed 03/15/2024 [facility]-Influenza Vaccine Completed 08/02/2025 , 08/24/2024, 11/20/2023, Additional history exists [facility]-Obesity Intervention Completed 025, 08/24/2025, 07/27/2025, Additional history exists HPV Vaccines Aged Out [...] Procedure Name Priority Date/Time Associated Diagnosis Comments PROTHROMBIN TIME(PT) / INR Routine 08/24/2025 3:55 PM EDT senior living current use of anticoagulant therapy EXTERNAL PROTHROMBIN TIME (PT)/INR Routine 07/27/2025 EXTERNAL PROTHROMBIN TIME (PT)/INR Routine 07/13/2025 URINE CULTURE Routine 07/05/2025 2:00 PM EDT Suspected UTI POC US BLADDER SCAN FOR VOLUME Routine 07/05/2025 1:24 PM EDT Benign prostatic hyperplasia with nocturia CT RENAL STONE WO IV CONTRAST Routine 07/05/2025 11:54 AM EDT Benign prostatic hyperplasia with nocturia Incomplete bladder emptying HEMOGLOBIN A1C Routine 04/20/2025 11:28 AM EDT Prediabetes HEPATITIS C ANTIBODY - ED W/REFLEX TO HCV QUANT PCR STAT 03/15/2024 12:27 PM EDT COLONOSCOPY Routine 03/03/2023 1:33 PM EDT Screening for colon cancer LAB COLOGUARD COLON CANCER SCREEN Routine 12/03/2022 7:30 AM EST Screening for colon cancer from Last 3 Months or Most Recently Relevant to Health Maintenance Results * (ABNORMAL) Protime-INR (08/24/2025 3:55 PM EDT) Prothrombin Time 26.4(H) 12.0 - 14.3 sec LAB COAGULATION METHOD 08/24/2025 5:49 PM EDT [facility] INR 2.4(H) 0.9 - 1.1 LAB COAGULATION METHOD 08/24/2025 5:49 PM EDT [facility] Blood Venous blood specimen / Unknown Venipuncture / Unknown 08/24/2025 3:55 PM EDT 08/24/2025 3:56 PM EDT Narrative [facility] - 08/24/2025 5:49 PM EDT OPTIMAL INR RANGES FOR PATIENT ON ORAL ANTICOAGULANT THERAPY Prevention of venous thromboembolism INR 2.0 to 3.0 In patients with heart disease: Atrial fibrillation INR 2.0 to 3.0 Valvular heart disease INR 2.0 to 3.0 Tissue heart valves INR 2.0 to 3.0 Mechanical prosthetic valves INR 2.5 to 3.5 Prevention of recurrent WI INR 2.5 to 3.5 us Jess Hawk APRN LAB BLOOD ORDERABLES Final Result Performing Organization Address City/[facility]/ZIP Co de Phone Number [facility] [address] [place] [address] * External Prothrombin Time (PT)/INR (07/27/2025) Only the most recent of2 resultswithin the time period is included. External INR - Internormal Ratio 2.91 EXTERNAL LAB External Prothrombin Time (PT) EXTERNAL LAB Blood Venous blood specimen / Unknown 07/27/2025 us Historical Provider POINT OF CARE TEST ENTER/MAKENNA T ORDERABLES Final Result Performing Organization Address [facility] Co de Phone Number EXTERNAL LAB * (ABNORMAL) Urine Culture - Clinic Collect (07/05/2025 2:00 PM EDT) Culture >=100,000 CFU/mL - Biotype 1 Staphylococcus coagulase negative(A) 07/07/2025 11:05 AM EDT [facility] Culture >=100,000 CFU/mL - Biotype 2 Staphylococcus coagulase negative(A) 07/07/2025 11:05 AM EDT [facility] Urine Urine specimen obtained by clean catch procedure / Unknown Non-blood Collection / Unknown 07/05/2025 2:00 PM EDT 07/05/2025 5:35 PM EDT us Skyla MAHONEY LAB MICROBIOLOGY - GENERAL ORD ERABLES Final Result Performing Organization Address City/[facility]/ZIP Co de Phone Number [facility] [address] [place] [address] * POC US Bladder Volume (07/05/2025 1:24 [...] IMG CT PROCEDURES Final Result * (ABNORMAL) Hemoglobin A1c (04/20/2025 11:28 AM EDT) Hemoglobin A1c 6.0(H) <5.7 % 04/20/2025 6:55 PM EDT [facility] Blood Venous blood specimen / Unknown Venipuncture / Unknown 04/20/2025 11:28 AM EDT 04/20/2025 11:28 AM EDT Narrative [facility] - 04/20/2025 6:55 PM EDT HA1C Interpretive Data: Diagnosis of Diabetes: Diabetic > or = 6.5% Pre-diabetic 5.7 to 6.4% Non-diabetic < or = 5.6% Glycemic Targets for Type I and Type II Diabetics: Non- Adults <7.0% Adults <6.0% Children and Adolescents <7.5% Source: [place] [employer] Association. Standards of medical care in diabetes,2017. Diabetes Care.2017:40 (suppl 1):S1-S135. Orlin Elizabeth MD LAB BLOOD ORDERABLES Fi nal Result [facility] [address] [place] [address] * Hepatitis C Antibody - ED (03/15/2024 12:27 PM EDT) Hepatitis C Antibody Negative Negative 03/15/2024 1:32 PM EDT [facility] Blood Venous blood specimen / Unknown Venipuncture / Unknown 03/15/2024 12:27 PM EDT 03/15/2024 12:47 PM EDT us Alan Zuniga MD LAB BLOOD ORDERABLES Fi nal Result [facility] [address] [place] [address] * Colonoscopy (03/03/2023 1:33 PM EDT) Anatomical [...] Ramona Barry MD Proceduralist Kerri Campos Endo Furniture Mover Driver PEBBLES Cain CRNA, MD Proceduralist Duy Ayala No role selected [...] of bowel preparation was evaluated using the [place] Bowel Preparation Scale with scores of: right [...] colon The cecum and rectum appeared normal. us Orlin Elizabeth MD GI PROCEDURE ORDERABLES Final Result * (ABNORMAL) Cologuard?? colon cancer screening (12/03/2022 7:30 AM EST) Cologuard Positive( A) Negative 12/11/2022 1:29 PM EST [facility] (CLIA #:[id number]) Comment: POSITIVE TEST RESULT. A positive Cologuard [...] (Charo Cyr al, N Engl J Med 2014;370(14):7333-9918.) Cologuard may produce a false negative or false positive result (no colorectal cancer or precancerous polyp present at colonoscopy follow up). A negative Cologuard test result does not guarantee the absence of CRC or advanced adenoma (pre-cancer). The current Cologuard screening interval is every 3 years. ([place] Cancer Society and U.S. Multi-Society Task Force). Cologuard performance data in a 10,000 patient pivotal study using colonoscopy as the reference method can be accessed at the following location: www.[employer]/results. Additional description of the Cologuard test process, warnings and precautions can be found at www.[employer]. Stool specimen (specimen) 12/03/2022 7:30 AM EST 12/04/2022 1:08 PM EST Orlin Elizabeth MD LAB MOLECULAR DIAGNOSTI CS ORDERABLES Final Result [facility] (CLIA #:[id number]) [address] [place] [address], from Last 3 Months or Most Recently Relevant to Health Maintenance Additional Health Concerns Active Problems Noted Date Diagnosed Date Autogenerated Problem 08/03/2025 Infection Onset Date Last Indicated MRSA Comment: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 Source: [facility]. 10/19/2014 MRSA Escalation Plan [...] Patient has decision-making capacity? Yes Care Teams Brand Engineer Relationship Specialty Start Date End Date Orlin Elizabeth MD [address] [place] [address] PCP - General Family Medicine 11/25/22 Josseline Longo PA [address] [place] [address] Physician Weight Checker Neurology 08/16/21 Jess Hawk APRN [address] [place] [address] Nurse Practitioner Cardiology 06/01/24 Rafaela Brantley, PharmD [address] [place] [address] Pharmacist Pharmacy 06/03/24 Jovana Wetzel, PharmD [address] [place] [address] Pharmacist Pharmacy 06/13/24 Skyla Mai PA [address] [place] [address] Physician Weight Checker Urology 03/20/25
--- OUTSIDE RECORDS SUMMARY | 2025-09-22 09:46 | XMS_ITS | Encounter Summary ---
Author Organization [facility] Address [address] [place] [address] Care Team Providers Care Social Media Intern Name Role Phone Josseline Longo Unavailable [phone] Orlin Elizabeth MD Primary Care Provider Jess Hawk SOCIETY REPORTER Unavailable [phone] Rafaela Brantley PharmD Unavailable [phone] Jovana Wetzel PharmD Unavailable + Skyla Mai PA Unavailable [phone] Encounter Details Date Type Department Care Team (Late st Contact Info) Description 09/14/2025 Telephone [facility] [address] [place] [address] Gema Thompson MD [address] [place] [address] Social History Tobacco Use Types [...] drink first t jorge in the morning (EYE-CYLINDER PRESS FEEDER) to steady your nerves or to get [...] file Travel History Travel Start Travel End [place] 09/02/2025 09/02/2025 documented as of this encounter Miscellaneous Notes * Telephone Encounter - Mary Rodriguez - 09/14/2025 8:44 AM EST Left message with patient to return call on direct line to give new lab appointment info documented in this encounter Plan of Treatment Upcoming Encounters Date Type Department Care Team (Late st Contact Info) Description 09/29/2025 11:00 AM EST Office Visit [facility] & [address] [address] Orlin Elizabeth MD [address] [facility] [address] [place] [address] 10/27/2025 9:00 AM EST Clinical Support [facility] [address] [place] [address] 11/10/2025 7:45 AM EST Hospital Encounter [facility] [address] [place] [address] Gema Thompson MD [address] [place] [address] 11/10/2025 7:45 AM EST - 11/10/2025 11:10 AM EST Surgery [facility] [address] [place] [address] Gema Thompson MD [address] [place] [address] ENUCLEATION, PROSTATE, TRANSURETHRAL, USING HOLMIUM LASER ( HOLEP ) AND CYSTOLITHOLAPAXY [54837 (CPT )] 12/13/2025 10:15 AM EST Office Visit [facility] [address], [address] [place] [address] Gema Thompson MD [address] [address] 12/27/2025 2:40 PM EST Office Visit [facility] [address] [facility] [place] [address] Kevin Castañeda MD [address] [place] [address] Scheduled Procedures Name Priority Associated [...] documented as of this encounter Care Teams Social Media Intern Relationship Specialty Start Date End Date Orlin Elizabeth MD [address] [place] [address] PCP - General Family Medicine 11/25/22 Josseline Longo PA [address] [facility] [address] [place] [address] Physician Oim Consultant Neurology 08/16/21 Jess Hawk APRN [address] [place] [address] Nurse Practitioner Cardiology 06/01/24 Rafaela Brantley, PharmD [address] [place] [address] Pharmacist Pharmacy 06/03/24 Jovana Wetzel, PharmD [address] [place] [address] Pharmacist Pharmacy 06/13/24 Skyla Mai PA [id number] [place] [address] Physician Oim Consultant Urology 03/20/25 documented as of this encounter
--- OUTSIDE RECORDS SUMMARY | 2025-09-22 09:46 | XMS_ITS | Encounter Summary ---
Author Organization Address [address] [place] [address] Care Team Providers Care Metal Technician Name Role Phone Josseline Longo Unavailable [phone] Orlin Elizabeth MD Primary Care Provider Jess Hawk MOLD SHEET CLEANER Unavailable [phone] Rafaela Brantley PharmD Unavailable [phone] Jovana Wetzel PharmD Unavailable + Skyla Mai PA Unavailable [phone] Encounter Details Date Type Department Care Team ([facility] Contact Info) Description 07/07/2025 Results Follow-Up Medical Office Building Urology [address] [facility], [address] [place] [address] Skyla Mai PA [address] [place] [address] Social History Tobacco Use [...] drink first t jorge in the morning (EYE-TABLE GAMES MANAGER) to steady your nerves or to [...] file Travel History Travel Start Travel End [place] 09/02/2025 09/02/2025 documented as of this encounter Plan of Treatment Upcoming Encounters Date Type Department Care Team (Late st Contact Info) Description 09/29/2025 11:00 AM EST Office Visit [facility] [address] [place] [address] Orlin Elizabeth MD [address] [address] 10/27/2025 9:00 AM EST Clinical Support [facility] [address], 2nd [place] [address] 11/10/2025 7:45 AM EST Hospital Encounter [facility] A OPERATING ROOM [address] [place] [address] Gema Thompson MD [address] [place] [address] 11/10/2025 7:45 AM EST - 11/10/2025 11:10 AM EST Surgery PAV A OPERATING ROOM [address] [place] [address] Gema Thompson MD [address] [place] [address] ENUCLEATION, PROSTATE, TRANSURETHRAL, USING HOLMIUM LASER ( HOLEP ) AND CYSTOLITHOLAPAXY [91290 (CPT )] 12/13/2025 10:15 AM EST Office Visit [facility] [address] [place] [address], 2nd [place] [address] Gema Thompson MD [address] [place] [address] 12/27/2025 2:40 PM EST Office Visit [facility] [place] [facility] [address] [facility] [place] [address] Kevin Castañeda MD [address] [place] [address] Scheduled Procedures Name Priority Associated Diagnoses Date/Ti me ENUCLEATION, PROSTATE, TRANSURETHRAL, USING HOLMIUM LASER Benign prostatic hyperplasia with nocturia 11/10/2025 7:45 AM EST documented as of this encounter Visit Diagnoses Not on filedocumented in this encounter Additional Health Concerns Infection Onset Date Last Indicated Resolved Time MRSA Comment: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 Source: [facility]. 10/19/2014 MRSA Escalation Plan Comment:MRSA Escalation [...] documented as of this encounter Care Teams Metal Technician Relationship Specialty Start Date End Date Orlin Elizabeth MD [address] [facility] [address] [place] [address] PCP - General Family Medicine 11/25/22 Josseline Longo PA [address] [place] [address] Physician Any Commodity Buyer Neurology 08/16/21 Jess Hawk APRN [address] [place] [address] Nurse Practitioner Cardiology 06/01/24 Rafaela Brantley, PharmD [address] [place] [address] Pharmacist Pharmacy 06/03/24 Jovana Wetzel, PharmD [address] [place] [address] Pharmacist Pharmacy 06/13/24 Skyla Mai PA [address] [place] [address] Physician Any Commodity Buyer Urology 03/20/25 documented as of this encounter
--- OUTSIDE RECORDS SUMMARY | 2025-09-22 09:46 | XMS_ITS | Encounter Summary ---
Author Organization [facility] Address [address] [place] [address] Care Team Providers Care Travel Freight And Passenger Agent Name Role Phone Sherrie Elam MD Primary Care Provider [phone] Josseline Longo Unavailable [phone] Orlin Elizabeth MD Primary Care Provider Jess Hawk PAPER FOLDING MACHINE OPERATOR Unavailable [phone] Rafaela Brantley PharmD Unavailable [phone] Jovana Wetzel PharmD Unavailable + Skyla Mai PA Unavailable [phone] Reason for Visit * Reason Comments Med Refill Encounter Details Date Type Department Care Team (Late st Contact Info) Description 04/19/2021 [facility]ill [place] [facility] [address], 1st [place] [address] Josseline Longo PA [address] [place] [address] Social History Tobacco Use Types [...] file Travel History Travel Start Travel End [place] 09/02/2025 09/02/2025 documented as of this encounter Plan of Treatment Upcoming Encounters Date Type Department Care Team (Late st Contact Info) Description 09/29/2025 11:00 AM EST Office Visit [facility] [address] [place] [address] Orlin Elizabeth MD [address] [place] [address] 10/27/2025 9:00 AM EST Clinical Support [facility] Lab [address], 2nd [place] [address] 11/10/2025 7:45 AM EST Hospital Encounter PAV A OPERATING ROOM [address] [place] [address] Gema Thompson MD [id number] [place] [address] 11/10/2025 7:45 AM EST - 11/10/2025 11:10 AM EST Surgery PAV A OPERATING ROOM [address] [place] [address] Gema Thompson MD [address] [facility] [address] [place] [address] ENUCLEATION, PROSTATE, TRANSURETHRAL, USING HOLMIUM LASER ( HOLEP ) AND CYSTOLITHOLAPAXY [29149 (CPT )] 12/13/2025 10:15 AM EST Office Visit [facility] Urology [address], 2nd [place] [address] Gema Thompson MD [address] [place] [address] 12/27/2025 2:40 PM EST Office Visit [facility] [place] [address] [place] [address] Kevin Castañeda MD [address] [place] [address] Scheduled Procedures Name Priority Associated Diagnoses Date/Ti me ENUCLEATION, PROSTATE, TRANSURETHRAL, USING HOLMIUM LASER Benign prostatic hyperplasia with nocturia 11/10/2025 7:45 AM EST documented as of this encounter Visit Diagnoses Not on filedocumented in this encounter Additional Health Concerns Infection Onset Date Last Indicated Resolved Time MRSA Comment: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 Source: [facility]. 10/19/2014 MRSA Escalation Plan Comment:MRSA Escalation Plan is in effect as of 2023. Patient will require contact precautions for the duration of the hospital admission. 03/17/2024 03/17/2024 documented as of this encounter Care Teams Travel Freight And Passenger Agent Relationship Specialty Start Date End Date Sherrie Elam MD [address] [place] [address] PCP - General Internal Medicine 08/16/21 11/24/22 Orlin Elizabeth MD [facility] [address] [place] [address] PCP - General Family Medicine 11/25/22 Josseline Longo PA [address] [place] [address] Physician Pharmacist Per Diem Neurology 08/16/21 Jess Hawk APRN [address] [place] [address] Nurse Practitioner Cardiology 06/01/24 Rafaela Brantley, PharmD [address] [place] [address] Pharmacist Pharmacy 06/03/24 Jovana Wetzel, PharmD [address] [place] [address] Pharmacist Pharmacy 06/13/24 Skyla Mai PA [address] [place] [address] Physician Pharmacist Per Diem Urology 03/20/25 documented as of this encounter
--- OUTSIDE RECORDS SUMMARY | 2025-09-22 09:46 | XMS_ITS | Encounter Summary ---
Author Organization [facility] Address [address] [place] [address] Care Team Providers Care Aquatics Specialist Name Role Phone Josseline Longo Unavailable [phone] Orlin Elizabeth MD Primary Care Provider Jess Hawk HEALTH SERVICES COORDINATOR Unavailable [phone] Rafaela Brantley PharmD Unavailable [phone] Jovana Wetzel PharmD Unavailable + Skyla Mai PA Unavailable [phone] Encounter Details Date Type Department Care Team (Late st Contact Info) Description 07/07/2025 Results Follow-Up [facility] [facility] [address], 2nd [place] [address] Skyla Mai PA [address] [place] [address] Social History Tobacco Use Types [...] in the past 12 m [facility], were you homeless or living in a [...] drink first t jorge in the morning (EYE-TICKET PRINTER AND TAGGER) to steady your nerves or to get rid of a hangover? 0 03/16/2024 CAGE Questionnaire Score 0 024 Utilities Answer Date Recorded In the past 12 months has th [employer] electric, gas, oil, or water company threatened [...] Description 09/29/2025 11:00 AM EST Office Visit [facility] Medicine [address] [place] [address] Orlin Elizabeth MD 2[address] [facility] 125 [place] [address] 10/27/2025 9:00 AM EST Clinical Support [facility] [address], 2nd [place] [address] 11/10/2025 7:45 AM EST Hospital Encounter PAV A OPERATING ROOM [address] [place] [address] Gema Thompson MD [address] [place] [address] 11/10/2025 7:45 AM EST - 11/10/2025 11:10 AM EST Surgery PAV A OPERATING ROOM [address] [place] [address] Gema Thompson MD [address] [place] [address] ENUCLEATION, PROSTATE, TRANSURETHRAL, USING HOLMIUM LASER ( HOLEP ) AND CYSTOLITHOLAPAXY [47700 (CPT )] 12/13/2025 10:15 AM EST Office Visit [facility] [address] [place] [address], 2nd [place] [address] Gema Thompson MD [address] [place] [address] 12/27/2025 2:40 PM EST Office Visit [facility] [place] [facility] [address] [facility]. [address] [place] [address] Kevin Castañeda MD [address] [place] [address] Scheduled Procedures Name Priority Associated Diagnoses Date/Ti [...] documented as of this encounter Care Teams Aquatics Specialist Relationship Specialty Start Date End Date Orlin Elizabeth MD [address] [facility] [address] [place] [address] PCP - General Family Medicine 11/25/22 Josseline Longo PA [address] [place] [address] Physician Search Advertising Strategist Neurology 08/16/21 Jess Hawk APRN [address] [place] [address] Nurse Practitioner Cardiology 06/01/24 Rafaela Brantley, PharmD [address] [place] [address] Pharmacist Pharmacy 06/03/24 Jovana Wetzel, PharmD [address] [place] [address] Pharmacist Pharmacy 06/13/24 Skyla Mai PA [address] [place] [address] Physician Search Advertising Strategist Urology 03/20/25 documented as of this encounter
--- OUTSIDE RECORDS SUMMARY | 2025-09-22 09:46 | XMS_ITS | Clinical Summary ---
Author Organization [facility] Address [address] [place] [address] Care Team Providers Care Ore Buyer Name Role Phone Shrerie Elam MD Primary Care Provider [phone] Allergies No known active allergies Medications lisinopril [...] Active MAGNESIUM PO Take by mouth. Active Plymouth-3 Fatty Acids (FISH OIL PO) Take by [...] (06/20/2019): Added automatically from request for surgery [id number] History of hip replacement, total 10/11/2015 Acute [...] this topic Medical Devices Implanted Type Area Inseam Trimming Machine Operator Device Identifier Shelf Expiration Date Model / Serial / Lot Hip Liner Neut 36 [id number] - [id number] Implanted:Qty: 1 on 10/23/2014 by Timur Rodriguez MD at [facility] Hips Right: Hip DAY 06/09/2019 [id number] / / [id number] Hip Shell Uni 56 [id number] - [id number] Implanted:Qty: 1 on 10/23/2014 by Timur Rodriguez MD at [facility] Hips Right: Hip DAY 08/09/2024 [id number] / / [id number] Hip Stem Taper 11 [id number] - [id number] Implanted:Qty: 1 on 10/23/2014 by Timur Rodriguez MD at [facility] Hips Right: Hip DAY 08/09/2024 [id number] / / [id number] Hip Fem Head 36 [id number] - [id number] Implanted:Qty: 1 on 10/23/2014 by Timur Rodriguez MD at [facility] Hips Right: Hip DAY 08/09/2023 [id number] / / [id number] Hip Capt High Demand Day - [id number] Implanted:Qty: 1 on 10/23/2014 by Timur Rodriguez MD at [facility] Hips DAY HIPHIGHZIMMER / / Hip Capt Vit E Biomet - [id number] Implanted:Qty: 1 on 07/18/2019 by Timur Rodriguez MD at [facility] Hips [employer] [id number] / / Hip Shell 56 [id number] - [id number] Implanted:Qty: 1 on 07/18/2019 by Timur Rodriguez MD at [facility] Hips Left: Hip [employer] 04/24/2029 [id number] / / [id number] Hip Liner Acet 36 [id number] - [id number] Implanted:Qty: 1 on 07/18/2019 by Timur Rodriguez MD at [facility] Hips Left: Hip [employer] 03/05/2024 [id number] / / [id number] Hip Fem Stem 5 [id number] - [id number] Implanted:Qty: 1 on 07/18/2019 by Timur Rodriguez MD at [facility] Hips Left: Hip DAY 09/08/2023 [id number] / / [id number] Hip Fem Head 36 [id number] - [id number] Implanted:Qty: 1 on 07/18/2019 by Timur Rodriguez MD at [facility] Hips Left: Hip DAY 05/08/2029 [id number] / / [id number] Hip Dome Plug [id number] - [id number] Implanted:Qty: 1 on 10/23/2014 by Timur Rodriguez MD at [facility] OTHER - IMPLANTS - ORTHOPAEDIC Right: Hip DAY 08/09/2024 [id number] / / [id number] Additional Health Concerns Infection Onset Date Last Indicated MRSA Comment:Right hand, date unknown 10/19/2014 10/19/2014 MRSA (+) Screen Comment:07/01/19 07/02/2019 07/02/2019 Insurance ARABELLA Member Subscriber Plan / Payer (Ef fective 2013-Present) Name:Marco A Ness III Relation to Subscriber:Self Name:Marco A Ness III Payer ID:[id number] (NAIC) Type:Indemnity Address: [facility] [address] [id number] Advance Directives * Full Code (Latest Code Status on File) Date Activated Date Inactivated Comments 10/23/2014 5:44 PM 10/26/2014 7:06 PM Care Teams Ore Buyer Relationship Specialty Start Date End Date Sherrie Elam MD [address] [place] [address] PCP - General Internal Medicine 10/23/14
[2025-09-22 10:20] LABS: INR 4.36 (0.9-1.1); Prothrombin Time 43.4 seconds (10.1-12.5)
== END 2025-09-22 23:59 | disposition home or self-care (01) ==
LOC: LAB 09:42
PROVIDERS: Nurse Practitioner; PCP Family Medicine Sports Medicine; Visit Provider Family Medicine Sports Medicine
DX: Z79.01 Long term (current) use of anticoagulants (principal)
CPT/HCPCS: 36415; 85610

== ENCOUNTER 2025-10-02 13:48 | Outpatient (CLI) | payer BC, SELFPAY ==
--- OUTSIDE RECORDS SUMMARY | 2025-08-24 14:30 | XMS_ITS | Encounter Summary ---
Author Organization [facility] Address [address] [place] [address] Care Team Providers Care Video Editing Internship Name Role Phone Josseline Longo Unavailable [phone] Orlin Elizabeth MD Primary Care Provider Jess Hawk ROLLOFF TRUCK DRIVER Unavailable [phone] Rafaela Brantley PharmD Unavailable [phone] Jovana Wtezel PharmD Unavailable + Skyla Mai PA Unavailable [phone] Encounter Details Date Type Department Care Team (Late st Contact Info) Description 08/24/2025 3:30 PM EDT Office Visit [place] [facility] [address], [address] [place] [address] Josseline Longo PA [address] [place] [address] Essential tremor (Primary Dx) Social History Tobacco Use Types [...] first t jorge in the morning (EYE-DIRECTOR [place]) to steady your nerves or to get [...] file Travel History Travel Start Travel End [place] 09/02/2025 09/02/2025 documented as of this encounter Last Filed Vital Signs Vital Sign Reading Time Taken Comments Blood Pressure 94/62 08/24/2025 3:24 PM EDT Pulse 54 08/24/2025 3:24 PM EDT Temperature - - Respiratory Rate - - Oxygen Saturation 96% 08/24/2025 3:24 PM EDT Inhaled Oxygen Concentration - - Weight 82.4 kg (181 lb 10.5 oz) 08/24/2025 3:24 PM EDT Height 180.3 cm (5' 10.98 ) 08/24/2025 3:24 PM E DT Body Mass Index 25.35 08/24/2025 3:24 PM EDT documented in this encounter Miscellaneous Notes * Progress Notes - Josseline Longo PA - 08/24/2025 3:30 PM EDT CC: Essential Tremor HPI: Mr. Ness is a 69-year-old male we see for follow-up for essential tremor. His last visit was August 2024. He continued primidone 50 mg up to 2 tablets 3 times a day. He does also take warfarin andthe prescribing provider is aware of the warfarin with the primidone. Today he presents to clinic by himself and is able to provide history. The tremor remained stable. It will fluctuate but he feels it is well controlled with primidone. Heis typically taking the primidone 2 tablets at noon and 2 tablets at midnight. The medication does make him somewhat sleepy and he feels that this regimen works best for him in his schedule. ROS: Listed in HPI. Otherwise negative. Physical Exam: CN 2-12 were intact including extra ocular motility, all within normal limits. Gait was normal. Normal strength. Finger taping, hand fisting, pronation/supination and heel taps were all normal. Coordination as a measure of cerebellar function including the finger to nose task was intact. There was kinetic tremor. There was tremor with arms in the wing beating position with index fingers juxtaposed but not touching. There was no tremor in her head or voice. Assessment: Essential Tremor Discussion/Plan: Mr. Ness is a 69-year-old male we see for follow-up for essential tremor. At this time the tremoris well controlled and managed with his current dose of primidone. He does also take warfarin and the her prescribing provider is aware of these 2 medications together. He will continue the following: Primidone 50 mg, 2 tablets twice a day Follow-up in 12 months. This was a 30 minute appointment including review of previous notes and test results, discussion, examination, development of plan of care as well as documentation. documented in this encounter Plan of Treatment Upcoming Encounters Date Type Department Care Team (Late st Contact Info) Description 10/27/2025 9:00 AM EST Clinical Support [place] [facility] [address], [address] [place] [address] 11/10/2025 7:45 AM EST Hospital Encounter [facility] RO[facility] [address] [place] [address] Gema Thompson MD [address] [address] 11/10/2025 7:45 AM EST - 11/10/2025 11:10 AM EST Surgery [facility] [address] [place] [address] Gema Thompson MD [address] [address] ENUCLEATION, PROSTATE, TRANSURETHRAL, USING HOLMIUM LASER ( HOLEP ) AND CYSTOLITHOLAPAXY [13467 (CPT )] 12/13/2025 10:15 AM EST Office Visit [facility]rology [address], [address] [place] [address] Gema Thompson MD [id number] [place] [address] 12/27/2025 2:40 PM EST Office Visit [facility] [place] Daniel [address] [facility]. [address] [place] [address] Kevin Castañeda MD [address] [place] [phone] 01/05/2026 10:00 AM EST Office Visit [facility] [address] [place] [address] Orlin Elizabeth MD [address] [facility] [address] [place] [phone] Scheduled Procedures Name Priority Associated Diagnoses Date/Ti me ENUCLEATION, PROSTATE, TRANSURETHRAL, USING HOLMIUM LASER Benign prostatic hyperplasia with nocturia 11/10/2025 7:45 AM EST documented as of this encounter Goals Goal Patient Goal Type Associated Problems Recent Progress Patient-Stated? Author Autogenerat ed Goal Care Plan Autogenerated Problem No Lizzie Jessica documented as of this encounter Visit Diagnoses Diagnosis Benign prostatic hyperplasia with nocturia- Primary Essential tremor- Primary Benign prostatic hyperplasia with nocturia documented in this encounter Additional Health Concerns Active Problems Noted Date Diagnosed Date Autogenerated Problem 08/03/2025 Infection Onset Date Last Indicated Resolved Time MRSA Comment: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 Source: [facility]. 10/19/2014 MRSA Escalation Plan Comment:MRSA Escalation Plan is in effect as of 2023. Patient will require contact precautions for the duration of the hospital admission. 03/17/2024 03/17/2024 Assessment Noted Time PHQ-9 Depression Total Score: 0 07/05/20 1:20 PM EDT A fall risk assessment has been complete d for the patient 08/24/2025 3:25 PM EDT A Body Mass Index follow-up plan has been documented for the patient 08/24/2025 3:50 PM EDT documented as of this encounter Care Teams Video Editing Internship Relationship Specialty Start Date End Date Orlin Elizabeth MD [address] [facility] [address] [place] [phone] PCP - General Family Medicine 11/25/22 Josseline Longo PA [address] [facility] [address] [place] [phone] Physician Senior Java Programmer Analyst Neurology 08/16/21 Jess Hawk APRN [address] [place] [phone] Nurse Practitioner Cardiology 06/01/24 Rafaela Brantley, PharmD [address] [place] [phone] Pharmacist Pharmacy 06/03/24 Jovana Wetzel, PharmD [address] [place] [address] Pharmacist Pharmacy 06/13/24 Skyla Mai PA [address] [place] [address] Physician Senior Java Programmer Analyst Urology 03/20/25 documented as of this encounter
--- OUTSIDE RECORDS SUMMARY | 2025-09-29 11:00 | XMS_ITS | Encounter Summary ---
Author Organization [facility] Address [address] [place] [address] Care Team Providers Care [place] Name Role Phone Josseline Longo Unavailable [phone] Orlin Elizabeth MD Primary Care Provider Jess Hawk CARE COORDINATOR Unavailable [phone] Rafaela Brantley PharmD Unavailable [phone] Jovana Wetzel PharmD Unavailable + Skyla Mai PA Unavailable [phone] Reason for Visit * Reason Comments Follow-up General health f/u Encounter Details Date Type Department Care Team (Late st Contact Info) Description 09/29/2025 11:00 AM EST Office Visit [facility] [address] [place] [address] Orlin Elizabeth MD 2195 [facility] 125 [place] [address] Need for pneumococcal 20-valent conjugate vaccination (Primary Dx); Need for influenza vaccination Social History Tobacco Use Types Packs/Day Years [...] any time in the past 12 m [facility], were you homeless or [...] drink first t jorge in the morning (EYE-CLERICAL DENTIST ASSISTANT) to steady your nerves or to get [...] file Travel History Travel Start Travel End [place] 09/02/2025 09/02/2025 documented as of this encounter Last Filed Vital Signs Vital Sign Reading Time Taken Comments Blood Pressure 108/68 09/29/2025 11:25 AM EST Pulse 63 09/29/2025 11:25 AM EST Temperature 36.7 C (98 F) 09/29/2025 11:25 AM EST Respiratory Rate 20 09/29/2025 11:25 AM EST Oxygen Saturation 95% 09/29/2025 11:25 AM EST Inhaled Oxygen Concentration - - Weight 82.2 kg (181 lb 3.5 oz) 09/29/2025 11:25 AM EST Height 180.3 cm (5' 11 ) 09/29/2025 11:25 AM EST Body Mass Index 25.27 09/29/2025 11:25 AM EST documented in this encounter Functional Status * Calculated C-SSRS Risk Score (Lifetime/Recent) Answer Date of Assessment Author No Risk Indicated 09/29/2025 11:29 AM EST Marina Mills, RN * Question Answer Date of Assessment Author 1. Wish to be (Past 1 Month) No 09/29/2025 11:29 AM EST Marina Pineda, RN 2. Non-Specific Active Suici jadon Thoughts (Past 1 Month) No 09/29/2025 11:29 AM EST Regine Pineda RN 6. Suicidal Behavior (Lifetime) No 11:29 AM EST Marina Pineda, RN documented as of this encounter Plan of Treatment Upcoming Encounters Date Type Department Care Team (Late st Contact Info) Description 10/27/2025 9:00 AM EST Clinical Support [facility] Lab [address], 2nd [place] [address] 11/10/2025 7:45 AM EST Hospital Encounter PAV A OPERATING ROOM [address] [place] [address] Gema Thompson MD [address] [address] 11/10/2025 7:45 AM EST - 11/10/2025 11:10 AM EST Surgery PAV A OPERATING ROOM [address] [place] [address] Gema Thompson MD [address] [address] ENUCLEATION, PROSTATE, TRANSURETHRAL, USING HOLMIUM LASER ( HOLEP ) AND CYSTOLITHOLAPAXY [94502 (CPT )] 12/13/2025 10:15 AM EST Office Visit [facility] [address], 2nd [place] [address] Gema Thompson MD [address] [place] [address] 12/27/2025 2:40 PM EST Office Visit [facility] [place] [facility] [address] [place] [address] Kevin Castañeda MD [address] [place] [address] 01/05/2026 10:00 AM EST Office Visit [facility] [address] [place] [address] Orlin Elizabeth MD 2[address] [facility] [address] [place] [address] Scheduled Procedures Name Priority Associated Diagnoses Date/Ti me ENUCLEATION, PROSTATE, TRANSURETHRAL, USING HOLMIUM LASER Benign prostatic hyperplasia with nocturia 11/10/2025 7:45 AM EST documented as of this encounter Goals Goal Patient Goal Type Associated Problems Recent Progress Patient-Stated? Author Autogenerat ed Goal Care Plan Autogenerated Problem No Lizzie Jessica documented as of this encounter Visit Diagnoses Diagnosis Benign prostatic hyperplasia with nocturia- Primary Need for pneumococcal 20-valent conjugate vaccination- Primary Need for influenza vaccination Need for prophylactic vaccination and inoculation against influenza Benign prostatic hyperplasia with nocturia documented in this encounter Additional Health Concerns Active Problems Noted Date Diagnosed Date Autogenerated Problem 08/03/2025 Infection Onset Date Last Indicated Resolved Time MRSA Comment: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 Source: [facility]. 10/19/2014 MRSA Escalation Plan Comment:MRSA Escalation Plan is in effect as of 2023. Patient will require contact precautions for the duration of the hospital admission. 03/17/2024 03/17/2024 Assessment Noted Time PHQ-9 Depression Total Score: 0 07/05/20 1:20 PM EDT A fall risk assessment has been complete d for the patient 09/29/2025 11:30 AM EST A Body Mass Index follow-up plan has been documented for the patient 09/22/2025 2:05 PM EST documented as of this encounter Care Teams [place] Relationship Specialty Start Date End Date Orlin Elizabeth MD 2[address] [facility] [address] [place] [address] PCP - General Family Medicine 11/25/22 Josseline Longo PA [address] [place] [address] Physician Electrical Intern Neurology 08/16/21 Jess Hawk APRN [address] [place] [address] Nurse Practitioner Cardiology 06/01/24 Rafaela Brantley, PharmD [address] [place] [address] Pharmacist Pharmacy 06/03/24 Jovana Wetzel, PharmD [address] [place] [address] Pharmacist Pharmacy 06/13/24 Skyla Mai PA [address] [place] [address] Physician Electrical Intern Urology 03/20/25 documented as of this encounter
--- OUTSIDE RECORDS SUMMARY | 2025-10-02 14:03 | XMS_ITS | Encounter Summary ---
Author Organization [facility] Address [address] [place] [address] Care Team Providers Care Costume Mistress Name Role Phone Josseline Longo Unavailable [phone] Orlin Elizabeth MD Primary Care Provider Jess Hawk TRUST ADMINISTRATOR Unavailable [phone] Rafaela Brantley PharmD Unavailable [phone] Jovana Wetzel PharmD Unavailable + Skyla Mai PA Unavailable [phone] Reason for Visit * Reason Comments Med Refill Encounter Details Date Type Department Care Team (Late st Contact Info) Description 08/09/2025 Refill [facility] 202 [place] [address] Orlin Elizabeth MD 89[address] [facility] 125 [place] [address] Social History Tobacco Use Types [...] any time in the past 12 m [facility], were you homeless or living [...] drink first t jorge in the morning (EYE-HIGHWAY ADMINISTRATIVE ENGINEER) to steady your nerves or to get rid of a hangover? 0 03/16/2024 CAGE Questionnaire Score 0 024 Utilities Answer Date Recorded In the past 12 months has th [employer] electric, gas, oil, or water company threatened to shut off services in your home? No 04/20/2025 PHQ-2A Answer Date Recorded Patient Health Questionnaire-2 Score 0 05/20/2023 Sex and Gender Information Value Date Recorded Sex Assigned at Not on file Legal Sex Male 8:17 PM EDT Gender Identity Not on file Sexual Orientation Not on file Travel History Travel Start Travel End [place] 09/02/2025 09/02/2025 documented as of this encounter [...] Description 10/27/2025 9:00 AM EST Clinical Support [facility] [address], [address] [place] [address] 11/10/2025 7:45 AM EST Hospital Encounter PAV A OPERATING ROOM [address] [place] [address] Gema Thompson MD [id number] [place] [address] 11/10/2025 7:45 AM EST - 11/10/2025 11:10 AM EST Surgery PAV A OPERATING ROOM [address] [place] [address] Gema Thompson MD [address] [address] ENUCLEATION, PROSTATE, TRANSURETHRAL, USING HOLMIUM LASER ( HOLEP ) AND CYSTOLITHOLAPAXY [21930 (CPT )] 12/13/2025 10:15 AM EST Office Visit [facility] [address], [address] [place] [address] Gema Thompson MD [address] [place] [address] 12/27/2025 2:40 PM EST Office Visit [facility] [place] Daniel [address] [facility]. [address] [place] [address] Kevin Castañeda MD [address] [place] [address] 01/05/2026 10:00 AM EST Office Visit [facility] 202 [place] [address] Orlin Elizabeth MD [facility]5 [facility] 125 [place] [address] Scheduled Procedures Name Priority Associated Diagnoses Date/Ti [...] Time MRSA Comment: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 Source: [facility]. 10/19/2014 MRSA Escalation [...] documented as of this encounter Care Teams Costume Mistress Relationship Specialty Start Date End Date Orlin Elizabeth MD 2195 [facility] 125 [place] [address] PCP - General Family Medicine 11/25/22 Josseline Longo PA [address] [place] [address] Physician Thermite Bomb Loader Neurology 08/16/21 Jess Hawk APRN [address] [place] [address] Nurse Practitioner Cardiology 06/01/24 Rafaela Brantley, PharmD [address] [place] [address] Pharmacist Pharmacy 06/03/24 Jovana Wetzel, PharmD [address] [place] [address] Pharmacist Pharmacy 06/13/24 Skyla Mai PA [address] [address] Physician Thermite Bomb Loader Urology 03/20/25 documented as of this encounter
--- OUTSIDE RECORDS SUMMARY | 2025-10-02 14:03 | XMS_ITS | Encounter Summary ---
Author Organization [facility] Address [address] [id number] Care Team Providers Care Treater Helper Name Role Phone Josseline Longo Unavailable [phone] Orlin Elizabeth MD Primary Care Provider Jess Hawk ELECTRONIC PARTS SALESPERSON Unavailable [phone] Rafaela Brantley PharmD Unavailable [phone] Jovana Wetzel PharmD Unavailable + Skyla Mai PA Unavailable [phone] Encounter Details Date Type Department Care [...] [facility] in the [facility] were you homeless or living in [...] drink first t jorge in the morning (EYE-EXPERIMENTAL FLIGHT TEST MECHANIC) to steady your nerves or to get [...] file Travel History Travel Start Travel End [place] 09/02/2025 09/02/2025 documented as of this encounter Plan of Treatment Upcoming Encounters Date Type Department Care Team (Late st Contact Info) Description 10/27/2025 9:00 AM EST Clinical Support [facility] [address], [address] [place] [address] 11/10/2025 7:45 AM EST Hospital Encounter [facility] A OPERATING ROOM [address] [place] [address] Gema Thompson MD [address] [facility] [address] [place] [address] 11/10/2025 7:45 AM EST - 11/10/2025 11:10 AM EST Surgery PAV A OPERATING ROOM [address] [place] [address] Gema Thompson MD [address] [place] [phone] ENUCLEATION, PROSTATE, TRANSURETHRAL, USING HOLMIUM LASER ( HOLEP ) AND CYSTOLITHOLAPAXY [05782 (CPT )] 12/13/2025 10:15 AM EST Office Visit [facility] [address] [place] [address] Gema Thompson MD [address] [place] [address] 12/27/2025 2:40 PM EST Office Visit [facility] [place] [address] [place] [address] Kevin Castañeda MD [address] [place] [phone] 01/05/2026 10:00 AM EST Office Visit [facility] [address] [place] [address] Orlin Elizabeth MD [address] [facility] [address] [place] [phone] Scheduled Procedures Name Priority Associated Diagnoses Date/Ti [...] external infection. Source: [facility]. 10/19/2014 MRSA Escalation Plan Comment:MRSA Escalation Plan [...] documented as of this encounter Care Teams Treater Helper Relationship Specialty Start Date End Date Orlin Elizabeth MD [address] [facility] [address] [place] [phone] PCP - General Family Medicine 11/25/22 Josseline Longo PA [address] [place] [phone] Physician Digital Service Engineer Neurology 08/16/21 Jess Hawk APRN [address] [place] [phone] Nurse Practitioner Cardiology 06/01/24 Rafaela Brantley, PharmD [address] [place] [phone] Pharmacist Pharmacy 06/03/24 Jovana Wetzel, PharmD [address] [place] [phone] Pharmacist Pharmacy 06/13/24 Skyla Mai PA [address] [place] [address] Physician Digital Service Engineer Urology 03/20/25 documented as of this encounter
--- OUTSIDE RECORDS SUMMARY | 2025-10-02 14:03 | XMS_ITS | Encounter Summary ---
Author Organization [facility] Address [address] [place] [address] Care Team Providers Care Licensing Specialist Name Role Phone Josseline Longo Unavailable [phone] Orlin Elizabeth MD Primary Care Provider Jess Hawk HVAC CONTROLS TECHNICIAN Unavailable [phone] Rafaela Brantley PharmD Unavailable [phone] Jovana Wetzel PharmD Unavailable + Skyla Mai PA Unavailable [phone] Encounter Details Date Type Department Care Team (Late st Contact Info) Description 08/02/2025 Telephone [facility] [address], [address] [place] [address] Gema Thompson MD [address] [place] [address] Social History Tobacco Use Types [...] drink first t jorge in the morning (EYE-MANAGER EDUCATIONAL) to steady your nerves or to get [...] file Travel History Travel Start Travel End [place] 09/02/2025 09/02/2025 documented as of this encounter Miscellaneous Notes * Telephone Encounter - Mary Rodriguez - 08/03/2025 9:52 AM EDT Spoke with patient, rescheduled surgery to 11/10, [facility] * Telephone Encounter - Mira Krause - 08/02/2025 2:35 PM EDT Clinical Concern/Question Reason for Call: Pt called, wanting to r/s surgery date. Asking for a call back. Thanks! Best contact number: [phone] (mobile) Optimal time of day to reach caller: ANYTIME Additional comments/information from caller: None Note: Please do not reply to this message. Follow-up communication and further actions as a result of this message need to be communicated with the patient directly, if the patient is not active onMyChart. If the patient is active on MyChart, they will receive notification of the communication/outcome via [employer]. documented in this encounter Plan of Treatment Upcoming Encounters Date Type Department Care Team (Late st Contact Info) Description 10/27/2025 9:00 AM EST Clinical Support [facility] [address] [place] [address], [address] [place] [phone] 11/10/2025 7:45 AM EST Hospital Encounter PAV A OPERATING ROOM [address] [place] [address] Gema Thompson MD [address] [place] [phone] 11/10/2025 7:45 AM EST - 11/10/2025 11:10 AM EST Surgery PAV A OPERATING ROOM [address] [place] [address] Gema Thompson MD [facility] [address] [address] ENUCLEATION, PROSTATE, TRANSURETHRAL, USING HOLMIUM LASER ( HOLEP ) AND CYSTOLITHOLAPAXY [70563 (CPT )] 12/13/2025 10:15 AM EST Office Visit [facility] [address] [place] [address], [address] [place] [address] Gema Thompson MD [facility] [address] [address] 12/27/2025 2:40 PM EST Office Visit [facility] [address] [place] [address] Kevin Castañeda MD [address] [place] [phone] 01/05/2026 10:00 AM EST Office Visit [facility] [address] [place] [address] Orlin Elizabeth MD [address] [place] [address] Scheduled Procedures Name Priority Associated Diagnoses Date/Ti [...] Time MRSA Comment: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 Source: [facility]. 10/19/2014 MRSA Escalation Plan Comment:MRSA Escalation [...] documented as of this encounter Care Teams Licensing Specialist Relationship Specialty Start Date End Date Orlin Elizabeth MD [address] [place] [address] PCP - General Family Medicine 11/25/22 Josseline Longo PA [address] [facility] [address] [place] [address] Physician Electric System Operator Neurology 08/16/21 Jess Hawk APRN [address] [place] [address] Nurse Practitioner Cardiology 06/01/24 Rafaela Brantley, PharmD [address] [place] [phone] Pharmacist Pharmacy 06/03/24 Jovana Wetzel, PharmD [address] [place] [phone] Pharmacist Pharmacy 06/13/24 Skyla Mai PA [address] [facility] [address] [place] [address] Physician Electric System Operator Urology 03/20/25 documented as of this encounter
--- OUTSIDE RECORDS SUMMARY | 2025-10-02 14:03 | XMS_ITS | Encounter Summary ---
Author Organization [facility] Address [address] [place] [address] Care Team Providers Care Claims Analyst Name Role Phone Josseline Longo Unavailable [phone] Orlin Elizabeth MD Primary Care Provider Jess Hawk CAN TESTER Unavailable [phone] Rafaela Brantley PharmD Unavailable [phone] Jovana Wetzel PharmD Unavailable + Skyla Mai PA Unavailable [phone] Encounter Details Date Type Department Care Team (Late st Contact Info) Description 08/24/2025 Orders Only [facility] [address] [place] [address] Rafaela Brantley, PharmD [address] [place] [address] senior living current use of anticoagulant therapy (Primary Dx); [...] [facility] in the [facility] or living in [...] drink first t jorge in the morning (EYE-BROADCAST TRANSMITTER OPERATOR) to steady your nerves or to [...] file Travel History Travel Start Travel End [place] 09/02/2025 09/02/2025 documented as of this encounter Miscellaneous Notes * Progress Notes - Rafaela Brantley PharmD - 08/24/2025 9:14 AM EDT Standing PT/INR order placed for [facility] today, 08/24/25 (count #[id number]; exp 08/24/26) per patient request. The [facility] will follow INR results and adjust warfarin as needed. aRfaela Brantley PharmD, BCACP, CACP [facility] documented in this encounter Plan of Treatment Upcoming Encounters Date Type Department Care Team (Late st Contact Info) Description 10/27/2025 9:00 AM EST Clinical Support [facility] [address] [facility], [address] [place] [address] 11/10/2025 7:45 AM EST Hospital Encounter PAV A OPERATING ROOM [address] [place] [address] Gema Thompson MD [address] [place] [phone] 11/10/2025 7:45 AM EST - 11/10/2025 11:10 AM EST Surgery PAV A OPERATING ROOM [address] [place] [phone] Gema Thompson MD [address] [place] [phone] ENUCLEATION, PROSTATE, TRANSURETHRAL, USING HOLMIUM LASER ( HOLEP ) AND CYSTOLITHOLAPAXY [72795 (CPT )] 12/13/2025 10:15 AM EST Office [facility] [address], [address] [place] [phone] Gema Thompson MD [address] [place] [phone] 12/27/2025 2:40 PM EST Office Visit [facility] [address] [facility] [place] [phone] Kevin Castañeda MD [address] [place] [phone] 01/05/2026 10:00 AM EST Office Visit [facility] [address] [place] [address] Orlin Elizabeth MD [address] [place] [address] Scheduled Procedures Name Priority Associated [...] LAB COAGULATION METHOD 08/24/2025 5:49 PM EDT [facility] INR 2.4(H) 0.9 - 1.1 LAB COAGULATION METHOD 08/24/2025 5:49 PM EDT [facility] Blood Venous blood specimen / Unknown Venipuncture / Unknown 08/24/2025 3:55 PM EDT 08/24/2025 3:56 PM EDT Narrative [facility] - 08/24/2025 5:49 PM EDT OPTIMAL INR RANGES FOR PATIENT ON ORAL ANTICOAGULANT THERAPY Prevention of venous thromboembolism INR 2.0 to 3.0 In patients with heart disease: Atrial fibrillation INR 2.0 to 3.0 Valvular heart disease INR 2.0 to 3.0 Tissue heart valves INR 2.0 to 3.0 Mechanical prosthetic valves INR 2.5 to 3.5 Prevention of recurrent OH INR 2.5 to 3.5 us Jess Hawk APRN LAB BLOOD ORDERABLES Final Result [facility] [address] [place] [address] documented in this encounter Visit Diagnoses Diagnosis Benign prostatic hyperplasia with nocturia- Primary terminal manager current use of anticoagulant therapy- Primary Anticoagulation [...] documented as of this encounter Care Teams Claims Analyst Relationship Specialty Start Date End Date Orlin Elizabeth MD [address] [facility] [address] [place] [address] PCP - General Family Medicine 11/25/22 Josseline Longo PA [address] [facility] [address] [place] [address] Physician Cephalometric Tracer Neurology 08/16/21 Jess Hawk APRN [address] [place] [address] Nurse Practitioner Cardiology 06/01/24 Rafaela Brantley, PharmD [address] [place] [phone] Pharmacist Pharmacy 06/03/24 Jovana Wetzel, LissaD [address] [place] [phone] Pharmacist Pharmacy 06/13/24 Skyla Mai PA [address] [place] [address] Physician Cephalometric Tracer Urology 03/20/25 documented as of this encounter
--- OUTSIDE RECORDS SUMMARY | 2025-10-02 14:04 | XMS_ITS | Clinical Summary ---
Author Organization [facility] Address [address] [place] [address] Care Team Providers Care Architectural Intern Name Role Phone Josseline Longo Unavailable [phone] Orlin Elizabeth MD Primary Care Provider Jess Hawk BEAD WIRE INSULATOR Unavailable [phone] Rafaela Brantley PharmD Unavailable [phone] Jovana Wetzel PharmD Unavailable + Skyla Mai PA Unavailable [phone] Allergies No known active allergies Medications [...] 1 (one) time each day. Active Multiple Vitamins-Alsey als (multivitamin with minerals) tablet Take 1 [...] every night. 90 tablet 3 024 Active metoprolol succinate XL (Toprol-XL) 100 [...] MOUTH ONCE A DAY 90 tablet 3 Active clobetasol (Temovate) 0.05 % cream Apply [...] TWO TIMES A DAY 180 capsule 3 Active dofetilide (Tikosyn) 250 MCG capsuleIndicat ions:Atrial fibrillation, unspecified type (CMS/HCC) TAKE 1 CAPSULE BY MOUTH TWO TIMES A DAY 180 capsule 1 025 Active primidone (Mysoline) 50 MG tablet Take 2 tablets by mouth 2 times a day. 360 tablet 3 025 2025 Active LYCOPENE PO Take 40 mg by mouth 2 times a day. Active acetaminophen (Tylenol) 500 MG tablet Take 2 tablets by mouth every 6 hours as needed. Active atorvastatin (Lipitor) 40 MG tablet Take 1 tablet by mouth daily. 90 tablet 3 025 Active atorvastatin (Lipitor) 40 MG tablet Take 1 tablet by mouth daily. 30 tablet Active atorvastatin (Lipitor) 40 MG tablet TAKE 1 TABLET BY MOUTH DAILY 30 tablet 025 2024 Discontinued Hospital, Clinic, or Other Facility Administered Medication Ordered Dose Route Frequency Start Date End Date Status pneumococcal 20-brie conjugate (Prevnar 20) vaccine 0.5 mLIndications:Need for pneumococcal 20-valent conjugate vaccination 0.5 mL IM Once 09/29/2025 Act rick influenza vac split high-dose (Fluzone High-Dose) vaccine 0.5 mLIndications:Need for influenza vaccination 0.5 mL IM Once 09/29/2025 Act rick Active Problems Problem Noted Date Diagnosed Date Benign prostatic hyperplasia with nocturia 07/05 [facility] (current) use of anticoagulants 2023 Hyperthyroidism 03/18/2024 Bilateral swelling of feet and ankles 03/03/2024 Low blood pressure reading 02/19/2024 Shortness of breath 01/24/2024 At high risk for falls 03/03/2023 Primary osteoarthritis of left hip 08/16/2021 Left hip pain 06/20/2019 Overview (08/16/2021): Added automatically from request for surgery [id number] Obstructive sleep apnea 12/29/2018 BPH with obstruction/lower [...] organization. Date Type Department Care Team Description 09/29/2025 11:00 AM EST Office Visit [facility] [address] [place] [address] Orlin Elizabeth MD Need for pneumococcal 20-valent conjugate vaccination (Primary Dx); Need for influenza vaccination 09/29/2025 Travel 09/28/2025 Refill [facility] [address] [place] [address] Orlin Elizabeth MD 09/22/2025 Anticoagulation - Warfarin Visit [facility] [address] [place] [address] Rafaela Brantley, PharmD terminal block assembler (current) use of anticoagulants (Primary Dx); Anticoagulation management encounter 09/14/2025 Telephone [facility] [address] [place] [address] Gema Thompson MD 09/12/2025 Telephone [facility] [address], 2nd [place] [address] Gema Thompson MD 09/11/2025 Travel 08/25/2025 Anticoagulation - Warfarin Visit [facility] [address] [place] [address] Rafaela Brantley, PharmD terminal block assembler (current) use of anticoagulants (Primary Dx); Anticoagulation management encounter 08/24/2025 3:30 PM EDT Office Visit [facility] [address] 1[address] [place] [address] Josseline Longo PA Essential tremor (Primary Dx) 08/24/2025 Travel 08/24/2025 Orders Only [facility] [address] [place] [address] Rafaela Brantley, PharmD terminal block assembler current use of anticoagulant therapy (Primary Dx); Anticoagulation management encounter 08/09/2025 Refill [facility] [address] [place] [address] Orlin Elizabeth MD 08/02/2025 6:00 PM EDT Immunization [facility] Pharmacist Care Team [address] [facility] [address] [place] [address] Flu vaccine need (Primary Dx); Need for COVID-19 vaccine 08/02/2025 Telephone [facility]rology [address], [facility] [place] [address] Gema Thompson MD 08/02/2025 Travel 07/27/2025 Anticoagulation - Warfarin Visit [facility] [address] [facility] [address] [place] [address] Rafaela Brantley, PharmD [facility] (current) use of anticoagulants (Primary Dx); Anticoagulation management encounter 07/13/2025 Anticoagulation - Warfarin Visit [facility] [address] [facility] [address] [place] [address] Jovana Wetzel, PharmD terminal block assembler (current) use of anticoagulants (Primary Dx); Anticoagulation management encounter 07/11/2025 Telephone [facility] [address], [address] [place] [address] Gema Thompson MD 07/07/2025 Orders Only [facility] [address], [address] [place] [address] Skyla Mai PA Urinary tract infection without hematuria, site unspecified (Primary Dx); Suspected UTI 07/07/2025 Results [facility] [address] [facility], [address] [place] [address] Skyla Mai PA 07/07/2025 Results Follow[facility]Up [facility] [address], [facility] [place] [address] Skyla Mai PA 07/05/2025 1:45 PM EDT [facility] [address] [facility], [address] [place] [address] Gema Thompson MD Benign prostatic hyperplasia with nocturia (Primary Dx); Suspected UTI; Incomplete bladder emptying; Other urinary incontinence 07/05/2025 11:38 AM EDT - 07/05/2025 11:59 PM EDT Hospital Encounter [facility] [place] [address]nd [place] [address] Benign prostatic hyperplasia with nocturia; Incomplete bladder emptying Discharge Disposition: Home or Self Care 07/05/2025 Travel 07/04/2025 Travel from Last 3 Months Immunizations Immunization [...] 12y+ , Flavio Protein, PF, Tian-Sucrose 08/02/2025,08/24/2024 [employer] COVID-19 Vac cine (Purple Cap) 12+ 11/20/2020 Pneumococcal Conjugate PCV 13 11/21/2022 Tdap 04/14/2014,02/14/2009 Family History Medical History Relation Name Comments Cancer Father Marco A Diabetes Father Marco A Heart attack Father Marco A Heart disease Father Marco A Nephrolithiasis Father Marco A Obesity Father Marco A arteriosclerotic cardiovascular disease Father C lyde Alzheimer's disease Mother Aiyana Aberdeen Diabetes Mother Aiyana Aberdeen Relation Name Status Comments Father Marco A Mother Aiyana Aberdeen Social History Tobacco Use Types Packs/Day Years [...] any time in the past 12 m [facility], were you homeless or living in [...] drink first t jorge in the morning (EYE-ROLFER) to steady your nerves or to get [...] file Travel History Travel Start Travel End [place] 09/02/2025 09/02/2025 Last Filed Vital Signs Vital [...] Mass Index 25.27 09/29/2025 11:25 AM EST Plan of Treatment Upcoming Encounters Date Type Department Care Team (Late st Contact Info) Description 10/27/2025 9:00 AM EST Clinical Support [facility] Lab [address], [address] [place] [address] 11/10/2025 7:45 AM EST Hospital Encounter [facility] [address] [place] [address] Gema Thompson MD [address] [place] [address] 11/10/2025 7:45 AM EST - 11/10/2025 11:10 AM EST Surgery [facility] [address] [place] [address] Gema Thompson MD [address] [address] ENUCLEATION, PROSTATE, TRANSURETHRAL, USING HOLMIUM LASER ( HOLEP ) AND CYSTOLITHOLAPAXY [26307 (CPT )] 12/13/2025 10:15 AM EST Office Visit [facility] Urology [address] [address] Gema Thompson MD [facility] [address] [address] 12/27/2025 2:40 PM EST Office Visit [facility] [address] [facility] [place] [address] Kevin Castañeda MD [address] [place] [address] 01/05/2026 10:00 AM EST Office Visit [facility] [address] [place] [address] Orlin Elizabeth MD [address] [facility] [address] [place] [address] Scheduled Procedures Name Priority Associated [...] SDOH Screenings 10/20/2025 04/20/2025 FIT-DNA 12/03/2025 12/03/2022 [id number] Vaccine ( season) 2026 08/02/2025, 08/24/2024, 11/20/2023, Additional history exists Colonoscopy 03/02/2026 03/03/2023 [facility]-Colorectal Cancer Screening 03/02/2026 [facility]-Diabetes: Hemoglobin A1C 04/20/202610/2025, 02/19/2024, 11/20/2023, Additional history exists [facility]-Depression Screening 07/05/2026 07/05/2025, 06/10 [facility]-Hepatitis C Screening Completed 03/15/2024 [facility]-Influenza Vaccine Completed 08/02/2025 , 08/24/2024, 11/20/2023, Additional history exists [facility]-Obesity Intervention Completed 025, 08/25/2025, 08/24/2025, Additional history exists HPV Vaccines Aged Out [...] Diagnosis Comments EXTERNAL PROTHROMBIN TIME (PT)/INR Routine 09/22/2025 PROTHROMBIN TIME(PT) / INR Routine 08/24/2025 3:55 PM EDT terminal block assembler current use of anticoagulant therapy EXTERNAL PROTHROMBIN [...] Maintenance Results * External Prothrombin Time (PT)/INR (09/22/2025) Only the most recent of3 resultswithin the time period is included. External INR - Internormal Ratio 4.36 EXTERNAL LAB External Prothrombin Time (PT) EXTERNAL LAB Blood Venous blood specimen / Unknown 09/22/2025 [facility] Provider POINT OF CARE TEST ENTER/MAKENNA T ORDERABLES Final Result EXTERNAL LAB * (ABNORMAL) Protime-INR (08/24/2025 3:55 PM EDT) Prothrombin Time 26.4(H) 12.0 - 14.3 sec LAB COAGULATION METHOD 08/24/2025 5:[address] [facility] INR 2.4(H) 0.9 - 1.1 LAB COAGULATION METHOD 08/24/2025 5:[address] [facility] Blood Venous blood specimen / Unknown Venipuncture / Unknown 08/24/2025 3:55 PM EDT 08/24/2025 3:[address] [facility] - 08/24/2025 5:49 PM EDT OPTIMAL INR RANGES FOR PATIENT ON ORAL ANTICOAGULANT THERAPY Prevention of venous thromboembolism INR 2.0 to 3.0 In patients with heart disease: Atrial fibrillation INR 2.0 to 3.0 Valvular heart disease INR 2.0 to 3.0 Tissue heart valves INR 2.0 to 3.0 Mechanical prosthetic valves INR 2.5 to 3.5 Prevention of recurrent HI INR 2.5 to 3.5 Jess Hawk APRN LAB BLOOD ORDERABLES Final Result Performing Organization Address City/[facility]/ZIP Co de Phone Number [facility] [address] [place] [address] * (ABNORMAL) Urine Culture - Clinic Collect (07/05/2025 2:00 PM EDT) Culture >=100,000 CFU/mL - Biotype 1 Staphylococcus coagulase negative(A) 07/07/2025 11:[address] [facility] Culture >=100,000 CFU/mL - Biotype 2 Staphylococcus coagulase negative(A) 07/07/2025 11:[address] [facility] Urine Urine specimen obtained by clean catch procedure / Unknown Non-blood Collection / Unknown 07/05/2025 2:00 PM EDT 07/05/2025 5:35 PM EDT us Skyla MAHONEY LAB MICROBIOLOGY - GENERAL ORD ERABLES Final Result Performing Organization Address [facility] Co de Phone Number [facility] [address] [place] [address] * POC US Bladder Volume (07/05/2025 1:24 [...] MD on 07/05/2025 12:23 PM Skyla MAHONEY [facility] [place] [facility] PROCEDURES Final Result * (ABNORMAL) Hemoglobin A1c (04/20/2025 11:28 AM EDT) Hemoglobin A1c 6.0(H) <5.7 % 04/20/2025 6:[address] [facility] Blood Venous blood specimen / Unknown Venipuncture / Unknown 04/20/2025 11:28 AM EDT 04/20/2025 11:[address] [facility] - 04/20/2025 6:55 PM EDT HA1C Interpretive Data: Diagnosis of Diabetes: Diabetic > or = 6.5% Pre-diabetic 5.7 to 6.4% Non-diabetic < or = 5.6% Glycemic Targets for Type I and Type II Diabetics: Non- Adults <7.0% Adults <6.0% Children and Adolescents <7.5% Source: [place] Diabetes Association. Standards of medical care in diabetes,2017. Diabetes Care.2017:40 (suppl 1):S1-S135. Orlin Elizabeth MD LAB BLOOD ORDERABLES Fi nal Result Performing Organization Address City/[facility] Co de Phone Number [facility] [address] [place] [address] * Hepatitis C Antibody - ED (03/15/2024 12:27 PM EDT) Hepatitis C Antibody Negative Negative 03/15/2024 1:32 PM EDT [facility] Blood Venous blood specimen / Unknown Venipuncture / Unknown 03/15/2024 12:27 PM EDT 03/15/2024 12:47 PM EDT Alan Zuniga MD LAB BLOOD ORDERABLES Fi nal Result Performing Organization Address City/[facility] de Phone Number [facility] [address] [place] [address] * Colonoscopy (03/03/2023 1:33 PM EDT) Anatomical [...] Ramona Barry MD Proceduralist Kerri Campos Endo Crude Oil Driver Yesenia Olson CRNA SERVER SYSTEMS ADMINISTRATOR Georgette Ashley MD Proceduralist Duy Ayala No [...] of bowel preparation was evaluated using the [place] Bowel Preparation Scale with scores of: right [...] Positive( A) Negative 12/11/2022 1:29 PM EST [facility] (CLIA #:[id number]) Comment: POSITIVE TEST RESULT. A positive Cologuard [...] (Charo Cyr al, N Engl J Med 2014;370(14):1492-7706.) Cologuard may produce a false negative or false positive result (no colorectal cancer or precancerous polyp present at colonoscopy follow up). A negative Cologuard test result does not guarantee the absence of CRC or advanced adenoma (pre-cancer). The current Cologuard screening interval is every 3 years. ([place] Cancer Society and U.S. Multi-Society Task Force). Cologuard performance data in a 10,000 patient pivotal study using colonoscopy as the reference method can be accessed at the following location: www.Askuity.CommutePays/results. Additional description of the Cologuard test process, warnings and precautions can be found at www.CareParent.com. Stool specimen (specimen) 12/03/2022 7:30 AM EST 12/04/2022 1:08 PM EST us Orlin Elizabeth MD LAB MOLECULAR DIAGNOSTI CS ORDERABLES Final Result [facility] (CLIA #:[id number]) [address] [place] [address], from Last 3 Months or Most Recently Relevant to Health Maintenance Additional Health Concerns Active Problems Noted Date Diagnosed Date Autogenerated Problem 08/03/2025 Infection Onset Date Last Indicated MRSA Comment: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 Source: [facility]. 10/19/2014 MRSA Escalation Plan Comment:MRSA Escalation Plan is in effect as of 2023. Patient will require contact precautions for the duration of the hospital admission. 03/17/2024 03/17/2024 Insurance ANTHEM ANTHEM Advance Directives * Full Code (Latest Code Status on File) Date Activated Date Inactivated Comments 03/15/2024 3:05 PM 03/18/2024 5:37 PM Question Answer Comments Patient has decision-making capacity? Yes Care Teams Architectural Intern Relationship Specialty Start Date End Date Orlin Elizabeth MD [address] [facility] [address] [place] [address] PCP - General Family Medicine 11/25/22 Josseline Longo PA [address] [place] [address] Physician Customer Operations Intern Neurology 08/16/21 Jess Hawk APRN [address] [place] [address] Nurse Practitioner Cardiology 06/01/24 Rafaela Brantley, PharmD [address] [place] [address] Pharmacist Pharmacy 06/03/24 Jovana Wetzel, PharmD [address] [place] [address] Pharmacist Pharmacy 06/13/24 Skyla Mai PA [address] [place] [address] Physician Customer Operations Intern Urology 03/20/25
--- OUTSIDE RECORDS SUMMARY | 2025-10-02 14:04 | XMS_ITS | Encounter Summary ---
Author Organization [facility] Address [address] [place] [address] Care Team Providers Care Resistance Welder Name Role Phone Josseline Longo Unavailable [phone] Orlin Elizabeth MD Primary Care Provider Jess Hawk COMMUNITY ASSOCIATE Unavailable [phone] Rafaela Brantley PharmD Unavailable [phone] Jovana Wetzel PharmD Unavailable + Skyla Mai PA Unavailable [phone] Encounter Details Date Type Department Care Team (Late st Contact Info) Description 09/12/2025 Telephone [facility] [address] [place] [address] Gema Thompson MD [address] [place] [address] Social History Tobacco Use Types [...] time in the past 12 m [facility], were you homeless or living in [...] drink first t jorge in the morning (EYE-PROVIDER ENROLLMENT SPECIALIST) to steady your nerves or to [...] file Travel History Travel Start Travel End [place] 09/02/2025 09/02/2025 documented as of this encounter Plan of Treatment Upcoming Encounters Date Type Department Care Team (Late st Contact Info) Description 10/27/2025 9:00 AM EST Clinical Support [place] [facility] [address] [place] [address] 11/10/2025 7:45 AM EST Hospital Encounter [facility] [address] [place] [address] Gema Thompson MD [address] [place] [address] 11/10/2025 7:45 AM EST - 11/10/2025 11:10 AM EST Surgery [facility] [address] [place] [address] Gema Thompson MD [address] [place] [address] ENUCLEATION, PROSTATE, TRANSURETHRAL, USING HOLMIUM LASER ( HOLEP ) AND CYSTOLITHOLAPAXY [04899 (CPT )] 12/13/2025 10:15 AM EST Office Visit [facility]rology [address], [address] [place] [address] Gema Thompson MD [address] [place] [address] 12/27/2025 2:40 PM EST Office Visit [facility] [place] [address] [facility] [place] [address] Kevin Castañeda MD [address] [place] [address] 01/05/2026 10:00 AM EST Office Visit [facility] [address] [place] [address] Orlin Elizabeth MD [address] [facility] [address] [place] [address] Scheduled Orders Name Type Priority [...] Time MRSA Comment: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 Source: [facility]. 10/19/2014 MRSA Escalation Plan Comment:MRSA Escalation [...] documented as of this encounter Care Teams Resistance Welder Relationship Specialty Start Date End Date Orlin Elizabeth MD [address] [facility] [address] [place] [address] PCP - General Family Medicine 11/25/22 Josseline Longo PA [address] [facility] [address] [place] [address] Physician Preschool Assistant Director Neurology 08/16/21 Jess Hawk APRN [address] [place] [address] Nurse Practitioner Cardiology 06/01/24 Rafaela Brantley, PharmD [address] [place] [address] Pharmacist Pharmacy 06/03/24 Jovana Wetzel, PharmD [address] [place] [address] Pharmacist Pharmacy 06/13/24 Skyla Mai PA [address] [facility] [address] [place] [address] Physician Preschool Assistant Director Urology 03/20/25 documented as of this encounter
--- OUTSIDE RECORDS SUMMARY | 2025-10-02 14:04 | XMS_ITS | Encounter Summary ---
Author Organization [facility] Address [address] [place] [address] Care Team Providers Care Metrology Technician Name Role Phone Josseline Longo Unavailable [phone] Orlin Elizabeth MD Primary Care Provider Jess Hawk MEASUREMENT SUPERINTENDENT Unavailable [phone] Rafaela Brantley PharmD Unavailable [phone] Jovana Wetzel PharmD Unavailable + Skyla Mai PA Unavailable [phone] Reason for Visit * Reason Comments Med Refill Encounter Details Date Type Department Care Team (Late st Contact Info) Description 09/28/2025 Refill [facility] [address] [place] [address] Orlin Elizabeth MD [address] [facility] [address] [place] [address] Social History Tobacco Use Types [...] any time in the past 12 m [facility], were you homeless or living in [...] drink first t jorge in the morning (EYE-CLEAT BLANKER) to steady your nerves or to get [...] file Travel History Travel Start Travel End [place] 09/02/2025 09/02/2025 documented as of this encounter Miscellaneous Notes * Telephone Encounter - Dianna Manzanares PharmD - 09/28/2025 9:56 AM EST 1 medication(s) has been approved per protocol. Please keep upcoming appointment 09/29/25 for additional refills. Medications have been pended for refill at upcoming appointment. documented in this encounter Plan of Treatment Upcoming Encounters Date Type Department Care Team (Late st Contact Info) Description 10/27/2025 9:00 AM EST Clinical Support [place] [facility] [address] [place] [address] 11/10/2025 7:45 AM EST Hospital Encounter [facility] [address] [place] [address] Gema Thompson MD [address] [place] [address] 11/10/2025 7:45 AM EST - 11/10/2025 11:10 AM EST Surgery [facility] [address] [place] [address] Gema Thompson MD [address] [place] [address] ENUCLEATION, PROSTATE, TRANSURETHRAL, USING HOLMIUM LASER ( HOLEP ) AND CYSTOLITHOLAPAXY [50740 (CPT )] 12/13/2025 10:15 AM EST Office Visit [facility] Urology [address] [place] [address] Gema Thopmson MD [address] [place] [address] 12/27/2025 2:40 PM EST Office Visit [facility] [place] [facility] [address] [facility]. [address] [place] [address] Kevin Castañeda MD [address] [place] [address] 01/05/2026 10:00 AM EST [facility] [address] [place] [address] Orlin Elizabeth MD [facility] [facility] [address] [place] [address] Scheduled Procedures Name Priority Associated Diagnoses Date/Ti [...] Time MRSA Comment: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 Source: [facility]. 10/19/2014 MRSA Escalation Plan Comment:MRSA Escalation Plan [...] documented as of this encounter Care Teams Metrology Technician Relationship Specialty Start Date End Date Orlin Elizabeth MD [address] [facility] [address] [place] [address] PCP - General Family Medicine 11/25/22 Josseline Longo PA [address] [place] [address] Physician Motion Picture Critic Neurology 08/16/21 Jess Hawk APRN [address] [place] [address] Nurse Practitioner Cardiology 06/01/24 Rafaela Brantley, PharmD [address] [place] [address] Pharmacist Pharmacy 06/03/24 Jovana Wetzel, PharmD [address] [place] [address] Pharmacist Pharmacy 06/13/24 Skyla Mai PA [address] [phone] Physician Motion Picture Critic Urology 03/20/25 documented as of this encounter
--- OUTSIDE RECORDS SUMMARY | 2025-10-02 14:04 | XMS_ITS | Encounter Summary ---
Author Organization [facility] Address [address] [place] [address] Care Team Providers Care Delivery Crew Member Name Role Phone Josseline Longo Unavailable [phone] Orlin Elizabeth MD Primary Care Provider Jess Hawk RECORDING STUDIO INTERN Unavailable [phone] Rafaela Brantley PharmD Unavailable [phone] Jovana Wetzel PharmD Unavailable + Skyla Mai PA Unavailable [phone] Encounter Details Date Type Department Care Team (Late st Contact Info) Description 07/07/2025 Results [facility]-Up [facility] [address], [address] [place] [address] Skyla Mai PA [address] [place] [address] Social History Tobacco Use Types [...] time in the past 12 m [facility], were you homeless or living in [...] drink first t jorge in the morning (EYE-CONVEX GRINDER OPERATOR) to steady your nerves or to get rid of a hangover? 0 03/16/2024 CAGE Questionnaire Score 0 024 Utilities Answer Date Recorded In the past 12 months has th [employer] electric, gas, oil, or water company threatened to shut off services in your home? No 04/20/2025 PHQ-2A Answer Date Recorded Patient Health Questionnaire-2 Score 0 05/20/2023 Sex and Gender Information Value Date Recorded Sex Assigned at Not on file Legal Sex Male 8:17 PM EDT Gender Identity Not on file Sexual Orientation Not on file Travel History Travel Start Travel End [place] 09/02/2025 09/02/2025 documented as of this encounter Plan of Treatment Upcoming Encounters Date Type Department Care Team (Late st Contact Info) Description 10/27/2025 9:00 AM EST Clinical Support [place] [facility] [address], [address] [place] [address] 11/10/2025 7:45 AM EST Hospital Encounter PAV A OPERATING ROOM [address] [place] [address] Gema Thompson MD [address] [place] [address] 11/10/2025 7:45 AM EST - 11/10/2025 11:10 AM EST Surgery PAV A OPERATING ROOM [address] [place] [address] Gema Thompson MD [address] [place] [address] ENUCLEATION, PROSTATE, TRANSURETHRAL, USING HOLMIUM LASER ( HOLEP ) AND CYSTOLITHOLAPAXY [44518 (CPT )] 12/13/2025 10:15 AM EST Office Visit [facility] [address] [place] [address] Gema Thompson MD [address] [facility] [address] [place] [address] 12/27/2025 2:40 PM EST Office Visit [facility] [place] [address] [place] [address] Kevin Castañeda MD [address] [place] [address] 01/05/2026 10:00 AM EST Office Visit [facility] [address] [place] [address] Olrin Elizabeth MD 2[address] [facility] 125 [place] [address] Scheduled Procedures Name Priority Associated Diagnoses Date/Ti [...] documented as of this encounter Care Teams Delivery Crew Member Relationship Specialty Start Date End Date Orlin Elizabeth MD [address] [facility] [address] [place] [address] PCP - General Family Medicine 11/25/22 Josseline Longo PA [address] [place] [address] Physician Manager Delivery Neurology 08/16/21 Jess Hawk APRN [address] [place] [address] Nurse Practitioner Cardiology 06/01/24 Rafaela Brantley, PharmD [address] [place] [address] Pharmacist Pharmacy 06/03/24 Jovana Wetzel, PharmD [address] [place] [address] Pharmacist Pharmacy 06/13/24 Skyla Mai PA [address] [place] [address] Physician Manager Delivery Urology 03/20/25 documented as of this encounter
--- OUTSIDE RECORDS SUMMARY | 2025-10-02 14:04 | XMS_ITS | Encounter Summary ---
Author Organization [facility] Address [address] [place] [address] Care Team Providers Care Resource Management Planner Name Role Phone Josseline Longo Unavailable [phone] Orlin Elizabeth MD Primary Care Provider Jess Hawk CORPORATE TREASURER Unavailable [phone] Rafaela Brantley PharmD Unavailable [phone] Jovana Wetzel PharmD Unavailable + Skyla Mai PA Unavailable [phone] Encounter Details Date Type Department Care Team (Late st Contact Info) Description 09/14/[address] [facility] Urology [address], [address] [place] [address] Gema Thompson MD [address] [place] [address] Social History Tobacco Use Types [...] drink first t jorge in the morning (EYE-FABRICATION SUPERVISOR) to steady your nerves or to [...] Description 10/27/2025 9:00 AM EST Clinical Support [place] [facility] Lab [address], [address]nd [place] [address] 11/10/2025 7:45 AM EST Hospital Encounter PAV A OPERATING ROOM [address] [place] [address] Gema Thompson MD [address] [address] 11/10/2025 7:45 AM EST - 11/10/2025 11:10 AM EST Surgery PAV A OPERATING ROOM [address] [place] [address] Gema Thompson MD [address] [address] ENUCLEATION, PROSTATE, TRANSURETHRAL, USING HOLMIUM LASER ( HOLEP ) AND CYSTOLITHOLAPAXY [56490 (CPT )] 12/13/2025 10:15 AM EST Office Visit [facility] [address], [address] [place] [address] Gema Thompson MD [address] [address] 12/27/2025 2:40 PM EST Office Visit [facility] [place] [address] [facility]. [address] [place] [address] Kevin Castañeda MD [address] [place] [phone] 01/05/2026 10:00 AM EST Office Visit [facility] [address] [place] [address] Orlin Elizabeth MD [address] [facility] 125 [place] [address] Scheduled Procedures Name Priority Associated Diagnoses Date/Ti [...] Time MRSA Comment: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 Source: [facility]. 10/19/2014 MRSA Escalation Plan Comment:MRSA Escalation [...] documented as of this encounter Care Teams Resource Management Planner Relationship Specialty Start Date End Date Orlin Elizabeth MD [address] [place] [address] PCP - General Family Medicine 11/25/22 Josseline Longo PA [address] [facility] [address] [place] [address] Physician Redrying Machine Operator Neurology 08/16/21 Jess Hawk APRN [address] [place] [address] Nurse Practitioner Cardiology 06/01/24 Rafaela Brantley, PharmD [address] [place] [address] Pharmacist Pharmacy 06/03/24 Jovana Wetzel, PharmD [address] [place] [address] Pharmacist Pharmacy 06/13/24 Skyla Mai PA [id number] [place] [address] Physician Redrying Machine Operator Urology 03/20/25 documented as of this encounter
--- OUTSIDE RECORDS SUMMARY | 2025-10-02 14:04 | XMS_ITS | Encounter Summary ---
Author Organization [facility] Address [address] [place] [address] Care Team Providers Care Roller Gold Leaf Name Role Phone Josseline Longo Unavailable [phone] Orlin Elizabeth MD Primary Care Provider Jess Hawk CALCULATION CLERK Unavailable [phone] Rafaela Brantley PharmD Unavailable [phone] Jovana Wetzel PharmD Unavailable + Skyla Mai PA Unavailable [phone] Encounter Details Date Type Department Care Team (Late st Contact Info) Description 06/18/2025 Results Follow-Up [facility] Acute Care [address] [facility], [address] [place] [address] Jeannette Triplett, CALCULATION CLERK 5 [facility] [address] [place] [address] Social History Tobacco Use Types [...] any time in the past 12 m [facility], were you homeless or living in [...] drink first t jorge in the morning (EYE-HIM MANAGER) to steady your nerves or to get rid of a hangover? 0 03/16/2024 CAGE Questionnaire Score 0 024 Utilities Answer Date Recorded In the past 12 months has [employer] electric, gas, oil, or water company threatened to shut off services in your home? No 04/20/2025 PHQ-2A Answer Date Recorded Patient Health Questionnaire-2 Score 0 05/20/2023 Sex and Gender Information Value Date Recorded Sex Assigned at Not on file Legal Sex Male 8:17 PM EDT Gender Identity Not on file Sexual Orientation Not on file Travel History Travel Start Travel End [place] 09/02/2025 09/02/2025 documented as of this encounter [...] Description 10/27/2025 9:00 AM EST Clinical Support [facility] Lab [address] [place] [address] 11/10/2025 7:45 AM EST Hospital Encounter PAV A OPERATING ROOM [address] [place] [address] Gema Thompson MD [address] [address] 11/10/2025 7:45 AM EST - 11/10/2025 11:10 AM EST Surgery PAV A OPERATING ROOM [address] [place] [address] Gema Thompson MD [address] [address] ENUCLEATION, PROSTATE, TRANSURETHRAL, USING HOLMIUM LASER ( HOLEP ) AND CYSTOLITHOLAPAXY [83614 (CPT )] 12/13/2025 10:15 AM EST Office Visit [facility] Urology [address] [place] [address] Gema Thompson MD [address] [address] 12/27/2025 2:40 PM EST Office Visit [facility] [place] 800 [facility]. [address] [place] [address] Kevin Castañeda MD [address] [place] [address] 01/05/2026 10:00 AM EST Office Visit [facility] 202 [place] [address] Orlin Elizabeth MD [address] [facility] 125 [place] [address] Scheduled Procedures Name Priority Associated [...] documented as of this encounter Care Teams Roller Gold Leaf Relationship Specialty Start Date End Date Orlin Elizabeth MD [address] [facility] 125 [place] [address] PCP - General Family Medicine 11/25/22 Josseline Longo PA [address] [facility] [address] [place] [address] Physician Supervisor Sulfuric Acid Plant Neurology 08/16/21 Jess Hawk APRN [address] [place] [address] Nurse Practitioner Cardiology 06/01/24 Rafaela Brantley, PharmD [address] [place] [address] Pharmacist Pharmacy 06/03/24 Jovana Wetzel, PharmD [address] [place] [address] Pharmacist Pharmacy 06/13/24 Skyla Mai PA [address] [address] Physician Supervisor Sulfuric Acid Plant Urology 03/20/25 documented as of this encounter
--- OUTSIDE RECORDS SUMMARY | 2025-10-02 14:04 | XMS_ITS | Encounter Summary ---
Author Organization [facility] Address [address] [place] [address] Care Team Providers Care Corporate Compliance Manager Name Role Phone Sherrie Elam MD Primary Care Provider [phone] Josseline Longo Unavailable [phone] Orlin Elizabeth MD Primary Care Provider Jess Hawk CLINICAL NURSING COORDINATOR Unavailable [phone] Rafaela Brantley PharmD Unavailable [phone] Jovana Wetzel PharmD Unavailable + Skyla Mai PA Unavailable [phone] Reason for Visit * Reason Comments Med Refill Encounter Details Date Type Department Care Team (Late st Contact Info) Description 04/19/2021 Refill [place] [facility] [address] [place] [address] Josseline Longo PA [address] [place] [address] Social History Tobacco Use Types [...] file Travel History Travel Start Travel End [place] 09/02/2025 09/02/2025 documented as of this encounter Plan of Treatment Upcoming Encounters Date Type Department Care Team (Late st Contact Info) Description 10/27/2025 9:00 AM EST Clinical Support [facility] [address] [address] 11/10/2025 7:45 AM EST Hospital Encounter PAV A OPERATING ROOM [address] [place] [address] Gema Thompson MD [address] [place] [phone] 11/10/2025 7:45 AM EST - 11/10/2025 11:10 AM EST Surgery PAV A OPERATING ROOM [address] [place] [address] Gema Thompson MD [address] [place] [phone] ENUCLEATION, PROSTATE, TRANSURETHRAL, USING HOLMIUM LASER ( HOLEP ) AND CYSTOLITHOLAPAXY [[id number] (CPT )] 12/13/2025 10:15 AM EST Office Visit [facility] [address] [place] [address] Gema Thompson MD [address] [place] [address] 12/27/2025 2:40 PM EST Office Visit [facility] [place] [address] [facility]. [address] [place] [address] Kevin Castañeda MD [address] [place] [address] 01/05/2026 10:00 AM EST Office Visit [facility] [address] [place] [address] Orlin Elizabeth MD 2[address] [facility] 125 [place] [address] Scheduled Procedures Name Priority Associated Diagnoses Date/Ti me ENUCLEATION, PROSTATE, TRANSURETHRAL, USING HOLMIUM LASER Benign prostatic hyperplasia with nocturia 11/10/2025 7:45 AM EST documented as of this encounter Visit Diagnoses Not on filedocumented in this encounter Additional Health Concerns Infection Onset Date Last Indicated Resolved Time MRSA Comment: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 Source: [facility]. 10/19/2014 MRSA Escalation Plan Comment:MRSA Escalation Plan is in effect as of 2023. Patient will require contact precautions for the duration of the hospital admission. 03/17/2024 03/17/2024 documented as of this encounter Care Teams Corporate Compliance Manager Relationship Specialty Start Date End Date Sherrie Elam MD [facility] [place] [address] PCP - General Internal Medicine 08/16/21 11/24/22 Orlin Elizabeth MD 2[address] [facility] 125 [place] [address] PCP - General Family Medicine 11/25/22 Josseline Longo PA [address] [facility] [address] [place] [address] Physician Inspector Precision Neurology 08/16/21 Jess Hawk APRN [address] [place] [address] Nurse Practitioner Cardiology 06/01/24 Rafaela Brantley, PharmD [address] [place] [address] Pharmacist Pharmacy 06/03/24 Jovana Wetzel, PharmD [address] [place] [address] Pharmacist Pharmacy 06/13/24 Skyla Mai PA [address] [place] [address] Physician Inspector Precision Urology 03/20/25 documented as of this encounter
--- OUTSIDE RECORDS SUMMARY | 2025-10-02 14:04 | XMS_ITS | Encounter Summary ---
Author Organization [facility] Address [address] [place] [address] Care Team Providers Care Firer Powerhouse Name Role Phone Josseline Longo Unavailable [phone] Orlin Elizabeth MD Primary Care Provider Jess Hawk MARINE CHRONOMETER ASSEMBLER Unavailable [phone] Rafaela Brantley PharmD Unavailable [phone] Jovana Wetzel PharmD Unavailable + Skyla Mai PA Unavailable [phone] Encounter Details Date Type Department Care Team (Latest Contact Info) Description 09/22/2025 Anticoagulation - Warfarin Visit [facility] [place] [address] [facility] [place] [address] Rafaela Brantley, PharmD [address] [place] [address] halfway (current) use of anticoagulants (Primary Dx); [...] first t jorge in the morning (EYE-SUPERVISOR CARBON PAPER COATING) to steady your nerves or to get [...] file Travel History Travel Start Travel End [place] 09/02/2025 09/02/2025 documented as of this encounter Miscellaneous Notes * Patient Instructions - Rafaela Brantley, PharmD - 09/22/2025 1:07 PM EST Your INR is 4.36 today, which is above your goal range of 2.0-3.0. HOLD warfarin dose x 1 today, Saturday 09/22, then resume warfarin 7.5 mg daily x 5 mg on Thursday/. Check INR at [facility] lab in 10 days . Contact the [facility] at [phone] with any questions or concerns regarding yourwarfarin. * Progress Notes - Rafaela Brantley, PharmD - 09/22/2025 1:07 PM EST Images from the original note were not included. Anticoagulation Clinic Pharmacy Note History of Present Illness Anticoagulation Summary As of 09/22/2025 INR goal: 2.0-3.0 TTR: 64.8% (1.5 y) INR used for dosin.36 (09/22/2025) Warfarin maintenance plan: 5 mg (5 mg x 1) every Sun, Lizeth; 7.5 mg (5 mg x 1.5) all other days Weekly warfarin total: 47.5 mg Plan last modified: Jovana Wetzel, LissaD (07/07/2024) Next INR check: 10/02/2025 Target end date: Indefinite Indications Atrial fibrillation unspecified type (CMS/HCC) (Resolved) [I48.91] halfway (current) use of anticoagulants [Z79.01] Anticoagulation Episode Summary INR check location: Outside Lab Preferred lab: EXTERNAL LAB Send INR reminders to: [facility] Comments: [facility] P: [phone] F: [phone] Anticoagulation Care Providers Provider Role Specialty Phone number Israel Membreno MD Referring Cardiology [phone] Jess Hawk APRN Responsible Cardiology [phone] Additional History: New onset Afib s/p DCCV on 03/16 [id number] =Total score 3, Age 65-74 (1), CHF [...] doses: No Extra doses: No Medication changes: Yes Missed day time medications past 3 days - takes warfarin at night though so no change there Dietary changes: Yes Not eating salads as frequently - kitchen under vinay Alcohol changes: No Daily activity changes: No Health changes: No ED visit: No Hospital admission: No Upcoming dental procedure: No Upcoming invasive procedure: No Laboratory test error suspected: No Other concerns: No Additional comments: The following portions of the chart were reviewed this encounter and updated as appropriate: Objective INR: Lab Results Component Value Date INR 4.36 09/22/2025 INR 2.4 (H) 08/24/2025 INR 2.91 07/27/2025 PROTIME 30.4 05/18/2025 PROTIME 25.6 02/28/2025 PROTIME [...] m (5' 10.98 ). Weight as of 08/24/25: 82.4 kg (181 lb 10.5 oz). Assessment and Plan Current warfarin dose: 7.5 mg daily x 5 mg on Thursday/ Supratherapeutic INR for goal of 2.0-3.0. Suspect recent dietary changes to be cause for elevation since historically therapeutic on TWD. Denies any changes to bleeding/bruising patterns. Patient is on relatively large daily doses so hold has greater impact. New warfarin dose: HOLD warfarin dose x 1 today, Saturday 09/22, then resume warfarin 7.5 mg daily x 5 mg on Thursday/ Follow Up Check INR at [facility] lab in 10 days . If INR remains elevated at that time, may consider permanent TWD decrease. Patient Education Reviewed s/sx of bleeding and how to manage bleeding. Discussed that if bleeding is severe to present to the ED immediately. Patient repeated above instruction back to clinic PharmD correctly. Notify clinic of any medication changes including missed or extra doses of warfarin prior to next planned INR check so that warfarin dose and/or follow up can be adjusted accordingly. Contact the [facility] at [phone] with any questions or concerns regarding yourwarfarin. Patient verbalized understanding of above care plan: YES Rafaela Brantley, LissaD, BCACP, CACP [facility] C[facility] [address] [place] [phone] documented in this encounter Plan of Treatment Upcoming Encounters Date Type Department Care Team (Late st Contact Info) Description 10/27/2025 9:00 AM EST Clinical Support [place] [facility] [address] [place] [address] 11/10/2025 7:45 AM EST Hospital Encounter PAV A OPERATING ROOM [address] [place] [address] Gema Thompson MD [address] [address] 11/10/2025 7:45 AM EST - 11/10/2025 11:10 AM EST Surgery PAV A OPERATING ROOM [address] [place] [address] Gema Thompson MD [address] [address] ENUCLEATION, PROSTATE, TRANSURETHRAL, USING HOLMIUM LASER ( HOLEP ) AND CYSTOLITHOLAPAXY [67098 (CPT )] 12/13/2025 10:15 AM EST Office Visit [facility] [address] [place] [address] Gema Thompson MD [address] [address] 12/27/2025 2:40 PM EST Office Visit [facility] [place] [address] [facility] [place] [address] Kevin Castañeda MD [address] [place] [address] 01/05/2026 10:00 AM EST Office Visit [address] [address] Orlin Elizabeth MD [address] [facility] [address] [place] [address] Scheduled Procedures Name Priority Associated Diagnoses Date/Ti me ENUCLEATION, PROSTATE, TRANSURETHRAL, USING HOLMIUM LASER Benign prostatic hyperplasia with nocturia 11/10/2025 7:45 AM EST documented as of this encounter Goals Goal Patient Goal Type Associated Problems Recent Progress Patient-Stated? Author Autogenerat ed Goal Care Plan Autogenerated Problem No JaskaranLizzie documented as of this encounter Procedures Procedure Name Priority Date/Time Associated Diagnosis Comments EXTERNAL PROTHROMBIN TIME (PT)/INR Routine 09/22/2025 documented in this encounter Results * External Prothrombin Time (PT)/INR (09/22/2025) External INR - Internormal Ratio 4.36 EXTERNAL LAB External Prothrombin Time (PT) EXTERNAL LAB Blood Venous blood specimen / Unknown 09/22/2025 [facility] Provider POINT OF CARE TEST ENTER/MAKENNA T ORDERABLES Final Result EXTERNAL LAB documented in this encounter Visit Diagnoses Diagnosis Benign prostatic hyperplasia with nocturia- 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) use of anticoagulants- Primary Long-term (current) [...] documented as of this encounter Care Teams Firer Powerhouse Relationship Specialty Start Date End Date Orlin Elizabeth MD [address] [facility] [address] [place] [address] PCP - General Family Medicine 11/25/22 Josseline Longo PA [address] [facility] [address] [place] [address] Physician Dispensing Audiologist Neurology 08/16/21 Jess Hawk APRN [address] [place] [address] Nurse Practitioner Cardiology 06/01/24 Rafaela Brantley, PharmD [address] [place] [address] Pharmacist Pharmacy 06/03/24 Jovana Wetzel, PharmD [address] [place] [address] Pharmacist Pharmacy 06/13/24 Skyla Mai PA [address] [place] [address] Physician Dispensing Audiologist Urology 03/20/25 documented as of this encounter
--- OUTSIDE RECORDS SUMMARY | 2025-10-02 14:04 | XMS_ITS | Encounter Summary ---
Author Organization [facility] Address [address] [place] [address] Care Team Providers Care Locator Specialist Name Role Phone Josseline Longo Unavailable [phone] Orlin Elizabeth MD Primary Care Provider Jess Hawk WEDGER Unavailable [phone] Rafaela Brantley PharmD Unavailable [phone] Jovana Wetzel PharmD Unavailable + Skyla Mai PA Unavailable [phone] Encounter Details Date Type Department Care Team ([facility] Contact Info) Description 07/07/2025 Results Follow-Up Medical Office Building Urology [address] [facility], [address] [place] [address] Skyla Mai PA [address] [place] [address] Social History Tobacco Use Types [...] any time in the past 12 m [facility], were you homeless or living in a [...] drink first t jorge in the morning (EYE-CONCRETE POURER) to steady your nerves or to get [...] [address], [address] [place] [address] 11/10/2025 7:45 AM EST Hospital Encounter [facility]ATING ROOM [address] [place] [address] Gema Thompson MD [address] [place] [address] 11/10/2025 7:45 AM EST - 11/10/2025 11:10 AM EST Surgery [facility] OPERATING ROOM [address] [place] [address] Gema Thompson MD [address] [place] [address] ENUCLEATION, PROSTATE, TRANSURETHRAL, USING HOLMIUM LASER ( HOLEP ) AND CYSTOLITHOLAPAXY [42078 (CPT )] 12/13/2025 10:15 AM EST Office Visit [facility] [address] [place] [address] Gema Thompson MD [address] [facility] [address] [place] [address] 12/27/2025 2:40 PM EST Office Visit [facility] [place] [address] [place] [address] Kevin Castañeda MD [address] [place] [address] 01/05/2026 10:00 AM EST Office Visit [facility] [address] [place] [address] Orlin Elizabeth MD [address] [facility] [address] [place] [address] Scheduled Procedures Name Priority Associated Diagnoses Date/Ti [...] documented as of this encounter Care Teams Locator Specialist Relationship Specialty Start Date End Date Orlin Elizabeth MD [address] [facility] [address] [place] [address] PCP - General Family Medicine 11/25/22 Josseline Longo PA [address] [place] [address] Physician Assistant City Attorney Neurology 08/16/21 Jess Hawk APRN [address] [place] [address] Nurse Practitioner Cardiology 06/01/24 Rafaela Brantley, PharmD [address] [place] [address] Pharmacist Pharmacy 06/03/24 Jovana Wetzel, PharmD [address] [place] [address] Pharmacist Pharmacy 06/13/24 Skyla Mai PA [address] [place] [address] Physician Assistant City Attorney Urology 03/20/25 documented as of this encounter
--- OUTSIDE RECORDS SUMMARY | 2025-10-02 14:04 | XMS_ITS | Clinical Summary ---
Author Organization [facility] Address [address] [place] [address] Care Team Providers Care Size Stamper Name Role Phone Sherrie Elam MD Primary Care Provider [phone] Allergies No known active allergies Medications lisinopril [...] Active MAGNESIUM PO Take by mouth. Active Alzada-3 Fatty Acids (FISH OIL PO) Take by [...] (06/20/2019): Added automatically from request for surgery [id number] History of hip replacement, total 10/11/2015 Acute [...] this topic Medical Devices Implanted Type Area Mussel Opener Device Identifier Shelf Expiration Date Model / Serial / Lot Hip Liner Neut 36 [id number] - [id number] Implanted:Qty: 1 on 10/23/2014 by Timur Rodriguez MD at [facility] Hips Right: Hip DAY 06/09/2019 [id number] / / [id number] Hip Shell Uni 56 [id number] - [id number] Implanted:Qty: 1 on 10/23/2014 by Timur Rodriguez MD at [facility] Hips Right: Hip DAY 08/09/2024 [id number] / / [id number] Hip Stem Taper 11 [id number] - [id number] Implanted:Qty: 1 on 10/23/2014 by Timur Rodriguez MD at [facility] Hips Right: Hip DAY 08/09/2024 [id number] / / [id number] Hip Fem Head 36 [id number] - [id number] Implanted:Qty: 1 on 10/23/2014 by Timur Rodriguez MD at [facility] Hips Right: Hip DAY 08/09/2023 [id number] / / [id number] Hip Capt High Demand Day - [id number] Implanted:Qty: 1 on 10/23/2014 by Timur Rodriguez MD at [facility] Hips DAY HIPHIGHZIMMER / / Hip Capt Vit E Biomet - [id number] Implanted:Qty: 1 on 07/18/2019 by Timur Rodriguez MD at [facility] Hips [employer] [id number] / / Hip Shell 56 [id number] - [id number] Implanted:Qty: 1 on 07/18/2019 by Timur Rodriguez MD at [facility] Hips Left: Hip [employer] 04/24/2029 [id number] / / [id number] Hip Liner Acet 36 [id number] - [id number] Implanted:Qty: 1 on 07/18/2019 by Timur Rodriguez MD at [facility] Hips Left: Hip [employer] 03/05/2024 [id number] / / [id number] Hip Fem Stem 5 [id number] - [id number] Implanted:Qty: 1 on 07/18/2019 by Timur Rodriguez MD at [facility] Hips Left: Hip DAY 09/08/2023 [id number] / / [id number] Hip Fem Head 36 [id number] - [id number] Implanted:Qty: 1 on 07/18/2019 by Timur Rodriguez MD at [facility] Hips Left: Hip DAY 05/08/2029 [id number] / / [id number] Hip Dome Plug [id number] - [id number] Implanted:Qty: 1 on 10/23/2014 by Timur Rodriguez MD at [facility] OTHER - IMPLANTS - ORTHOPAEDIC Right: Hip DAY 08/09/2024 [id number] / / [id number] Additional Health Concerns Infection Onset Date Last Indicated MRSA Comment:Right hand, date unknown 10/19/2014 10/19/2014 MRSA (+) Screen Comment:07/01/19 07/02/2019 07/02/2019 Insurance ARABELLA Member Subscriber Plan / Payer (Ef fective 2013-Present) Name:Marco A Ness III Relation to Subscriber:Self Name:Marco A Ness III Payer ID:[id number] (NAIC) Type:Indemnity Address: [facility] [id number] [place] [id number] Advance Directives * Full Code (Latest Code Status on File) Date Activated Date Inactivated Comments 10/23/2014 5:44 PM 10/26/2014 7:06 PM Care Teams Size Stamper Relationship Specialty Start Date End Date Sherrie Elam MD [address] [place] [address] PCP - General Internal Medicine 10/23/14
--- OUTSIDE RECORDS SUMMARY | 2025-10-02 14:04 | XMS_ITS | Encounter Summary ---
Author Organization [facility] Address [address] [place] [address] Care Team Providers Care Chandelier Maker Name Role Phone Josseline Longo Unavailable [phone] Orlin Elizabeth MD Primary Care Provider Jess Hawk BED AND BREAKFAST COOK Unavailable [phone] Rafaela Brantley PharmD Unavailable [phone] Jovana Wetzel PharmD Unavailable + Skyla Mai PA Unavailable [phone] Encounter Details Date Type Department Care Team (Latest Contact Info) Description 08/25/2025 Anticoagulation - Warfarin Visit [facility] [place] [address] [facility] [place] [address] Rafaela Brantley, PharmD [address] [place] [address] intermediate (current) use of anticoagulants (Primary Dx); Anticoagulation [...] time in the past 12 m [facility], were you homeless or living in [...] drink first t jorge in the morning (EYE-RESIDENTIAL SERVICE TECHNICIAN) to steady your nerves or [...] file Travel History Travel Start Travel End [place] 09/02/2025 09/02/2025 documented as of this encounter [...] Atrial fibrillation unspecified type (CMS/HCC) (Resolved) [I48.91] manager long term care (current) use of anticoagulants [Z79.01] Anticoagulation Episode Summary INR check location: Outside Lab Preferred lab: EXTERNAL LAB Send INR reminders to: [facility] Comments: [facility] P: [phone] F: [phone] Anticoagulation Care Providers Provider Role Specialty Phone number Israel Membreno MD Referring Cardiology [phone] Jess Hawk APRN Responsible Cardiology [phone] Additional History: New onset Afib s/p DCCV on 03/16 [id number] =Total score 3, Age 65-74 (1), CHF [...] no change Follow Up Check INR at [facility] lab in 4 weeks . Patient Education Notify clinic of any medication changes including missed or extra doses of warfarin prior to next planned INR check so that warfarin dose and/or follow up can be adjusted accordingly. Contact the Anticoagulation Clinic at [phone] with any questions or concerns regarding yourwarfarin. Patient verbalized understanding of above care plan: YES Rafaela Brantley, PharmD, BCACP, CACP [facility] Anticoagulation Clinic [facility] [address] [facility] [address] documented in this encounter Plan of Treatment Upcoming Encounters Date Type Department Care Team (Late st Contact Info) Description 10/27/2025 9:00 AM EST Clinical Support [facility] [address], [address] [place] [address] 11/10/2025 7:45 AM EST Hospital Encounter PAV A OPERATING ROOM [address] [place] [address] Gema Thompson MD [address] [address] 11/10/2025 7:45 AM EST - 11/10/2025 11:10 AM EST Surgery PAV A OPERATING ROOM [address] [place] [address] Gema Thompson MD [address] [address] ENUCLEATION, PROSTATE, TRANSURETHRAL, USING HOLMIUM LASER ( HOLEP ) AND CYSTOLITHOLAPAXY [92103 (CPT )] 12/13/2025 10:15 AM EST Office Visit [facility] Urology [address], [address] [place] [address] Gema Thompson MD [address] [place] [address] 12/27/2025 2:40 PM EST Office Visit [facility] [place] [address] [place] [address] Kevin Castañeda MD [address] [place] [address] 01/05/2026 10:00 AM EST Office Visit [facility] [address] [place] [address] Orlin Elizabeth MD [address] [facility] [address] [place] [address] Scheduled Procedures Name Priority Associated [...] Benign prostatic hyperplasia with nocturia- Primary intermediate (current) use of anticoagulants- Primary Long-term (current) use of anticoagulants Anticoagulation management encounter Encounter for therapeutic drug monitoring Benign prostatic hyperplasia with nocturia documented in this encounter Additional Health Concerns Active Problems Noted Date Diagnosed Date Autogenerated Problem 08/03/2025 Infection Onset Date Last Indicated Resolved Time MRSA Comment: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 Source: [facility]. 10/19/2014 MRSA Escalation Plan Comment:MRSA Escalation [...] documented as of this encounter Care Teams Chandelier Maker Relationship Specialty Start Date End Date Orlin Elizabeth MD [address] [facility] [address] [place] [address] PCP - General Family Medicine 11/25/22 Josseline Longo PA [address] [place] [address] Physician Tankroom Tender Neurology 08/16/21 Jess Hawk APRN [address] [place] [address] Nurse Practitioner Cardiology 06/01/24 Rafaela Brantley, PharmD [address] [place] [address] Pharmacist Pharmacy 06/03/24 Jovana Wetzel, PharmD [address] [place] [address] Pharmacist Pharmacy 06/13/24 Skyla Mai PA [address] [place] [address] Physician Tankroom Tender Urology 03/20/25 documented as of this encounter
--- OUTSIDE RECORDS SUMMARY | 2025-10-02 14:04 | XMS_ITS | Encounter Summary ---
Author Organization [facility] Address [address] [place] [id number] Care Team Providers Care Zone Manager Name Role Phone Josseline Longo Unavailable [phone] Orlin Elizabeth MD Primary Care Provider Jess Hawk CHEMICAL TECHNICIAN Unavailable [phone] Rafaela Brantley PharmD Unavailable [phone] Jovana Wetzel PharmD Unavailable + Skyla Mai PA Unavailable [phone] Encounter Details Date Type Department Care Team (Latest Contact Info) Description 09/29/2025 Travel Social History Tobacco Use Types Packs/Day [...] any time in the past 12 m [facility], were you homeless or living [...] drink first t jorge in the morning (EYE-POWER BENDER OPERATOR) to steady your nerves or to [...] Travel History Travel Start Travel End [place] 09/02/2025 09/02/2025 documented as of this encounter Functional Status * Calculated C-SSRS Risk Score (Lifetime/Recent) Answer Date of Assessment Author No Risk Indicated 09/29/2025 11:29 AM Marina Gonzales RN * Question Answer Date of Assessment Author 1. Wish to be (Past 1 Month) No 09/29/2025 11:29 AM Marina Bautista RN 2. Non-Specific Active Suici jadon Thoughts (Past 1 Month) No 09/29/2025 11:29 AM Regine Bautista RN 6. Suicidal Behavior (Lifetime) No 11:29 AM Marina Bautista RN documented as of this encounter Plan of Treatment Upcoming Encounters Date Type Department Care Team (Late st Contact Info) Description 10/27/2025 9:00 AM EST Clinical Support [facility] [address], [address] [place] [address] 11/10/2025 7:45 AM EST Hospital Encounter PAV A OPERATING ROOM [address] [place] [address] Gema Thompson MD [address] [address] 11/10/2025 7:45 AM EST - 11/10/2025 11:10 AM EST Surgery PAV A OPERATING ROOM [address] [place] [address] Gema Thompson MD [address] [address] ENUCLEATION, PROSTATE, TRANSURETHRAL, USING HOLMIUM LASER ( HOLEP ) AND CYSTOLITHOLAPAXY [13878 (CPT )] 12/13/2025 10:15 AM EST Office Visit [facility] [address], [address] [place] [address] Gema Thompson MD [address] [address] 12/27/2025 2:40 PM EST Office Visit [facility] [place] [address] [facility]. [address] [place] [address] Kevin Castañeda MD [address] [place] [address] 01/05/2026 10:00 AM EST Office Visit [facility] [address] [place] [address] [place] [address] [place] [address] [address] [place] [address] Scheduled Procedures Name Priority Associated [...] documented as of this encounter Care Teams Zone Manager Relationship Specialty Start Date End Date Orlin Elizabeth MD [address] [facility] [address] [place] [address] PCP - General Family Medicine 11/25/22 Josseline Longo PA [address] [facility] [address] [place] [address] Neurology 08/16/21 Jess Hawk APRN [address] [place] [address] Nurse Practitioner Cardiology 06/01/24 Rafaela Brantley, PharmD [address] [place] [address] Pharmacist Pharmacy 06/03/24 Jovana Wetzel, PharmD [address] [place] [address] Pharmacist Pharmacy 06/13/24 Skyla Mai PA [address] [facility] [address] [place] [address] Urology 03/20/25 documented as of this encounter
--- OUTSIDE RECORDS SUMMARY | 2025-10-02 14:04 | XMS_ITS | Encounter Summary ---
Author Organization [facility] Address [address] [place] [id number] Care Team Providers Care Chips Screen Tender Name Role Phone Josseline Longo Unavailable [phone] Orlin Elizabeth MD Primary Care Provider Jess Hawk CELL CHANGER Unavailable [phone] Rafaela Brantley PharmD Unavailable [phone] Jovana Wetzel PharmD Unavailable + Skyla Mai PA Unavailable [phone] Encounter Details Date Type Department Care [...] any time in the past 12 m [facility], were you homeless or [...] drink first t jorge in the morning (EYE-CORPORATE ASSOCIATE) to steady your nerves or to get [...] file Travel History Travel Start Travel End [place] 09/02/2025 09/02/2025 documented as of this encounter Plan of Treatment Upcoming Encounters Date Type Department Care Team (Late st Contact Info) Description 10/27/2025 9:00 AM EST Clinical Support [place] [facility] [address], [address] [place] [address] 11/10/2025 7:45 AM EST Hospital Encounter PAV A OPERATING ROOM [address] [place] [address] Gema Thompson MD [address] [facility] [address] [place] [address] 11/10/2025 7:45 AM EST - 11/10/2025 11:10 AM EST Surgery PAV A OPERATING ROOM [address] [place] [address] Gema Thompson MD [address] [place] [address] ENUCLEATION, PROSTATE, TRANSURETHRAL, USING HOLMIUM LASER ( HOLEP ) AND CYSTOLITHOLAPAXY [10239 (CPT )] 12/13/2025 10:15 AM EST Office Visit [facility] [address], [address] [place] [address] Gema Thompson MD [address] [place] [address] 12/27/2025 2:40 PM EST Office Visit [facility] [place] [address] [place] [address] Kevin Castañeda MD [address] [place] [address] 01/05/2026 10:00 AM EST Office Visit [facility] [address] [place] [address] Orlin Elizabeth MD [address] [facility] [address] [place] [address] Scheduled Procedures Name Priority Associated Diagnoses Date/Ti [...] documented as of this encounter Care Teams Chips Screen Tender Relationship Specialty Start Date End Date Orlin Elizabeth MD [address] [facility] [address] [place] [address] PCP - General Family Medicine 11/25/22 Josseline Longo PA [address] [place] [address] Physician Sand Control Worker Neurology 08/16/21 Jess Hawk APRN [address] [place] [address] Nurse Practitioner Cardiology 06/01/24 Rafaela Brantley, PharmD [address] [place] [phone] Pharmacist Pharmacy 06/03/24 Jovana Wetzel, PharmD [address] [place] [address] Pharmacist Pharmacy 06/13/24 Skyla Mai PA [address] [place] [address] Physician Sand Control Worker Urology 03/20/25 documented as of this encounter
[2025-10-02 15:02] LABS: INR 2.50 (0.9-1.1); Prothrombin Time 25.9 seconds (10.1-12.5)
== END 2025-10-02 23:59 | disposition home or self-care (01) ==
LOC: LAB 13:49
PROVIDERS: PCP Family Medicine Sports Medicine; Visit Provider Family Medicine Sports Medicine
DX: Z79.01 Long term (current) use of anticoagulants (principal)
CPT/HCPCS: 36415; 85610

== ENCOUNTER 2025-10-20 11:18 | Outpatient (CLI) | payer BC, SELFPAY ==
[2025-10-20 11:42] LABS: INR 3.14 (0.9-1.1); Prothrombin Time 32.0 seconds (10.1-12.5)
== END 2025-10-20 23:59 | disposition home or self-care (01) ==
LOC: LAB 11:18
PROVIDERS: PCP Family Medicine Sports Medicine; Visit Provider Family Medicine Sports Medicine
DX: Z79.01 Long term (current) use of anticoagulants (principal)
CPT/HCPCS: 36415; 85610